=== PATIENT | female | born 1945 | race Caucasian/White ===

== ENCOUNTER → 2018-09-15 | Outpatient (CLI) | payer MEDICARE, OTHER | LOC: M WHC 14:21 | DX: M85.879 Other specified disorders of bone density and structure, unspecified ankle and foot (principal); M85.851 Other specified disorders of bone density and structure, right thigh; M85.852 Other specified disorders of bone density and structure, left thigh; M85.88 Other specified disorders of bone density and structure, other site | CPT/HCPCS: 77080 ==

== ENCOUNTER 2019-04-29 21:20 | Emergency (ER) | payer MEDICARE, OTHER ==
[~2019-04-29] VITALS: Ht 170.2 cm; Wt 81.8 kg
[~2019-04-29 21:20] MED LIST: ACET65TA OR; ADVA1AER2 INH; AMLO2.5T OR; ASPI81TA83 OR; BENA40TA2 OR; CARD240T3 OR; COZA100T OR; DRISDOL PO; FENOFIBRATE PO; FISH1000 OR; GLIP5TAB2 PO; GLUC500T OR; OYST500T58 OR; PRED10TA2 OR; PRED20TA OR; SIMV10TA2 OR; VIBR100C OR; VITAMIN D 3 PO
[2019-04-29 22:19] LABS: BASO # 0.1 10^3/uL (0.0-0.2); BASO % 0.6 % (0.0-1.0); EOS # 0.7 10^3/uL (0.0-0.50); EOS % 7.7 % (0.0-3.0); HEMATOCRIT 41.3 % (36.0-47.0); HEMOGLOBIN 13.7 g/dl (12.0-15.5); LYMPH # 3.1 10^3/uL (1.5-4.5); LYMPH % 35.5 % (24.0-44.0); MEAN CORPUSCULAR HEMOGLOBIN 29.2 pg (27.0-33.0); MEAN CORPUSCULAR HGB CONC 33.2 g/dl (32.0-36.5); MEAN CORPUSCULAR VOLUME 88.1 fl (80.0-96.0); MONO # 0.7 10^3/uL (0.0-0.8); MONO % 7.7 % (0.0-5.0); NEUTROPHILS # 4.2 10^3/uL (1.8-7.7); NEUTROPHILS % 48.3 % (36.0-66.0); PLATELET COUNT, AUTOMATED 355 10^3/uL (150-450); RED BLOOD COUNT 4.69 10^6/uL (4.00-5.40); WHITE BLOOD COUNT 8.7 10^3/uL (4.0-10.0)
[2019-04-29 22:26] LABS: INR 0.94; PROTHROMBIN TIME 12.3 SECONDS (11.8-14.0)
[2019-04-29 22:27] LABS: PARTIAL THROMBOPLASTIN TIME 38.3 SECONDS (25.0-38.4)
[2019-04-29 22:39] VITALS: BP 107/52
[2019-04-29 22:52] LABS: BLOOD UREA NITROGEN 19 MG/DL (7-18); CALCIUM LEVEL 9.1 MG/DL (8.8-10.2); CARBON DIOXIDE LEVEL 24 MEQ/L (21-32); CHLORIDE LEVEL 106 MEQ/L (98-107); CK-MB VALUE MASS 1.2 NG/ML (<3.6); CPK CREATINE PHOSPHOKINASE 69 U/L (26-192); CREATININE FOR GFR 0.94 MG/DL (0.55-1.30); FREE T4 0.87 NG/DL (0.76-1.46); GLOMERULAR FILTRATION RATE > 60.0 (>39); GLUCOSE, FASTING 162 MG/DL (70-100); MB/CK RELATIVE INDEX 1.74 (< OR =4); POTASSIUM SERUM 3.5 MEQ/L (3.5-5.1); SODIUM LEVEL 142 MEQ/L (136-145); TROPONIN I < 0.02 NG/ML (< 0.10)
[2019-04-30] MEDS ORDERED: DIGOXIN 0.25 MG TAB PO ONE (01:30)
[2019-04-30 01:45] VITALS: BP 121/58
[2019-04-30] MEDS ORDERED: DIGO0.12 PO (01:50)
--- NOTE | 2019-04-30 07:39 | REP ---
Clinical: Chest pain. Comparison: 07/13/2014. Findings: Mediastinum and cardiac silhouette are within normal limits and stable. Lung hilliard demonstrate chronic stable interstitial changes. No acute consolidation, effusion, or pneumothorax. Skeletal structures intact. Impression: Chronic stable changes. No obvious acute cardiopulmonary process. Electronically Signed by Waldo Hyde MD 04/30/2019 07:31 A
--- NOTE | 2019-04-30 10:34 | ECGEPIP ---
[facility] - ED Test Date: 2019-04-29 Pat Name: BENJI RIOS Department: Room: - Gender: Female Air Lift Operator: LAUREN : 1945 Requested By: OMAR Braxton Order Number: [id number] Reading MD: Symone Yan Measurements Intervals [place] Rate: 123 P: [place]: -1 QRS: 25 QRSD: 112 T: 220 QT: 295 QTc: 423 Interpretive Statements ATRIAL FIBRILLATION WITH RAPID VENTRICULAR RESPONSE MODERATE INTRAVENTRICULAR CONDUCTION DELAY ST DEVIATION AND MODERATE T-WAVE ABNORMALITY, CONSIDER No prior ISCHEMIA Electronically Signed on 04-30-2019 10:33:45 EDT by Symone Yan
--- NOTE | 2019-04-30 10:34 | ECGEPIP ---
[facility] - ED Test Date: 2019-04-29 Pat Name: BENJI RIOS Department: Room: - Gender: Female Banquet Lead: gage : 1945 Requested By: OMAR Braxton Order Number: [id number] Reading MD: Symone Yan Measurements Intervals [place] Rate: 69 P: 59 [place]: 252 QRS: 15 QRSD: 118 T: 205 QT: 389 QTc: 419 Interpretive Statements SINUS RHYTHM WITH FIRST DEGREE AV BLOCK MODERATE INTRAVENTRICULAR CONDUCTION DELAY ST DEVIATION AND MODERATE T-WAVE ABNORMALITY, CONSIDER LATERAL ISCHEMIA PRIOR ATRIAL FIBRILLATION 04/29/19 21:30 Electronically Signed on 04-30-2019 10:34:13 EDT by Symone Yan
[2019-05-12] MEDS ORDERED: SIMV10TA2 PO (14:05)
[2019-05-12] MEDS ORDERED: ASPI81TA26 PO (14:05)
[2019-05-12] MEDS ORDERED: PROAAER10 INH (14:05)
[2019-05-12] MEDS ORDERED: REFR0.5D8 OU (14:05)
[2019-05-12] MEDS ORDERED: FENO1TAB PO (14:05)
[2019-05-12] MEDS ORDERED: FLAX1CAP5 PO (14:05)
[2019-05-12] MEDS ORDERED: OYST500T10 PO (14:05)
[2019-05-12] MEDS ORDERED: FLON1SPR (14:05)
[2019-05-12] MEDS ORDERED: CALC600C3 PO (14:05)
[2019-05-12] MEDS ORDERED: DRIS50003 PO (14:05)
[2019-05-12] MEDS ORDERED: ADVA230A INH (14:05)
[2019-05-12] MEDS ORDERED: METF500T13 PO ×2 (14:05)
[2019-05-12] MEDS ORDERED: DILT240C61 PO (14:05)
[2019-05-12] MEDS ORDERED: TRIC145T22 PO (14:05)
[2019-05-12] MEDS ORDERED: VENTAER INH (14:05)
[2019-05-12] MEDS ORDERED: FISH1000 PO (14:05)
[2019-05-12] MEDS ORDERED: GLIP10TA PO (14:20)
== END 2019-04-30 01:55 | disposition home or self-care (01) ==
LOC: M ED 21:20
DX: I48.91 Unspecified atrial fibrillation (principal); Z88.0 Allergy status to penicillin

== ENCOUNTER 2019-05-13 12:51 | Day surgery (SDC) | payer MEDICARE, OTHER ==
[2019-05-13] VITALS (8 sets, daily range): BP systolic 127–174; BP diastolic 60–72
[~2019-05-13] VITALS: Ht 167.6 cm; Wt 72.8 kg
[~2019-05-13 12:51] MED LIST changes: +ADVA230A INH; +ASPI81TA26 PO; +CALC600C3 PO; +DIGO0.12 PO; +DILT240C61 PO; +DRIS50003 PO; +FENO1TAB PO; +FISH1000 PO; +FLAX1CAP5 PO; +FLON1SPR; +GLIP10TA PO; +METF500T13 PO; +OYST500T10 PO; +PROAAER10 INH; +REFR0.5D8 OU; +SIMV10TA2 PO; +TRIC145T22 PO; +VENTAER INH
[2019-05-13] MEDS ORDERED: LIDOCAINE 1% SDV INJ 30 ML VIAL As Ordered ONE ×2 (12:57→14:35)
[2019-05-13] MEDS ORDERED: BACITRACIN PWD 50,000 UNITS VIAL As Ordered ONE ×2 (12:58→14:35)
[2019-05-13] MEDS ORDERED: ISOVUE-300 61% 50ML VIAL (Q9967) As Ordered ONE ×2 (12:58→14:35)
[2019-05-13] MEDS ORDERED: ceFAZolin 1GM INJ (J0690 PER 500MG) As Ordered ONE ×2 (13:31→15:07)
[2019-05-13] MEDS ORDERED: AMIODARONE HCL 360 MG/200 ML PREMIXED BAG (NEXTERONE) As Ordered ONE (14:35)
[2019-05-13] MEDS ORDERED: MIDAZOLAM INJ 2 MG/2 ML VIAL (J2250) As Ordered ONE (14:49)
[2019-05-13] MEDS ORDERED: ONDANSETRON 4MG/2ML VIAL (J2405) As Ordered ONE (14:49)
[2019-05-13] MEDS ORDERED: LIDOCAINE 2% INJ 100 MG/5 ML SDV (FOR ANES.) As Ordered ONE (14:49)
[2019-05-13] MEDS ORDERED: fentaNYL 100 MCG/2 ML INJECTION (J3010) As Ordered ONE (14:49)
[2019-05-13] MEDS ORDERED: PROPOFOL 200 MG/20 ML VIAL As Ordered ONE (14:49)
[2019-05-13] MEDS ORDERED: ceFAZolin 2 GM/D5W 50 ML IV BAG (J0690 PER 500MG) IV ONE (15:49)
[2019-05-13] MEDS ORDERED: ACETAMINOPHEN TAB 650MG DOSE (2X325MG) PO PRN (16:15)
[2019-05-13] MEDS ORDERED: ONDANSETRON 4MG/2ML VIAL (J2405) IV PRN (16:30)
[2019-05-13] MEDS ORDERED: ALBUTEROL SULFATE 2.5 MG/0.5 ML INH NEB SOLN INH PRN (16:30)
[2019-05-13] MEDS ORDERED: LR 1,000 ML IV SCH (16:30)
[2019-05-13] MEDS ORDERED: NORCO, ANEXSIA 5/325MG TABLET (HYDROcodone/ACETAMINOPHEN) PO PRN (16:30)
[2019-05-13] MEDS: metFORMIN (GLUCOPHAGE) 1000 MG TABLET PO SCH (18:10)
[2019-05-13] MEDS ORDERED: SIMVASTATIN 5 MG TAB PO SCH (21:00)
[2019-05-13] MEDS: ADVAIR HFA 230/21MCG INHALER INH SCH (21:10)
[2019-05-13] MEDS: ceFAZolin SOD 1 GM in D5W MINI-BAG PLUS 50 ML IV SCH (21:17)
--- NOTE | 2019-05-13 22:26 | ECGEPIP ---
[facility] Test Date: 2019-05-13 Pat Name: BENJI RIOS Department: Room: R2655-25 Gender: Female Technology Support Analyst: VI : 1945 Requested By: Jaime Wilkes Order Number: [id number] Reading MD: Jaime Wilkes Measurements Intervals [place] Rate: 70 P: 235 [place]: 119 QRS: QRSD: 147 T: 190 QT: 454 QTc: 491 Interpretive Statements Dual-chamber pacemaker Sinus alternating with atrially paced rhythm Fairly consistent ventricular pacing Paced QRS complexes with normal axis and Left bundle branch block configuration in keeping with RV outflow tract stimulation. Isolated PVCs. Pacing is new from 04/29/19. Electronically Signed on 05-13-2019 22:25:53 EDT by Jaime Wilkes
[2019-05-14 04:00] VITALS: BP 139/59
[2019-05-14] MEDS: ceFAZolin SOD 1 GM in D5W MINI-BAG PLUS 50 ML IV SCH ×2 (05:36→14:46)
--- NOTE | 2019-05-14 06:54 | RO ---
DATE OF PROCEDURE: 05/13/2019 PREOPERATIVE DIAGNOSES: 1. Tachy-seble syndrome. 2. Paroxysmal supraventricular tachycardia requiring negative chronotropic therapy. 3. Hypertensive heart disease. POSTOPERATIVE DIAGNOSES: 1. Tachy-seble syndrome. 2. Paroxysmal supraventricular tachycardia requiring negative chronotropic therapy. 3. Hypertensive heart disease. PROCEDURE: Implantation of permanent dual-chamber pacemaker IMPLANTING PC TECHNICIAN: Dr. Jaime Wilkes ANESTHESIOLOGIST: Dr. Sesay TYPE OF ANESTHESIA: Monitored local anesthesia. CLINICAL SUMMARY: This 74-year-old mother of four grown children, retired resident of [place], [place] is well-known to my cardiology practice having a history of hypertensive heart disease complicated by abnormal EKG paroxysmal supraventricular tachycardia (PSVT)/paroxysmal atrial fibrillation and abnormal EKG. A Holter monitor study was performed recently and showed paroxysmal atrial fibrillation with rapid ventricular response alternating with sinus arrest and junctional escape rhythms and intermittent asystolic pauses of greater than 3 seconds. In light of her need for dual negative chronotropic therapy to control her atrial tachyarrhythmias, implantation of permanent dual-chamber pacemaker was recommended. On a day-by-day basis, she has not been aware of any chest pain or shortness of breath, fatigue is her usual effort limiting symptom, denies actual lightheadedness or collapse. To date, no history of systemic thromboembolic event. Pleasant elderly woman of medium body build laying comfortably flat. Heart rate 64 bpm and regular, blood pressure 134/60. No pallor or cyanosis. Normal oral moisture. Trachea midline. Neck veins 3 cm above the sternal angle. Normal-appearing chest configuration and expansion with good air entry over both lung hilliard. No abnormal pulmonary adventitious sounds. Apical impulse at the midclavicular line fifth costal space. S1 normal, S2 is normal, S4 but no S3 gallop. Has a systolic ejection murmur over the right base. Normal carotid upstrokes and volume with no bruits. Her abdomen was soft. No dependent edema. Peripheral pulses were normal. EKG: This showed a sinus rhythm without AV block, but diffuse ST/T-wave abnormalities. Treadmill heart scan January 2011 showed fair exercise tolerance for age with no chest pain or EKG change. Normal LV wall motion. Ejection fraction 64% with chest wall and diaphragmatic attenuation artifacts, but no reversible defect. Echocardiogram August 14 showed borderline left ventricular hypertrophy with normal wall motion. Mildly dilated left atrium with LV diastolic dysfunction. Normal right heart chamber sizes and mild pulmonary hypertension. AV sclerosis with mild insufficiency. Mild mitral annular calcification with very mild insufficiency. Event monitor March 22, 2019 to May 06, 2019 - 14 days showed underlying sinus rhythm with first-degree AV block, occasional premature atrial contractions (PACs), atrial couplet and nonsustained runs of atrial fibrillation with controlled and intermittent rapid ventricular responses with heart rate range observed from 21 beats per minute to 188 beats per minute with her tachycardia, recurrent pauses as mentioned with junctional escape rhythms as slow as 21 beats per minute with longest pause at 3.2 seconds. Symptoms of flutter correlated with her atrial fibrillation. DESCRIPTION OF PROCEDURE: In the fasting state having received Ancef 2 grams IV premedication and having signed informed consent, the patient was taken to the operating theater. Numerous skin electrodes were applied to facilitate continuous electrocardiographic monitoring. The left subclavian region was prepped and draped in the usual fashion. The skin was infiltrated with 1% Xylocaine and the left axillary vein was catheterized using the micropuncture technique. A 5 cm linear incision was made several centimeters below and parallel to the left clavicle. Dissection was carried down the level of the pectoralis fascia and a pocket was fashioned below the level of the incision line. Two bipolar active fixation screw-in leads with steroid tips were then positioned to the right ventricle outflow track and the high right atrial appendage under fluoroscopic and electrocardiographic control. The right ventricular lead ([employer] model number [id number]/52, serial number [id number]) measurements were: Stimulation threshold 0.25 V/0.4 ms/impedance 450 ohms. The R wave amplitude measured 1.04 mV. The atrial lead ([employer] model number UOC2042M/46, serial number [id number]) measurements were: 1.5 V/0.8 ms/impedance 460 ohms. The P wave amplitude measured 1.7 mV. These leads were then connected to a dual-chamber pulse generator ([employer] - Assurity MRI compatible, model number [id number], serial number [id number]) and appropriate DDD pacing was documented. This device was placed in the pocket and secured in position with a suture through the upper right-hand corner of the epoxy header. The subcutaneous tissues were approximated using a running chromic suture and skin was closed using osmin. Dry dressing was applied and the patient was returned to recovery room in good condition. Postoperative EKG showed consistent atrially paced rhythm at 60 bpm with spontaneous AV conduction and narrow QRS complexes. Her portable upright chest x-ray showed good lead position with no pneumothorax. Our plan is to admit her to telemetry overnight and we will plan on obtaining a followup chest x-ray and EKG in the morning along with re-interrogation of her device. We are cautiously optimistic she will be able to be discharged home tomorrow before dinner. She will receive an additional three doses of Ancef 1 gram IV q.8 h. Estimated blood loss less than 50 mL. No apparent complications.
--- NOTE | 2019-05-14 07:04 | REP ---
Portable chest, single AP view with the patient sitting: Comparison is seven 01/14/2019. There has been interval placement of a dual chamber pacemaker with the pacing tips in satisfactory location. There is no pneumothorax. The cardiac apex obscures the left costophrenic angle as previously. The right lung is clear. The kayy, mediastinum, skeletal structures are unremarkable. Impression: No pneumothorax. The left costophrenic angle is obscured by the cardiac apex. Electronically Signed by Chicho Chan MD 05/14/2019 06:55 A
[2019-05-14] MEDS: ADVAIR HFA 230/21MCG INHALER INH SCH (07:47)
[2019-05-14 08:00] VITALS: BP 148/78
[2019-05-14] MEDS ORDERED: metFORMIN (GLUCOPHAGE) 500 MG TAB PO SCH (08:00)
[2019-05-14 08:56] VITALS: BP 180/79
[2019-05-14] MEDS ORDERED: FENOFIBRATE 145 MG TAB (TRICOR) PO SCH (09:00)
[2019-05-14] MEDS ORDERED: DIGOXIN 0.125 MG TAB PO SCH (09:00)
[2019-05-14 12:00] VITALS: BP 150/72
--- NOTE | 2019-05-14 13:47 | REP ---
Chest x-ray: Two views. History: Pacemaker insertion. Comparison study: May 13, 2019. Findings: A bipolar pacemaker is again noted in the right heart via the left side. There is no evidence of pneumothorax or hydrothorax. The heart is not felt to be enlarged. Skin osmin are noted above the power plant in the left chest wall soft tissues. Pulmonary vasculature is not increased. Lung hilliard are well inflated and clear. Pleural angles are sharp. Impression: No acute disease. Pacemaker in place. No complication is identified. Electronically Signed by Gabriel Browne MD 05/14/2019 07:21 P
[2019-05-14 16:00] VITALS: BP 149/68
--- NOTE | 2019-05-14 18:14 | IPN ---
CARDIOLOGY PROGRESS NOTE DATE: 05/14/2019 SUBJECTIVE: Patient has had only minimal incisional discomfort. Has been up out of bed without lightheadedness. No awareness of her heart action at this time. OBJECTIVE: Pleasant, bright, elderly lady currently lying comfortably with the head of bed elevated 30 degrees. Heart rate 61 beats per minute and regular, blood pressure 149/68 supine, respiratory rate 18, oxygen saturation 95%. Afebrile. No pallor or cyanosis. Normal oral moisture. Trachea midline. Good air entry over both lung hilliard. Her incision left subclavian region appears to be healing well. Her dressing was changed. KNOCKER OUT: This is verifying appropriate pacer function. Currently with atrial pacing and spontaneous atrioventricular (AV) conduction. EKG: Tracing this afternoon shows consistent atrially paced rhythm at 60 bpm with spontaneous AV conduction and relatively narrow QRS complexes showing an incomplete left bundle branch block pattern. Diffuse nonspecific repolarization abnormalities unchanged from before. PA LEFT LATERAL CHEST X-RAY: Study performed today was reviewed independently and shows at least borderline cardiomegaly with slightly unfolded thoracic aorta, but normal pulmonary vasculature. Hyperinflated lung hilliard with somewhat flattened diaphragms. No infiltrate or pleural effusion. New pacemaker pulse generator left subclavian region with leads terminating in the high right atrial appendage and distal right ventricular septum. Complete pacemaker interrogation was performed showing excellent intracardiac electrograms and pacing thresholds dramatically improved from postoperatively yesterday. We were able to program on automatic measurement of the atrial pacing threshold (ACap Confirm) and the ventricular autocapture functions. Anticipated battery longevity in excess of 10 years. FINAL DIAGNOSES: 1. Tachy-seble syndrome - now with dual-chamber pacemaker in situ. 2. Paroxysmal atrial fibrillation with rapid ventricular response: Can now safely continue on combination digoxin and diltiazem. 3. AV block - first-degree: Currently has spontaneous AV conduction in light of VIP mode, but should her AV delay lengthen, she will have a paced rhythm with AV delay sense to 150 milliseconds paced 200 milliseconds. 4. Hypertensive heart disease (benign without heart failure): Blood pressure is adequately controlled in light of her age. DISCHARGE MEDICATIONS AND RECOMMENDATIONS: At this point, we feel it is safe for the patient to be discharged home. We have requested that she perform activities of daily living, but only light activities with her left arm until her osmin are removed in my office 05/22/2019 at 9:30 a.m. We have also requested that she keep her incision dry. She has been encouraged to contact us promptly for any abnormal erythema, swelling or discharge. Her diet will resume, no added salt. Medications will continue: - digoxin 125 mcg daily - diltiazem 240 mg daily - simvastatin 10 mg nightly - aspirin 81 mg daily - fenofibrate 145 mg daily - glipizide 2.5 mg daily - metformin 500 mg every morning and 1 gram every evening - Advair 230/21 two inhalation twice a day - albuterol inhaler two puffs every 4 hours as needed dyspnea - Refresh Tears 0.5% each eye four times a day - calcium with vitamin D one tablet daily - fish oil 1 gram daily - vitamin D3 2000 units daily.
[2019-05-14] MEDS: metFORMIN (GLUCOPHAGE) 1000 MG TABLET PO SCH (18:19)
--- NOTE | 2019-05-14 19:20 | ECGEPIP ---
[facility] Test Date: 2019-05-14 Pat Name: BENJI RIOS Department: Room: [place] [address] Gender: Female Plan Examiner: ALISHA : 1945 Requested By: Jaime Wilkes Order Number: [id number] Reading MD: Jaime Wilkes Measurements Intervals [place] Rate: 66 P: 30 [place]: 232 QRS: 36 QRSD: 126 T: 207 QT: 423 QTc: 446 Interpretive Statements Consistent atrially paced rhythm with spontaneous AV conduction with first-degree AV block. incomplete Left bundle branch block configuration with diffuse ST/T-wave abnormalities Reduced ventricular pacing from 05/13/19. [place] complexes appearing similar to 04/29/19 at 2355 hrs. Electronically Signed on 05-14-2019 19:20:34 EDT by Jaime Wilkes
[2019-06-24] MEDS ORDERED: METF-791 PO ×2 (10:29)
== END 2019-05-14 18:45 | disposition home or self-care (01) ==
LOC: M SDC 12:51 → M PCU 16:06 → M SDC 05-14 18:45
PROVIDERS: ATTEND Internal Medicine Cardiovascular Disease
DX: I49.5 Sick sinus syndrome (principal); I47.1 Supraventricular tachycardia; I11.9 Hypertensive heart disease without heart failure; I48.91 Unspecified atrial fibrillation; E11.9 Type 2 diabetes mellitus without complications; J44.9 Chronic obstructive pulmonary disease, unspecified; Z79.84 Long term (current) use of oral hypoglycemic drugs; Z79.82 Long term (current) use of aspirin; Z79.899 Other long term (current) drug therapy; M81.0 Age-related osteoporosis without current pathological fracture
CPT/HCPCS: 33208; 71045; 71046; 93005; 94640; 96365; 96366; C1785; C1898; J0690; J2250; J2405; J3010

== ENCOUNTER 2019-06-15 17:40 | Emergency (ER) | payer MEDICARE, OTHER ==
[~2019-06-15] VITALS: Ht 170.2 cm; Wt 72.2 kg
[2019-06-15 18:46] LABS: BASO # 0.1 10^3/uL (0.0-0.2); BASO % 0.9 % (0.0-1.0); EOS # 0.9 10^3/uL (0.0-0.50); EOS % 9.8 % (0.0-3.0); HEMATOCRIT 42.7 % (36.0-47.0); HEMOGLOBIN 14.1 g/dl (12.0-15.5); LYMPH # 3.6 10^3/uL (1.5-4.5); LYMPH % 40.6 % (24.0-44.0); MEAN CORPUSCULAR HEMOGLOBIN 29.1 pg (27.0-33.0); MONO # 0.7 10^3/uL (0.0-0.8); NEUTROPHILS # 3.6 10^3/uL (1.8-7.7); NEUTROPHILS % 40.5 % (36.0-66.0); PLATELET COUNT, AUTOMATED 323 10^3/uL (150-450); RED BLOOD COUNT 4.85 10^6/uL (4.00-5.40); WHITE BLOOD COUNT 8.8 10^3/uL (4.0-10.0)
[2019-06-15] MEDS ORDERED: NITROGLYCERIN 0.4 MG SUBL TABLET SL PRN (19:00)
[2019-06-15] MEDS ORDERED: ASPIRIN 81 MG CHEW TABLET PO ONE (19:00)
[2019-06-15 19:08] VITALS: BP 125/61
[2019-06-15 19:11] LABS: INR 0.98; PROTHROMBIN TIME 12.7 SECONDS (11.8-14.0)
[2019-06-15 19:12] LABS: PARTIAL THROMBOPLASTIN TIME 37.6 SECONDS (25.0-38.4)
[2019-06-15 19:31] LABS: ALBUMIN 3.9 GM/DL (3.2-5.2); ALT/SGPT 20 U/L (12-78); BILIRUBIN,DIRECT 0.1 MG/DL (0.0-0.2); BILIRUBIN,TOTAL 0.3 MG/DL (0.2-1.0); BLOOD UREA NITROGEN 15 MG/DL (7-18); CALCIUM LEVEL 9.2 MG/DL (8.8-10.2); CARBON DIOXIDE LEVEL 24 MEQ/L (21-32); CHLORIDE LEVEL 105 MEQ/L (98-107); CK-MB VALUE MASS 3.1 NG/ML (<3.6); CPK CREATINE PHOSPHOKINASE 93 U/L (26-192); CREATININE FOR GFR 0.77 MG/DL (0.55-1.30); GLOMERULAR FILTRATION RATE > 60.0 (>39); GLUCOSE, FASTING 112 MG/DL (70-100); LIPASE 208 U/L (73-393); MB/CK RELATIVE INDEX 3.33 (< OR =4); PHOSPHORUS LEVEL 3.7 MG/DL (2.5-4.9); POTASSIUM SERUM 3.8 MEQ/L (3.5-5.1); SODIUM LEVEL 139 MEQ/L (136-145); TOTAL PROTEIN 7.7 GM/DL (6.4-8.2)
[2019-06-15 21:22] LABS: CK-MB VALUE MASS 7.1 NG/ML (<3.6); MB/CK RELATIVE INDEX 7.03 (< OR =4); TROPONIN I 2.38 NG/ML (< 0.10)
[2019-06-15] MEDS ORDERED: HEPARIN DRIP 25,000 UNITS in APPROPRIATE DILUENT 1 EA IV SCH (21:41)
[2019-06-15] MEDS ORDERED: HEPARIN SOD (PORCINE) 5000 UNITS/ML VIAL IV ONE (21:45)
[2019-06-15 22:26] VITALS: BP 122/65
--- NOTE | 2019-06-16 10:32 | ECGEPIP ---
[facility] - ED Test Date: 2019-06-15 Pat Name: BENJI RIOS Department: Room: - Gender: Female Job Placement Officer: : 1945 Requested By: ELIOT Olivares Order Number: [id number] Reading MD: Symone Yan Measurements Intervals [place] Rate: 88 P: 76 [place]: 244 QRS: 23 QRSD: 118 T: 119 QT: 354 QTc: 428 Interpretive Statements SINUS RHYTHM WITH FIRST DEGREE AV BLOCK WITH FREQUENT VENTRICULAR PREMATURE COMP COMPLEXES LOW QRS VOLTAGE IN PRECORDIAL LEADS MODERATE INTRAVENTRICULAR CONDUCTION DELAY NONSPECIFIC ST & T-WAVE ABNORMALITY Electronically Signed on 06-16-2019 10:32:28 EDT by Symone Yan
--- NOTE | 2019-06-16 10:32 | ECGEPIP ---
[facility] - ED Test Date: 2019-06-15 Pat Name: BENJI RIOS Department: Room: - Gender: Female Ditcher Operator: : 1945 Requested By: ELIOT Olivares Order Number: [id number] Reading MD: Symone Yan Measurements Intervals [place] Rate: 120 P: ID: 0 QRS: 64 QRSD: 110 T: 180 QT: 293 QTc: 414 Interpretive Statements ATRIAL FIBRILLATION WITH RAPID VENTRICULAR RESPONSE WITH ABERRANT CONDUCTION OR ENZO VENTRICULAR PREMATURE COMPLEXES LOW QRS VOLTAGE IN PRECORDIAL LEADS NONSPECIFIC ST & T-WAVE ABNORMALITY IVCD Electronically Signed on 06-16-2019 10:31:56 EDT by Symone Yan
--- NOTE | 2019-06-16 10:54 | REP ---
PORTABLE CHEST X-RAY: SINGLE VIEW. HISTORY: Chest pain. COMPARISON CHEST X-RAY: May 14, 2019 FINDINGS: EKG monitoring electrodes overlie the chest. Bipolar pacemaker is seen in the right heart via the left side as before. Heart size is mildly enlarged unchanged. Pulmonary vasculature is not increased. The pleural angles are sharp. Lung hilliard are clear. Pulmonary vasculature is not increased. IMPRESSION: Bipolar pacemaker in place. Mild cardiomegaly. Otherwise no acute disease. Electronically Signed by Gabriel Browne MD 06/16/2019 07:11 P
[2019-06-24] MEDS ORDERED: METF-791 PO ×2 (10:29)
== END 2019-06-15 22:28 | disposition short-term general hospital (02) ==
LOC: M ED 17:40
DX: I21.4 Non-ST elevation (NSTEMI) myocardial infarction (principal); I48.91 Unspecified atrial fibrillation; J44.9 Chronic obstructive pulmonary disease, unspecified; J45.909 Unspecified asthma, uncomplicated; E11.9 Type 2 diabetes mellitus without complications; I10 Essential (primary) hypertension; E78.5 Hyperlipidemia, unspecified; Z95.0 Presence of cardiac pacemaker; Z79.899 Other long term (current) drug therapy; Z79.84 Long term (current) use of oral hypoglycemic drugs; Z79.01 Long term (current) use of anticoagulants; Z88.0 Allergy status to penicillin; Z88.8 Allergy status to other drugs, medicaments and biological substances

== ENCOUNTER 2019-06-24 08:18 | Inpatient (IN) | payer MEDICARE, OTHER ==
[2019-06-24] VITALS (9 sets, daily range): BP systolic 119–140; BP diastolic 58–71
[~2019-06-24] VITALS: Ht 170.2 cm; Wt 74.3 kg
[2019-06-24] MEDS ORDERED: LR 1,000 ML IV SCH ×2 (08:45→15:30)
[2019-06-24] MEDS: DIGOXIN 0.125 MG TAB PO SCH (09:00)
[2019-06-24 10:24] LABS: HEMATOCRIT 33.8 % (36.0-47.0); HEMOGLOBIN 10.9 g/dl (12.0-15.5); MEAN CORPUSCULAR HEMOGLOBIN 27.9 pg (27.0-33.0); MEAN CORPUSCULAR HGB CONC 32.2 g/dl (32.0-36.5); MEAN CORPUSCULAR VOLUME 86.7 fl (80.0-96.0); PLATELET COUNT, AUTOMATED 388 10^3/uL (150-450); WHITE BLOOD COUNT 6.7 10^3/uL (4.0-10.0)
[2019-06-24] MEDS ORDERED: DIGO0.12 PO (10:29)
[2019-06-24] MEDS ORDERED: VITA200020 PO (10:29)
[2019-06-24] MEDS ORDERED: CARV3.12 PO (10:29)
[2019-06-24] MEDS ORDERED: ELIQ5TAB PO (10:29)
[2019-06-24] MEDS ORDERED: METF500T4 PO ×2 (10:29)
--- NOTE | 2019-06-24 10:32 | HPE ---
ADMISSION HISTORY AND PHYSICAL DATE OF ADMISSION: 06/24/2019 ADMITTING PHYSICIAN: Dr. Jaime Wilkes INDICATION: Pacemaker displacement/tachy-seble syndrome - paroxysmal atrial fibrillation/heart failure (systolic and diastolic/acute). HISTORY: This 74-year-old mother of five (one ), resident of [place], [place], is well known to my cardiology practice with hypertensive heart disease complicated by abnormal EKG, paroxysmal supraventricular tachycardia/paroxysmal atrial fibrillation with rapid ventricular response/sinus node dysfunction undergoing dual chamber pacemaker implantation 05/13/2019. At the time of the implant, we obtained excellent intracardiac electrograms and pacing thresholds with postoperative EKG and telemetry showing appropriate atrial paced rhythm with spontaneous AV conduction. Chest x-rays showed stable lead position with no pneumothorax. She was discharged home 05/14/2019 with scheduled followup in our office for staple removal 05/22/2019. On 06/16/2019, she presented to [facility] emergency room with prolonged bout of chest pain and was found to have nonspecific EKG ST/T-wave changes with elevated troponin I. She was transferred to [facility] for cardiac catheterization. This was performed upon her transfer and showed global left ventricular hypokinesis with estimated LVEF of 20%, LVEDP 22 mmHg, but no evidence of coronary artery disease. 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 She was discharged the next day having hotel casino floorperson show sinus rhythm/atrial fibrillation/paced beats. Discharge vital signs showed a pulse of 108 BPM, blood pressure 100/59, respiratory rate 18, O2 saturation 95%, body mass index (BMI) 25.5, weight 157 pounds. Blood work showed a hemoglobin of 11.4, normal white blood cell count and platelet count. Troponin I level reached a maximum of 2.47. Pro-BNP level measured 4860. PT/INR was normal. Creatinine was 0.65. She was discharged on digoxin 0.125 mg daily, carvedilol 3.125 mg twice a day, Eliquis 5 mg twice a day, fenofibrate 145 mg daily, insulin sliding scale with meals three times a day, simvastatin 5 mg at bedtime, mometasone-formoterol inhaler 2 puffs twice a day, senna/docusate 2 tablets nightly. Just prior to her discharge, she was evaluated by the [employer] pacer insurance follow up representative who recommended a chest x-ray be taken. This documented atrial pacing lead displacement. Curiously, our service was not notified of this problem. I incidentally spoke with the insurance follow up representative yesterday evening and was informed of this problem and arranged for her current admission. At this point, she feels weak and dyspneic with minimal effort, but no orthopnea. No further chest pain. Remains unaware of her heart action. Has not fallen. No systemic thromboembolic event. OTHER KNOWN PAST CARDIAC DISEASE/EVENTS/TESTS: 07/28/2018 - Echocardiogram: Showed borderline concentric left ventricle hypertrophy with normal wall motion, left ventricle ejection fraction (LVEF) 65%. Moderately dilated left atrium with impairment of LV diastolic function and estimated mean left atrial pressure 14.9 mmHg. Normal right heart chamber sizes and motion with mild pulmonary hypertension. Normal inferior vena cava (IVC) size and collapse against an elevated central venous pressure. Mild aortic valvular sclerosis with mild insufficiency. Mild degenerative changes of her mitral valvular apparatus with very mild insufficiency. No pericardial effusion. Echocardiogram performed 06/17/2019 at [facility], briefly reported, shows a somewhat better global left ventricular systolic function and she was not discharged on LifeVest given her situation, no mention of pericardial effusion. CORONARY RISK FACTORS: Advanced age. Chronic hypertension. Hypercholesterolemia. Insulin-dependent diabetes mellitus. Family history of premature coronary heart disease. Lifelong nonsmoker with no obesity or history of symptomatic carotid vascular disease. OTHER PAST MEDICAL AND SURGICAL HISTORY: Prior weight problem. Asthmatic bronchitis. Thyroid goiter on hormone replacement therapy. Pituitary adenoma removed 2000. Bilateral cataract extraction. Cholecystectomy. Total abdominal hysterectomy. Prior kidney stones. Prior polypectomy. Removal of carcinoid tumor 2007. Diverticulosis. REVIEW OF SYSTEMS: Denies any recent fever, chills or weight loss. Wears corrective lenses. No hearing problems. Denies any cough, hemoptysis or sputum production. Fair appetite with no abdominal pain, change in bowel habit or GI bleeding. Nocturia times one is chronic. No dysuria or hematuria. No apparent arthralgia, myalgia, skin rashes, lumps or bumps. No lateralizing neurological deficits. Denies any anxiety or depression, but does suffer from fatigue. Some hair loss. Unaware of her mild anemia. Has a history of environmental allergies/seasonal allergies. MEDICATIONS: - digoxin 0.25 mg by mouth daily - carvedilol 3.125 mg twice a day - simvastatin 5 mg at bedtime - Tricor 145 mg daily - Advair Diskus 230-21 two puffs twice a day - Ventolin inhaler two puffs four times a day as needed - metformin 500 mg tablets one every a.m. and two every p.m. - Eliquis 5 mg twice a day - calcium/vitamin D one tablet twice a day ALLERGIES: - AMOXICILLIN (itching) - BENAZEPRIL (angioedema) - LOSARTAN (angioedema) PHYSICAL EXAMINATION: Heart rate 64 BPM and regular, blood pressure 134/60, respiratory rate 16, O2 saturation pending, body mass index (BMI) 25.3. Pleasant elderly woman of medium body build lying comfortably flat. Eyes: Normal conjunctivae and lids. No xanthelasma. ENT/Mouth: Normal oral moisture. No central cyanosis or pallor. Neck: Trachea midline. Neck veins 3 cm above the sternal angle. Slight thyroid enlargement. Respiratory: Normal chest configuration and chest expansion with good air entry over both lung hilliard. No current abnormal pulmonary adventitious sounds. Cardiovascular: Well-healed left subclavian pacemaker incision. Apical impulse midclavicular line fifth intercostal space. S1 and S2 were normal. Unable to detect S2 splitting. S4 but no S3 gallop. Systolic ejection murmur over the right base. No diastolic murmur or rub. Normal carotid upstrokes and volume with no bruits. Upper extremity and lower extremity peripheral pulses were symmetrical and normal. Abdominal aorta was palpable, but not aneurysmal. No bruits. No dependent edema. Extremities: No clubbing, peripheral cyanosis or splinter hemorrhages. GI: Soft, nontender abdomen with no hepatosplenomegaly. Normal bowel sounds. Rectal examination not indicated. Musculoskeletal: No obvious joint deformities. Some proximal muscle weakness, but normal tone. Neuro/Psych: Bright, alert and oriented. Gave a fair history. Eye, facial and extremity movements were symmetrical and normal. No abnormal movements. Skin: No obvious rashes, ecchymotic lesions, pallor or icterus. LABORATORY DATA/BLOOD WORK/CHEST X-RAY AND EKG: Are all pending at this time. PROVISIONAL DIAGNOSIS: 1. Pacemaker displacement: Despite previous radiographic evidence of stable lead position for 24 hours while she was in hospital following her pacer implant 05/13/2019, in the interim, she has developed an atrial lead displacement and this may have accounted for chest discomfort on 06/16/2019. The patient will be kept nothing by mouth (n.p.o.) and our plan is to proceed with atrial lead repositioning under monitored local anesthesia as soon as possible. The indication, procedure and risks were discussed with the patient and her who appeared to understand and agree. 2. 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 She will continue on a modest salt and fluid intake restriction along with digoxin and low-dose carvedilol. Unfortunately, she is not a candidate for JOEL inhibition, angiotensin receptor micheal, or ENTRESTO because of her angioedema history. We will consider introducing combination isosorbide dinitrate and hydralazine. We hope to refrain from the introduction of diuretic at this point. Based on her last echocardiogram at [facility] on 06/17/2019, her ejection fraction was at least 35% or better so she was not discharged with a LifeVest. We will track down the official echocardiographic report for our records. 3. Tachy-seble syndrome/paroxysmal atrial fibrillation/paroxysmal supraventricular tachycardia: As previously mentioned, has had history of atrial tachyarrhythmias with fairly rapid ventricular responses and only recently has shown signs of significant sinus node dysfunction warranting permanent pacemaker implant so that adequate negative chronotropic therapy could be administered. We suspect her atrial tachyarrhythmia is responsible for her left ventricular dysfunction as mentioned above. Her medications recently have been digoxin, carvedilol and Eliquis. These are currently on hold until following her atrial lead repositioning. 4. Hypertensive heart disease (benign with heart failure): As mentioned, longstanding history with definite documentation of at least borderline left ventricle hypertrophy and left ventricular diastolic dysfunction, not needing diuretic therapy to this point. Previous blood pressures had been controlled. Significant deterioration in global left ventricular systolic function recently noted at the time of cardiac catheterization suspected to be kept tachycardia mediated cardiomyopathy and we are cautiously optimistic this is reversible. Recent renal function has been normal. 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 No comment was made of any change at that time for cardiac catheterization or followup echocardiogram in [place]. I have discussed the above impressions with the patient and her . Further investigations and treatment will depend on her response to these initial measures. JOSH
[2019-06-24 10:37] LABS: ALT/SGPT 13 U/L (12-78); BILIRUBIN,TOTAL 0.3 MG/DL (0.2-1.0); BLOOD UREA NITROGEN 13 MG/DL (7-18); CALCIUM LEVEL 8.6 MG/DL (8.8-10.2); CARBON DIOXIDE LEVEL 28 MEQ/L (21-32); CHLORIDE LEVEL 110 MEQ/L (98-107); CREATININE FOR GFR 0.78 MG/DL (0.55-1.30); GLOMERULAR FILTRATION RATE > 60.0 (>39); GLUCOSE, FASTING 95 MG/DL (70-100); SODIUM LEVEL 143 MEQ/L (136-145); TOTAL PROTEIN 6.2 GM/DL (6.4-8.2)
[2019-06-24 10:40] LABS: INR 1.29; PROTHROMBIN TIME 15.9 SECONDS (11.8-14.0)
--- NOTE | 2019-06-24 11:14 | ECGEPIP ---
[facility] Test Date: 2019-06-24 Pat Name: BENJI RIOS Department: Room: [place] [address] Gender: Female Allergy And Immunology Specialist: CIRILO : 1945 Requested By: Jaime Wilkes Order Number: [id number] Reading MD: Bethany Alston Measurements Intervals [place] Rate: 69 P: 64 [place]: 241 QRS: 70 QRSD: 111 T: 154 QT: 408 QTc: 439 Interpretive Statements SINUS RHYTHM WITH FIRST DEGREE AV BLOCK PRIOR AFIB WITH PVCS POSSIBLE ANTERIORLATERAL MYOCARDIAL INFARCTION,RECENT MODERATE T-WAVE ABNORMALITY, MORE MARKED CONSIDER ANTERIOLATERAL ISCHEMIA NONSPECIFIC INFERIOR ST CHANGE PRIOR WITH DECREASE VOLTAGE PRECORDIAL LEADS NOW WITH DECRFEASED VOLTAGE LIMB LEADS C/W 06/15/19 Electronically Signed on 06-24-2019 11:14:12 EDT by Bethany Alston
[2019-06-24] MEDS ORDERED: LIDOCAINE 1% SDV INJ 30 ML VIAL As Ordered ONE (12:41)
[2019-06-24] MEDS ORDERED: MIDAZOLAM INJ 2 MG/2 ML VIAL (J2250) As Ordered ONE (13:08)
[2019-06-24] MEDS ORDERED: fentaNYL 100 MCG/2 ML INJECTION (J3010) As Ordered ONE (13:08)
[2019-06-24] MEDS ORDERED: PROPOFOL 500 MG/50 ML VIAL As Ordered ONE ×2 (13:08→14:41)
[2019-06-24] MEDS ORDERED: ceFAZolin 2 GM/D5W 50 ML IV BAG (J0690 PER 500MG) As Ordered ONE (13:17)
[2019-06-24] MEDS ORDERED: BACITRACIN PWD 50,000 UNITS VIAL As Ordered ONE (13:17)
[2019-06-24] MEDS ORDERED: ONDANSETRON 4MG/2ML VIAL (J2405) As Ordered ONE (14:53)
[2019-06-24] MEDS ORDERED: CALCIUM CARBONATE 500 MG CHEW U/D PO PRN (15:15)
[2019-06-24] MEDS ORDERED: ALBUTEROL 90 MCG/ACT 8GM HFA INHALER INH PRN (15:15)
[2019-06-24] MEDS ORDERED: fentaNYL 100 MCG/2 ML INJECTION (J3010) IV PRN (15:30)
[2019-06-24] MEDS ORDERED: PERCOCET 5MG/325MG TAB PO PRN (15:30)
[2019-06-24] MEDS ORDERED: ONDANSETRON 4MG/2ML VIAL (J2405) IV PRN (15:30)
--- NOTE | 2019-06-24 15:40 | REP ---
Portable chest x-ray: Single view. History: Pacemaker lead repositioning. Comparison chest x-ray June 15, 2019. Findings: The two lead pacemaker is seen in the right heart via the left side. There are skin osmin superior to the power plant in the left supraclavicular soft tissues. Oxygen delivery tubing and EKG electrodes are seen. Cardiomegaly is observed. There is no evidence of pneumothorax or hydrothorax. The lungs are exposed at a lesser level of inspiration. Impression: Two lead pacemaker in place. No evidence of pneumothorax. Cardiomegaly is observed. Lower level of inspiration. Electronically Signed by Gabriel Browne MD 06/24/2019 04:44 P
[2019-06-24] MEDS ORDERED: PERCOCET 5MG/325MG TAB As Ordered ONE (15:43)
[2019-06-24] MEDS ORDERED: LOSARTAN 25 MG TAB PO ONE (15:45)
--- NOTE | 2019-06-24 16:22 | RO ---
DATE OF PROCEDURE: 06/24/2019 PREPROCEDURE DIAGNOSIS: 1. Pacemaker displacement - atrial lead dislodgement. 2. Tachy-seble syndrome. 3. Paroxysmal atrial fibrillation with rapid ventricular response. POSTPROCEDURE DIAGNOSIS: 1. Pacemaker displacement - atrial lead dislodgement. 2. Tachybrady syndrome. 3. Paroxysmal atrial fibrillation with rapid ventricular response. OPERATIVE PROCEDURE: Repositioning of both atrial and ventricular pacing leads. IMPLANTING METAL BONDER: Jaime Wilkes MD JOURNALISM TEACHER: ANESTHESIOLOGIST: Dr. Braden DESCRIPTION OF PROCEDURE In the fasting state having signed informed consent and receiving Ancef 2 grams IV premedication, the patient was taken to the operating theater. Numerous skin electrodes were applied to facilitate continuous electrocardiographic monitoring. The left subclavian region, the site of her recent pacemaker implant was prepped and draped in the usual fashion. The skin was infiltrated with 1% Xylocaine and a linear incision was made over the old pacer site. Careful dissection was then carried down to the level of the pulse generator and similarly her leads were very carefully freed of scar tissue. Once the pacing leads were completely liberated we were able to manipulate the leads without difficulty. In light of suboptimal ventricular intrinsic electrograms we elected to reposition both atrial and ventricular leads under fluoroscopic and electrocardiographic control. The final ventricular position was the RV outflow tract having the best intrinsic electrograms and pacing thresholds. The final atrial position was actually the anterior portion of the right atrium. The standard position did not allow pacing even with pacing amplitude of 5 volts. The ventricular lead ([employer] model #UEJ5773V/52, serial # [id number]) measurements were: Stimulation threshold 0.5V/0.4 ms/lead impedance 498 ohms. The R wave amplitude measured 6.9 mV. The atrial lead ([employer] model #OFB2233D/46, serial #[id number]) measurements were: Stimulation threshold 0.7V/0.4 ms/impedance 386 ohms. The P wave amplitude measured 1.2 mV. These leads were then secured in position with sleeves sutured at the insertion site. They were then connected to her rate responsive dual-chamber pulse generator that was MRI compatible ([employer] [facility], model #[id number], serial #[id number]) and appropriate, DDD pacing was documented. Pulse generator was placed in the old pocket after we had thoroughly irrigated the pocket and incision with bacitracin solution. The pulse generator was secured in position with a suture through the upper right-hand corner of the epoxy header. The subcutaneous tissues were approximated using a running chromic suture and the skin was closed using osmin. Dry dressing was applied. The patient was returned to the recovery room in good condition. Postoperative portable upright chest x-ray showed good lead position with no pneumothorax. Her postoperative EKG showed consistent AV sequentially paced rhythm prior to our reprogramming AV delays. At this point, she will be continued on telemetry as we now introduce amiodarone antiarrhythmic therapy for her recurrent bouts of atrial fibrillation with rapid ventricular responses. Her carvedilol therapy will be increased and her digoxin will be adjusted in light of her amiodarone therapy. We will resume her Eliquis oral anticoagulant tomorrow afternoon. She will receive Ancef 1 gram IV every 8 hours for six doses while she is in hospital. No apparent complications. Estimated blood loss less than 10 mL.
[2019-06-24] MEDS: AMIODARONE 200 MG TAB (PACERONE) PO SCH ×2 (18:23→21:29)
[2019-06-24] MEDS: CARVedilol 3.125 MG TAB PO SCH (18:24)
[2019-06-24] MEDS: ADVAIR HFA 230/21MCG INHALER INH SCH (20:45)
[2019-06-24] MEDS: SIMVASTATIN 5 MG TAB PO SCH (21:29)
[2019-06-24] MEDS: APIXABAN 5 MG TAB (ELIQUIS) PO SCH (21:29)
[2019-06-24] MEDS: ceFAZolin SOD 1 GM in D5W MINI-BAG PLUS 50 ML IV SCH (21:30)
[2019-06-25] VITALS: BP 126/66
[2019-06-25] MEDS: CARVedilol 3.125 MG TAB PO SCH ×5 (00:10→23:38)
[2019-06-25] MEDS: ceFAZolin SOD 1 GM in D5W MINI-BAG PLUS 50 ML IV SCH ×3 (06:02→21:13)
--- NOTE | 2019-06-25 06:10 | ECGEPIP ---
[facility] Test Date: 2019-06-24 Pat Name: BENJI RIOS Department: Room: [place] [address] Gender: Female Pmp Certified Project Manager: CIRILO : 1945 Requested By: Jaime Wilkes Order Number: [id number] Reading MD: Bethany Alston Measurements Intervals [place] Rate: 60 P: 160 [place]: 224 QRS: 114 QRSD: 157 T: 261 QT: 497 QTc: 497 Interpretive Statements ELECTRONIC ATRIAL PACEMAKER ELECTRONIC VENTRICULAR PACEMAKER ABNORMAL RHYTHM ECG PACEMAKER NOT SEEN 06/24/19 1006 Electronically Signed on 06-25-2019 6:10:30 EDT by Bethany Alston
[2019-06-25] MEDS: APIXABAN 5 MG TAB (ELIQUIS) PO SCH ×2 (08:26→21:13)
[2019-06-25] MEDS: VITAMIN D 1,000 INTERNATIONAL UNITS TABLET PO SCH (08:26)
[2019-06-25] MEDS: LOSARTAN 25 MG TAB PO SCH (08:28)
[2019-06-25] MEDS: AMIODARONE 200 MG TAB (PACERONE) PO SCH ×3 (08:28→21:13)
[2019-06-25] MEDS: metFORMIN XR 500MG TAB *GLUCOPHAGE XR PO SCH ×2 (08:28→17:25)
[2019-06-25] MEDS: ADVAIR HFA 230/21MCG INHALER INH SCH ×2 (08:39→19:27)
[2019-06-25] MEDS ORDERED: FENOFIBRATE 145 MG TAB (TRICOR) PO SCH (09:00)
[2019-06-25 11:48] VITALS: BP 120/58
[2019-06-25 16:00] VITALS: BP 130/65
[2019-06-25 19:50] VITALS: BP 129/63
[2019-06-25] MEDS: SIMVASTATIN 5 MG TAB PO SCH (21:12)
[2019-06-25 23:59] VITALS: BP 120/60
[2019-06-26 04:00] VITALS: BP 119/56
[2019-06-26 05:25] LABS: HEMATOCRIT 30.8 % (36.0-47.0); MEAN CORPUSCULAR HEMOGLOBIN 28.2 pg (27.0-33.0); MEAN CORPUSCULAR HGB CONC 32.5 g/dl (32.0-36.5); PLATELET COUNT, AUTOMATED 323 10^3/uL (150-450); RED BLOOD COUNT 3.54 10^6/uL (4.00-5.40); WHITE BLOOD COUNT 6.8 10^3/uL (4.0-10.0)
[2019-06-26 05:48] LABS: ALBUMIN 2.7 GM/DL (3.2-5.2); BLOOD UREA NITROGEN 11 MG/DL (7-18); CALCIUM LEVEL 8.4 MG/DL (8.8-10.2); CARBON DIOXIDE LEVEL 30 MEQ/L (21-32); CHLORIDE LEVEL 105 MEQ/L (98-107); CREATININE FOR GFR 0.73 MG/DL (0.55-1.30); GLOMERULAR FILTRATION RATE > 60.0 (>39); GLUCOSE, FASTING 90 MG/DL (70-100); PHOSPHORUS LEVEL 3.4 MG/DL (2.5-4.9); SODIUM LEVEL 142 MEQ/L (136-145)
[2019-06-26] MEDS: ceFAZolin SOD 1 GM in D5W MINI-BAG PLUS 50 ML IV SCH ×2 (06:06→15:36)
[2019-06-26] MEDS: VITAMIN D 1,000 INTERNATIONAL UNITS TABLET PO SCH (07:41)
[2019-06-26] MEDS: DIGOXIN 0.125 MG TAB PO SCH (07:41)
[2019-06-26] MEDS: metFORMIN XR 500MG TAB *GLUCOPHAGE XR PO SCH ×2 (07:41→17:24)
--- NOTE | 2019-06-26 07:41 | ECGEPIP ---
[facility] Test Date: 2019-06-26 Pat Name: BENJI RIOS Department: Room: [place] [address] Gender: Female Monument Setter: VI : 1945 Requested By: Jaime Wilkes Order Number: [id number] Reading MD: Bethany Alston Measurements Intervals [place] Rate: 60 P: 180 FL: 302 QRS: 43 QRSD: 116 T: 155 QT: 483 QTc: 483 Interpretive Statements ELECTRONIC ATRIAL PACEMAKER FIRST DEGREE BLOCK MODERATE INTRAVENTRICULAR CONDUCTION DELAY PROLONGED QTC ST DEVIATION AND MODERATE T-WAVE ABNORMALITY, CONSIDER ANTEROLATERAL ISCHEMIA A ALSO NOSPECIFIC INF STTWA VENTRICULAR PACER NOT SEEN ON CURRENT Electronically Signed on 06-26-2019 7:41:00 EDT by Bethany Alston
[2019-06-26 07:42] VITALS: BP 134/65
[2019-06-26] MEDS: LOSARTAN 25 MG TAB PO SCH (07:42)
[2019-06-26] MEDS: APIXABAN 5 MG TAB (ELIQUIS) PO SCH (07:42)
[2019-06-26] MEDS: AMIODARONE 200 MG TAB (PACERONE) PO SCH ×2 (07:42→16:00)
[2019-06-26 07:52] VITALS: BP 134/65
[2019-06-26] MEDS: ADVAIR HFA 230/21MCG INHALER INH SCH (08:44)
[2019-06-26] MEDS ORDERED: CARVedilol 6.25 MG TAB PO SCH (09:00)
--- NOTE | 2019-06-26 09:29 | REP ---
Chest x-ray: Two views. History: Pacemaker lead repositioning. Comparison chest x-ray: June 24, 2019. Findings: A dual lead pacemaker is noted in the right heart via the left side. There are surgical clips adjacent to the power plant. EKG electrodes are seen. Mild cardiomegaly is observed. There is no evidence of pneumothorax or darren hydrothorax. There is very slight blunting of the posterior pleural angles on the lateral radiograph. No infiltrate is seen. Electronically Signed by Gabriel Browne MD 06/26/2019 04:00 P
[2019-06-26] MEDS ORDERED: SLF 3 ML SYR IV PRN (10:30)
[2019-06-26 11:59] VITALS: BP 128/60
[2019-06-26] MEDS ORDERED: SLF 3 ML SYR IV SCH (14:00)
--- NOTE | 2019-06-26 15:52 | IPN ---
DATE: 06/25/2019 CARDIOLOGY PROGRESS NOTE SUBJECTIVE: The patient has been up in the room to the bathroom on multiple occasions today without any shortness of breath, palpitations or lightheadedness. Has had only minimal incisional discomfort at her pacemaker site. Appears to be tolerating her medication adjustments without problem. OBJECTIVE: Pleasant elderly woman of medium body build, lay comfortably flat. Heart rate 60 beats per minute and regular, blood pressure 129/63, respiratory rate 18, oxygen saturation (O2) saturation 93% on room air. Afebrile. Weight this morning is stable. Has generated a negative fluid balance over the course of the past 24 hours. No pallor or icterus. Normal oral moisture. Trachea midline. Neck veins did not appear to be elevated. Normal chest configuration and chest expansion. Her pacemaker incision appears to be healing well without erythema, swelling or discharge. Her dressing was changed today. WINDOWS VMWARE ADMINISTRATOR: This shows intermittent atrial sensing and pacing with appropriate tracking and intermittent sensing and pacing of the ventricle as well. Serum magnesium was 1.9 on her current medical therapy. PACEMAKER INTERROGATION: [employer] [facility], model number [id number] - excellent intracardiac electrograms with excellent pacing thresholds and stable lead impedances. Anticipated battery longevity at this time is 10.7 years. Today we were able to activate her atrial auto capture function. Her ventricular capture function was activated yesterday. In order to minimize needless ventricular pacing, we extended her auto intrinsic search. IMPRESSION/PLAN: 1. Paroxysmal atrial fibrillation. With resumption of her dose adjusted digoxin and current increased dosage of carvedilol along with amiodarone 200 mg three times a day, no further bouts of atrial fibrillation have been documented. She has been restarted on her Eliquis 5 mg twice a day without problem. We hope to continue to monitor her for an additional 24 hours prior to her discharge. 2. Tachy-seble syndrome/dual-chamber pacemaker in situ: Having repositioned her atrial and ventricular pacing leads yesterday, pacing threshold and intracardiac electrograms are much more satisfactory with a prolonged anticipated battery longevity. Subtle program changes were made as mentioned above in order to prolong battery life and minimize needless ventricular pacing. We will continue Ancef 1 gram IV every 8 hours for an additional 24 hours. 3. Heart failure (systolic and diastolic dysfunction/acute): We are cautiously optimistic that maintenance of a controlled atrial mechanism with avoiding a rapid ventricular response will improve her left ventricular systolic function. We believe this dysfunction was triggered by a tachycardia-mediated mechanism. She remains on dose adjusted digoxin, carvedilol and low-dose losartan. 4. Hypertensive heart disease (benign with heart failure): Current blood pressure appears to be adequately controlled with a combination of carvedilol and losartan. No medication changes will be planned beyond switching her carvedilol dosing from every 6 hours to 6.25 mg twice a day starting tomorrow morning. We have requested followup chemistry. As mentioned, we are cautiously optimistic we will be able to send her home tomorrow afternoon.
[2019-06-26 16:00] VITALS: BP 133/67
[2019-06-26] MEDS ORDERED: AMIO200T PO (17:24)
[2019-06-26] MEDS ORDERED: CARV6.25 PO (17:24)
[2019-06-26] MEDS ORDERED: DIGO0.12 PO (17:24)
[2019-06-26] MEDS ORDERED: COZA1TAB PO (17:24)
[2019-06-26 18:43] VITALS: BP 140/65
--- NOTE | 2019-06-26 19:26 | DSES ---
DATE OF ADMISSION: 06/24/2019 DATE OF DISCHARGE: 06/26/2019 DISCHARGE SUMMARY PRIMARY CARE PHYSICIAN: Dr. Anmol Szymanski CLINICAL SUMMARY: This 74-year-old woman with hypertensive heart disease, complicated by abnormal EKG, paroxysmal supraventricular tachycardia, paroxysmal atrial fibrillation with rapid ventricular response and sinus node dysfunction with dual-chamber pacemaker implant originally May 13, 2019, was admitted following atrial lead dislodgement with development of heart failure (systolic and diastolic/acute). Please see my admission history and physical for further details. INVESTIGATIONS AND COURSE IN HOSPITAL: Admission blood work showed a hemoglobin of 10.9 with normal red blood cell indices. Normal white blood cell count and platelet count. On Eliquis 5 mg twice a day, PT/INR was 15.9/1.29. She did not take her Eliquis the day of her admission. Chemistry confirmed electrolyte balance with BUN 13, creatinine 0.78, random glucose 95, albumin 3.0. Other liver function studies were normal with magnesium 1.9. Admission electrocardiogram showed sinus rhythm at 69 beats per minute (bpm) with first-degree atrioventricular (AV) block, possible prior anterolateral myocardial infarction with moderate T-wave abnormalities, a change from her last tracing showing atrial fibrillation with premature ventricular contractions (PVCs). The patient was kept nothing by mouth, and we discussed replacement of her atrial lead under monitored local anesthesia the same day. The indication, procedure and risks were discussed with the patient and who appear to understand and agree. Later the same day she did undergo repositioning of both her atrial and ventricular pacing leads to ensure optimal intrinsic electrograms, pacing threshold and ample slack. We were very satisfied with the ultimate position. The patient tolerated the procedure well with no complications. Her left ventricular ejection fraction July 2018 measured 67 and recent cardiac catheterization showed normal coronary arteries with an ejection fraction of 20%! Curiously, the patient was not discharged from [facility] following this cardiac catheterization with a LifeVest because echocardiogram prior to her discharge showed her ejection fraction to be significantly better. We believe the deterioration in her left ventricular systolic function was related to recurrent bouts of paroxysmal atrial fibrillation with rapid ventricular response. This was confirmed on device interrogation. Postoperatively the patient was started on amiodarone starting with 200 mg three times a day. Her carvedilol dosage was also increased to 6.25 mg twice a day and digoxin therapy was adjusted for her amiodarone to 125 mcg Mondays, Wednesdays and Fridays only. Her Eliquis was resumed 24 hours after pacer repositioning. She remained on radiation monitor and gradually ambulated in the islas without problems and minimal pacemaker incisional tenderness. A pre discharge chest x-ray this morning confirmed good lead position with ongoing cardiomegaly, but no current signs of pulmonary venous congestion. There was no pulmonary infiltrate. EKG performed this morning showed consistent atrially paced rhythm at 60 bpm with spontaneous AV conduction. She had an incomplete left bundle branch block configuration with findings of prominent repolarization abnormalities not significantly changed from her admission tracing. Blood work this morning showed a stable hemoglobin, white blood cell count and platelet count. Her electrolytes remained in balance with BUN 11, creatinine 0.7, albumin 2.7. She appeared to tolerate her medications without adverse effect and was anxious to be discharged home. FINAL DIAGNOSES: 1. Atrial pacing lead dislodgement/repositioned. 2. Tachy-seble syndrome/dual-chamber pacemaker in situ. 3. Paroxysmal atrial fibrillation with rapid ventricular response - now on amiodarone therapy. 4. Heart failure (systolic and diastolic/acute) - tachycardia mediated cardiomyopathy. 5. Hypertensive heart disease (benign with heart failure). DISCHARGE MEDICATIONS AND RECOMMENDATIONS: The patient was encouraged to perform activities as tolerated with light activities of daily living with her left arm until her osmin are removed in my office 07/02/2019 at 2:00 p.m. She was to avoid getting her incision wet in the interim. Should she notice any erythema, swelling or discharge, we have requested she contact us promptly. Her diet will now continue no added salt with no concentrated sweets. Medications will now be: Amiodarone 200 mg by mouth three times a day for the next 2 weeks, dropping to 200 mg twice a day for a month thereafter and then ultimately 200 mg daily. Carvedilol 6.25 mg twice a day, digoxin 125 mcg Mondays, Wednesdays and Fridays only, losartan 25 mg daily, Eliquis 5 mg by mouth twice a day, simvastatin 5 mg nightly, fenofibrate 145 mg daily, metformin 500 mg every morning and 1 gram every evening, fish oil tablets 1 gram daily, vitamin D 2000 international units daily, calcium carbonate/vitamin D3 600 plus D one capsule daily, albuterol inhaler two puffs four times a day as needed for shortness of breath, Advair inhaler 230-21 two puffs twice a day. Should she have any questions or concerns, we have requested that she contact us. JOSH
== END 2019-06-26 18:50 | disposition home or self-care (01) | DRG 260 ==
LOC: M ICU 09:43 → M PCU 15:10
PROVIDERS: ADMIT Internal Medicine Cardiovascular Disease; ATTEND Internal Medicine Cardiovascular Disease
PROC: 02WA3MZ Revision of Cardiac Lead in Heart, Percutaneous Approach (ICD-10-PCS; principal; 2019-06-24 13:00)
DX: T82.120A Displacement of cardiac electrode, initial encounter (principal); I50.43 Acute on chronic combined systolic (congestive) and diastolic (congestive) heart failure; I47.1 Supraventricular tachycardia; Y83.1 Surgical operation with implant of artificial internal device as the cause of abnormal reaction of the patient, or of later complication, without mention of misadventure at the time of the procedure; I11.0 Hypertensive heart disease with heart failure; I48.0 Paroxysmal atrial fibrillation; I49.5 Sick sinus syndrome; Z88.0 Allergy status to penicillin; Z88.8 Allergy status to other drugs, medicaments and biological substances; Z79.01 Long term (current) use of anticoagulants; Z79.84 Long term (current) use of oral hypoglycemic drugs; Z79.899 Other long term (current) drug therapy

== ENCOUNTER → 2019-11-17 | Outpatient (CLI) | payer MEDICARE, OTHER ==
[~2019-11-17] MED LIST changes: +AMIO200T PO; +CARV3.12 PO; +CARV6.25 PO; +COZA1TAB PO; -DIGO0.12 PO; +DIGO0.123 PO; -DILT240C61 PO; +DILT240C83 PO; +ELIQ5TAB PO; +METF-791 PO; -SIMV10TA2 PO; +SIMV10TA21 PO; +VITA200020 PO
[2019-11-17 18:07] LABS: CALCIUM LEVEL 9.1 MG/DL (8.8-10.2); CREATININE FOR GFR 1.01 MG/DL (0.55-1.30); GLOMERULAR FILTRATION RATE 56.7 (>39)
== END ==
LOC: M PLALAB 15:56
PROVIDERS: ATTEND Physician Assistant
DX: I42.9 Cardiomyopathy, unspecified (principal)

== ENCOUNTER → 2020-04-13 | Outpatient (REF) | payer MEDICARE, OTHER ==
[~2020-04-13] MED LIST changes: -METF-791 PO; +METF-838 PO
[2020-04-13 17:10] LABS: BLOOD UREA NITROGEN 18 MG/DL (7-18); CALCIUM LEVEL 8.6 MG/DL (8.8-10.2); CARBON DIOXIDE LEVEL 29 MEQ/L (21-32); CHLORIDE LEVEL 108 MEQ/L (98-107); CREATININE FOR GFR 0.92 MG/DL (0.55-1.30); GLOMERULAR FILTRATION RATE > 60.0 (>39); GLUCOSE, FASTING 53 MG/DL (70-100); POTASSIUM SERUM 4.2 MEQ/L (3.5-5.1); SODIUM LEVEL 143 MEQ/L (136-145)
== END ==
LOC: M PLALAB 16:40
PROVIDERS: ATTEND Physician Assistant
DX: I42.9 Cardiomyopathy, unspecified (principal)

== ENCOUNTER → 2020-09-30 | Outpatient (CLI) | payer MEDICARE, OTHER ==
[~2020-09-30] MED LIST changes: -AMIO200T PO; +AMIO200T3 PO
[2020-09-30 17:12] LABS: BASO # 0.1 10^3/uL (0.0-0.2); BASO % 0.8 % (0.0-1.0); EOS # 0.2 10^3/uL (0.0-0.5); EOS % 3.8 % (0.0-3.0); HEMATOCRIT 39.4 % (36.0-47.0); HEMOGLOBIN 12.4 g/dl (12.0-15.5); LYMPH # 2.1 10^3/uL (1.5-5.0); LYMPH % 34.6 % (24.0-44.0); MEAN CORPUSCULAR HEMOGLOBIN 29.2 pg (27.0-33.0); MEAN CORPUSCULAR HGB CONC 31.5 g/dl (32.0-36.5); MEAN CORPUSCULAR VOLUME 92.7 fl (80.0-96.0); MONO # 0.5 10^3/uL (0.0-0.8); MONO % 7.8 % (0.0-5.0); NEUTROPHILS # 3.2 10^3/uL (1.5-8.5); NEUTROPHILS % 52.7 % (36.0-66.0); PLATELET COUNT, AUTOMATED 258 10^3/uL (150-450); RED BLOOD COUNT 4.25 10^6/uL (4.00-5.40); WHITE BLOOD COUNT 6.1 10^3/uL (4.0-10.0)
[2020-09-30 17:30] LABS: ALBUMIN 3.4 GM/DL (3.2-5.2); ALT/SGPT 18 U/L (12-78); BILIRUBIN,TOTAL 0.4 MG/DL (0.2-1.0); BLOOD UREA NITROGEN 20 MG/DL (7-18); CALCIUM LEVEL 8.7 MG/DL (8.8-10.2); CARBON DIOXIDE LEVEL 29 MEQ/L (21-32); CHLORIDE LEVEL 106 MEQ/L (98-107); CREATININE FOR GFR 1.11 MG/DL (0.55-1.30); GLOMERULAR FILTRATION RATE 50.7 (>39); GLUCOSE, FASTING 81 MG/DL (70-100); POTASSIUM SERUM 3.9 MEQ/L (3.5-5.1); RHEUMATOID FACTOR QUANT < 10.0 IU/ML (<15.0); SODIUM LEVEL 139 MEQ/L (136-145); TOTAL PROTEIN 6.7 GM/DL (6.4-8.2)
[2020-09-30 17:32] LABS: VITAMIN B12 LEVEL 386 PG/ML
[2020-09-30 17:33] LABS: FOLATE 9.5 NG/ML
[2020-09-30 17:58] LABS: ERYTHROCYTE SEDIMENTATION RATE 16 mm/hr (0-30)
[2020-10-03 14:44] LABS: ALBUMIN 3.92 GM/DL (3.29-5.55); ALBUMIN % 58.5 % (55.8-66.1); ALPHA-1-GLOBULIN % 4.6 % (2.9-4.9); ALPHA-1-GLOBULINS 0.31 GM/DL (0.17-0.41); ALPHA-2-GLOBULINS 0.76 GM/DL (0.42-0.99); ALPHA-2-GLOBULINS % 11.4 % (7.1-11.8); BETA-1-GLOBULINS 0.44 GM/DL (0.28-0.60); BETA-1-GLOBULINS % 6.5 % (4.7-7.2); BETA-2-GLOBULINS 0.34 GM/DL (0.19-0.55); BETA-2-GLOBULINS % 5.1 % (3.2-6.5); GAMMA GLOBULIN % 13.9 % (11.1-18.8); GAMMA GLOBULINS 0.93 GM/DL (0.65-1.58)
[2020-10-05 11:08] LABS: ANCA-ATYPICAL <1:20 titer (Neg:<1:20); ANTI DS-DNA AB Negative (Negative); ANTINUCLEAR ANTIBODIES DIRECT Negative (Negative); CYTOPLASMIC NEUTROP AB ANCA-C <1:20 titer (Neg:<1:20); PERINUCLEAR AB ANCA-P <1:20 titer (Neg:<1:20); SJOGREN'S ANTI SS-A <0.2 AI (0.0-0.9); SJOGREN'S ANTI SS-B <0.2 AI (0.0-0.9); VITAMIN B1 LEVEL WHOLE BLOOD 111.1 nmol/L (66.5-200.0); VITAMIN B6,PYRIDOXAL PHOSPHATE 2.4 ug/L (2.0-32.8); VITAMIN E(ALPHA TOCOPHEROL) 13.2 mg/L (9.0-29.0); VITAMIN E(GAMMA TOCOPHEROL) 1.6 mg/L (0.5-4.9)
== END ==
LOC: M PLALAB 15:20
PROVIDERS: ATTEND Psychiatry & Neurology Neurology
DX: G62.9 Polyneuropathy, unspecified (principal); R25.1 Tremor, unspecified

== ENCOUNTER 2020-10-01 14:15 | Emergency (ER) | payer MEDICARE, OTHER ==
[~2020-10-01] VITALS: Ht 170.2 cm; Wt 65.9 kg
[2020-10-01 14:15] VITALS: BP 144/63
[2020-10-01] MEDS ORDERED: ACETAMINOPHEN TAB 650MG DOSE (2X325MG) PO ONE (15:00)
--- NOTE | 2020-10-01 15:40 | REP ---
INDICATION: fall with pain. COMPARISON: None. TECHNIQUE: Three views. FINDINGS: No sacral or coccygeal fracture or displacement is seen. Pre sacral soft tissues are not widened. There is formed stool filling the rectum. There are metallic sutures in the left pelvis. SI joints are unremarkable. IMPRESSION: No sacral fracture or coccygeal fracture seen. <Electronically signed by Abdiel Browne > 10/01/20 [id number]
--- NOTE | 2020-10-01 15:41 | REP ---
INDICATION: fall with pain. COMPARISON: None. TECHNIQUE: Four views. FINDINGS: Four views of the left foot demonstrate diffuse osteoporosis which is advanced. There is a mild hallux valgus. Plantar calcaneal spurring is noted.. No fracture or subluxation is seen. No opaque foreign body noted. IMPRESSION: Advanced diffuse osteopenia. Plantar heel spur. No fracture or subluxation visible.. <Electronically signed by Abdiel Browne > 10/01/20 [id number]
== END 2020-10-01 16:14 | disposition home or self-care (01) ==
LOC: M ED 14:15
DX: S90.32XA Contusion of left foot, initial encounter (principal); S30.0XXA Contusion of lower back and pelvis, initial encounter; W19.XXXA Unspecified fall, initial encounter; Y92.238 Other place in hospital as the place of occurrence of the external cause; Y93.01 Activity, walking, marching and hiking; Y99.8 Other external cause status; E11.9 Type 2 diabetes mellitus without complications; I10 Essential (primary) hypertension; I25.2 Old myocardial infarction; E78.5 Hyperlipidemia, unspecified; Z95.0 Presence of cardiac pacemaker; Z88.0 Allergy status to penicillin; Z88.8 Allergy status to other drugs, medicaments and biological substances; Z79.899 Other long term (current) drug therapy; Z79.51 Long term (current) use of inhaled steroids; Z79.01 Long term (current) use of anticoagulants; Z79.84 Long term (current) use of oral hypoglycemic drugs

== ENCOUNTER → 2020-10-12 | Outpatient (CLI) | payer MEDICARE, OTHER ==
[~2020-10-12] MED LIST changes: +ISOVUE-370 76% 100ML VIAL As Ordered ONE
--- NOTE | 2020-10-12 16:06 | REPVR ---
PROCEDURE INFORMATION: Exam: CT Head Without And With Contrast Exam date and time: 10/12/2020 1:53 PM Age: 75 years old Clinical indication: Other: Tremors / lbp TECHNIQUE: Imaging protocol: Computed tomography of the head without and with intravenous contrast. Radiation optimization: All CT scans at this facility use at least one of these dose optimization techniques: automated exposure control; mA and/or kV adjustment per patient size (includes targeted exams where dose is matched to clinical indication); or iterative reconstruction. Contrast material: ISOVUE 370; Contrast volume: 75 ml; Contrast route: INTRAVENOUS (IV); COMPARISON: MRI-Brain W/O FOLL BY WITH 09/06/2015 10:17 AM FINDINGS: Brain: The brain demonstrates diffuse volume loss. There is white matter hypodensity most consistent with chronic small vessel ischemic change. No visible evolving territorial infarct. No hemorrhage. No enhancing brain parenchymal lesions identified. Cerebral ventricles: The ventricles are enlarged, as before, likely reflecting volume loss. Bones/joints and sella: The bony sella turcica is abnormally expanded. Abnormal lucency in the clivus and left lesser sphenoid wing, image 8 series 401. An MRI performed previously demonstrated enhancing mass in this region. The patient has a known pituitary neoplasm. Paranasal sinuses: Trace right maxillary sinus mucosal thickening. Possible 10 mm polyp in the left nasal cavity. Mastoid air cells: Visualized mastoid air cells are well aerated. Soft tissues: No acute findings. IMPRESSION: No acute intracranial abnormality seen. Electronically signed by: Ivette Morales On 10/12/2020 16:06:00 PM
--- NOTE | 2020-10-12 16:18 | REPVR ---
PROCEDURE INFORMATION: Exam: CT Lumbar Spine Without Contrast Exam date and time: 10/12/2020 1:53 PM Age: 75 years old Clinical indication: Other: Tremors / lbp TECHNIQUE: Imaging protocol: Computed tomography images of the lumbar spine without contrast. Radiation optimization: All CT scans at this facility use at least one of these dose optimization techniques: automated exposure control; mA and/or kV adjustment per patient size (includes targeted exams where dose is matched to clinical indication); or iterative reconstruction. COMPARISON: No relevant prior studies available. FINDINGS: Vertebrae: Exaggeration of the lumbar lordosis. Mild lower lumbar levoconvex scoliosis. No acute fracture seen. Diffuse osseous demineralization. Wkpx-hf-ysngblyr disc height loss and spondylosis with vacuum change of disc space at L5-S1. L1-L2: No significant disc protrusion. No severe spinal canal stenosis. No significant neural foraminal narrowing. L2-L3: No significant disc protrusion. No spinal canal stenosis. No neural foraminal narrowing. L3-L4: No significant disc protrusion. No severe spinal canal stenosis. No significant neural foraminal narrowing. L4-L5: Moderate diffuse disc bulge, facet arthropathy and ligamentum flavum buckling. Central spinal canal stenosis is probably moderate. Mild right neural foraminal stenosis. L5-S1: Moderate diffuse disc osteophyte complex and facet arthropathy. No significant central spinal canal stenosis. Mild right neural foraminal stenosis. No significant left neural foraminal narrowing. Gallbladder and bile ducts: There are cholecystectomy clips in the gallbladder fossa. Vasculature: The aorta demonstrates atherosclerosis. Soft tissues: Unremarkable. IMPRESSION: 1. Degenerative disc disease at L5-S1. 2. Diffuse disc bulge, facet arthropathy and ligamentum flavum buckling at L4-L5 probably causing moderate central spinal canal stenosis. Electronically signed by: Ivette Morales On 10/12/2020 16:18:14 PM
== END ==
LOC: M RAD 13:16
PROVIDERS: ATTEND Psychiatry & Neurology Neurology
DX: M51.37 Other intervertebral disc degeneration, lumbosacral region (principal); M51.26 Other intervertebral disc displacement, lumbar region
CPT/HCPCS: 70470; 72131; Q9967

== ENCOUNTER → 2021-01-02 | Outpatient (CLI) | payer MEDICARE, OTHER ==
[~2021-01-02] MED LIST changes: -ISOVUE-370 76% 100ML VIAL As Ordered ONE
--- NOTE | 2021-01-02 16:16 | REPPI ---
INDICATION: Z95.0 PRESENCE OF CARDIAC PACEMAKER COMPARISON: 06/26/2019 TECHNIQUE: PA and lateral. FINDINGS: The mediastinum and cardiac silhouette are stable and grossly normal. Two lead pacemaker in satisfactory position. The lung hilliard demonstrate chronic changes suggesting emphysematous disease without acute consolidation, effusion, or pneumothorax. The skeletal structures are intact and normal. IMPRESSION: No acute cardiopulmonary process. <Electronically signed by Waldo Hyde > 01/02/21 [id number]
== END ==
LOC: M PLAIMG 15:13
PROVIDERS: ATTEND Physician Assistant
DX: J43.8 Other emphysema (principal); Z95.0 Presence of cardiac pacemaker

== ENCOUNTER 2021-03-06 10:27 | Observation (INO) | payer MEDICARE, OTHER ==
[~2021-03-06] VITALS: Ht 167.6 cm; Wt 60.3 kg
[2021-03-06 11:12] LABS: BASO % 0.6 % (0.0-1.0); EOS # 0.4 10^3/uL (0.0-0.5); EOS % 5.6 % (0.0-3.0); HEMATOCRIT 36.1 % (36.0-47.0); LYMPH # 1.6 10^3/uL (1.5-5.0); LYMPH % 21.8 % (24.0-44.0); MEAN CORPUSCULAR HEMOGLOBIN 30.7 pg (27.0-33.0); MEAN CORPUSCULAR HGB CONC 33.2 g/dl (32.0-36.5); MEAN CORPUSCULAR VOLUME 92.3 fl (80.0-96.0); MONO # 0.7 10^3/uL (0.0-0.8); MONO % 9.7 % (2.0-8.0); NEUTROPHILS # 4.5 10^3/uL (1.5-8.5); PLATELET COUNT, AUTOMATED 264 10^3/uL (150-450); RED BLOOD COUNT 3.91 10^6/uL (4.00-5.40); WHITE BLOOD COUNT 7.2 10^3/uL (4.0-10.0)
--- NOTE | 2021-03-06 11:15 | REP ---
INDICATION: fell. COMPARISON: None. TECHNIQUE: Four views obtained portably FINDINGS: There is diffuse soft tissue swelling particularly laterally. The bones are somewhat demineralized. The mortise is intact. There is a plantar calcaneal heel spur. There is no evidence of an acute fracture. IMPRESSION: No evidence of an acute fracture. Findings as described above. <Electronically signed by Danilo Skelton > 03/06/21 1111
--- NOTE | 2021-03-06 11:21 | REP ---
INDICATION: CHEST PAIN. COMPARISON: 01/02/2021. TECHNIQUE: Single portable AP view of the chest was performed. FINDINGS: There is no acute infiltrate or pulmonary edema. Lungs are clear. The heart is not significantly enlarged. The mediastinal silhouette is unremarkable. The visualized osseous structures are intact.Left pacemaker is again noted with no definite change. IMPRESSION: No acute pulmonary disease. <Electronically signed by Chicho Nevarez > 03/06/21 1115
[2021-03-06 11:25] LABS: INR 1.02; PROTHROMBIN TIME 13.6 SECONDS (12.5-14.3)
[2021-03-06 11:26] LABS: PARTIAL THROMBOPLASTIN TIME 36.9 SECONDS (24.2-38.5)
--- NOTE | 2021-03-06 11:27 | REP ---
INDICATION: fell COMPARISON: 10/01/2020. TECHNIQUE: Four views left foot. FINDINGS: There are fractures of the necks of the 2nd through 5th metatarsals with slight lateral displacement. I see no other evidence of acute fracture or dislocation. There is mild posterior and inferior calcaneal spurring. IMPRESSION: Fractures of the necks of 2nd through 5th metatarsals with slight lateral displacement. <Electronically signed by Chicho Nevarez > 03/06/21 1124
[2021-03-06 11:50] LABS: RSV AMPLIFICATION NEGATIVE (NEGATIVE)
[2021-03-06] MEDS ORDERED: NS 1,000 ML IV ONE (12:10)
[2021-03-06 12:47] LABS: ALBUMIN 3.1 GM/DL (3.2-5.2); ALT/SGPT 15 U/L (12-78); BILIRUBIN,DIRECT 0.2 MG/DL (0.0-0.2); BILIRUBIN,TOTAL 0.5 MG/DL (0.2-1.0); CK-MB VALUE MASS 1.4 NG/ML (<3.6); CPK CREATINE PHOSPHOKINASE 78 U/L (26-192); LIPASE 87 U/L (73-393); MAGNESIUM LEVEL 1.6 MG/DL (1.8-2.4); MB/CK RELATIVE INDEX 1.79 (< OR =4); NT-PRO BNP 5727 PG/ML (<450); TOTAL PROTEIN 5.8 GM/DL (6.4-8.2); TROPONIN I < 0.02 NG/ML (< 0.10)
[2021-03-06] MEDS ORDERED: MAGNESIUM OXIDE 400MG TAB (MAG-OX) PO ONE (14:45)
[2021-03-06] MEDS ORDERED: D31000TA2 PO (15:21)
[2021-03-06] MEDS ORDERED: GABA-1171 PO ×2 (15:21)
[2021-03-06] MEDS ORDERED: ENTR1TAB7 PO (15:21)
[2021-03-06] MEDS ORDERED: ALBUTEROL 90 MCG/ACT 8GM HFA INHALER INH PRN (15:30)
[2021-03-06] MEDS ORDERED: DEXTROSE 50% 50 ML SYRINGE IV PRN (15:30)
[2021-03-06] MEDS ORDERED: GLUCAGON INJ 1MG VIAL SC PRN (15:30)
[2021-03-06] MEDS ORDERED: GLUCOSE 4GM CHEW TABLET PO PRN (15:30)
[2021-03-06 17:20] LABS: CPK CREATINE PHOSPHOKINASE 65 U/L (26-192); MB/CK RELATIVE INDEX 3.08 (< OR =4); TROPONIN I < 0.02 NG/ML (< 0.10)
--- NOTE | 2021-03-06 17:55 | HPEPDOC ---
[facility] Medical History & Physical Date of Admission March 06, 2021 Date of Service: March 06, 2021 Attending Physician: VICKI REAGAN MD History and Physical CHIEF COMPLAINT: Multiple episodes of dizziness and falls in the past few months. HISTORY OF PRESENT ILLNESS: Patient is a 75-year-old female with a past medical history persistent atrial fibrillation, persistent tachycardia/bradycardia arrhythmia status post a dual-chamber pacemaker implantation on 05/13/2019, Non ischemic cardiomyopathy with reduced ejection fraction 35% ( her last echo was performed on 06/17/2019 at [facility] ), Bto-kakjyme-clxnhiihi Diabetes mellitus, COPD(not needing home oxygen), hyper lipidemia presents to the ED after multiple episodes of presyncopal/syncopal episodes leading to multiple falls since last 2-3 days. The patient states that she did not lose consciousness, was not confused before or after the episode. However last evening when she was out today with her family her foot got caught in the small crevice and she fell down resulting in injuring her left foot. This morning again she states that she felt light headed and fell down. She did not hit her head in the process. Patient has been compliant with her medications, and there has been no change in medications recently. The last time she saw her hat blocking operator was December. Patient denies any chest pain/shortness of breath/vision changes/aura/seizure- like activity/loss of bowel and bladder control/slurring of speech/palpitations. In the ED, the patient was found to have fractures of the neck of the second through fifth metatarsals in the left foot with slight lateral displacement. . No abnormality seen in the EKG besides paced independent atrial and ventricular beats. Normal vital signs.. However patient did have hypomagnesemia= 1.6, troponins normal/elevated proBNP = 5727. PAST MEDICAL HISTORY: 1. Persistent atrial fibrillation (on Elliquis twice a day). 2. Persistent tachycardia/bradycardia arrhythmia status post dual chamber pacemaker insertion in 05/13/2019. 3. COPD. 4. Ypp-zxusgxa-pqeddinxh diabetes mellitus 5. Hyperlipidemia PAST SURGICAL HISTORY: 1. Placement of a dual-chamber pacemaker on 05/13/2019. 2. Removal of a pituitary adenoma in 2000. 3. Bilateral cataract extraction. 4. Cholecystectomy 5. Total abdominal hysterectomy 6. Prior polypectomy 7. Removal of carcinoid tumor 2007 SOCIAL HISTORY: Marital status: . Resides in: Home Children: 5 Tobacco use:never smoker ETOH: Occasional Illicit drug use: Never FAMILY HISTORY: Father: Unknown- patient thinks he might have had heart problems. Mother: None Siblings: One brother due to metastases take melanoma. Children: None ALLERGIES: Please see below. REVIEW OF SYSTEMS: CONSTITUTIONAL: Denies any recent fever, chills or weight loss. HEENT: No hearing issues ,denies coryza/conjunctivitis. Wears corrective lenses CARDIOVASCULAR: Denies chest pain. RESPIRATORY: Denies exacerbation of cough more than usual/hemoptysis/sputum production. GASTROINTESTINAL: Denies any abdominal pain/diarrhea/constipation. GENITOURINARY: Denies increased frequency of urination/burning micturition. SKIN: Denies any bleeding or bruising or any lumps or bumps. MUSCULOSKELETAL: No apparent arthralgia/myalgia's. NEUROLOGICAL: Denies any weakness or neurological deficits. PSYCHIATRIC: No bouts of depression or anxiety. HOME MEDICATIONS: Please see below. PHYSICAL EXAMINATION: VITAL SIGNS: Temperature 96.7, pulse 69, respiratory rate 18, blood pressure 142/73, pulse oximetry 94 % on room air. GENERAL APPEARANCE: Pleasant elderly woman of medium body build lying comfortably flat. HEENT: Moist mucous membranes. No cyanosis or conjunctival pallor. CARDIOVASCULAR: S1 and S2 were normal. Systolic ejection murmur over the right base.. LUNGS: Normal chest expansion with good air entry over both lung hilliard. No wheezing/rhonchi/crackles. ABDOMEN: Nondistended nontender, no organomegaly no abdominal bruits heard.. MUSCULOSKELETAL: No obvious joint deformities. Normal tone. Left foot looks swollen has been put in a temporary cast. No neurovascular compromise. Good capillary refill. EXTREMITIES: No clubbing, peripheral cyanosis or splinter hemorrhages.. NEUROLOGICAL: Good motor strength with sensations intact. Cranial nerves II-12 normal.. PSYCHIATRIC: Normal mood and affect. LABORATORY DATA: See below. IMAGING: Chest x-ray done on 03/06/2021: Shows no acute pulmonary disease Foot x-ray done on 03/06/2021: Shows fractures of the necks of second through fifth metatarsals with slightly lateral displacement. Ankle x-ray done on 03/06/2021: Shows no evidence of an acute fracture. MICROBIOLOGY: Please see below. ASSESSMENT AND PLAN: Patient is a 75-year-old female with a past medical history persistent atrial fibrillation, persistent tachycardia/bradycardia arrhythmia (status post a dual- chamber pacemaker implantation on 05/13/2019) , Non ischemic cardiomyopathy with reduced ejection fraction 35% ( her last echo was performed on 06/17/2019 at [facility] ), Hns-aiayzzb-bzsofszya Diabetes mellitus, COPD(not needing home oxygen), hyperlipidemia presents to the ED after multiple episodes of presyncopal/syncopal episodes leading to multiple falls since last 2-3 days. The patient states that she did not lose consciousness, was not confused before or after the episode. However last evening when she was out today with her family her foot got caught in the small crevice and she fell down resulting in injuring her left foot, that episode was not preceded by getting light headed. This morning again she states that she felt light headed and fell down. She did not hit her head in the process: 1.Presyncopal/Syncopal episodes secondary cardiac etiology versus orthostatic versus autonomic etiology : -Given her past history of nonischemic cardiomyopathy with a component of valvular disease, Cardiac cause is high on differential. -Patient will be kept on continuous telemetry -Continuous monitoring of vitals -Patient was kept on fall precautions. -Repeat 2-D echo was ordered. -Patient continued on Elliquis 5 mg twice a day for anticoagulation -Cardiology Dr. Wilkes was talked to about a need for pacemaker re-calibration. His recommendations state no need for any pacemaker re calibration unless the heart rate goes further down. -Patient kept on complete bedrest. -We will be trending troponin x 2 more times. 2. Left foot fractures because of the fall: -Orthopedic surgery was consulted. -So far Dr. Valladares recommended putting a temporary cast in the ED. -No surgical intervention needed. -Consulted orthopedic surgery for any further recommendations on floor. . -Pain control -Tylenol as a PRN order for mild pain. -Patient would most likely need supportive treatment which will be continued at home on discharge 3.Hypertensive heart disease leading to diastolic dysfunction: -Continue home medications -Coreg and Entresto. 4. COPD: -Patient does not require any oxygen saturating 96% on room air. -Continue with albuterol sulfate every 4 hours as needed in the event of shortn ess of breath -Continue fluticasone/salmeterol 2 puffs twice a day. -Oxygen therapy orders placed following a protocol of saturation falling below 92%. 5. Hyperlipidemia: -Continue with simvastatin and fenofibrate. 6.Non insulin dependant diabetes mellitus: -Pt started on a sliding scale. with a hypoglycemic protocol. -Consistent carbohydrate diet. DVT prophylaxis: Pt is on 5mg Elliquis BID. DISPOSITION: Pt admitted under observation status. Most likely to be discharged tomorrow. Vital Signs Vital Signs Date Time Temp Pulse Resp B/P (MAP) Pulse Ox O2 Delivery O2 Flow Rate FiO2 03/06/21 16:30 62 18 142/73 (96) 94 Room Air 03/06/21 10:39 96.7 Laboratory Data Labs 24H Laboratory Tests 2 03/06/21 10:52: Immature Granulocyte % (Auto) 0.3, Neutrophils (%) (Auto) 62.0, Lymphocytes (%) (Auto) 21.8L, Monocytes (%) (Auto) 9.7H, Eosinophils (%) (Auto) 5.6H, Basophils (%) (Auto) 0.6, Neutrophils # (Auto) 4.5, Lymphocytes # (Auto) 1.6, Monocytes # (Auto) 0.7, Eosinophils # (Auto) 0.4, Basophils # (Auto) 0.0, Nucleated Red Blood Cells % (auto) 0.0, Prothrombin Time 13.6, Prothromb Time International Ratio 1.02, Activated Partial Thromboplast Time 36.9 03/06/21 11:00: POC Glucose (Misc Panel) 92, POC Sodium (Misc Panel) 135L, POC Potassium (Misc Panel) 4.1, POC Chloride (Misc Panel) 102, POC Total CO2 (Misc Panel) 25.0, POC Blood Urea Nitrogen (Misc Panel 33H, POC Ionized Calcium (Misc Panel) 4.3L, POC Creatinine (Misc Panel) 1.0, POC Hematocrit (Misc Panel) 36.0L 03/06/21 11:04: POC Troponin I (Misc) 0.00 03/06/21 11:08: Coronavirus (COVID-19)(PCR) NEGATIVE, Influenza Type A (RT-PCR) NEGATIVE, Influ soy Type B (RT-PCR) NEGATIVE, Respiratory Syncytial Virus (PCR) NEGATIVE 03/06/21 11:59: Magnesium Level 1.6L, Total Bilirubin 0.5, Direct Bilirubin 0.2, Aspartate Amino Transf (AST/SGOT) 17, Alanine Aminotransferase (ALT/SGPT) 15, Alkaline Phosphatase 40L, Total Creatine Kinase 78, Creatine Kinase MB 1.4, Creatine Kinase MB Relative Index 1.79, Troponin I < 0.02, LT-Gmo-V-Type Natriuretic Peptide 5727H, Total Protein 5.8L, Albumin 3.1L, Albumin/Globulin Ratio 1.1L, Lipase 87 03/06/21 16:25: CBC/BMP Laboratory Tests 03/06/21 10:52 Home Medications Scheduled Apixaban (Eliquis) 5 Mg Tablet, 5 MG PO BID Calcium Carbonate/Vitamin D3 (Calcium 600+D Softgel) 1 Each Capsule, 1 CAP PO DAILY Cholecalciferol (Vitamin D3) (Vitamin D3) 1,000 Unit Tablet, 1,000 UNITS PO DAILY Fluticasone Propion/Salmeterol (Advair Hfa 230-21 Mcg Inhaler) 12 Gm Hfa.aer.ad, 2 PUFF INH BID Gabapentin (Gabapentin) 100 Mg Capsule, 100 MG PO QAM Gabapentin (Gabapentin) 100 Mg Capsule, 200 MG PO QHS Metformin HCl (Metformin HCl ER) 500 Mg Tab.er.24h, 500 MG PO DAILY [place]-3 Fatty Acids/Fish Oil (Fish Oil 1,000 mg Capsule) 1 Each Capsule, 1,000 MG PO DAILY Sacubitril/Valsartan (Entresto 49 mg-51 mg Tablet) 1 Each Tablet, 1 TAB PO BID Simvastatin (Simvastatin) 10 Mg Tablet, 5 MG PO QHS Scheduled PRN Acetaminophen (Acetaminophen) 325 Mg Tablet, 650 MG PO Q4H PRN for MILD PAIN (PS 1-4) Albuterol Sulfate (Proair Hfa) 8.5 Gm Hfa.aer.ad, 2 PUFF INH Q4H PRN for SHORTNESS OF BREATH Allergies Coded Allergies: JOEL Inhibitors (Verified Allergy, Intermediate, hives, 05/13/19) amoxicillin (Verified Allergy, Intermediate, HIVES,ITCHING, 06/24/19) ARB-Angiotensin Receptor Antagonist (Unverified Adverse Reaction, Intermediate, tachycardia, 06/24/19) A-FIB/CHADSVASC A-FIB History Current/History of A-Fib/PAF?: Yes Current PO Anticoag Therapy: Yes Age/Risk Factor Scoring CHADSVASC: CHADSVASC Response (Comments) Value Age Risk Factor Age >/= 75 years old 2 Total 2 GME ATTESTATION GME ATTESTATION My faculty preceptor for this patient encounter was physically present during the encounter and was fully available. All aspects of the patient interview, examination, medical decision making process, and medical care plan development were reviewed and approved by the faculty preceptor. The faculty preceptor is aware and concurs with the plan as stated in the body of this note and will attest to such by his/her cosignature. Sherry Alvarez MD March 06, 2021 17:42
[2021-03-06 17:57] LABS: INR 1.08; PROTHROMBIN TIME 14.2 SECONDS (12.5-14.3)
[2021-03-06 17:58] LABS: PARTIAL THROMBOPLASTIN TIME 42.1 SECONDS (24.2-38.5)
[2021-03-06] MEDS: VITAMIN D 1,000 INTERNATIONAL UNITS TABLET PO SCH (18:17)
[2021-03-06] MEDS: HumaLOG INSULIN (NovoLOG) PER UNIT SC SCH ×2 (18:17→21:00)
[2021-03-06 19:03] VITALS: BP 122/61
[2021-03-06] MEDS: ADVAIR HFA 230/21MCG INHALER INH SCH (19:58)
[2021-03-06 20:00] VITALS: BP 120/58
--- NOTE | 2021-03-06 20:09 | ECGEPIP ---
[facility] - ED Test Date: 2021-03-06 Pat Name: BENJI RIOS Department: Room: - Gender: Female [employer]: HAMIDA : 1945 Requested By: ELIOT Olivares Order Number: [id number] Reading MD: Symone Yan Measurements Intervals [place] Rate: 65 P: 83 [place]: 262 QRS: -18 QRSD: 152 T: 229 QT: 460 QTc: 478 Interpretive Statements Sinus rhythm with 1st degree AV block Left bundle branch block prolonged qtc prior atrial paced 06/26/19 Electronically Signed on 03-06-2021 20:08:43 EDT by Symone Yan
[2021-03-06] MEDS: GABAPENTIN 100 MG CAP PO SCH (21:48)
[2021-03-06] MEDS: SIMVASTATIN 10 MG TAB PO SCH (21:48)
[2021-03-06] MEDS: ENTRESTO 49-51MG TABLET (SACUBITRIL/VALSARTAN) PO SCH (21:48)
[2021-03-06] MEDS: APIXABAN 5 MG TAB (ELIQUIS) PO SCH (21:48)
[2021-03-06] MEDS: ACETAMINOPHEN TAB 650MG DOSE (2X325MG) PO PRN (21:51)
[2021-03-07 04:00] VITALS: BP 125/58
[2021-03-07 05:44] LABS: BASO % 0.8 % (0.0-1.0); EOS # 0.4 10^3/uL (0.0-0.5); EOS % 6.6 % (0.0-3.0); LYMPH # 1.5 10^3/uL (1.5-5.0); LYMPH % 28.1 % (24.0-44.0); MEAN CORPUSCULAR HGB CONC 32.4 g/dl (32.0-36.5); MEAN CORPUSCULAR VOLUME 92.6 fl (80.0-96.0); MONO # 0.4 10^3/uL (0.0-0.8); MONO % 8.2 % (2.0-8.0); NEUTROPHILS % 55.9 % (36.0-66.0); PLATELET COUNT, AUTOMATED 232 10^3/uL (150-450); RED BLOOD COUNT 3.67 10^6/uL (4.00-5.40); WHITE BLOOD COUNT 5.3 10^3/uL (4.0-10.0)
[2021-03-07 06:16] LABS: ALBUMIN 3.1 GM/DL (3.2-5.2); ALT/SGPT 17 U/L (12-78); BILIRUBIN,TOTAL 0.5 MG/DL (0.2-1.0); BLOOD UREA NITROGEN 17 MG/DL (7-18); CALCIUM LEVEL 8.7 MG/DL (8.8-10.2); CARBON DIOXIDE LEVEL 26 MEQ/L (21-32); CHLORIDE LEVEL 106 MEQ/L (98-107); CREATININE FOR GFR 0.76 MG/DL (0.55-1.30); GLOMERULAR FILTRATION RATE > 60.0 (>39); GLUCOSE, FASTING 91 MG/DL (70-100); MAGNESIUM LEVEL 1.5 MG/DL (1.8-2.4); POTASSIUM SERUM 3.5 MEQ/L (3.5-5.1); SODIUM LEVEL 138 MEQ/L (136-145); TOTAL PROTEIN 6.1 GM/DL (6.4-8.2)
[2021-03-07] MEDS: ADVAIR HFA 230/21MCG INHALER INH SCH ×2 (07:14→20:13)
[2021-03-07] MEDS: HumaLOG INSULIN (NovoLOG) PER UNIT SC SCH ×4 (07:30→21:00)
[2021-03-07 07:40] VITALS: BP 133/62
[2021-03-07] MEDS: ENTRESTO 49-51MG TABLET (SACUBITRIL/VALSARTAN) PO SCH ×2 (08:58→22:21)
[2021-03-07] MEDS: APIXABAN 5 MG TAB (ELIQUIS) PO SCH ×2 (08:58→22:21)
[2021-03-07] MEDS: MAG SULF 1GM/100ML (MAG RUN) 1 GM in IV 1 EA IV SCH ×3 (08:58→11:09)
[2021-03-07] MEDS: VITAMIN D 1,000 INTERNATIONAL UNITS TABLET PO SCH (08:58)
[2021-03-07] MEDS: GABAPENTIN 100 MG CAP PO SCH ×2 (08:59→22:21)
--- NOTE | 2021-03-07 11:46 | HPE ---
HISTORY AND PHYSICAL DATE OF ADMISSION: 03/06/2021 CHIEF COMPLAINT: Left metatarsal neck fractures. HISTORY OF PRESENT ILLNESS: This 75-year-old female had multiple falls, presyncopal/syncopal episode over the last two to three days. She was complaining about foot pain. X-ray in the ED showed fractures through the neck of the second through fifth metatarsals left foot. PAST MEDICAL HISTORY: Per the hospitalist note. 1. AFib. 2. Tachycardia/bradycardia arrhythmia. 3. Post dual-chamber pacemaker. 4. COPD. 5. Pwq-mbzwavg-aahpjbxqo diabetes. 6. Hyperlipidemia. MEDICATIONS: 1. Eliquis. 2. Calcium. 3. Vitamin D. 4. Fluticasone. 5. Gabapentin. 6. Metformin. 7. Sacubitril/valsartan. 8. Simvastatin. ALLERGIES: JOEL INHIBITOR, AMOXICILLIN, ANGIOTENSIN RECEPTOR ELENA (ARB). PAST SURGICAL HISTORY: 1. Dual-chamber pacemaker. 2. Pituitary adenoma. 3. Bilateral cataracts. 4. Cholecystectomy. 5. Total abdominal hysterectomy (CASTILLO). 6. Prior polypectomy removal. 7. Carcinoid tumor in 2007. SOCIAL HISTORY: She does not smoke. PHYSICAL EXAMINATION: Well-appearing 75-year-old female. She is alert and oriented. She has a closed injury to the left foot. It is moderately swollen and has moderate ecchymosis. Pain to palpation at the midfoot. No pain to palpation of the hindfoot or toes. She is able to wiggle her toes. Foot is warm and well perfused. IMAGING DATA: Radiographs are reviewed that show fracture through the metatarsal necks second through fifth toes with reasonable alignment and slight lateral displacement. ASSESSMENT AND PLAN: This 75-year-old female has fractures through the metatarsal necks of the second through fifth metatarsals. These are reasonably well aligned. She is placed in a stiff soled shoe. I recommend only partial weightbearing to the heel for now and outpatient follow-up. My overall impression is that this likely can be managed nonsurgically; however, I think as an outpatient, she should be referred to a foot and ankle surgeon of which I will arrange once her medical issues are stabilized. I would like her to follow-up within one to three days of discharge from the hospital.
[2021-03-07 15:56] VITALS: BP 119/59
[2021-03-07 17:30] VITALS: BP 150/62
--- NOTE | 2021-03-07 18:26 | IPNPDOC ---
Text Note Date of Service The patient was seen on 03/07/21. NOTE S: Patient states she did much better this night with no episodes of presyncopal episodes however she has been on complete bedrest. The pain from her foot is tolerable and she states she is doing fine on Tylenol. No other acute complaints As per the nurse patient had no overnight events. Her heart rate has been pretty stable ranging from 60 to 70s. O: The patient generally looks fine, nontoxic-appearing, in no acute distress. GENERAL EXAMINATION: VITAL SIGNS: Temperature 96.7, pulse 69, respiratory rate 18, blood pressure 142/73, pulse oximetry 94 % on room air. GENERAL APPEARANCE: Pleasant elderly woman of medium body build lying comfortably flat. HEENT: Moist mucous membranes. No cyanosis or conjunctival pallor. CARDIOVASCULAR: S1 and S2 were normal. Systolic ejection murmur over the right base.. LUNGS: Normal chest expansion with good air entry over both lung hilliard. No wheezing/rhonchi/crackles. ABDOMEN: Nondistended nontender, no organomegaly no abdominal bruits heard.. MUSCULOSKELETAL: No obvious joint deformities. Normal tone. Left foot looks swollen has been put in a temporary cast. No neurovascular compromise. Good capillary refill. EXTREMITIES: No clubbing, peripheral cyanosis or splinter hemorrhages.. NEUROLOGICAL: Good motor strength with sensations intact. Cranial nerves II-12 normal.. PSYCHIATRIC: Normal mood and affect. 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 The patient states that she did not lose consciousness, was not confused before or after the episode. However last evening when she was out today with her family her foot got caught in the small crevice and she fell down resulting in inju ring her left foot, that episode was not preceded by getting light headed. This morning again she states that she felt light headed and fell down. She did not hit her head in the process: 1.Presyncopal/Syncopal episodes secondary cardiac etiology versus orthostatic versus autonomic etiology : -Given her past history of nonischemic cardiomyopathy with a component of valvular disease, Cardiac cause is high on differential. -Patient on continuous telemetry -Continuous monitoring of vitals -Patient was kept on fall precautions. Patient's activity orders restored as tolerated. PT OT consult ordered. -Repeat 2-D echo- report still pending. -Patient continued on Elliquis 5 mg twice a day for anticoagulation 2. Left foot fractures because of the fall: -Orthopedic surgery was consulted. -So far Dr. Valladares recommended putting a hard boot cast, with some ankle weightbearing. -No surgical intervention needed. -Pain control -Tylenol as a PRN order for mild pain. Patient will be followed up outpatient for further recommendations of whether and ankle surgeon will be needed or not. -Patient would most likely need supportive treatment which will be continued at home on discharge 3. Hypomagnesemia (1.5): -Pt was given 3 bags of i/v magruns. -Will repeat the labs tomorrow to reassess. 4. COPD: -Patient does not require any oxygen saturating 96% on room air. -Continue with albuterol sulfate every 4 hours as needed in the event of shortness of breath -Continue fluticasone/salmeterol 2 puffs twice a day. -Oxygen therapy orders placed following a protocol of saturation falling below 92%. 5. Hypertensive heart disease leading to diastolic dysfunction: -Continue home medications -Coreg and Entresto. 6.Non insulin dependant diabetes mellitus: -Pt started on a sliding scale. with a hypoglycemic protocol. -Consistent carbohydrate diet. 7.Hyperlipidemia: -Continue with simvastatin and fenofibrate. DVT prophylaxis: Pt is on 5mg Elliquis BID. DISPOSITION: Pt considered stable to be sent to a rehabilitation facility for recovery from fractures, as soon as an availability opens up. - VS,Fishbone, I+O VS, Fishbone, I+O Laboratory Tests 03/07/21 05:21 Vital Signs Date Time Temp Pulse Resp B/P (MAP) Pulse Ox O2 Delivery O2 Flow Rate FiO2 03/07/21 17:30 98.4 68 18 150/62 (91) 98 Room Air I&O- Last 24 Hours up to 6 AM 03/07/21 06:00 Intake Total 1000 ml Balance 1000 ml GME ATTESTATION GME ATTESTATION My faculty preceptor for this patient encounter was physically present during the encounter and was fully available. All aspects of the patient interview, examination, medical decision making process, and medical care plan development were reviewed and approved by the faculty preceptor. The faculty preceptor is aware and concurs with the plan as stated in the body of this note and will attest to such by his/her cosignature. Sherry Alvarez MD March 07, 2021 18:26
[2021-03-07 22:00] VITALS: BP 117/55
[2021-03-07] MEDS: ACETAMINOPHEN TAB 650MG DOSE (2X325MG) PO PRN (22:21)
[2021-03-07] MEDS: SIMVASTATIN 10 MG TAB PO SCH (22:21)
[2021-03-08 06:00] VITALS: BP 131/60
[2021-03-08 06:16] LABS: BASO % 0.9 % (0.0-1.0); EOS # 0.3 10^3/uL (0.0-0.5); EOS % 6.8 % (0.0-3.0); HEMATOCRIT 32.1 % (36.0-47.0); HEMOGLOBIN 10.5 g/dl (12.0-15.5); LYMPH # 1.4 10^3/uL (1.5-5.0); LYMPH % 31.1 % (24.0-44.0); MEAN CORPUSCULAR HEMOGLOBIN 30.6 pg (27.0-33.0); MEAN CORPUSCULAR HGB CONC 32.7 g/dl (32.0-36.5); MEAN CORPUSCULAR VOLUME 93.6 fl (80.0-96.0); MONO # 0.4 10^3/uL (0.0-0.8); NEUTROPHILS # 2.3 10^3/uL (1.5-8.5); PLATELET COUNT, AUTOMATED 222 10^3/uL (150-450); RED BLOOD COUNT 3.43 10^6/uL (4.00-5.40); WHITE BLOOD COUNT 4.4 10^3/uL (4.0-10.0)
[2021-03-08 06:37] LABS: ALBUMIN 2.9 GM/DL (3.2-5.2); ALT/SGPT 17 U/L (12-78); BILIRUBIN,TOTAL 0.3 MG/DL (0.2-1.0); BLOOD UREA NITROGEN 17 MG/DL (7-18); CALCIUM LEVEL 8.6 MG/DL (8.8-10.2); CARBON DIOXIDE LEVEL 27 MEQ/L (21-32); CHLORIDE LEVEL 110 MEQ/L (98-107); CREATININE FOR GFR 0.73 MG/DL (0.55-1.30); GLOMERULAR FILTRATION RATE > 60.0 (>39); GLUCOSE, FASTING 104 MG/DL (70-100); POTASSIUM SERUM 3.5 MEQ/L (3.5-5.1); SODIUM LEVEL 143 MEQ/L (136-145); TOTAL PROTEIN 5.7 GM/DL (6.4-8.2)
[2021-03-08] MEDS: ADVAIR HFA 230/21MCG INHALER INH SCH (07:21)
[2021-03-08] MEDS: HumaLOG INSULIN (NovoLOG) PER UNIT SC SCH (07:30)
[2021-03-08] MEDS: GABAPENTIN 100 MG CAP PO SCH (08:05)
[2021-03-08] MEDS: ENTRESTO 49-51MG TABLET (SACUBITRIL/VALSARTAN) PO SCH (08:05)
[2021-03-08] MEDS: VITAMIN D 1,000 INTERNATIONAL UNITS TABLET PO SCH (08:05)
[2021-03-08] MEDS: APIXABAN 5 MG TAB (ELIQUIS) PO SCH (08:05)
[2021-03-08 10:53] LABS: MAGNESIUM LEVEL 2.2 MG/DL (1.8-2.4)
[2021-03-08] MEDS ORDERED: ACET1TAB55 PO (11:10)
--- NOTE | 2021-03-08 16:11 | DS.PDOC ---
Discharge Summary General Date of Admission March 06, 2021 at 15:14 Date of Discharge Mar 08 2021 Attending Physician: VICKI REAGAN MD Specialist/Consultants Involve: WILL PAULA MD Discharge Summary PROCEDURES PERFORMED DURING STAY: None. ADMITTING DIAGNOSES: 1. Pre-syncopal episodes with multiple falls. DISCHARGE DIAGNOSES: 1. Pre-syncopal episodes with multiple falls secondary to most likely Non Ischemic Cardiomyopathy versus a component of valvular disease - echo was ordered report still pending. Needs to be followed up outpatient by the cardiol ogist. COMPLICATIONS/CHIEF COMPLAINT: Fall Injury. 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 The patient states that she did not lose consciousness, was not confused before or after the episode. However last evening when she was out today with her family her foot got caught in the small crevice and she fell down resulting in injuring her left foot. This morning again she states that she felt light headed and fell down. She did not hit her head in the process HOSPITAL COURSE: Pt was considered to have these pre syncopal episodes as a result of her Non Ischemic Cardiomyopathy and a component of valvular disease . ECHO was ordered results of which are still pending. Here in the hospital, pt was put on continuous telemetry with continuous monitoring of vitals, -Patient was kept on fall precautions. Patient continued on Elliquis 5 mg twice a day for anticoagulation.Cardiology Dr. Wilkes was talked to about a need for pacemaker re-calibration. His recommendations state no need for any pacemaker re - calibration unless the heart rate goes further down. Further recommendations will be provided outpatient. Patient's heart rate has remained constantly standing from 60-70 all through her. Patient's echo will be followed up by cardiology outpatient and made reasonable recommendations. Patient's fall had resulted in a metacarpal fracture and second through fifth joints. Orthopedic surgery was managing the fracture with a hard boot and stated no surgical intervention needed. Patient to follow-up with orthopedic surgery in the next 3-7 days. DISCHARGE MEDICATIONS: Please see below. ALLERGIES: Please see below. PHYSICAL EXAMINATION ON DISCHARGE: VITAL SIGNS: Temperature 96.7, pulse 69, respiratory rate 18, blood pressure 142/73, pulse oximetry 94 % on room air. GENERAL APPEARANCE: Pleasant elderly woman of medium body build lying comfortably flat. HEENT: Moist mucous membranes. No cyanosis or conjunctival pallor. CARDIOVASCULAR: S1 and S2 were normal. Systolic ejection murmur over the right base.. LUNGS: Normal chest expansion with good air entry over both lung hilliard. No wheezing/rhonchi/crackles. ABDOMEN: Nondistended nontender, no organomegaly no abdominal bruits heard.. MUSCULOSKELETAL: No obvious joint deformities. Normal tone. Left foot looks swollen has been put in a temporary cast. No neurovascular compromise. Good capillary refill. EXTREMITIES: No clubbing, peripheral cyanosis or splinter hemorrhages.. NEUROLOGICAL: Good motor strength with sensations intact. Cranial nerves II-12 normal.. PSYCHIATRIC: Normal mood and affect. LABORATORY DATA: Please see below. IMAGING: Chest x-ray done on 03/06/2021: Shows no acute pulmonary disease Foot x-ray done on 03/06/2021: Shows fractures of the necks of second through fifth metatarsals with slightly lateral displacement. Ankle x-ray done on 03/06/2021: Shows no evidence of an acute fracture. PROGNOSIS: Fair ACTIVITY: As tolerated. DIET: 2 g sodium diet and a consistent carb diet DISPOSITION: Patient was cleared by ARU and was discharged home. DISCHARGE INSTRUCTIONS: 1.Pt needs to follow up with her PCP, Orthopedic surgery and her Table Runner in the next 3-5 days. 2.Pt advised to avoid weight bearing on her left foot. DISCHARGE CONDITION: Stable and improved. TIME SPENT ON DISCHARGE: Greater than to 40 minutes. Vital Signs/I&Os Vital Signs Date Time Temp Pulse Resp B/P (MAP) Pulse Ox O2 Delivery O2 Flow Rate FiO2 03/08/21 06:00 98.7 68 18 131/60 (83) 96 Room Air I&O- Last 24 Hours up to 6 AM 03/08/21 06:00 Intake Total 810 ml Output Total 1375 ml Balance -565 ml Laboratory Data Labs 24H Laboratory Tests 2 03/07/21 15:59: Bedside Glucose (Misc Panel) 101 03/07/21 20:20: Bedside Glucose (Misc Panel) 153H 03/08/21 05:47: Immature Granulocyte % (Auto) 0.2, Neutrophils (%) (Auto) 53.0, Lymphocytes (%) (Auto) 31.1, Monocytes (%) (Auto) 8.0, Eosinophils (%) (Auto) 6.8H, Basophils ( %) (Auto) 0.9, Neutrophils # (Auto) 2.3, Lymphocytes # (Auto) 1.4L, Monocytes # (Auto) 0.4, Eosinophils # (Auto) 0.3, Basophils # (Auto) 0.0, Nucleated Red Blood Cells % (auto) 0.0, Anion Gap 6L, Glomerular Filtration Rate > 60.0, Calcium Level 8.6L, Magnesium Level 2.2, Total Bilirubin 0.3, Aspartate Amino Transf (AST/SGOT) 18, Alanine Aminotransferase (ALT/SGPT) 17, Alkaline Phosphatase 45, Total Protein 5.7L, Albumin 2.9L, Albumin/Globulin Ratio 1.0L 03/08/21 11:46: Bedside Glucose (Misc Panel) 117H CBC/BMP Laboratory Tests 03/08/21 05:47 FSBS Laboratory Tests Test 03/07/21 15:59 03/07/21 20:20 03/08/21 11:46 Range/Units Bedside Glucose (Misc Panel) 101 153 117 83-110 MG/DL Discharge Medications Scheduled Apixaban (Eliquis) 5 Mg Tablet, 5 MG PO BID, (Reported) Calcium Carbonate/Vitamin D3 (Calcium 600+D Softgel) 1 Each Capsule, 1 CAP PO DAILY, (Reported) Cholecalciferol (Vitamin D3) (Vitamin D3) 1,000 Unit Tablet, 1,000 UNITS PO DAILY, (Reported) Fluticasone Propion/Salmeterol (Advair Hfa 230-21 Mcg Inhaler) 12 Gm Hfa.aer.ad, 2 PUFF INH BID, (Reported) Gabapentin (Gabapentin) 100 Mg Capsule, 100 MG PO QAM, (Reported) Gabapentin (Gabapentin) 100 Mg Capsule, 200 MG PO QHS, (Reported) Metformin HCl (Metformin HCl ER) 500 Mg Tab.er.24h, 500 MG PO DAILY, (Reported) Hadley-3 Fatty Acids/Fish Oil (Fish Oil 1,000 mg Capsule) 1 Each Capsule, 1,000 MG PO DAILY, (Reported) Sacubitril/Valsartan (Entresto 49 mg-51 mg Tablet) 1 Each Tablet, 1 TAB PO BID, (Reported) Simvastatin (Simvastatin) 10 Mg Tablet, 5 MG PO QHS, (Reported) Scheduled PRN Acetaminophen (Acetaminophen) 325 Mg Tablet, 650 MG PO Q4H PRN for MILD PAIN (PS 1-4) Albuterol Sulfate (Proair Hfa) 8.5 Gm Hfa.aer.ad, 2 PUFF INH Q4H PRN for SHORTNESS OF BREATH, (Reported) Allergies Coded Allergies: JOEL Inhibitors (Verified Allergy, Intermediate, hives, 05/13/19) amoxicillin (Verified Allergy, Intermediate, HIVES,ITCHING, 06/24/19) ARB-Angiotensin Receptor Antagonist (Unverified Adverse Reaction, Intermediate, tachycardia, 06/24/19) GME ATTESTATION GME ATTESTATION My faculty preceptor for this patient encounter was physically present during the encounter and was fully available. All aspects of the patient interview, examination, medical decision making process, and medical care plan development were reviewed and approved by the faculty preceptor. The faculty preceptor is aware and concurs with the plan as stated in the body of this note and will attest to such by his/her cosignature. Sherry Alvarez MD March 08, 2021 16:10
--- NOTE | 2021-03-09 08:23 | ECHO ---
DATE OF PROCEDURE: 03/07/2021 Age: 75 Gender: Female Height: 167 cm Weight: 61 kg REFERRING PHYSICIAN: Sherry Alvarez M.D. INDICATION: Syncope. MEASUREMENTS: 2D Measurements: LVOT 2.3 cm Intraventricular septum 0.74 cm Posterior wall 0.70 cm Left ventricle diastole 5.8 cm Left ventricle systole 5.3 cm Aortic root 3.4 cm Left atrium 4.1 cm Left atrial volume index 33 Proximal ascending aorta 3.3 cm Right ventricle 4.3 cm Doppler Measurements: Very mild aortic regurgitation No aortic stenosis LVOT velocity 48.3 cm/s LVOT VTI 10.1 cm Moderate mitral regurgitation No mitral stenosis Moderate tricuspid regurgitation Estimated right ventricular systolic pressure 49 mmHg Estimated right atrial pressure 10 mmHg Mild pulmonic regurgitation MITRAL ANNULAR TISSUE DOPPLER E prime septal 2.6 cm/s, E prime lateral 7.0 cm/s DESCRIPTION: Rhythm was sinus. Image quality was good. No pericardial effusion. This was a 2D, M-mode, color flow Doppler, and pulsed wave Doppler examination including mitral annular tissue Doppler. CONCLUSIONS: 1. Left ventricle is mildly dilated at end-diastole and moderately dilated at end-systole. Paradoxical septal motion with moderately severe global LV hypokinesis elsewhere. Severe reduction of overall LV systolic function. LVEF 20% by visual estimate. 2. Mild left atrial dilatation by left atrial volume index. 3. Structurally normal appearing mitral leaflets. No mitral valve prolapse or flail segments. Moderate mitral regurgitation. No mitral stenosis. 4. Mild aortic valve sclerosis of a 3-cuspid aortic valve. Very mild aortic regurgitation. 5. Suggestive of moderate elevation of estimated right ventricle systolic pressure (49 mmHg). Estimated right atrial pressure of 10 mmHg. Structurally normal appearing tricuspid leaflets. Moderate tricuspid regurgitation. Normal right ventricle size and systolic function. 6. Suggestive of normal CVP (5-10 mmHg). 7. No pericardial effusion. MTDD
== END 2021-03-08 14:00 | disposition home health service (06) ==
LOC: M ED 10:27 → EDBD 10:27 → M ED INP 15:14 → ENRESERV 18:31 → M PCU 18:56 → M MS5PR 03-07 17:20
PROVIDERS: ADMIT Internal Medicine; ATTEND Internal Medicine
DX: R55 Syncope and collapse (principal); I42.9 Cardiomyopathy, unspecified; I38 Endocarditis, valve unspecified; S92.322A Displaced fracture of second metatarsal bone, left foot, initial encounter for closed fracture; S92.332A Displaced fracture of third metatarsal bone, left foot, initial encounter for closed fracture; S92.342A Displaced fracture of fourth metatarsal bone, left foot, initial encounter for closed fracture; S92.352A Displaced fracture of fifth metatarsal bone, left foot, initial encounter for closed fracture; W18.30XA Fall on same level, unspecified, initial encounter; Y92.098 Other place in other non-institutional residence as the place of occurrence of the external cause; E83.42 Hypomagnesemia; I48.19 Other persistent atrial fibrillation; Z95.0 Presence of cardiac pacemaker; Z91.81 History of falling; J44.9 Chronic obstructive pulmonary disease, unspecified; I11.0 Hypertensive heart disease with heart failure; I50.30 Unspecified diastolic (congestive) heart failure; E11.9 Type 2 diabetes mellitus without complications; E78.5 Hyperlipidemia, unspecified; Z79.899 Other long term (current) drug therapy; Z79.01 Long term (current) use of anticoagulants; Z79.84 Long term (current) use of oral hypoglycemic drugs; Z88.0 Allergy status to penicillin; Z88.8 Allergy status to other drugs, medicaments and biological substances
CPT/HCPCS: 36415; 71045; 73610; 73630; 80047; 80053; 80076; 82550; 82553; 83690; 83735; 83880; 84484; 85025; 85610; 85730; 87631; 93005; 93306; 96361; 96365; 96366; 97116; 97161; 97165; 97535; 99285; G0378; J3475

== ENCOUNTER 2021-06-02 04:19 | Emergency (ER) | payer MEDICARE, OTHER ==
[~2021-06-02] VITALS: Ht 167.6 cm; Wt 59.1 kg
[~2021-06-02 04:19] MED LIST changes: +ACET1TAB55 PO; -AMIO200T3 PO; +AMIO200T49 PO; +D31000TA2 PO; +ENTR1TAB7 PO; +GABA-1171 PO
[2021-06-02 06:30] VITALS: BP 99/59
== END 2021-06-02 06:54 | disposition home or self-care (01) ==
LOC: M ED 04:19
DX: L76.82 Other postprocedural complications of skin and subcutaneous tissue (principal); N64.89 Other specified disorders of breast; Z95.0 Presence of cardiac pacemaker; I48.91 Unspecified atrial fibrillation; E11.9 Type 2 diabetes mellitus without complications; J44.9 Chronic obstructive pulmonary disease, unspecified; E78.5 Hyperlipidemia, unspecified; Z79.82 Long term (current) use of aspirin; Z79.84 Long term (current) use of oral hypoglycemic drugs; Z79.899 Other long term (current) drug therapy; Z88.8 Allergy status to other drugs, medicaments and biological substances; Z88.0 Allergy status to penicillin

== ENCOUNTER 2021-06-06 12:05 | Inpatient (IN) | payer MEDICARE, OTHER ==
[2021-06-05 18:45] VITALS: BP 128/69
[~2021-06-06] VITALS: Ht 165.1 cm; Wt 58.8 kg
[~2021-06-06 12:05] MED LIST changes: +AMIO200T3 PO; -AMIO200T49 PO
--- NOTE | 2021-06-06 12:54 | REP ---
INDICATION: DYSPNEA/COUGH. COMPARISON: 03/06/2021 also portable TECHNIQUE: Portable FINDINGS: The technique utilized in obtaining the radiograph has magnified the cardiac silhouette and accentuated the interstitial markings. There has been a diffuse increase in the interstitial markings since the prior exam. There is cardiomegaly accentuated by technique. There is no significant change in appearance of the pacemaker device. There is bilateral CP angle blunting. There is no change in the osseous structures. IMPRESSION: Cardiomegaly, interstitial edema, and bilateral pleural effusions. The findings are consistent with CHF. <Electronically signed by Danilo Skelton > 06/06/21 [id number]
[2021-06-06] MEDS ORDERED: FUROSEMIDE 40MG/4ML VIAL (J1940) IV ONE (13:05)
[2021-06-06 13:08] LABS: BASO # 0.1 10^3/uL (0.0-0.2); BASO % 0.8 % (0.0-1.0); EOS # 0.4 10^3/uL (0.0-0.5); EOS % 5.6 % (0.0-3.0); HEMATOCRIT 33.4 % (36.0-47.0); HEMOGLOBIN 10.8 g/dl (12.0-15.5); LYMPH # 1.5 10^3/uL (1.5-5.0); LYMPH % 20.2 % (24.0-44.0); MEAN CORPUSCULAR HEMOGLOBIN 30.1 pg (27.0-33.0); MEAN CORPUSCULAR HGB CONC 32.3 g/dl (32.0-36.5); MONO # 0.7 10^3/uL (0.0-0.8); MONO % 9.1 % (2.0-8.0); NEUTROPHILS # 4.8 10^3/uL (1.5-8.5); NEUTROPHILS % 63.8 % (36.0-66.0); PLATELET COUNT, AUTOMATED 283 10^3/uL (150-450); RED BLOOD COUNT 3.59 10^6/uL (4.00-5.40); WHITE BLOOD COUNT 7.5 10^3/uL (4.0-10.0)
[2021-06-06 13:25] LABS: INR 1.15; PROTHROMBIN TIME 15.2 SECONDS (12.7-14.5)
[2021-06-06 13:31] LABS: ALBUMIN 3.4 GM/DL (3.2-5.2); ALT/SGPT 21 U/L (12-78); BILIRUBIN,DIRECT 0.2 MG/DL (0.0-0.2); BILIRUBIN,TOTAL 0.4 MG/DL (0.2-1.0); BLOOD UREA NITROGEN 20 MG/DL (7-18); CALCIUM LEVEL 8.8 MG/DL (8.8-10.2); CARBON DIOXIDE LEVEL 26 MEQ/L (21-32); CHLORIDE LEVEL 106 MEQ/L (98-107); CK-MB VALUE MASS 1.9 NG/ML (<3.6); CPK CREATINE PHOSPHOKINASE 71 U/L (26-192); CREATININE FOR GFR 0.75 MG/DL (0.55-1.30); GLOMERULAR FILTRATION RATE > 60.0 (>39); GLUCOSE, FASTING 120 MG/DL (70-100); MB/CK RELATIVE INDEX 2.68 (< OR =4); POTASSIUM SERUM 4.1 MEQ/L (3.5-5.1); SODIUM LEVEL 140 MEQ/L (136-145); TOTAL PROTEIN 6.5 GM/DL (6.4-8.2); TROPONIN I 0.02 NG/ML (< 0.10)
[2021-06-06 14:19] LABS: NT-PRO BNP 23105 PG/ML (<450)
[2021-06-06] MEDS ORDERED: ACETAMINOPHEN TAB 650MG DOSE (2X325MG) PO ONE (15:05)
[2021-06-06] MEDS ORDERED: FLON1SPR NARES (15:36)
[2021-06-06] MEDS ORDERED: DEXTROSE 50% 50 ML SYRINGE IV PRN (15:40)
[2021-06-06] MEDS ORDERED: MOM 30ML SUSPENSION UDC PO PRN (15:40)
[2021-06-06] MEDS ORDERED: MAALOX 30 ML SUSP *UDC PO PRN (15:40)
[2021-06-06] MEDS ORDERED: HOME MED LIST COMPLETE! XX SCH (15:40)
[2021-06-06] MEDS ORDERED: ACETAMINOPHEN TAB 650MG DOSE (2X325MG) PO PRN (15:40)
[2021-06-06] MEDS ORDERED: GLUCOSE 4GM CHEW TABLET PO PRN (15:40)
[2021-06-06] MEDS ORDERED: GLUCAGON INJ 1MG VIAL SC PRN (15:40)
[2021-06-06] MEDS ORDERED: PILL CUTTER 1 EACH XX PRN (16:00)
--- NOTE | 2021-06-06 16:00 | HPEPDOC ---
[facility] Medical History & Physical Date of Admission Jun 06, 2021 Date of Service: Jun 06, 2021 History and Physical Chief complaint: Who presented to the emergency room with complaint of shortness of breath History of present illness: Patient is a 75-year-old female who presented to the emergency room with reported worsening short of breath. Patient denies any chest pain or palpitations. Denies any significant cough or recent fevers or chills. Patient reported that yesterday she tried to lay on her back but couldnt because of severe shortness of breath. Patient has reported some lower extremity swelling is unsure of any changes in her weight. Patient denies any nausea, vomiting, abdominal pain caused patient diarrhea, or urinary discomfort. Patient is not on any fluid restrictions diuretics at home. However, she does follow a salt restriction. Of note, patient recently had an AICD placed at [facility] for what is likely severe systolic CHF. 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 pacemaker COPD NIDDM2 DLP Resting tremor Chronic back pain Past Surgical History: Placement of a dual-chamber pacemaker 04/2019; upgrade to AICD with dual-chamber pacemaker 05/2021 Removal of pituitary adenoma 2000 Bilateral cataract extraction Cholecystectomy Total abdominal hysterectomy Prior colonic polypectomy Removal of carcinoid tumor 2007 Allergies: See below Medications: See below Family History: - Father with a history of heart disease Social History: - Denies the use of tobacco or illicit drugs; remote history of alcohol use - Denies recent travel or sick contacts - Lives with - Occupation; worked at a [employer] in the past Review of Systems: 10 point review of systems complete, all negative otherwise stated in HPI Physical exam: - Vitals: BP [144/70], HR [104], RR [16], Sat [97%RA], Temp [98.1F] - General: Lying in bed, Speaking in full sentences, AAOx3 - HEENT: NC, AT, PERRLA - CVS: IrIr, +S1S2 - Lungs: Fair air entry bilaterally, No appreciable wheezing / rhonchi; crackles appreciated at bilateral lower lung hilliard - Abdomen: Soft, Non-distended, Non-tender - Extremities: 1+ pitting edema bilaterally, No calf tenderness - Neuro: No focal motor or sensory deficit - Skin: No visible rashes Labs: See below Imaging: ECHO 03/08/2021: 1. Left ventricle is mildly dilated at end-diastole and moderately dilated at end-systole. Paradoxical septal motion with moderately severe global LV hypokinesis elsewhere. Severe reduction of overall LV systolic function. LVEF 20% by visual estimate. 2. Mild left atrial dilatation by left atrial volume index. 3. Structurally normal appearing mitral leaflets. No mitral valve prolapse or flail segments. Moderate mitral regurgitation. No mitral stenosis. 4. Mild aortic valve sclerosis of a 3-cuspid aortic valve. Very mild aortic regurgitation. 5. Suggestive of moderate elevation of estimated right ventricle systolic pressure (49 mmHg). Estimated right atrial pressure of 10 mmHg. Structurally normal appearing tricuspid leaflets. Moderate tricuspid regurgitation. Normal right ventricle size and systolic function. 6. Suggestive of normal CVP (5-10 mmHg). 7. No pericardial effusion. CXR 06/06: Cardiomegaly, interstitial edema, and bilateral pleural effusions. The findings are consistent with CHF. EKG: See below Assessment and Plan: Shortness of breath - likely 2/2 atrial fibrillation, decompensated systolic CHF, bilateral pleural effusions - See below Atrial fibrillation - EKG was reviewed and does reveal evidence of atrial fibrillation / paced rhythm - Will start rate control with metoprolol - Will continue with full anticoagulation with Eliquis Acute decompensated systolic CHF (EF: 20%) - Patient has had a recent AICD placed at [facility] - ECHO from February/2021 noted above - Will repeat ECHO - Will start Furosemide 40 IV BID with hold parameters - Strict ins/outs, Daily weights, Fluid restriction, ECHO - Will hold Entresto for now; will resume within 24-48 hours Persistent tachycardia/bradycardia arrhythmia - s/p dual-chamber pacemaker - Patient denies any chest pain or palpitations - EKG with few episodes of non-sustained v tach - c/w Telemetry monitoring - Will check troponin trend - Will start beta micheal COPD - No evidence of exacerbation - Continue with inhaled therapy as ordered NIDDM2 - Will start ISS DLP - Will c/w Simvastatin and [place]-3 fatty acids Resting tremor Chronic back pain - c/w Tylenol PRN DVT prophylaxis - Will c/w Eliquis Vital Signs Vital Signs Date Time Temp Pulse Resp B/P (MAP) Pulse Ox O2 Delivery O2 Flow Rate FiO2 06/06/21 15:05 104 97 06/06/21 15:00 144/70 (94) 06/06/21 12:06 98.1 21 Room Air Laboratory Data Labs 24H Laboratory Tests 2 06/06/21 12:30: Immature Granulocyte % (Auto) 0.5, Neutrophils (%) (Auto) 63.8, Lymphocytes (%) (Auto) 20.2L, Monocytes (%) (Auto) 9.1H, Eosinophils (%) (Auto) 5.6H, Basophils (%) (Auto) 0.8, Neutrophils # (Auto) 4.8, Lymphocytes # (Auto) 1.5, Monocytes # (Auto) 0.7, Eosinophils # (Auto) 0.4, Basophils # (Auto) 0.1, Nucleated Red Blood Cells % (auto) 0.0, Prothrombin Time 15.2H, Prothromb Time International Ratio 1.15, Anion Gap 8, Glomerular Filtration Rate > 60.0, Calcium Level 8.8, Magnesium Level 2.0, Total Bilirubin 0.4, Direct Bilirubin 0.2, Aspartate Amino Transf (AST/SGOT) 25, Alanine Aminotransferase (ALT/SGPT) 21, Alkaline Phosphatase 55, Total Creatine Kinase 71, Creatine Kinase MB 1.9, Creatine Kinase MB Relative Index 2.68, Troponin I 0.02, WN-Ork-K-Type Natriuretic Peptide 17367Z, Total Protein 6.5, Albumin 3.4, Albumin/Globulin Ratio 1.1L 06/06/21 12:56: Coronavirus (COVID-19)(PCR) NEGATIVE CBC/BMP Laboratory Tests 06/06/21 12:30 Home Medications Scheduled Apixaban (Eliquis) 5 Mg Tablet, 5 MG PO BID Calcium Carbonate/Vitamin D3 (Calcium 600+D Softgel) 1 Each Capsule, 1 CAP PO DAILY Cholecalciferol (Vitamin D3) (Vitamin D3) 1,000 Unit Tablet, 1,000 UNITS PO DAILY Fluticasone Propion/Salmeterol (Advair Hfa 230-21 Mcg Inhaler) 12 Gm Hfa.aer.ad, 2 PUFF INH BID Fluticasone Propionate (Flonase Allergy Relief) 9.9 Ml [place].susp, 1 SPRAY NARES BID Metformin HCl (Metformin HCl ER) 500 Mg Tab.er.24h, 500 MG PO DAILY [place]-3 Fatty Acids/Fish Oil (Fish Oil 1,000 mg Capsule) 1 Each Capsule, 1,000 MG PO DAILY Sacubitril/Valsartan (Entresto 49 mg-51 mg Tablet) 1 Each Tablet, 1 TAB PO BID Simvastatin (Simvastatin) 10 Mg Tablet, 5 MG PO QHS Scheduled PRN Albuterol Sulfate (Proair Hfa) 8.5 Gm Hfa.aer.ad, 2 PUFF INH Q4H PRN for SHORTNESS OF BREATH Allergies Coded Allergies: JOEL Inhibitors (Verified Allergy, Intermediate, hives, 06/02/21) amoxicillin (Verified Allergy, Intermediate, HIVES,ITCHING, 06/02/21) ARB-Angiotensin Receptor Antagonist (Unverified Adverse Reaction, Intermediate, tachycardia, 06/02/21) PAULO PEREZ MD Jun 06, 2021 16:00
[2021-06-06] MEDS: METOPROLOL TART 12.5 MG PER 1/2 TAB PO SCH (18:00)
[2021-06-06 20:00] VITALS: BP 120/70
[2021-06-06 20:19] LABS: CK-MB VALUE MASS 2.8 NG/ML (<3.6); MB/CK RELATIVE INDEX 3.64 (< OR =4); TROPONIN I 0.03 NG/ML (< 0.10)
[2021-06-06] MEDS: FUROSEMIDE 40MG/4ML VIAL (J1940) IV SCH (20:30)
[2021-06-06] MEDS: HumaLOG INSULIN (NovoLOG) PER UNIT SC SCH ×2 (20:30→20:51)
[2021-06-06] MEDS: ALBUTEROL 90 MCG/ACT 8GM HFA INHALER INH PRN (20:33)
[2021-06-06] MEDS: DOCUSATE SODIUM 100MG CAPSULE PO SCH (20:50)
[2021-06-06] MEDS: SIMVASTATIN 10 MG TAB PO SCH (20:50)
[2021-06-06] MEDS: APIXABAN 5 MG TAB (ELIQUIS) PO SCH (20:50)
[2021-06-06] MEDS: FLUTICASONE PROP 0.05% NASAL SPRAY 16 GM (FLONASE) NARES SCH (20:51)
[2021-06-07] VITALS: BP 129/77
[2021-06-07 01:26] LABS: CK-MB VALUE MASS 2.8 NG/ML (<3.6); MB/CK RELATIVE INDEX 3.84 (< OR =4); TROPONIN I 0.04 NG/ML (< 0.10)
[2021-06-07 04:00] VITALS: BP 127/70
[2021-06-07 05:26] LABS: BASO # 0.1 10^3/uL (0.0-0.2); BASO % 0.8 % (0.0-1.0); EOS # 0.4 10^3/uL (0.0-0.5); EOS % 5.5 % (0.0-3.0); HEMATOCRIT 31.9 % (36.0-47.0); HEMOGLOBIN 10.2 g/dl (12.0-15.5); LYMPH # 1.5 10^3/uL (1.5-5.0); LYMPH % 23.2 % (24.0-44.0); MEAN CORPUSCULAR HEMOGLOBIN 29.1 pg (27.0-33.0); MEAN CORPUSCULAR VOLUME 90.9 fl (80.0-96.0); MONO # 0.6 10^3/uL (0.0-0.8); MONO % 9.2 % (2.0-8.0); NEUTROPHILS # 3.9 10^3/uL (1.5-8.5); NEUTROPHILS % 60.5 % (36.0-66.0); PLATELET COUNT, AUTOMATED 264 10^3/uL (150-450); RED BLOOD COUNT 3.51 10^6/uL (4.00-5.40); WHITE BLOOD COUNT 6.4 10^3/uL (4.0-10.0)
[2021-06-07] MEDS: METOPROLOL TART 12.5 MG PER 1/2 TAB PO SCH ×4 (05:35→20:44)
[2021-06-07 05:45] LABS: BLOOD UREA NITROGEN 20 MG/DL (7-18); CALCIUM LEVEL 8.5 MG/DL (8.8-10.2); CARBON DIOXIDE LEVEL 28 MEQ/L (21-32); CHLORIDE LEVEL 104 MEQ/L (98-107); CREATININE FOR GFR 0.72 MG/DL (0.55-1.30); GLOMERULAR FILTRATION RATE > 60.0 (>39); GLUCOSE, FASTING 107 MG/DL (70-100); MAGNESIUM LEVEL 1.8 MG/DL (1.8-2.4); POTASSIUM SERUM 3.7 MEQ/L (3.5-5.1); SODIUM LEVEL 140 MEQ/L (136-145)
--- NOTE | 2021-06-07 07:08 | ECGEPIP ---
[facility] - ED Test Date: 2021-06-06 Pat Name: BENJI RIOS Department: Room: - Gender: Female [employer]er: : 1945 Requested By: ELIOT Olivares Order Number: [id number] Reading MD: Saul Guadarrama Measurements Intervals [place] Rate: 94 P: 18 MT: 112 QRS: 252 QRSD: 218 T: 75 QT: 476 QTc: 595 Interpretive Statements Atrial-sensed ventricular-paced rhythm Electronically Signed on 06-07-2021 7:08:05 EDT by Saul Guadarrama
[2021-06-07 07:34] VITALS: BP 120/75
[2021-06-07] MEDS: VITAMIN D 1,000 INTERNATIONAL UNITS TABLET PO SCH (08:16)
[2021-06-07] MEDS: FUROSEMIDE 40MG/4ML VIAL (J1940) IV SCH ×2 (08:16→16:50)
[2021-06-07] MEDS: DOCUSATE SODIUM 100MG CAPSULE PO SCH ×2 (08:16→20:44)
[2021-06-07] MEDS: OMEGA-3 1000MG CAPSULE PO SCH (08:18)
[2021-06-07] MEDS: APIXABAN 5 MG TAB (ELIQUIS) PO SCH ×2 (08:18→20:44)
[2021-06-07] MEDS: HumaLOG INSULIN (NovoLOG) PER UNIT SC SCH ×4 (08:18→20:44)
[2021-06-07] MEDS: FLUTICASONE PROP 0.05% NASAL SPRAY 16 GM (FLONASE) NARES SCH ×2 (08:19→20:45)
--- NOTE | 2021-06-07 10:05 | IPNPDOC ---
Text Note Date of Service The patient was seen on 06/07/21. NOTE Subjective: Patient is a 75-year-old female wiht a PMHx of A. fib (Eliquis), Systolic CHF (EF: 20%) s/p AICD, tachy/seble achymia s/p dual chamber PM, COPD, DM2, DLP, Chronic back pain, who presented to the ER with reported worsening short of breath. Of note, patient recently had an AICD placed at [facility] for what is likely severe systolic CHF. Patient was admitted to the hospital service for decompensated CHF. Patient was seen and examined at the bedside. Currently patient reports that her breathing is doing relatively better. They deny any nausea, vomiting, abdominal pain, diarrhea, or urinary discomfort. Objective: Vitals (See below) General: Siting up in bed, appears comfortable, AAOx3 HEENT: NC, AT CVS: +S1S2 Lungs: Fair air entry b/l, + Crackles bilaterally, no wheezing / rhonchi Abdomen: Soft, ND, NT Extremities: 1+ pitting edema bilaterally, - Calf tenderness Imaging: ECHO 03/08/2021: 1. Left ventricle is mildly dilated at end-diastole and moderately dilated at end-systole. Paradoxical septal motion with moderately severe global LV hypokinesis elsewhere. Severe reduction of overall LV systolic function. LVEF 20% by visual estimate. 2. Mild left atrial dilatation by left atrial volume index. 3. Structurally normal appearing mitral leaflets. No mitral valve prolapse or flail segments. Moderate mitral regurgitation. No mitral stenosis. 4. Mild aortic valve sclerosis of a 3-cuspid aortic valve. Very mild aortic regurgitation. 5. Suggestive of moderate elevation of estimated right ventricle systolic pressure (49 mmHg). Estimated right atrial pressure of 10 mmHg. Structurally normal appearing tricuspid leaflets. Moderate tricuspid regurgitation. Normal right ventricle size and systolic function. 6. Suggestive of normal CVP (5-10 mmHg). 7. No pericardial effusion. CXR 06/06: Cardiomegaly, interstitial edema, and bilateral pleural effusions. The findings are consistent with CHF. Assessment and plan: Shortness of breath - likely 2/2 atrial fibrillation, decompensated systolic CHF, bilateral pleural effusions - See below Acute decompensated systolic CHF (EF: 20%) - Patient has had a recent AICD placed at [facility] - ECHO from February/2021 noted above - Repeat ECHO pending - c/w Furosemide 40 IV BID with hold parameters - Strict ins/outs, Daily weights, Fluid restriction - Will continue to hold Entresto - will resume once clinically improved Atrial fibrillation; s/p RVR - EKG was reviewed and does reveal evidence of atrial fibrillation / paced rhyt hm - c/w metoprolol - c/w full anticoagulation with Eliquis Persistent tachycardia/bradycardia arrhythmia - s/p dual-chamber pacemaker - Denies any symptoms of CP or palpitations - Troponin trend negative - EKG with few episodes of non-sustained v tach - c/w Telemetry monitoring - c/w Metoprolol COPD - No evidence of exacerbation - c/w inhaled therapy as ordered NIDDM2 - c/w ISS DLP - c/w Simvastatin and [place]-3 fatty acids Resting tremor Chronic back pain - c/w Tylenol PRN DVT prophylaxis - c/w full anticoagulation with Eliquis Disposition: - Awaiting clinical improvement - Will order PT VS,Fishbone, I+O VS, Fishbone, I+O Laboratory Tests 06/06/21 12:30 06/07/21 04:41 Vital Signs Date Time Temp Pulse Resp B/P (MAP) Pulse Ox O2 Delivery O2 Flow Rate FiO2 06/07/21 07:34 97.2 75 20 120/75 (90) 92 Room Air I&O- Last 24 Hours up to 6 AM 06/07/21 05:59 Intake Total 300 ml Output Total 1450 ml Balance -1150 ml PAULO PEREZ MD Jun 07, 2021 10:05
[2021-06-07 12:18] VITALS: BP 107/70
[2021-06-07 16:34] VITALS: BP 125/70
[2021-06-07 20:00] VITALS: BP 110/70
[2021-06-07] MEDS: SIMVASTATIN 10 MG TAB PO SCH (20:44)
[2021-06-07] MEDS: RAMELTEON 8 MG TAB (ROZEREM) PO PRN (20:46)
[2021-06-08] VITALS: BP 104/60
[2021-06-08 04:00] VITALS: BP 110/64
[2021-06-08 05:36] LABS: BASO # 0.1 10^3/uL (0.0-0.2); BASO % 1.2 % (0.0-1.0); EOS # 0.4 10^3/uL (0.0-0.5); EOS % 5.6 % (0.0-3.0); HEMATOCRIT 29.9 % (36.0-47.0); HEMOGLOBIN 9.7 g/dl (12.0-15.5); LYMPH # 2.2 10^3/uL (1.5-5.0); LYMPH % 31.6 % (24.0-44.0); MEAN CORPUSCULAR HEMOGLOBIN 29.5 pg (27.0-33.0); MEAN CORPUSCULAR HGB CONC 32.4 g/dl (32.0-36.5); MEAN CORPUSCULAR VOLUME 90.9 fl (80.0-96.0); MONO # 0.7 10^3/uL (0.0-0.8); MONO % 10.2 % (2.0-8.0); NEUTROPHILS # 3.5 10^3/uL (1.5-8.5); PLATELET COUNT, AUTOMATED 279 10^3/uL (150-450); RED BLOOD COUNT 3.29 10^6/uL (4.00-5.40); WHITE BLOOD COUNT 6.8 10^3/uL (4.0-10.0)
[2021-06-08 06:01] LABS: BLOOD UREA NITROGEN 24 MG/DL (7-18); CARBON DIOXIDE LEVEL 30 MEQ/L (21-32); CHLORIDE LEVEL 100 MEQ/L (98-107); CREATININE FOR GFR 0.94 MG/DL (0.55-1.30); GLOMERULAR FILTRATION RATE > 60.0 (>39); GLUCOSE, FASTING 101 MG/DL (70-100); MAGNESIUM LEVEL 1.7 MG/DL (1.8-2.4); POTASSIUM SERUM 3.5 MEQ/L (3.5-5.1); SODIUM LEVEL 137 MEQ/L (136-145)
[2021-06-08] MEDS ORDERED: MAG SULF 1GM/100ML (MAG RUN) 1 GM in IV 1 EA IV ONE (06:55)
[2021-06-08] MEDS: HumaLOG INSULIN (NovoLOG) PER UNIT SC SCH ×4 (07:22→21:00)
--- NOTE | 2021-06-08 07:40 | ECHO ---
ECHOCARDIOGRAM DATE OF PROCEDURE: 06/07/2021 Age: 76 Gender: Female Height: 66 inches Weight: 130 pounds Body Surface Area: 1.67 meters squared Inpatient PCU, room 3214 REFERRING PHYSICIAN: Elieser Izaguirre MD INDICATION: Congestive heart failure (CHF). MEASUREMENTS: 2D Measurements: RV - 5.4 cm LV - 5.1 cm Septum 1.1 cm Posterior wall 1.1 cm Aortic Root 3.2 cm LA - 4.0 cm LVEF 20-25% Doppler Measurements: AV - 0.99 m/s LVOT - 0.58 m/s LVOT diameter 1.8 cm MV-E 73, A 47, E/A ratio 1.5 Early mitral deceleration time 158 msec E prime medial 3, A prime medial 5, E prime lateral 4 Average E/E prime ratio 20.9/PCWP - 27.6 mmHg PV - 0.45 m/s Pulmonary artery acceleration time 87 msec RVSP 52 mmHg IVC - 2.2 cm COMMENTS: Consistent AV sequentially paced rhythm with left bundle branch block (LBBB) QRS configuration. M-mode and 2-dimensional echocardiography was performed with pulse, continuous wave, color flow, and tissue Doppler studies. Left ventricle at least mildly dilated with normal left ventricle (LV) wall thickness. Paradoxical septal wall motion with akinesis of the apex and marked hypokinesis of the inferior and anterior wall with mild hypokinesis of the lateral wall - fairly severe global left ventricular systolic dysfunction. At least mildly dilated left atrium with grade 2 LV diastolic dysfunction and a significantly elevated estimated mean left atrial pressure. Prominently dilated right heart chambers with right ventricular free wall hypokinesis and Doppler evidence of at least moderately severe pulmonary hypertension. Inferior vena cava (IVC) size upper limits of normal to mildly dilated with slightly reduced respiratory collapse in keeping with central venous pressure of at least 15 mmHg. Normal aortic dimensions. Moderate aortic valvular sclerosis with adequate cusp separation but premature cusp closure in keeping with reduced forward stroke volume. Mild aortic insufficiency. Mild degenerative changes of the mitral valvular apparatus with "low flow" appearance to leaflet excursion but no posterior systolic buckling with moderately severe insufficiency. Normal-appearing tricuspid valve but fairly severe tricuspid insufficiency. Pacing leads to be visualized traversing right heart structures but no separate endocardiac mass. Miniscule posterior pericardial effusion with obvious moderate sized left pleural effusion.
[2021-06-08 08:00] VITALS: BP 107/62
[2021-06-08] MEDS: VITAMIN D 1,000 INTERNATIONAL UNITS TABLET PO SCH (08:11)
[2021-06-08] MEDS: FLUTICASONE PROP 0.05% NASAL SPRAY 16 GM (FLONASE) NARES SCH ×2 (08:11→21:09)
[2021-06-08] MEDS: DOCUSATE SODIUM 100MG CAPSULE PO SCH ×2 (08:11→21:08)
[2021-06-08] MEDS: APIXABAN 5 MG TAB (ELIQUIS) PO SCH ×2 (08:11→21:08)
[2021-06-08] MEDS: METOPROLOL TART 12.5 MG PER 1/2 TAB PO SCH ×2 (08:12→21:08)
[2021-06-08] MEDS: FUROSEMIDE 40MG/4ML VIAL (J1940) IV SCH (08:12)
[2021-06-08] MEDS: OMEGA-3 1000MG CAPSULE PO SCH (09:00)
--- NOTE | 2021-06-08 11:33 | REP ---
INDICATION: Evaluate for fluid overload. COMPARISON: 03/06/2021 TECHNIQUE: Two views FINDINGS: The heart is slightly enlarged. There is mild pulmonary venous congestion. There are small bilateral pleural effusions. Postoperative changes are noted after dual pacemaker insertion. Skin osmin are in place. The lungs are clear. IMPRESSION: Mild pulmonary venous congestion. Small bilateral pleural effusions. Permanent pacing leads in satisfactory position. <Electronically signed by Fidel Soriano > 06/08/21 1126
[2021-06-08 12:00] VITALS: BP 98/58
--- NOTE | 2021-06-08 12:04 | IPNPDOC ---
Text Note Date of Service The patient was seen on 06/08/21. NOTE Subjective: Patient is a 75-year-old female with a PMHx of A. fib (Eliquis), Systolic CHF (EF: 20%) s/p AICD, tachy/seble achymia s/p dual chamber PM, COPD, DM2, DLP, Chronic back pain, who presented to the ER with reported worsening short of breath. Of note, patient recently had an AICD placed at [facility] for what is likely severe systolic CHF. Patient was admitted to the hospital service for decompensated CHF. Patient was seen and examined at the bedside. Patient was sitting up in bed, appears to be comfortable without any acute distress. Denied any nausea, vomiting, abdominal pain, diarrhea, or urinary discomfort. Reports that her breathing is doing better. Denies any cough or chest pain. Objective: Vitals (See below) General: Patient was seen sitting up in bed, appeared to become 12 without any acute distress, is awake and alert, oriented 3 HEENT: Normocephalic and atraumatic CVS: +S1S2 Lungs: Auscultation appears to have fair air entry bilaterally, significant improvement of crackles. No evidence of wheezing or rhonchi Abdomen: Soft, nondistended and nontender Extremities: Trace to 1+ pitting edema still remains bilaterally of her lower extremities Imaging: CXR 06/06: Cardiomegaly, interstitial edema, and bilateral pleural effusions. The findings are consistent with CHF. ECHO 06/07/2021: Consistent AV sequentially paced rhythm with left bundle branch block (LBBB) QRS configuration. M-mode and 2-dimensional echocardiography was performed with pulse, continuous wave, color flow, and tissue Doppler studies. Left ventricle at least mildly dilated with normal left ventricle (LV) wall thickness. Paradoxical septal wall motion with akinesis of the apex and marked hypokinesis of the inferior and anterior wall with mild hypokinesis of the lateral wall - fairly severe global left ventricular systolic dysfunction. (EF 20-25%) At least mildly dilated left atrium with grade 2 LV diastolic dysfunction and a significantly elevated estimated mean left atrial pressure. Prominently dilated right heart chambers with right ventricular free wall hypokinesis and Doppler evidence of at least moderately severe pulmonary hy pertension. Inferior vena cava (IVC) size upper limits of normal to mildly dilated with slightly reduced respiratory collapse in keeping with central venous pressure of at least 15 mmHg. Normal aortic dimensions. Moderate aortic valvular sclerosis with adequate cusp separation but premature cusp closure in keeping with reduced forward stroke volume. Mild aortic insufficiency. Mild degenerative changes of the mitral valvular apparatus with "low flow" appearance to leaflet excursion but no posterior systolic buckling with moderately severe insufficiency. Normal-appearing tricuspid valve but fairly severe tricuspid insufficiency. Pacing leads to be visualized traversing right heart structures but no separate endocardiac mass. Miniscule posterior pericardial effusion with obvious moderate sized left pleural effusion. CXR 06/08: Mild pulmonary venous congestion. Small bilateral pleural effusions. Permanent pacing leads in satisfactory position. Assessment and plan: Shortness of breath - likely 2/2 atrial fibrillation, decompensated systolic CHF, bilateral pleural effusions - Clinically patient has reported significant improvement of her breathing Acute on chronic decompensated systolic and diastolic CHF (EF: 20-25%) - Patient has had a recent AICD placed at [facility] - ECHO noted above - c/w Furosemide 40 IV BID with hold parameters; Will adjust to oral diuresis today - Strict ins/outs, Daily weights, Fluid restriction - Will continue to hold Entresto - will resume once clinically improved; however her BP remains borderline given the recently introduced diuretics Atrial fibrillation; s/p RVR - EKG was reviewed and does reveal evidence of atrial fibrillation / paced rhythm - c/w metoprolol - c/w full anticoagulation with Eliquis Persistent tachycardia/bradycardia arrhythmia - s/p dual-chamber pacemaker - Denies any symptoms of CP or palpitations - Troponin trend negative - EKG with few episodes of non-sustained v tach - c/w Telemetry monitoring - c/w Metoprolol COPD - No evidence of exacerbation - c/w inhaled therapy as ordered NIDDM2 - c/w ISS DLP - c/w Simvastatin and [place]-3 fatty acids Resting tremor Chronic back pain - c/w Tylenol PRN DVT prophylaxis - c/w full anticoagulation with Eliquis Disposition: - Awaiting clinical improvement - Anticipate DC in 24-48 hours - PT continues to work with patient Cali HARGROVE, I+O Cali HARGROVE I+O Laboratory Tests 06/08/21 05:12 Vital Signs Date Time Temp Pulse Resp B/P (MAP) Pulse Ox O2 Delivery O2 Flow Rate FiO2 06/08/21 08:12 72 115/64 06/08/21 08:00 97.2 16 97 Room Air I&O- Last 24 Hours up to 6 AM 06/08/21 06:00 Intake Total 900 ml Output Total 1250 ml Balance -350 ml PAULO PEREZ MD Jun 08, 2021 12:04
[2021-06-08 16:00] VITALS: BP 96/54
[2021-06-08] MEDS ORDERED: FUROSEMIDE 40 MG TAB PO SCH (17:00)
[2021-06-08 20:00] VITALS: BP 113/69
[2021-06-08] MEDS: SIMVASTATIN 10 MG TAB PO SCH (21:08)
[2021-06-08] MEDS: RAMELTEON 8 MG TAB (ROZEREM) PO PRN (21:08)
[2021-06-09] VITALS (7 sets, daily range): BP systolic 92–114; BP diastolic 54–69
[2021-06-09 04:21] LABS: BASO # 0.1 10^3/uL (0.0-0.2); EOS # 0.3 10^3/uL (0.0-0.5); EOS % 3.6 % (0.0-3.0); HEMATOCRIT 29.4 % (36.0-47.0); HEMOGLOBIN 9.7 g/dl (12.0-15.5); LYMPH # 2.2 10^3/uL (1.5-5.0); LYMPH % 31.8 % (24.0-44.0); MEAN CORPUSCULAR HEMOGLOBIN 29.5 pg (27.0-33.0); MEAN CORPUSCULAR VOLUME 89.4 fl (80.0-96.0); MONO # 0.7 10^3/uL (0.0-0.8); MONO % 9.8 % (2.0-8.0); NEUTROPHILS # 3.7 10^3/uL (1.5-8.5); NEUTROPHILS % 53.2 % (36.0-66.0); PLATELET COUNT, AUTOMATED 278 10^3/uL (150-450); RED BLOOD COUNT 3.29 10^6/uL (4.00-5.40); WHITE BLOOD COUNT 6.9 10^3/uL (4.0-10.0)
[2021-06-09 04:33] LABS: CALCIUM LEVEL 8.1 MG/DL (8.8-10.2); CREATININE FOR GFR 1.06 MG/DL (0.55-1.30); GLOMERULAR FILTRATION RATE 53.4 (>39); POTASSIUM SERUM 3.9 MEQ/L (3.5-5.1)
[2021-06-09] MEDS: HumaLOG INSULIN (NovoLOG) PER UNIT SC SCH ×4 (07:30→19:46)
[2021-06-09] MEDS: APIXABAN 5 MG TAB (ELIQUIS) PO SCH ×2 (08:29→19:53)
[2021-06-09] MEDS: OMEGA-3 1000MG CAPSULE PO SCH (08:29)
[2021-06-09] MEDS: DOCUSATE SODIUM 100MG CAPSULE PO SCH ×2 (08:29→19:53)
[2021-06-09] MEDS: VITAMIN D 1,000 INTERNATIONAL UNITS TABLET PO SCH (08:29)
[2021-06-09] MEDS: FLUTICASONE PROP 0.05% NASAL SPRAY 16 GM (FLONASE) NARES SCH ×2 (08:30→19:53)
[2021-06-09] MEDS: METOPROLOL TART 12.5 MG PER 1/2 TAB PO SCH (08:36)
[2021-06-09] MEDS ORDERED: FURO20TA2 PO (14:00)
[2021-06-09] MEDS: ALBUTEROL 90 MCG/ACT 8GM HFA INHALER INH PRN (14:33)
--- NOTE | 2021-06-09 16:20 | IPNPDOC ---
Text Note Date of Service The patient was seen on 06/09/21. NOTE Subjective: Patient is a 75-year-old female with a PMHx of A. fib (Eliquis), Systolic CHF (EF: 20%) s/p AICD, tachy/seble achymia s/p dual chamber PM, COPD, DM2, DLP, Chronic back pain, who presented to the ER with reported worsening short of breath. Of note, patient recently had an AICD placed at [facility] for what is likely severe systolic CHF. Patient was admitted to the hospital service for decompensated CHF. Patient was seen and examined at the bedside. Patient has had significant improvement in breathing. Denies any CP, cough or palpitations. Denies any N/V, abdominal pain, C/D or urinary discomfort. Objective: Vitals (See below) General: Laying in bed, appears comfortable, AAOx3 HEENT: AT, NC CVS: +S1S2 Lungs: There appears to be fair air entry bilaterally; no wheezing / rhonchi / rales Abdomen: Abdomen is soft, non-distended, non-tender Extremities: LE do not reveal any significant edema Imaging: CXR 06/06: Cardiomegaly, interstitial edema, and bilateral pleural effusions. The findings are consistent with CHF. ECHO 06/07/2021: Consistent AV sequentially paced rhythm with left bundle branch block (LBBB) QRS configuration. M-mode and 2-dimensional echocardiography was performed with pulse, continuous wave, color flow, and tissue Doppler studies. Left ventricle at least mildly dilated with normal left ventricle (LV) wall thickness. Paradoxical septal wall motion with akinesis of the apex and marked hypokinesis of the inferior and anterior wall with mild hypokinesis of the lateral wall - fairly severe global left ventricular systolic dysfunction. (EF 20-25%) At least mildly dilated left atrium with grade 2 LV diastolic dysfunction and a significantly elevated estimated mean left atrial pressure. Prominently dilated right heart chambers with right ventricular free wall hypokinesis and Doppler evidence of at least moderately severe pulmonary hypertension. Inferior vena cava (IVC) size upper limits of normal to mildly dilated with slightly reduced respiratory collapse in keeping with central venous pressure of at least 15 mmHg. Normal aortic dimensions. Moderate aortic valvular sclerosis with adequate cusp separation but premature cusp closure in keeping with reduced forward stroke volume. Mild aortic insufficiency. Mild degenerative changes of the mitral valvular apparatus with "low flow" appearance to leaflet excursion but no posterior systolic buckling with moderately severe insufficiency. Normal-appearing tricuspid valve but fairly severe tricuspid insufficiency. Pacing leads to be visualized traversing right heart structures but no separate endocardiac mass. Miniscule posterior pericardial effusion with obvious moderate sized left pleural effusion. CXR 06/08: Mild pulmonary venous congestion. Small bilateral pleural effusions. Permanent pacing leads in satisfactory position. Assessment and plan: Shortness of breath - likely 2/2 atrial fibrillation, decompensated systolic CHF, bilateral pleural effusions - Reported improvement of breathing Acute on chronic decompensated systolic and diastolic CHF (EF: 20-25%) - Physical without any further evidence of fluid overload - Patient has had a recent AICD placed at [facility] - ECHO noted above - Strict ins/outs, Daily weights, Fluid restriction - s/p Furosemide - Will resume Entresto tomorrow Atrial fibrillation; s/p RVR - EKG was reviewed and does reveal evidence of atrial fibrillation / paced rhythm - Patient has not been on any rate control medications as an outpatient - s/p metoprolol - c/w full anticoagulation with Eliquis Persistent tachycardia/bradycardia arrhythmia - s/p dual-chamber pacemaker - Denies any symptoms of CP or palpitations - Troponin trend negative - EKG with few episodes of non-sustained v tach - c/w Telemetry monitoring - s/p Metoprolol COPD - No evidence of exacerbation - c/w inhaled therapy as ordered NIDDM2 - c/w ISS DLP - c/w Simvastatin and [place]-3 fatty acids Resting tremor Chronic back pain - c/w Tylenol PRN DVT prophylaxis - c/w full anticoagulation with Eliquis Disposition: - Awaiting clinical improvement - AK home tomorrow - PT continues to work with patient Cali HARGROVE, I+O Cali HARGROVE I+O Laboratory Tests 06/09/21 03:53 Vital Signs Date Time Temp Pulse Resp B/P (MAP) Pulse Ox O2 Delivery O2 Flow Rate FiO2 06/09/21 12:00 96.3 69 18 104/68 (80) 98 06/08/21 20:00 Room Air I&O- Last 24 Hours up to 6 AM 06/09/21 06:00 Intake Total 1000 ml Output Total 550 ml Balance 450 ml PAULO PEREZ MD Jun 09, 2021 16:20
[2021-06-09] MEDS: SIMVASTATIN 10 MG TAB PO SCH (19:53)
[2021-06-09] MEDS: ADVAIR HFA 230/21MCG INHALER INH SCH (19:58)
[2021-06-09] MEDS: RAMELTEON 8 MG TAB (ROZEREM) PO PRN (21:16)
[2021-06-10 03:35] VITALS: BP 106/62
[2021-06-10 04:18] LABS: BASO # 0.1 10^3/uL (0.0-0.2); BASO % 0.9 % (0.0-1.0); EOS # 0.2 10^3/uL (0.0-0.5); EOS % 2.7 % (0.0-3.0); HEMATOCRIT 32.1 % (36.0-47.0); HEMOGLOBIN 10.5 g/dl (12.0-15.5); LYMPH # 2.4 10^3/uL (1.5-5.0); LYMPH % 32.2 % (24.0-44.0); MEAN CORPUSCULAR HEMOGLOBIN 29.2 pg (27.0-33.0); MEAN CORPUSCULAR HGB CONC 32.7 g/dl (32.0-36.5); MEAN CORPUSCULAR VOLUME 89.4 fl (80.0-96.0); MONO # 0.7 10^3/uL (0.0-0.8); MONO % 9.3 % (2.0-8.0); NEUTROPHILS % 54.4 % (36.0-66.0); PLATELET COUNT, AUTOMATED 329 10^3/uL (150-450); RED BLOOD COUNT 3.59 10^6/uL (4.00-5.40); WHITE BLOOD COUNT 7.4 10^3/uL (4.0-10.0)
[2021-06-10 04:39] LABS: CALCIUM LEVEL 8.4 MG/DL (8.8-10.2); CREATININE FOR GFR 1.16 MG/DL (0.55-1.30); GLOMERULAR FILTRATION RATE 48.1 (>39); MAGNESIUM LEVEL 2.2 MG/DL (1.8-2.4); POTASSIUM SERUM 3.9 MEQ/L (3.5-5.1)
[2021-06-10] MEDS: HumaLOG INSULIN (NovoLOG) PER UNIT SC SCH ×4 (07:30→20:46)
[2021-06-10] MEDS: ADVAIR HFA 230/21MCG INHALER INH SCH ×2 (07:32→20:10)
[2021-06-10 08:00] VITALS: BP 116/69
[2021-06-10] MEDS: FLUTICASONE PROP 0.05% NASAL SPRAY 16 GM (FLONASE) NARES SCH ×2 (09:54→20:45)
[2021-06-10] MEDS: DOCUSATE SODIUM 100MG CAPSULE PO SCH ×2 (09:54→20:45)
[2021-06-10] MEDS: APIXABAN 5 MG TAB (ELIQUIS) PO SCH ×2 (09:54→20:46)
[2021-06-10] MEDS: OMEGA-3 1000MG CAPSULE PO SCH (09:54)
[2021-06-10] MEDS: VITAMIN D 1,000 INTERNATIONAL UNITS TABLET PO SCH (09:54)
[2021-06-10 12:55] VITALS: BP 118/64
[2021-06-10] MEDS: SIMVASTATIN 10 MG TAB PO SCH (20:46)
[2021-06-10 22:00] VITALS: BP 130/74
[2021-06-11 06:00] VITALS: BP 133/71
[2021-06-11 06:20] LABS: BASO % 0.7 % (0.0-1.0); EOS # 0.1 10^3/uL (0.0-0.5); HEMATOCRIT 30.7 % (36.0-47.0); HEMOGLOBIN 9.9 g/dl (12.0-15.5); LYMPH % 16.4 % (24.0-44.0); MEAN CORPUSCULAR HEMOGLOBIN 28.9 pg (27.0-33.0); MEAN CORPUSCULAR HGB CONC 32.2 g/dl (32.0-36.5); MEAN CORPUSCULAR VOLUME 89.5 fl (80.0-96.0); MONO # 0.7 10^3/uL (0.0-0.8); MONO % 11.4 % (2.0-8.0); NEUTROPHILS # 4.2 10^3/uL (1.5-8.5); NEUTROPHILS % 69.8 % (36.0-66.0); PLATELET COUNT, AUTOMATED 290 10^3/uL (150-450); RED BLOOD COUNT 3.43 10^6/uL (4.00-5.40)
[2021-06-11 06:46] LABS: BLOOD UREA NITROGEN 32 MG/DL (7-18); CALCIUM LEVEL 8.5 MG/DL (8.8-10.2); CARBON DIOXIDE LEVEL 31 MEQ/L (21-32); CHLORIDE LEVEL 93 MEQ/L (98-107); CREATININE FOR GFR 0.94 MG/DL (0.55-1.30); GLOMERULAR FILTRATION RATE > 60.0 (>39); GLUCOSE, FASTING 112 MG/DL (70-100); MAGNESIUM LEVEL 2.1 MG/DL (1.8-2.4); POTASSIUM SERUM 3.9 MEQ/L (3.5-5.1); SODIUM LEVEL 130 MEQ/L (136-145)
[2021-06-11] MEDS: HumaLOG INSULIN (NovoLOG) PER UNIT SC SCH ×4 (07:30→21:00)
[2021-06-11] MEDS: ADVAIR HFA 230/21MCG INHALER INH SCH ×2 (08:25→21:35)
[2021-06-11] MEDS: OMEGA-3 1000MG CAPSULE PO SCH (08:45)
[2021-06-11] MEDS: FLUTICASONE PROP 0.05% NASAL SPRAY 16 GM (FLONASE) NARES SCH ×2 (08:50→22:09)
[2021-06-11] MEDS: VITAMIN D 1,000 INTERNATIONAL UNITS TABLET PO SCH (08:50)
[2021-06-11] MEDS: APIXABAN 5 MG TAB (ELIQUIS) PO SCH ×2 (08:50→22:08)
[2021-06-11] MEDS: DOCUSATE SODIUM 100MG CAPSULE PO SCH ×2 (08:50→22:08)
[2021-06-11] MEDS: ENTRESTO 49-51MG TABLET (SACUBITRIL/VALSARTAN) PO SCH ×2 (08:51→22:08)
[2021-06-11 08:52] VITALS: BP 129/77
[2021-06-11 13:07] LABS: NT-PRO BNP 30796 PG/ML (<450)
[2021-06-11 14:00] VITALS: BP 117/67
[2021-06-11 15:52] LABS: BLOOD UREA NITROGEN 28 MG/DL (7-18); CALCIUM LEVEL 8.4 MG/DL (8.8-10.2); CARBON DIOXIDE LEVEL 29 MEQ/L (21-32); CHLORIDE LEVEL 94 MEQ/L (98-107); GLOMERULAR FILTRATION RATE > 60.0 (>39); GLUCOSE, FASTING 108 MG/DL (70-100); POTASSIUM SERUM 3.8 MEQ/L (3.5-5.1); SODIUM LEVEL 130 MEQ/L (136-145)
[2021-06-11] MEDS: FUROSEMIDE 40 MG TAB PO SCH (16:59)
[2021-06-11 17:00] VITALS: BP 120/75
[2021-06-11] MEDS: SIMVASTATIN 10 MG TAB PO SCH (22:08)
[2021-06-11] MEDS: RAMELTEON 8 MG TAB (ROZEREM) PO PRN (23:10)
[2021-06-12 06:00] VITALS: BP 129/66
[2021-06-12 06:18] LABS: BASO # 0.1 10^3/uL (0.0-0.2); BASO % 0.9 % (0.0-1.0); EOS # 0.1 10^3/uL (0.0-0.5); EOS % 1.7 % (0.0-3.0); HEMATOCRIT 28.5 % (36.0-47.0); HEMOGLOBIN 9.3 g/dl (12.0-15.5); LYMPH # 1.3 10^3/uL (1.5-5.0); LYMPH % 20.5 % (24.0-44.0); MEAN CORPUSCULAR HEMOGLOBIN 29.3 pg (27.0-33.0); MEAN CORPUSCULAR HGB CONC 32.6 g/dl (32.0-36.5); MEAN CORPUSCULAR VOLUME 89.9 fl (80.0-96.0); MONO # 0.7 10^3/uL (0.0-0.8); MONO % 11.6 % (2.0-8.0); NEUTROPHILS # 4.2 10^3/uL (1.5-8.5); NEUTROPHILS % 64.8 % (36.0-66.0); PLATELET COUNT, AUTOMATED 287 10^3/uL (150-450); RED BLOOD COUNT 3.17 10^6/uL (4.00-5.40); WHITE BLOOD COUNT 6.4 10^3/uL (4.0-10.0)
[2021-06-12 06:30] LABS: BLOOD UREA NITROGEN 25 MG/DL (7-18); CALCIUM LEVEL 8.3 MG/DL (8.8-10.2); CARBON DIOXIDE LEVEL 27 MEQ/L (21-32); CHLORIDE LEVEL 97 MEQ/L (98-107); CREATININE FOR GFR 0.79 MG/DL (0.55-1.30); GLOMERULAR FILTRATION RATE > 60.0 (>39); GLUCOSE, FASTING 111 MG/DL (70-100); MAGNESIUM LEVEL 1.9 MG/DL (1.8-2.4); POTASSIUM SERUM 3.6 MEQ/L (3.5-5.1); SODIUM LEVEL 133 MEQ/L (136-145)
[2021-06-12] MEDS: ADVAIR HFA 230/21MCG INHALER INH SCH (07:04)
[2021-06-12] MEDS: OMEGA-3 1000MG CAPSULE PO SCH (08:11)
[2021-06-12] MEDS: FUROSEMIDE 40 MG TAB PO SCH (08:11)
[2021-06-12] MEDS: DOCUSATE SODIUM 100MG CAPSULE PO SCH (08:11)
[2021-06-12] MEDS: HumaLOG INSULIN (NovoLOG) PER UNIT SC SCH ×3 (08:11→17:30)
[2021-06-12] MEDS: VITAMIN D 1,000 INTERNATIONAL UNITS TABLET PO SCH (08:12)
[2021-06-12] MEDS: APIXABAN 5 MG TAB (ELIQUIS) PO SCH (08:12)
[2021-06-12] MEDS: ENTRESTO 49-51MG TABLET (SACUBITRIL/VALSARTAN) PO SCH (08:12)
[2021-06-12] MEDS: FLUTICASONE PROP 0.05% NASAL SPRAY 16 GM (FLONASE) NARES SCH (08:13)
[2021-06-12 08:14] VITALS: BP 117/75
[2021-06-12] MEDS ORDERED: METOPROLOL SUCC *XL* 12.5MG PER 1/2 TAB (TopROL *XL*) PO SCH (09:00)
[2021-06-12 11:29] VITALS: BP 111/68
--- NOTE | 2021-06-12 11:54 | DS.PDOC ---
Discharge Summary General Date of Admission Jun 06, 2021 at 15:40 Date of Discharge 06/12/2021 Discharge Summary PROCEDURES PERFORMED DURING STAY: [None]. ADMITTING DIAGNOSES / DISCHARGE DIAGNOSES: Shortness of breath - likely 2/2 atrial fibrillation, decompensated systolic CHF, bilateral pleural effusions Acute on chronic decompensated systolic and diastolic CHF (EF: 20-25%) Atrial fibrillation; s/p RVR Persistent tachycardia/bradycardia arrhythmia COPD NIDDM2 DLP Resting tremor Chronic back pain DVT prophylaxis COMPLICATIONS/CHIEF COMPLAINT: Shortness of breath HISTORY OF PRESENT ILLNESS: Patient is a 75-year-old female with a PMHx of A. fib (Eliquis), Systolic CHF (EF: 20%) s/p AICD, tachy/seble achymia s/p dual chamber PM, COPD, DM2, DLP, Chronic back pain, who presented to the ER with reported worsening short of breath. Of note, patient recently had an AICD placed at [facility] for what is likely severe systolic CHF. Patient was admitted to the hospital service for decompensated CHF. Patient was seen and examined at the bedside. Patient reports that her breathing has improved significantly. She denies any significant cough. No chest pain or palpitations. Has not experiencing nausea, vomiting, abdominal pain, diarrhea, or urinary discomfort. Patient has worked with physical therapy and has been cleared for discharge home. HOSPITAL COURSE: Shortness of breath - likely 2/2 atrial fibrillation, decompensated systolic CHF, bilateral pleural effusions - Patient reports that her breathing is back down to baseline - Has cleared physical therapy for discharge home Acute on chronic decompensated systolic and diastolic CHF (EF: 20-25%) - LE with trace to 1+ pitting edema - Patient has had a recent AICD placed at [facility] - ECHO noted above - Strict ins/outs, Daily weights, Fluid restriction - c/w Furosemide 40mg dialy - c/w Entresto tomorrow - Will have outpatient follow-up with primary care provider, and cardiology within the next 7 days Atrial fibrillation; s/p RVR - EKG was reviewed and does reveal evidence of atrial fibrillation / paced rhythm - Patient has not been on any rate control medications as an outpatient - c/w Metoprolol succinate 12.5 mg Daily - c/w full anticoagulation with Eliquis - Will have outpatient follow-up with primary care provider, and cardiology within the next 7 days Persistent tachycardia/bradycardia arrhythmia - s/p dual-chamber pacemaker - Denies any symptoms of CP or palpitations - Troponin trend negative - EKG with few episodes of non-sustained v tach - since resolved - c/w Telemetry monitoring - c/w Metoprolol succinate 12.5mg daily COPD - No evidence of exacerbation - c/w inhaled therapy as ordered NIDDM2 - c/w ISS DLP - c/w Simvastatin and [place]-3 fatty acids Resting tremor Chronic back pain - c/w Tylenol PRN DVT prophylaxis - c/w full anticoagulation with Eliquis DISCHARGE MEDICATIONS: Please see below. ALLERGIES: Please see below. PHYSICAL EXAMINATION ON DISCHARGE: Vitals (See below) General: Patient is sitting up in bed reading a breakfast menu, appears to be comfortable, not in any acute distress, awake and alert, oriented 3 HEENT: Normocephalic and atraumatic CVS: +S1S2 Lungs: Auscultation appears to reveal fair air entry bilaterally without any evidence of crackles or wheezing Abdomen: Abdomen remains soft without any significant distention or tenderness Extremities: There is trace to 1+ pitting edema LABORATORY DATA: Please see below. IMAGING: CXR 06/06: Cardiomegaly, interstitial edema, and bilateral pleural effusions. The findings are consistent with CHF. ECHO 06/07/2021: Consistent AV sequentially paced rhythm with left bundle branch block (LBBB) QRS configuration. M-mode and 2-dimensional echocardiography was performed with pulse, continuous wave, color flow, and tissue Doppler studies. Left ventricle at least mildly dilated with normal left ventricle (LV) wall thickness. Paradoxical septal wall motion with akinesis of the apex and marked hypokinesis of the inferior and anterior wall with mild hypokinesis of the lateral wall - fairly severe global left ventricular systolic dysfunction. (EF 20-25%) At least mildly dilated left atrium with grade 2 LV diastolic dysfunction and a significantly elevated estimated mean left atrial pressure. Prominently dilated right heart chambers with right ventricular free wall hypokinesis and Doppler evidence of at least moderately severe pulmonary hypertension. Inferior vena cava (IVC) size upper limits of normal to mildly dilated with slightly reduced respiratory collapse in keeping with central venous pressure of at least 15 mmHg. Normal aortic dimensions. Moderate aortic valvular sclerosis with adequate cusp separation but premature cusp closure in keeping with reduced forward stroke volume. Mild aortic ins ufficiency. Mild degenerative changes of the mitral valvular apparatus with "low flow" appearance to leaflet excursion but no posterior systolic buckling with moderately severe insufficiency. Normal-appearing tricuspid valve but fairly severe tricuspid insufficiency. Pacing leads to be visualized traversing right heart structures but no separate endocardiac mass. Miniscule posterior pericardial effusion with obvious moderate sized left pleural effusion. CXR 06/08: Mild pulmonary venous congestion. Small bilateral pleural effusions. Permanent pacing leads in satisfactory position. ACTIVITY: [As tolerated]. DISCHARGE PLAN: Follow-up with primary care provider within the next 7 days Follow-up with cardiology within the next 7 days Remain compliant with treatment plan and medications Return to the ER if you experience any problems DISPOSITION: Home with services DISCHARGE CONDITION: [Stable]. TIME SPENT ON DISCHARGE: 35 minutes. Vital Signs/I&Os Vital Signs Date Time Temp Pulse Resp B/P (MAP) Pulse Ox O2 Delivery O2 Flow Rate FiO2 06/12/21 11:29 72 111/68 06/12/21 06:00 98.8 20 97 Room Air I&O- Last 24 Hours up to 6 AM 06/12/21 06:00 Intake Total 660 ml Output Total 900 ml Balance -240 ml Laboratory Data Labs 24H Laboratory Tests 2 06/11/21 15:10: Anion Gap 7L, Glomerular Filtration Rate > 60.0, Calcium Level 8.4L 06/11/21 16:26: Bedside Glucose (Misc Panel) 114H 06/11/21 21:26: Bedside Glucose (Misc Panel) 126H 06/12/21 05:50: Anion Gap 9, Glomerular Filtration Rate > 60.0, Calcium Level 8.3L, Immature Granulocyte % (Auto) 0.5, Neutrophils (%) (Auto) 64.8, Lymphocytes (%) (Auto) 20.5L, Monocytes (%) (Auto) 11.6H, Eosinophils (%) (Auto) 1.7, Basophils (%) (Auto) 0.9, Neutrophils # (Auto) 4.2, Lymphocytes # (Auto) 1.3L, Monocytes # (Auto) 0.7, Eosinophils # (Auto) 0.1, Basophils # (Auto) 0.1, Nucleated Red Blood Cells % (auto) 0.5H, Magnesium Level 1.9 06/12/21 11:31: Bedside Glucose (Misc Panel) 84 CBC/BMP Laboratory Tests 06/11/21 15:10 06/12/21 05:50 FSBS Laboratory Tests Test 06/11/21 16:26 06/11/21 21:26 06/12/21 11:31 Range/Units Bedside Glucose (Misc Panel) 114 126 84 83-110 MG/DL Discharge Medications Scheduled Apixaban (Eliquis) 5 Mg Tablet, 5 MG PO BID, (Reported) Calcium Carbonate/Vitamin D3 (Calcium 600+D Softgel) 1 Each Capsule, 1 CAP PO DAILY, (Reported) Cholecalciferol (Vitamin D3) (Vitamin D3) 1,000 Unit Tablet, 1,000 UNITS PO WILLIAM Y, (Reported) Fluticasone Propion/Salmeterol (Advair Hfa 230-21 Mcg Inhaler) 12 Gm Hfa.aer.ad, 2 PUFF INH BID, (Reported) Fluticasone Propionate (Flonase Allergy Relief) 9.9 Ml [place].susp, 1 SPRAY NARES BID, (Reported) Furosemide (Furosemide) 20 Mg Tablet, 1 TAB PO DAILY Metformin HCl (Metformin HCl ER) 500 Mg Tab.er.24h, 500 MG PO DAILY, (Reported) [place]-3 Fatty Acids/Fish Oil (Fish Oil 1,000 mg Capsule) 1 Each Capsule, 1,000 MG PO DAILY, (Reported) Sacubitril/Valsartan (Entresto 49 mg-51 mg Tablet) 1 Each Tablet, 1 TAB PO BID, (Reported) Simvastatin (Simvastatin) 10 Mg Tablet, 5 MG PO QHS, (Reported) Scheduled PRN Albuterol Sulfate (Proair Hfa) 8.5 Gm Hfa.aer.ad, 2 PUFF INH Q4H PRN for SHORTNESS OF BREATH, (Reported) Allergies Coded Allergies: JOEL Inhibitors (Verified Allergy, Intermediate, hives, 06/02/21) amoxicillin (Verified Allergy, Intermediate, HIVES,ITCHING, 06/02/21) ARB-Angiotensin Receptor Antagonist (Unverified Adverse Reaction, Intermediate, tachycardia, 06/02/21) PAULO PEREZ MD Jun 12, 2021 11:54
[2021-06-12] MEDS ORDERED: METO1TAB32 PO (13:16)
[2021-06-12] MEDS ORDERED: FURO20TA2 PO (13:16)
[2021-06-13] MEDS ORDERED: FUROSEMIDE 40 MG TAB PO SCH (09:00)
== END 2021-06-12 18:00 | disposition home health service (06) | DRG 308 ==
LOC: M ED 12:05 → M ED INP 15:40 → ENRESERV 17:47 → M PCU 18:55 → M MS5PR 06-10 11:43
PROVIDERS: ADMIT Internal Medicine; ATTEND Internal Medicine
DX: I48.91 Unspecified atrial fibrillation (principal); I50.43 Acute on chronic combined systolic (congestive) and diastolic (congestive) heart failure; I47.2 Ventricular tachycardia; J44.9 Chronic obstructive pulmonary disease, unspecified; E11.9 Type 2 diabetes mellitus without complications; M54.5 Low back pain; Z79.01 Long term (current) use of anticoagulants; Z95.0 Presence of cardiac pacemaker; R25.1 Tremor, unspecified; Z79.899 Other long term (current) drug therapy; Z88.0 Allergy status to penicillin; Z88.8 Allergy status to other drugs, medicaments and biological substances; Z98.41 Cataract extraction status, right eye; Z98.42 Cataract extraction status, left eye

== ENCOUNTER 2021-08-18 08:02 | Emergency (ER) | payer MEDICARE, OTHER ==
[~2021-08-18 08:02] MED LIST changes: +FLON1SPR NARES; +FURO20TA2 PO; +METO1TAB32 PO
--- OUTSIDE RECORDS SUMMARY | 2021-08-18 08:11 | CCD | Continuity of Care Document ---
Author Author Jen PETERSEN MD Organization Unknown Address [place] [address] Phone [phone] Care Team Providers Care Garment Inspector Name Role Phone Katheryn Carty NP AUTM [phone] Michelle Castaneda MD AUTM [phone] Felix Perez MD AUTM [phone] Jayson Ivan DO AUTM [phone] Edis Pineda DO AUTM [phone] Garth Contreras MD AUTM [phone] Chele Cordova MD AUTM [phone] Remy Lopez AUTM [phone] Raine To AUTM [phone] Art Salas MD AUTM [phone] Problems Active Problems Provider Date Paroxysmal supraventricular tachycardia Jaime Petersen MD Onset: 03/13/2012 Electrocardiogram abnormal Jaime Petersen MD Onset: 2011 Atrioventricular block Jaime Petersen MD Onset: 03/13/2012 Benign hypertensive heart disease without congestive h eart failure Jaime Petersen MD Onset: 03/13/2012 Obesity Jaime Petersen MD Onset: 03/13/2012 Pure hypercholesterolemia Jaime Petersen MD Onset: 012 Overweight Kami Mills NP Onset: 02/17/2015 First degree atrioventricular block TERESA Weir On set: 06/05/2017 Mixed hyperlipidemia TERESA Weir Onset: 06/05/2017 Dietary management surveillance KANIKA Weir-C Onset: 06/05/2017 Mitral valve disorder ASHLEY Banerjee Onset: 04/08/2019 Sinus node dysfunction ASHLEY Banerjee Onset: 9 Paroxysmal atrial fibrillation ASHLEY Banerjee Onset: 0 05/05/2019 Cardiac pacemaker in situ ASHLEY Banerjee Onset: 2018 Cardiomyopathy, unspecified ASHLEY Banerjee Onset: 02/2019 Hypertensive heart disease with heart failure ASHLEY Palmer Onset: 03/23/2020 Dizziness and giddiness ASHLEY Guy Onset: 2020 Social History Type Date Description Comments Sex Unknown ETOH Use Does not consume alcohol Tobacco Use Start: Unknown Patient has never smoked Smoking Status Reviewed: 03/22/21 Patient has never smoked Exercise Type/Frequency Does housework daily Exercise Limitations Orthopedic Problem fracture d left foot/toes Allergies, Adverse Reactions, Alerts Active Allergies Criticality Reaction | Severity Comments Date Amoxicillin Unable to assess criticality itching 02/05/2011 Benazepril Unable to assess criticality Angioedema 02/07/2011 Losartan Unable to assess criticality Angioedema 02/07/2011 Carvedilol Unable to assess criticality messed up eq uilibruim and sleepiness 11/15/2019 Gabapentin Unable to assess criticality severe dizzi ness 03/21/2021 Medications Active Medications SIG Qnty Indications Ordering Provide r Date Furosemide 20mg Tablets 1 by mouth twice every day 90tabs ASHLEY Guy Metoprolol Succinate ER 25mg Tablets ER 24HR 1/2 by mouth every day 45tabs ASHLEY Marinelli 07/16/2021 Proair HFA 108(90Base) mcg/Act Aer osol 2 puffs by mouth as needed Remy Lopez 02/26 Flonase 50mcg/Act Suspension 2 sprays each nare daily Unknown 10/04/2020 Entresto 49-51mg Tablets 1 by mouth twice a day 180tabs I42.9 Ranjit Esteban MD 10/26/2019 Metformin HCL ER (Osm) 500mg Tablets ER 24HR 1 by mouth every day Jose Cruz Szymanski MD 10/25/2019 Eliquis 5mg Tablets 1 by mouth twice a day 180tabs Jaime Petersen MD 07/01/2019 Fish Oil 500mg Capsules 2 by mouth twice every day Unknown 05/04/2019 Calcium 600 600mg Tablets 1 by mouth every day Unknown 02/20/2016 Vitamin D 2000Unit Capsules 1 by mouth every day Unknown 01/26/2015 Simvastatin 5mg Tablets 1 by mouth every day 90tabs E78.2 Jaime Petersen MD 06/21/2014 Albuterol Sulfate (2 .5mg/3ML) 0.083% Nebulizer every 4 hours as needed Unknown 05/29 Immunizations Description No Information Available Vital Signs Date Vital Result Comment 03/22/2021 3:36pm Weight 132.00 lb Height 66 inches 5'6" BMI (Body Mass Index) 21.3 kg/m2 Heart Rate 65 /min BP Systolic Sitting 110 mmHg Ra, medium cuff BP Diastolic Sitting 68 mmHg Ra, medium cuff 01/05/2021 2:29pm Weight 134.00 lb Height 66 inches 5'6" BMI (Body Mass Index) 21.6 kg/m2 Heart Rate 60 /min BP Systolic Sitting 112 mmHg Ra, medium cuff BP Diastolic Sitting 70 mmHg Ra, medium cuff Results Test Acquired Date Facility Test Result H/L Range Note CBC without Differential 03/08/2021 [facility] ([facility])- - White Blood Count 4.4 4.0-10.0 Red Blood Count 3.43 Low 4.00-5.40 Platelets 222 150-450 Hemoglobin 10.5 Low 12.0-15.5 Hematocrit 32.1 Low 36.0-47.0 Laboratory test finding 03/08/2021 [facility] ([facility])- - Magnesium Level 2.2 CMP 03/08/2021 [facility] ([facility])- - Albumin Serum/Plasma 2.9 Alt - SGPT 17 Calcium Ser/Plasma Mass/Vol 8.6 Carbon Dioxide Ser/Plasm 27 Chloride Serum/Plasma 110 Alkaline Phosphatase 45 Potassium 3.5 Protein Total 5.7 Sodium 143 Ast - Sgot 18 BUN - Urea Nitrogen 17 Glucose 104 High 70-100 Creatinine For GFR 0.73 Cardiac Marker Panel 03/06/2021 [facility] enter [phone] CPK Creatine Phosphokinase 78 U/L Normal 26-19 2 CK-MB Value Mass 1.4 NG/ML Normal <3.6 MB/CK Relative Index 1.79 Normal < Or =4 1 Troponin I < 0.02 NG/ML Normal < 0.10 2 Liver Profile 03/06/2021 [facility] [phone] Ast/Sgot 17 U/L Normal 7-37 Alt/SGPT 15 U/L Normal 12-78 Alkaline Phosphatase 40 U/L Low 45-117 Bilirubin,Total 0.5 mg/dL Normal 0.2-1.0 Bilirubin,Direct 0.2 mg/dL Normal 0.0-0.2 Total Protein 5.8 GM/DL Low 6.4-8.2 Albumin 3.1 GM/DL Low 3.2-5.2 Albumin/Globulin Ratio 1.1 Low 1.2-2.2 Laboratory test finding 03/06/2021 [facility] [phone] Magnesium Level 1.6 mg/dL Low 1.8-2.4 NT-Pro BNP 5727 pg/mL High <450 Lipase 87 U/L Normal 73-393 Istat Chem8+ Panel 03/06/2021 [facility] [phone] iSTAT HCT 36.0 % Low 38.0-51.0 iSTAT Glucose 92 mg/dL Normal 70-105 iSTAT Sodium 135 mEq/L Low 136-145 iSTAT Potassium 4.1 mEq/L Normal 3.5-5.1 iSTAT CA++ 4.3 mg/dL Low 4.5-5.3 iSTAT Chloride 102 mEq/L Normal 98-109 iSTAT Co2 25.0 MM/L Normal 23.0-27.0 iSTAT BUN 33 mg/dL High 8-26 iSTAT Creatinine 1.0 mg/dL Normal 0.6-1.3 Prothrombin Time/Inr 03/06/2021 [facility] enter [phone] Prothrombin Time 13.6 seconds Normal 12.5-14.3 Inr 1.02 Normal 3 Laboratory test finding 03/06/2021 [facility] [phone] Partial Thromboplastin Time 36.9 seconds Normal 24 .2-38.5 1 DIAGNOSIS CRITERIA MMB ng/ml Relative Index (RI) NON-AMI < or = 5 N/A HICKS ZONE > 5 < or = 4 AMI > 5 > 4 2 Troponin I Reference Interva l for Siemens LIVELENZ LOCI: 99th Percentile= 0.00-0.045 ng/ml Risk Stratification: <= 0.10 ng/ml Decreased Risk for Adverse Clinical Events. 0.10-1.50 ng/ml Increased Risk for Adv erse Clinical Events. Evaluation of additional criterion and/or repeat testing in 2-6 hours is suggested to rule out myocardial damage. >= 1.50 ng/ml Indicative of Myocardial Injury. 3 THERAPUTIC HUMAN INR VALUES INDICATIONS NORMAL RANGES PROPHYLAXIS/TREATMENT OF: VENOUS THROMBOSIS 2.0-3.0 PULMONARY EMBOLISM 2.0-3.0 PREVENTION OF SYSTEMIC EMBOLISM FROM: TISSUE HEART VALVES 2.0-3.0 ACUTE MYOCARDIAL INFARCTION 2.0-3.0 VALVULAR HEART DISEASE 2.0-3.0 ATRIAL FIBRILLATION 2.0-3.0 MECHANICAL VALVES(HIGH RISK) 2.5-3.5 RECURRENT MYOCARDIAL INFARCTION 2.5-3.5 Procedures Date Code Description Status 06/01/2021 82652 Chronic Care MGMT 20 Mins Clinical Staff Time Per Calendar Month Completed 05/03/2021 71551 Chronic Care MGMT 20 Mins Clinical Staff Time Per Calendar Month Completed 04/07/2021 45785 Remote Pacemaker/Cardio-Defibril lator Data Acquistion Completed 04/07/2021 96096 Remote Interrogation Device Eval Pacemaker System Up To 90 Days Completed 03/28/2021 69391 Chronic Care MGMT 20 Mins Clinical Staff Time Per Calendar Month Completed 03/28/2021 53632 Chronic Care Management Services Ea Addl 20 Min Completed 03/22/2021 38239 Office/Outpatient Established Mo d MDM 30-39 Min Completed 03/22/2021 14448 ECG 12-Lead Completed 02/28/2021 28239 Chronic Care MGMT 20 Mins Clinical Staff Time Per Calendar Month Completed 01/25/2021 33260 Chronic Care MGMT 20 Mins Clinical Staff Time Per Calendar Month Completed 01/25/2021 54693 Chronic Care Management Services Ea Addl 20 Min Completed Medical Devices Description No Information Available Encounters Type Date Location Provider Dx Diagnosis Office Visit 06/01/2021 9:02a Main Office Jaime Petersen MD I48.0 Paroxysmal atrial fibrillation E78.2 Mixed hyperlipidemia Office Visit 05/03/2021 5:24p Main Office Jaime Petersen MD I48.0 Paroxysmal atrial fibrillation E78.2 Mixed hyperlipidemia Office Visit 03/28/2021 11:57a Main Office Jaime Petersen MD I11.0 Hypertensive heart disease with heart failure I48.0 Paroxysmal atrial fibrillati on Office Visit 03/22/2021 3:30p Main Office ASHLEY Guy R42 Dizziness and giddiness I42.9 Cardiomyopathy, unspecified I11.0 Hypertensive heart disease w ith heart failure I48.0 Paroxysmal atrial fibrillati on I34.0 Nonrheumatic mitral (valve) insufficiency E78.2 Mixed hyperlipidemia Z95.0 Presence of cardiac pacemake r R94.31 Abnormal electrocardiogram [ ECG] [EKG] Z71.3 Dietary counseling and surve illance Office Visit 02/28/2021 11:59a Main Office Jaime Petersen MD I11.0 Hypertensive heart disease with heart failure I48.0 Paroxysmal atrial fibrillati on Office Visit 01/25/2021 2:14p Main Office Jaime Petersen MD I48.0 Paroxysmal atrial fibrillation I34.0 Nonrheumatic mitral (valve) insufficiency E78.2 Mixed hyperlipidemia E66.8 Other obesity Assessments Date Code Description Provider 06/01/2021 I48.0 Paroxysmal atrial fibrillation Debby Petersen MD 06/01/2021 E78.2 Mixed hyperlipidemia Jaime saunders MD 05/03/2021 I48.0 Paroxysmal atrial fibrillation Debby Petersen MD 05/03/2021 E78.2 Mixed hyperlipidemia Jaime saunders MD 04/07/2021 Z95.0 Presence of cardiac pacemaker [facility] 03/28/2021 I11.0 Hypertensive heart disease with heart failure Jaime Petersen MD 03/28/2021 I48.0 Paroxysmal atrial fibrillation Debby Petersen MD 03/22/2021 R42 Dizziness and giddiness ASHLEY Rocha 03/22/2021 I42.9 Cardiomyopathy, unspecified ASHLEY Guillen 03/22/2021 I11.0 Hypertensive heart disease with heart failure ASHLEY Guy 03/22/2021 I48.0 Paroxysmal atrial fibrillation ASHLEY Fall 03/22/2021 I34.0 Nonrheumatic mitral (valve) insu fficiency ASHLEY Guy 03/22/2021 E78.2 Mixed hyperlipidemia ASHLEY Alvarez 03/22/2021 Z95.0 Presence of cardiac pacemaker [place] ASHLEY Flores 03/22/2021 R94.31 Abnormal electrocardiogram [ECG] [EKG] ASHLEY Guy 03/22/2021 Z71.3 Dietary counseling and surveilla nce ASHLEY Guy 02/28/2021 I11.0 Hypertensive heart disease with heart failure Jaime Petersen MD 02/28/2021 I48.0 Paroxysmal atrial fibrillation Debby Petersen MD 01/25/2021 I48.0 Paroxysmal atrial fibrillation Debby Petersen MD 01/25/2021 I34.0 Nonrheumatic mitral (valve) insu fficiency Jaime Petersen MD 01/25/2021 E78.2 Mixed hyperlipidemia Jaime saunders MD 01/25/2021 E66.8 Other obesity Jaime Petersen MD Plan of Treatment Future Appointment(s):* 09/01/2021 7:00 am - [facility] at Main Office * 09/25/2021 2:00 pm - ASHLEY Guy at Main Office * 01/01/2022 2:15 pm - ASHLEY Guy at Main Office 03/22/2021 - ASHLEY Guy* R42 Dizziness and giddiness* Recommendations:* Encouraged patient to please seek medical attention if her dizziness returns * I42.9 Cardiomyopathy, unspecified* Referral:* Art Salas MD, Cardiac Electrophyslgy * Recommendations:* Referral made to Dr. Salas for further consideration to an upgrade to a biventricular device Continue Entresto at current dosage * I11.0 Hypertensive heart disease with heart failure * I48.0 Paroxysmal atrial fibrillation* Recommendations:* Continue Eliquis at the current dosage Patient agreeable to contact us with any episodes of tachycardia or palpitations, dizziness or lightheadedness * I34.0 Nonrheumatic mitral (valve) insufficiency* Recommendations:* No further evaluation is needed at this time * E78.2 Mixed hyperlipidemia* Recommendations:* Continue simvastatin at the current dosage * Z95.0 Presence of cardiac pacemaker* Recommendations:* Continue 91 day home/12 month office pacer checks * R94.31 Abnormal electrocardiogram [ECG] [EKG]* Recommendations:* No further evaluation is needed at this time. * Z71.3 Dietary counseling and surveillance* Recommendations:* Recommended for patient to follow a more whole food diet. Advised patient to avoid overly processed foods and packaged foods. Advised patient to avoid sodas, juices and other liquid calories. Recommended at least 30 minutes of exercise 3 days a week. * All * Follow up:* Follow up in 6 months Functional Status Functional Condition Comment Date Status Independent with all ADL's Activ e Requires assistance with ambulating uses cane or walker Active Mental Status Description No Information Available Referrals Refer to Reason for Referral Status Appt Date Art Salas MD Please evaluate and treat th is patient with a history of cardiomyopathy and hypertensive heart disease with heart failure with a persistently low ejection fraction. Most recently her ejection fraction measured 20% on 03/07/21 echocardiogram. She currently has a [employer] pacemaker. She is able to complete her activities of daily living as well as completing her housework, however I do believe she would benefit from an upgraded device and be able to tolerate more activity. Please evaluate, thank you for your consultation. Closed [facility] [address] [place] [address] [phone]
--- OUTSIDE RECORDS SUMMARY | 2021-08-18 08:11 | CCD | Continuity of Care Document ---
Author Author Jen PETERSEN MD Organization Unknown Address [facility] [address] Phone [phone] Care Team Providers Care Hand Funnel Coater Name Role Phone Katheryn Carty NP AUTM [phone] Michelle Castaneda MD AUTM [phone] Felix Perez MD AUTM [phone] Jayson Ivan DO AUTM [phone] Edis Pineda DO AUTM [phone] Garth Contreras MD AUTM [phone] Chele Cordova MD AUTM [phone] Remy Lopez AUTM [phone] Raine To AUTM [phone] Art Salas MD AUTM [phone] Problems Active Problems Provider Date Paroxysmal supraventricular [...] foot/toes Allergies, Adverse Reactions, Alerts Active Allergies Reaction Severity Comments Date Amoxicillin itching 02/05/2011 Benazepril Angioedema 02/07/2011 Losartan Angioedema 02/07/2011 Carvedilol messed up equilibruim and sl eepiness 11/15/2019 Gabapentin severe dizziness 03/21/2021 Medications Active Medications SIG Qnty Indications Ordering Provide r Date Proair HFA 108(90Base) mcg/Act Aer osol 2 [...] For GFR 0.73 Cardiac Marker Panel 03/06/2021 [facility] enter [phone] CPK Creatine Phosphokinase 78 U/L Normal 26-19 2 CK-MB Value Mass 1.4 NG/ML Normal <3.6 MB/CK Relative Index 1.79 Normal < Or =4 1 Troponin I < 0.02 NG/ML Normal < 0.10 2 Liver Profile 03/06/2021 [facility] nter [phone] Ast/Sgot 17 U/L Normal 7-37 Alt/SGPT 15 U/L Normal 12-78 Alkaline Phosphatase 40 U/L Low 45-117 Bilirubin,Total 0.5 mg/dL Normal 0.2-1.0 Bilirubin,Direct 0.2 mg/dL Normal 0.0-0.2 Total Protein 5.8 GM/DL Low 6.4-8.2 Albumin 3.1 GM/DL Low 3.2-5.2 Albumin/Globulin Ratio 1.1 Low 1.2-2.2 Laboratory test finding 03/06/2021 [facility] [phone] Magnesium Level 1.6 mg/dL Low 1.8-2.4 NT-Pro BNP 5727 pg/mL High <450 Lipase 87 U/L Normal 73-393 Istat Chem8+ Panel 03/06/2021 [facility] nter [phone] iSTAT HCT 36.0 % Low 38.0-51.0 iSTAT Glucose 92 mg/dL Normal 70-105 iSTAT Sodium 135 mEq/L Low 136-145 iSTAT Potassium 4.1 mEq/L Normal 3.5-5.1 iSTAT CA++ 4.3 mg/dL Low 4.5-5.3 iSTAT Chloride 102 mEq/L Normal 98-109 iSTAT Co2 25.0 MM/L Normal 23.0-27.0 iSTAT BUN 33 mg/dL High 8-26 iSTAT Creatinine 1.0 mg/dL Normal 0.6-1.3 Prothrombin Time/Inr 03/06/2021 [facility] enter [phone] Prothrombin Time 13.6 seconds Normal 12.5-14.3 Inr 1.02 Normal 3 Laboratory test finding 03/06/2021 [facility] [phone] Partial Thromboplastin Time 36.9 seconds Normal 24 .2-38.5 1 DIAGNOSIS CRITERIA MMB ng/ml Relative Index (RI) NON-AMI < or = 5 N/A HICKS ZONE > 5 < or = 4 AMI > 5 > 4 2 Troponin I Reference Interva l for eASIC LOCI: 99th Percentile= 0.00-0.045 ng/ml Risk Stratification: [...] INFARCTION 2.5-3.5 Procedures Date Code Description Status 05/03/2021 57167 Chronic Care MGMT 20 Mins Clinical Staff Time Per Calendar Month Completed 04/07/2021 42510 Remote Pacemaker/Cardio-Defibril lator Data Acquistion Completed 04/07/2021 90511 Remote Interrogation Device Eval Pacemaker System Up To 90 Days Completed 03/28/2021 65144 Chronic Care MGMT 20 Mins Clinical Staff Time Per Calendar Month Completed 03/28/2021 32344 Chronic Care Management Services Ea Addl 20 Min Completed 03/22/2021 71728 Office/Outpatient Established Mo d MDM 30-39 Min Completed 03/22/2021 01563 ECG 12-Lead Completed 02/28/2021 84836 Chronic Care MGMT 20 Mins Clinical Staff Time Per Calendar Month Completed 01/25/2021 24259 Chronic Care MGMT 20 Mins Clinical Staff Time Per Calendar Month Completed 01/25/2021 50885 Chronic Care Management Services Ea Addl 20 Min Completed 01/05/2021 40748 Office/Outpatient Established Lo w MDM 20-29 Min Completed 01/05/2021 06573 Pacer Interrogation Any Leads Co mpleted 01/05/2021 59918 ECG 12-Lead Completed 12/29/2020 16591 Pacer Programming Dual Leads Com pleted 12/28/2020 61583 Remote Pacemaker/Cardio-Defibril lator Data Acquistion Completed 12/28/2020 33640 Remote Interrogation Device Eval Pacemaker System Up To 90 Days Completed Medical Devices Description No Information Available Encounters Type Date Location Provider Dx Diagnosis Office Visit 03/28/2021 11:57a Main Office Jaime [...] insufficiency E78.2 Mixed hyperlipidemia E66.8 Other obesity Office Visit 01/05/2021 2:15p Main Office ASHLEY Guy I48 .0 Paroxysmal atrial fibrillation Z95.0 Presence of cardiac pacemake r Assessments Date Code Description Provider 05/03/2021 I48.0 Paroxysmal atrial fibrillation Debby Petersen MD 05/03/2021 E78.2 Mixed hyperlipidemia Jaime saunders MD 04/07/2021 Z95.0 Presence of cardiac pacemaker [facility] 03/28/2021 I11.0 Hypertensive heart disease [...] Alvarez 03/22/2021 Z95.0 Presence of cardiac pacemaker ASHLEY Darby 03/22/2021 R94.31 Abnormal electrocardiogram [ECG] [EKG] ASHLEY [...] 01/25/2021 E66.8 Other obesity Jaime Petersen MD 01/05/2021 I48.0 Paroxysmal atrial fibrillation C ASHLEY Crooks 01/05/2021 Z95.0 Presence of cardiac pacemaker ASHLEY Darby 12/29/2020 Z95.0 Presence of cardiac pacemaker ASHLEY Darby 12/29/2020 I48.0 Paroxysmal atrial fibrillation C ASHLEY Crooks 12/28/2020 Z95.0 Presence of cardiac pacemaker [facility] Plan of Treatment Future Appointment(s):* 09/01/2021 7:00 [...] Please evaluate, thank you for your consultation. Sent [facility] [address] [place] [address] [phone]
--- OUTSIDE RECORDS SUMMARY | 2021-08-18 08:11 | CCD | Continuity of Care Document ---
Author Author Jen PETERSEN MD Organization Unknown Address [place] [address] Phone [phone] Care Team Providers Care Greenstone Polisher Operator Name Role Phone Katheryn Carty NP AUTM [phone] Michelle Castaneda MD AUTM [phone] Felix Perez MD AUTM [phone] Jayson Ivan DO AUTM [phone] Edis Pineda DO AUTM [phone] Garth Contreras MD AUTM [phone] Chele Cordova MD AUTM [phone] Remy Lopez AUTM [phone] Raine To AUTM [phone] Art Salas MD AUTM [phone] Problems Active Problems Provider Date Paroxysmal supraventricular [...] For GFR 0.73 Cardiac Marker Panel 03/06/2021 [facility] enter [phone] CPK Creatine Phosphokinase 78 U/L Normal 26-19 2 CK-MB Value Mass 1.4 NG/ML Normal <3.6 MB/CK Relative Index 1.79 Normal < Or =4 1 Troponin I < 0.02 NG/ML Normal < 0.10 2 Liver Profile 03/06/2021 [facility] [phone] Ast/Sgot 17 U/L Normal 7-37 Alt/SGPT 15 U/L Normal 12-78 Alkaline Phosphatase 40 U/L Low 45-117 Bilirubin,Total 0.5 mg/dL Normal 0.2-1.0 Bilirubin,Direct 0.2 mg/dL Normal 0.0-0.2 Total Protein 5.8 GM/DL Low 6.4-8.2 Albumin 3.1 GM/DL Low 3.2-5.2 Albumin/Globulin Ratio 1.1 Low 1.2-2.2 Laboratory test finding 03/06/2021 [facility] [phone] Magnesium Level 1.6 mg/dL Low 1.8-2.4 NT-Pro BNP 5727 pg/mL High <450 Lipase 87 U/L Normal 73-393 Istat Chem8+ Panel 03/06/2021 [facility] [phone] iSTAT HCT 36.0 % Low 38.0-51.0 iSTAT Glucose 92 mg/dL Normal 70-105 iSTAT Sodium 135 mEq/L Low 136-145 iSTAT Potassium 4.1 mEq/L Normal 3.5-5.1 iSTAT CA++ 4.3 mg/dL Low 4.5-5.3 iSTAT Chloride 102 mEq/L Normal 98-109 iSTAT Co2 25.0 MM/L Normal 23.0-27.0 iSTAT BUN 33 mg/dL High 8-26 iSTAT Creatinine 1.0 mg/dL Normal 0.6-1.3 Prothrombin Time/Inr 03/06/2021 [facility] enter [phone] Prothrombin Time 13.6 seconds Normal 12.5-14.3 Inr 1.02 Normal 3 Laboratory test finding 03/06/2021 [facility] [phone] Partial Thromboplastin Time 36.9 seconds Normal 24 .2-38.5 1 DIAGNOSIS CRITERIA MMB ng/ml Relative Index (RI) NON-AMI < or = 5 N/A HICKS ZONE > 5 < or = 4 AMI > 5 > 4 2 Troponin I Reference Interva l for Siemens Mobiotics LOCI: 99th Percentile= 0.00-0.045 ng/ml Risk Stratification: [...] 2.5-3.5 Procedures Date Code Description Status 06/01/2021 78720 Chronic Care MGMT 20 Mins Clinical Staff Time Per Calendar Month Completed 05/03/2021 15516 Chronic Care MGMT 20 Mins Clinical Staff Time Per Calendar Month Completed 04/07/2021 53295 Remote Pacemaker/Cardio-Defibril lator Data Acquistion Completed 04/07/2021 91793 Remote Interrogation Device Eval Pacemaker System Up To 90 Days Completed 03/28/2021 39704 Chronic Care MGMT 20 Mins Clinical Staff Time Per Calendar Month Completed 03/28/2021 55839 Chronic Care Management Services Ea Addl 20 Min Completed 03/22/2021 74295 Office/Outpatient Established Mo d MDM 30-39 Min Completed 03/22/2021 48532 ECG 12-Lead Completed 02/28/2021 86366 Chronic Care MGMT 20 Mins Clinical Staff Time Per Calendar Month Completed 01/25/2021 76837 Chronic Care MGMT 20 Mins Clinical Staff Time Per Calendar Month Completed 01/25/2021 50377 Chronic Care Management Services Ea Addl 20 [...] MD 04/07/2021 Z95.0 Presence of cardiac pacemaker [place] [facility] 03/28/2021 I11.0 Hypertensive heart disease [...] evaluate, thank you for your consultation. Closed [facility] [address] [place] [address] [phone]
--- OUTSIDE RECORDS SUMMARY | 2021-08-18 08:11 | CCD | Continuity of Care Document ---
Author Author Jen PETERSEN MD Organization Unknown Address [facility] [place] [address] Phone [phone] Care Team Providers Care Digester Name Role Phone Katheryn Carty NP AUTM [phone] Michelle Castaneda MD AUTM [phone] Felix Perez MD AUTM [phone] Jayson Ivan DO AUTM [phone] Edis Pineda DO AUTM [phone] Garth Contreras MD AUTM [phone] Chele Cordova MD AUTM [phone] Remy Lopez AUTM [phone] Raine To AUTM [phone] Art Salas MD AUTM [phone] Problems Active Problems Provider Date Paroxysmal supraventricular tachycardia Jaime Petersen MD Onset: 03/13/2012 Electrocardiogram abnormal Jaime Petersen MD Onset: 2011 Atrioventricular block Jaime Petersen MD Onset: 03/13/2012 Benign hypertensive heart disease without congestive h eart failure Jaime Petersen MD Onset: 03/13/2012 Obesity Jaime Petersen MD Onset: 03/13/2012 Pure hypercholesterolemia Jaime Petersen MD Onset: 012 Overweight Kaim Mills NP Onset: 02/17/2015 First degree atrioventricular [...] For GFR 0.73 Cardiac Marker Panel 03/06/2021 [facility] enter [phone] CPK Creatine Phosphokinase 78 U/L Normal 26-19 2 CK-MB Value Mass 1.4 NG/ML Normal <3.6 MB/CK Relative Index 1.79 Normal < Or =4 1 Troponin I < 0.02 NG/ML Normal < 0.10 2 Liver Profile 03/06/2021 [facility] nter [phone] Ast/Sgot 17 U/L Normal 7-37 Alt/SGPT 15 U/L Normal 12-78 Alkaline Phosphatase 40 U/L Low 45-117 Bilirubin,Total 0.5 mg/dL Normal 0.2-1.0 Bilirubin,Direct 0.2 mg/dL Normal 0.0-0.2 Total Protein 5.8 GM/DL Low 6.4-8.2 Albumin 3.1 GM/DL Low 3.2-5.2 Albumin/Globulin Ratio 1.1 Low 1.2-2.2 Laboratory test finding 03/06/2021 [facility] [phone] Magnesium Level 1.6 mg/dL Low 1.8-2.4 NT-Pro BNP 5727 pg/mL High <450 Lipase 87 U/L Normal 73-393 Istat Chem8+ Panel 03/06/2021 [facility] nter [phone] iSTAT HCT 36.0 % Low 38.0-51.0 iSTAT Glucose 92 mg/dL Normal 70-105 iSTAT Sodium 135 mEq/L Low 136-145 iSTAT Potassium 4.1 mEq/L Normal 3.5-5.1 iSTAT CA++ 4.3 mg/dL Low 4.5-5.3 iSTAT Chloride 102 mEq/L Normal 98-109 iSTAT Co2 25.0 MM/L Normal 23.0-27.0 iSTAT BUN 33 mg/dL High 8-26 iSTAT Creatinine 1.0 mg/dL Normal 0.6-1.3 Prothrombin Time/Inr 03/06/2021 [facility] enter [phone] Prothrombin Time 13.6 seconds Normal 12.5-14.3 Inr 1.02 Normal 3 Laboratory test finding 03/06/2021 [facility] [phone] Partial Thromboplastin Time 36.9 seconds Normal 24 .2-38.5 1 DIAGNOSIS CRITERIA MMB ng/ml Relative Index (RI) NON-AMI < or = 5 N/A HICKS ZONE > 5 < or = 4 AMI > 5 > 4 2 Troponin I Reference Interva l for Visuu LOCI: 99th Percentile= 0.00-0.045 ng/ml Risk Stratification: [...] 2.5-3.5 Procedures Date Code Description Status 05/03/2021 69218 Chronic Care MGMT 20 Mins Clinical Staff Time Per Calendar Month Completed 04/07/2021 42851 Remote Pacemaker/Cardio-Defibril lator Data Acquistion Completed 04/07/2021 07477 Remote Interrogation Device Eval Pacemaker System Up To 90 Days Completed 03/28/2021 83547 Chronic Care MGMT 20 Mins Clinical Staff Time Per Calendar Month Completed 03/28/2021 18265 Chronic Care Management Services Ea Addl 20 Min Completed 03/22/2021 12648 Office/Outpatient Established Mo d MDM 30-39 Min Completed 03/22/2021 99858 ECG 12-Lead Completed 02/28/2021 05243 Chronic Care MGMT 20 Mins Clinical Staff Time Per Calendar Month Completed 01/25/2021 32862 Chronic Care MGMT 20 Mins Clinical Staff Time Per Calendar Month Completed 01/25/2021 44569 Chronic Care Management Services Ea Addl 20 Min Completed 01/05/2021 35975 Office/Outpatient Established Lo w MDM 20-29 Min Completed 01/05/2021 17747 Pacer Interrogation Any Leads Co mpleted 01/05/2021 17809 ECG 12-Lead Completed 12/29/2020 01679 Pacer Programming Dual Leads Com pleted 12/28/2020 69309 Remote Pacemaker/Cardio-Defibril lator Data Acquistion Completed 12/28/2020 53075 Remote Interrogation Device Eval Pacemaker System Up [...] MD 04/07/2021 Z95.0 Presence of cardiac pacemaker [facility] 03/28/2021 I11.0 Hypertensive heart disease [...] evaluate, thank you for your consultation. Sent [facility] [address] [place] [address] [phone]
--- OUTSIDE RECORDS SUMMARY | 2021-08-18 08:11 | CCD ---
Continuity of Care Document (CCD) Created on: 06/29/2021 Jen Vargas External Reference #: [id number] : [id number] Sex: Female Author Author Jen PETERSEN MD Organization Unknown Address [facility] [place] [address] Phone [phone] Care Team Providers Care Gas Compressor Turbine Operator Name Role Phone Katheryn Carty NP AUTM [phone] Michelle Castaneda MD AUTM [phone] Felix Perez MD AUTM [phone] Jayson Ivan DO AUTM [phone] Edis Pineda DO AUTM [phone] Garth Contreras MD AUTM [phone] Chele Cordova MD AUTM [phone] Remy Lopez AUTM [phone] Raine To AUTM [phone] Art Salas MD AUTM [phone] Problems Active Problems Provider Date Paroxysmal supraventricular [...] For GFR 0.73 Cardiac Marker Panel 03/06/2021 [facility] enter [phone] CPK Creatine Phosphokinase 78 U/L Normal 26-19 2 CK-MB Value Mass 1.4 NG/ML Normal <3.6 MB/CK Relative Index 1.79 Normal < Or =4 1 Troponin I < 0.02 NG/ML Normal < 0.10 2 Liver Profile 03/06/2021 [facility] nter [phone] Ast/Sgot 17 U/L Normal 7-37 Alt/SGPT 15 U/L Normal 12-78 Alkaline Phosphatase 40 U/L Low 45-117 Bilirubin,Total 0.5 mg/dL Normal 0.2-1.0 Bilirubin,Direct 0.2 mg/dL Normal 0.0-0.2 Total Protein 5.8 GM/DL Low 6.4-8.2 Albumin 3.1 GM/DL Low 3.2-5.2 Albumin/Globulin Ratio 1.1 Low 1.2-2.2 Laboratory test finding 03/06/2021 [facility] [phone] Magnesium Level 1.6 mg/dL Low 1.8-2.4 NT-Pro BNP 5727 pg/mL High <450 Lipase 87 U/L Normal 73-393 Istat Chem8+ Panel 03/06/2021 [facility] nter [phone] iSTAT HCT 36.0 % Low 38.0-51.0 iSTAT Glucose 92 mg/dL Normal 70-105 iSTAT Sodium 135 mEq/L Low 136-145 iSTAT Potassium 4.1 mEq/L Normal 3.5-5.1 iSTAT CA++ 4.3 mg/dL Low 4.5-5.3 iSTAT Chloride 102 mEq/L Normal 98-109 iSTAT Co2 25.0 MM/L Normal 23.0-27.0 iSTAT BUN 33 mg/dL High 8-26 iSTAT Creatinine 1.0 mg/dL Normal 0.6-1.3 Prothrombin Time/Inr 03/06/2021 [facility] enter [phone] Prothrombin Time 13.6 seconds Normal 12.5-14.3 Inr 1.02 Normal 3 Laboratory test finding 03/06/2021 [facility] [phone] Partial Thromboplastin Time 36.9 seconds Normal 24 .2-38.5 1 DIAGNOSIS CRITERIA MMB ng/ml Relative Index (RI) NON-AMI < or = 5 N/A HICKS ZONE > 5 < or = 4 AMI > 5 > 4 2 Troponin I Reference Interva l for [place] LOCI: 99th Percentile= 0.00-0.045 ng/ml Risk Stratification: [...] 2.5-3.5 Procedures Date Code Description Status 05/03/2021 32240 Chronic Care MGMT 20 Mins Clinical Staff Time Per Calendar Month Completed 04/07/2021 24581 Remote Pacemaker/Cardio-Defibril lator Data Acquistion Completed 04/07/2021 64602 Remote Interrogation Device Eval Pacemaker System Up To 90 Days Completed 03/28/2021 39476 Chronic Care MGMT 20 Mins Clinical Staff Time Per Calendar Month Completed 03/28/2021 22895 Chronic Care Management Services Ea Addl 20 Min Completed 03/22/2021 22373 Office/Outpatient Established Mo d MDM 30-39 Min Completed 03/22/2021 66980 ECG 12-Lead Completed 02/28/2021 30352 Chronic Care MGMT 20 Mins Clinical Staff Time Per Calendar Month Completed 01/25/2021 98047 Chronic Care MGMT 20 Mins Clinical Staff Time Per Calendar Month Completed 01/25/2021 49099 Chronic Care Management Services Ea Addl 20 Min Completed 01/05/2021 44479 Office/Outpatient Established Lo w MDM 20-29 Min Completed 01/05/2021 50117 Pacer Interrogation Any Leads Co mpleted 01/05/2021 84661 ECG 12-Lead Completed 12/29/2020 13108 Pacer Programming Dual Leads Com pleted 12/28/2020 64494 Remote Pacemaker/Cardio-Defibril lator Data Acquistion Completed 12/28/2020 63723 Remote Interrogation Device Eval Pacemaker System Up To 90 Days Completed Medical Devices Description No Information Available Encounters Type Date Location Provider Dx Diagnosis Office Visit 05/03/2021 5:24p Main Office Jaime [...] MD 04/07/2021 Z95.0 Presence of cardiac pacemaker [facility] 03/28/2021 I11.0 Hypertensive heart disease with heart failure Jaime Petersen MD 03/28/2021 I48.0 Paroxysmal atrial fibrillation Debby Petersen MD 03/22/2021 R42 Dizziness and giddiness ASHLEY Rocha 03/22/2021 I42.9 Cardiomyopathy, unspecified ASHLEY Guillen 03/22/2021 I11.0 Hypertensive heart disease with heart failure ASHLEY Guy 03/22/2021 I48.0 Paroxysmal atrial fibrillation C ASHLEY Crooks 03/22/2021 I34.0 Nonrheumatic mitral (valve) insu fficiency [...] Petersen MD 01/05/2021 I48.0 Paroxysmal atrial fibrillation ASHLEY Fall 01/05/2021 Z95.0 Presence of cardiac pacemaker ASHLEY [...] evaluate, thank you for your consultation. Sent [facility] [address] [place] [address] [phone]
--- OUTSIDE RECORDS SUMMARY | 2021-08-18 08:11 | CCD | Continuity of Care Document ---
Author Author Jen PETERSEN MD Organization Unknown Address [facility] [place] [address] Phone [phone] Care Team Providers Care Personal Computer Network Analyst Name Role Phone Katheryn Carty NP AUTM [phone] Michelle Castaneda MD AUTM [phone] Felix Perez MD AUTM [phone] Jayson Ivan DO AUTM [phone] Edis Pineda DO AUTM [phone] Garth Contreras MD AUTM [phone] Chele Cordova MD AUTM [phone] Remy Lopez AUTM [phone] Raine To AUTM [phone] Art Salas MD AUTM [phone] Problems Active Problems Provider Date Paroxysmal supraventricular [...] For GFR 0.73 Cardiac Marker Panel 03/06/2021 [facility] enter [phone] CPK Creatine Phosphokinase 78 U/L Normal 26-19 2 CK-MB Value Mass 1.4 NG/ML Normal <3.6 MB/CK Relative Index 1.79 Normal < Or =4 1 Troponin I < 0.02 NG/ML Normal < 0.10 2 Liver Profile 03/06/2021 [facility] nter [phone] Ast/Sgot 17 U/L Normal 7-37 Alt/SGPT 15 U/L Normal 12-78 Alkaline Phosphatase 40 U/L Low 45-117 Bilirubin,Total 0.5 mg/dL Normal 0.2-1.0 Bilirubin,Direct 0.2 mg/dL Normal 0.0-0.2 Total Protein 5.8 GM/DL Low 6.4-8.2 Albumin 3.1 GM/DL Low 3.2-5.2 Albumin/Globulin Ratio 1.1 Low 1.2-2.2 Laboratory test finding 03/06/2021 [facility] [phone] Magnesium Level 1.6 mg/dL Low 1.8-2.4 NT-Pro BNP 5727 pg/mL High <450 Lipase 87 U/L Normal 73-393 Istat Chem8+ Panel 03/06/2021 [facility] nter [phone] iSTAT HCT 36.0 % Low 38.0-51.0 iSTAT Glucose 92 mg/dL Normal 70-105 iSTAT Sodium 135 mEq/L Low 136-145 iSTAT Potassium 4.1 mEq/L Normal 3.5-5.1 iSTAT CA++ 4.3 mg/dL Low 4.5-5.3 iSTAT Chloride 102 mEq/L Normal 98-109 iSTAT Co2 25.0 MM/L Normal 23.0-27.0 iSTAT BUN 33 mg/dL High 8-26 iSTAT Creatinine 1.0 mg/dL Normal 0.6-1.3 Prothrombin Time/Inr 03/06/2021 [facility] enter [phone] Prothrombin Time 13.6 seconds Normal 12.5-14.3 Inr 1.02 Normal 3 Laboratory test finding 03/06/2021 [facility] [phone] Partial Thromboplastin Time 36.9 seconds Normal 24 .2-38.5 1 DIAGNOSIS CRITERIA MMB ng/ml Relative Index (RI) NON-AMI < or = 5 N/A HICKS ZONE > 5 < or = 4 AMI > 5 > 4 2 Troponin I Reference Interva l for [place] LOCI: 99th Percentile= 0.00-0.045 ng/ml Risk Stratification: [...] 2.5-3.5 Procedures Date Code Description Status 05/03/2021 13343 Chronic Care MGMT 20 Mins Clinical Staff Time Per Calendar Month Completed 04/07/2021 92060 Remote Pacemaker/Cardio-Defibril lator Data Acquistion Completed 04/07/2021 82223 Remote Interrogation Device Eval Pacemaker System Up To 90 Days Completed 03/28/2021 81855 Chronic Care MGMT 20 Mins Clinical Staff Time Per Calendar Month Completed 03/28/2021 30849 Chronic Care Management Services Ea Addl 20 Min Completed 03/22/2021 12389 Office/Outpatient Established Mo d MDM 30-39 Min Completed 03/22/2021 74041 ECG 12-Lead Completed 02/28/2021 64671 Chronic Care MGMT 20 Mins Clinical Staff Time Per Calendar Month Completed 01/25/2021 55114 Chronic Care MGMT 20 Mins Clinical Staff Time Per Calendar Month Completed 01/25/2021 32678 Chronic Care Management Services Ea Addl 20 Min Completed 01/05/2021 53701 Office/Outpatient Established Lo w MDM 20-29 Min Completed 01/05/2021 03921 Pacer Interrogation Any Leads Co mpleted 01/05/2021 78885 ECG 12-Lead Completed 12/29/2020 45684 Pacer Programming Dual Leads Com pleted 12/28/2020 18027 Remote Pacemaker/Cardio-Defibril lator Data Acquistion Completed 12/28/2020 57335 Remote Interrogation Device Eval Pacemaker System Up [...] evaluate, thank you for your consultation. Sent [facility] [address] [place] [address] [phone]
--- OUTSIDE RECORDS SUMMARY | 2021-08-18 08:12 | CCD ---
Author Author [facility] Organization [facility] Address Unknown Phone Unavailable Care Team Providers Care Customer Sales Advisor Name Role Phone Fermin PETERSEN MD Unavailable Unavailable Fermin PETERSEN MD Unavailable Unavailable Fermin PETERSEN MD Unavailable Unavailable Fermin PETERSEN MD Unavailable Unavailable Fermin PETERSEN MD Unavailable Unavailable Fermin PETERSEN MD Unavailable Unavailable Fermin PETERSEN MD Unavailable Unavailable Fermin PETERSEN MD Unavailable Unavailable Fermin PETERSEN MD Unavailable Unavailable Fermin PETERSEN MD Unavailable Unavailable Fermin PETERSEN MD Unavailable Unavailable Fermin PETERSEN MD Unavailable Unavailable Fermin PETERSEN MD Unavailable Unavailable Fermin PETERSEN MD Unavailable Unavailable Fermin PETERSEN MD Unavailable Unavailable Fermin PETERSEN MD Unavailable Unavailable Fermin PETERSEN MD Unavailable Unavailable Fermin PETERSEN MD Unavailable Unavailable Fermin PETERSEN MD Unavailable Unavailable Fermin PETERSEN MD Unavailable Unavailable Fermin PETERSEN MD Unavailable Unavailable Fermin PETERSEN MD Unavailable Unavailable Fermin PETERSEN MD Unavailable Unavailable Fermin PETERSEN MD Unavailable Unavailable Fermin PETERSEN MD Unavailable Unavailable Fermin PETERSEN MD Unavailable Unavailable Fermin PETERSEN MD Unavailable Unavailable Fermin PETERSEN MD Unavailable Unavailable Fermin PETERSEN MD Unavailable Unavailable Fermin PETERSEN MD Unavailable Unavailable Fermin PETERSEN MD Unavailable Unavailable Fermin PETERSEN MD Unavailable Unavailable Fermin PETERSEN MD Unavailable Unavailable Fermin PETERSEN MD Unavailable Unavailable Fermin PETERSEN MD Unavailable Unavailable Fermin PETERSEN MD Unavailable Unavailable Fermin PETERSEN MD Unavailable Unavailable Fermin PETERSEN MD Unavailable Unavailable Fermin PETERSEN MD Unavailable Unavailable Fermin PETERSEN MD Unavailable Unavailable Fermin PETERSEN MD Unavailable Unavailable Fermin PETERSEN MD Unavailable Unavailable Fermin PETERSEN MD Unavailable Unavailable Fermin PETERSEN MD Unavailable Unavailable Fermin PETERSEN MD Unavailable Unavailable Fermin PETERSEN MD Unavailable Unavailable Fermin PETERSEN MD Unavailable Unavailable Fermin PETERSEN MD Unavailable Unavailable Fermin PETERSEN MD Unavailable Unavailable Fermin PETERSEN MD Unavailable Unavailable Fermin PETERSEN MD Unavailable Unavailable Fermin PETERSEN MD Unavailable Unavailable Fermin PETERSEN MD Unavailable Unavailable Fermin PETERSEN MD Unavailable Unavailable MERYLBARRY MD Unavailable Unavailable MERYL, BARRY CUBA Unavailable Unavailable MERYL, BARRY CUBA Unavailable Unavailable MERYL, BARRY CUBA Unavailable Unavailable MERYL, BARRY CUBA Unavailable Unavailable MERYL, BARRY CUBA Unavailable Unavailable MERYL, BARRY CUBA Unavailable Unavailable MERYL, BARRY CUBA Unavailable Unavailable MERYL, BARRY CUBA Unavailable Unavailable MERYL, BARRY CUBA Unavailable Unavailable MERYL, BARRY CUBA Unavailable Unavailable MERYL, BARRY CUBA Unavailable Unavailable MERYL, BARRY CUBA Unavailable Unavailable MERYL, BARRY CUBA Unavailable Unavailable MERYL, BARRY CUBA Unavailable Unavailable MERYL, BARRY CUBA Unavailable Unavailable MERYL, BARRY CUBA Unavailable Unavailable MERYL, BARRY CUBA Unavailable Unavailable MERYL, BARRY CUBA Unavailable Unavailable MERYL, BARRY CUBA Unavailable Unavailable MERYL, BARRY CUBA Unavailable Unavailable MERYL, BARRY CUBA Unavailable Unavailable MERYL, BARRY CUBA Unavailable Unavailable MERYL, BARRY CUBA Unavailable Unavailable MERYL, BARRY CUBA Unavailable Unavailable MERYL, BARRY CUBA Unavailable Unavailable MERYL, BARRY CUBA Unavailable Unavailable MERYL, BARRY CUBA Unavailable Unavailable MERYL, BARRY CUBA Unavailable Unavailable MERYL, BARRY CUBA Unavailable Unavailable MERYL, BARRY CUBA Unavailable Unavailable MERYL, BARRY CUBA Unavailable Unavailable MERYL, BARRY CUBA Unavailable Unavailable MERYL, BARRY CUBA Unavailable Unavailable MERYL, BARRY CUBA Unavailable Unavailable MERYL, BARRY CUBA Unavailable Unavailable MERYL, BARRY CUBA Unavailable Unavailable MERYL, BARRY CUBA Unavailable Unavailable MERYL, BARRY CUBA Unavailable Unavailable MERYL, BARRY CUBA Unavailable Unavailable MERYL, BARRY CUBA Unavailable Unavailable MERYL, BARRY CUBA Unavailable Unavailable MERYL, BARRY CUBA Unavailable Unavailable SEARS, A YOGI DO Unavailable Unavailable SEARS, A YOGI DO Unavailable Unavailable SEARS, A YOGI DO Unavailable Unavailable SEARS, A YOGI DO Unavailable Unavailable SEARS, A YOGI DO Unavailable Unavailable SEARS, A YOGI DO Unavailable Unavailable SEARS, A YOGI DO Unavailable Unavailable SEARS, A YOGI DO Unavailable Unavailable SEARS, A YOGI DO Unavailable Unavailable SEARS, A YOGI DO Unavailable Unavailable SEARS, A YOGI DO Unavailable Unavailable SEARS, A YOGI DO Unavailable Unavailable SEARS, A YOGI DO Unavailable Unavailable SEARS, A YOGI DO Unavailable Unavailable SEARS, A YOGI DO Unavailable Unavailable SEARS, A YOGI DO Unavailable Unavailable SEARS, A YOGI DO Unavailable Unavailable SEARS, A YOGI DO Unavailable Unavailable SEARS, A YOGI DO Unavailable Unavailable SEARS, A YOGI DO Unavailable Unavailable SEARS, A YOGI DO Unavailable Unavailable SEARS, A YOGI DO Unavailable Unavailable SEARS, A YOGI DO Unavailable Unavailable SEARS, A YOGI DO Unavailable Unavailable SEARS, A YOGI DO Unavailable Unavailable SEARS, A YOGI DO Unavailable Unavailable SEARS, A YOGI DO Unavailable Unavailable SEARS, A YOGI DO Unavailable Unavailable SEARS, A YOGI DO Unavailable Unavailable SEARS, A YOGI DO Unavailable Unavailable SEARS, A YOGI DO Unavailable Unavailable SEARS, A YOGI DO Unavailable Unavailable SEARS, A YOGI DO Unavailable Unavailable SEARS, A YOGI DO Unavailable Unavailable SEARS, A OYGI DO Unavailable Unavailable SEARS, A YOGI DO Unavailable Unavailable SEARS, A YOGI DO Unavailable Unavailable SEARS, A YOGI DO Unavailable Unavailable SEARS, A YOGI DO Unavailable Unavailable SEARS, A YOGI DO Unavailable Unavailable SEARS, A YOGI DO Unavailable Unavailable SEARS, A YOGI DO Unavailable Unavailable SEARS, A YOGI DO Unavailable Unavailable SEARS, A YOGI DO Unavailable Unavailable SEARS, A YOGI DO Unavailable Unavailable SEARS, A YOGI DO Unavailable Unavailable SEARS, A YOGI DO Unavailable Unavailable SEARS, A YOGI DO Unavailable Unavailable Trickey, J Raine PA Unavailable Unavailable Trickey, J Raine PA Unavailable Unavailable Trickey, J Raine PA Unavailable Unavailable Trickey, J Raine PA Unavailable Unavailable Trickey, J Raine PA Unavailable Unavailable Trickey, J Raine PA Unavailable Unavailable Trickey, J Raine PA Unavailable Unavailable Trickey, J Raine PA Unavailable Unavailable Trickey, J Raine PA Unavailable Unavailable Trickey, J Raine PA Unavailable Unavailable Trickey, J Raine PA Unavailable Unavailable Trickey, J Raine PA Unavailable Unavailable Trickey, J Raine PA Unavailable Unavailable Trickey, J Raine PA Unavailable Unavailable Trickey, J Raine PA Unavailable Unavailable Trickey, J Raine PA Unavailable Unavailable Trickey, J Raine PA Unavailable Unavailable Trickey, J Raine PA Unavailable Unavailable Trickey, J Raine PA Unavailable Unavailable Trickey, J Raine PA Unavailable Unavailable Trickey, J Raine PA Unavailable Unavailable Trickey, J Raine PA Unavailable Unavailable Trickey, J Raine PA Unavailable Unavailable Trickey, J Raine PA Unavailable Unavailable Trickey, J Raine PA Unavailable Unavailable Trickey, J Raine PA Unavailable Unavailable Trickey, J Raine PA Unavailable Unavailable Trickey, J Raine PA Unavailable Unavailable Trickey, J Raine PA Unavailable Unavailable Trickey, J Raine PA Unavailable Unavailable Trickey, J Raine PA Unavailable Unavailable Trickey, J Raine PA Unavailable Unavailable Trickey, J Raine PA Unavailable Unavailable Trickey, J Raine PA Unavailable Unavailable Trickey, J Raine PA Unavailable Unavailable Trickey, J Raine PA Unavailable Unavailable Trickey, J Raine PA Unavailable Unavailable Trickey, J Raine PA Unavailable Unavailable Trickey, J Raine PA Unavailable Unavailable Trickey, J Raine PA Unavailable Unavailable Trickey, J Raine PA Unavailable Unavailable Trickey, J Raine PA Unavailable Unavailable Trickey, J Raine PA Unavailable Unavailable Trickey, J Raine PA Unavailable Unavailable Trickey, J Raine PA Unavailable Unavailable Trickey, J Raine PA Unavailable Unavailable Trickey, J Raine PA Unavailable Unavailable Trickey, J Raine PA Unavailable Unavailable Trickey, J Raine PA Unavailable Unavailable DAVID, L JULIO CÉSAR PA Unavailable Unavailable DAVID, L JULIO CÉSAR PA Unavailable Unavailable DAVID, L JULIO CÉSAR PA Unavailable Unavailable DAVID, L JULIO CÉSAR PA Unavailable Unavailable DAVID, L JULIO CÉSAR PA Unavailable Unavailable DAVID, L JULIO CÉSAR PA Unavailable Unavailable DAVID, L JULIO CÉSAR PA Unavailable Unavailable DAVID, L JUILO CÉSAR PA Unavailable Unavailable DAVID, L JULIO CÉSAR PA Unavailable Unavailable DAVID, L JULIO CÉSAR PA Unavailable Unavailable DAVID, L JULIO CÉSAR PA Unavailable Unavailable DAVID, L JULIO CÉSAR PA Unavailable Unavailable DAVID, L JULIO CÉSAR PA Unavailable Unavailable DAVID, L JULIO CÉSAR PA Unavailable Unavailable DAVID, L JULIO CÉSAR PA Unavailable Unavailable Mirza HERNANDEZ PA Unavailable Unavailable Al Mudamgha, A Ali MD Unavailable Unavailable Al Mudamgha, A Ali MD Unavailable Unavailable Al Mudamgha, A Ali MD Unavailable Unavailable Al Mudamgha, A Ali MD Unavailable Unavailable Al Mudamgha, A Ali MD Unavailable Unavailable Al Mudamgha, A Ali MD Unavailable Unavailable Al Mudamgha, A Ali MD Unavailable Unavailable Al Mudamgha, A Ali MD Unavailable Unavailable Al Mudamgha, A Ali MD Unavailable Unavailable Al Mudamgha, A Ali MD Unavailable Unavailable Al Mudamgha, A Ali MD Unavailable Unavailable Al Mudamgha, A Ali MD Unavailable Unavailable Al Mudamgha, A Ali MD Unavailable Unavailable Al Mudamgha, A Ali MD Unavailable Unavailable Al Mudamgha, A Ali MD Unavailable Unavailable Al Mudamgha, A Ali MD Unavailable Unavailable Al Mudamgha, A Ali MD Unavailable Unavailable Al Mudamgha, A Ali MD Unavailable Unavailable Al Mudamgha, A Ali MD Unavailable Unavailable Al Mudamgha, A Ali MD Unavailable Unavailable Al Mudamgha, A Ali MD Unavailable Unavailable Al Mudamgha, A Ali MD Unavailable Unavailable Al Mudamgha, A Ali MD Unavailable Unavailable Al Mudamgha, A Ali MD Unavailable Unavailable Al Mudamgha, A Ali MD Unavailable Unavailable Al Mudamgha, A Ali MD Unavailable Unavailable Al Mudamgha, A Ali MD Unavailable Unavailable Al Mudamgha, A Ali MD Unavailable Unavailable Al Mudamgha, A Ali MD Unavailable Unavailable Al Mudamgha, A Ali MD Unavailable Unavailable Al Mudamgha, A Ali MD Unavailable Unavailable Al Mudamgha, A Ali MD Unavailable Unavailable Al Mudamgha, A Ali MD Unavailable Unavailable Al Mudamgha, A Ali MD Unavailable Unavailable Al Mudamgha, A Ali MD Unavailable Unavailable Al Mudamgha, A Ali MD Unavailable Unavailable Al Mudamgha, A Ali MD Unavailable Unavailable Al Mudamgha, A Ali MD Unavailable Unavailable Al Mudamgha, A Ali MD Unavailable Unavailable Al Mudamgha, A Ali MD Unavailable Unavailable Al Mudamgha, A Ali MD Unavailable Unavailable Al Mudamgha, A Ali MD Unavailable Unavailable Al Mudamgha, A Ali MD Unavailable Unavailable Al Mudamgha, A Ali MD Unavailable Unavailable Al Mudamgha, A Ali MD Unavailable Unavailable Al Mudamgha, A Ali MD Unavailable Unavailable Al Mudamgha, A Ali MD Unavailable Unavailable Al Mudamgha, A Ali MD Unavailable Unavailable Al Mudamgha, A Ali MD Unavailable Unavailable Al Mudamgha, A Ali MD Unavailable Unavailable Al Mudamgha, A Ali MD Unavailable Unavailable Al Mudamgha, A Ali MD Unavailable Unavailable Al Mudamgha, A Ali MD Unavailable Unavailable Al Mudamgha, A Ali MD Unavailable Unavailable Al Mudamgha, A Ali MD Unavailable Unavailable Al Mudamgha, A Ali MD Unavailable Unavailable Al Mudamgha, A Ali MD Unavailable Unavailable Al Mudamgha, A Ali MD Unavailable Unavailable Al Mudamgha, A Ali MD Unavailable Unavailable Al Mudamgha, A Ali MD Unavailable Unavailable Al Mudamgha, A Ali MD Unavailable Unavailable Al Mudamgha, A Ali MD Unavailable Unavailable Al Mudamgha, A Ali MD Unavailable Unavailable Al Mudamgha, A Ali MD Unavailable Unavailable Al Mudamgha, A Ali MD Unavailable Unavailable Al Mudamgha, A Ali MD Unavailable Unavailable Al Mudamgha, A Ali MD Unavailable Unavailable Al Mudamgha, A Ali MD Unavailable Unavailable Al Mudamgha, A Ali MD Unavailable Unavailable Al Mudamgha, A Art CUBA Unavailable Unavailable Al Mudamgha, A Art CUBA Unavailable Unavailable Al Mudamgha, A Ali MD Unavailable Unavailable Al Mudamgha, A Ali MD Unavailable Unavailable Al Mudamgha, A Ali MD Unavailable Unavailable Al Mudamgha, A Ali MD Unavailable Unavailable Al Mudamgha, A Ali MD Unavailable Unavailable Al Mudamgha, A Ali MD Unavailable Unavailable Al Mudamgha, A Ali MD Unavailable Unavailable Al Mudamgha, A Ali MD Unavailable Unavailable Al Mudamgha, A Ali MD Unavailable Unavailable Al Mudamgha, A Ali MD Unavailable Unavailable Al Mudamgha, A Art CUBA Unavailable Unavailable Al Mudamgha, A Art CUBA Unavailable Unavailable Al Mudamgha, A Ali MD Unavailable Unavailable Al Mudamgha, A Ali MD Unavailable Unavailable Al Mudamgha, A Ali MD Unavailable Unavailable Al Mudamgha, A Ali MD Unavailable Unavailable Al Mudamgha, A Ali MD Unavailable Unavailable Al Mudamgha, A Ali MD Unavailable Unavailable Al Mudamgha, A Ali MD Unavailable Unavailable Al Mudamgha, A Ali MD Unavailable Unavailable Al Mudamgha, A Ali MD Unavailable Unavailable Al Mudamgha, A Ali MD Unavailable Unavailable Al Mudamgha, A Ali MD Unavailable Unavailable Al Mudamgha, A Ali MD Unavailable Unavailable Al Mudamgha, A Ali MD Unavailable Unavailable Al Mudamgha, A Ali MD Unavailable Unavailable Al Mudamgha, A Ali MD Unavailable Unavailable Al Mudamgha, A Ali MD Unavailable Unavailable Al Mudamgha, A Ali MD Unavailable Unavailable Al Mudamgha, A Ali MD Unavailable Unavailable Al Mudamgha, A Ali MD Unavailable Unavailable Al Mudamgha, A Ali MD Unavailable Unavailable Al Mudamgha, A Ali MD Unavailable Unavailable Al Mudamgha, A Ali MD Unavailable Unavailable Al Mudamgha, A Ali MD Unavailable Unavailable Al Mudamgha, A Ali MD Unavailable Unavailable Al Mudamgha, A Ali MD Unavailable Unavailable Al Mudamgha, A Ali MD Unavailable Unavailable Al Mudamgha, A Ali MD Unavailable Unavailable Al Mudamgha, A Ali MD Unavailable Unavailable Al Mudamgha, A Ali MD Unavailable Unavailable Al Mudamgha, A Ali MD Unavailable Unavailable Al Mudamgha, A Ali MD Unavailable Unavailable Al Mudamgha, A Ali MD Unavailable Unavailable Al Mudamgha, A Ali MD Unavailable Unavailable Al Mudamgha, A Ali MD Unavailable Unavailable Al Mudamgha, A Ali MD Unavailable Unavailable Al Mudamgha, A Ali MD Unavailable Unavailable Al Mudamgha, A Ali MD Unavailable Unavailable Al Mudamgha, A Ali MD Unavailable Unavailable Al Mudamgha, A Ali MD Unavailable Unavailable Al Mudamgha, A Ali MD Unavailable Unavailable Al Mudamgha, A Ali MD Unavailable Unavailable Al Mudamgha, A Ali MD Unavailable Unavailable Al Mudamgha, A Ali MD Unavailable Unavailable Al Mudamgha, A Ali MD Unavailable Unavailable Al Mudamgha, A Ali MD Unavailable Unavailable Al Mudamgha, A Ali MD Unavailable Unavailable Al Mudamgha, A Ali MD Unavailable Unavailable Al Mudamgha, A Ali MD Unavailable Unavailable Al Mudamgha, A Ali MD Unavailable Unavailable Al Mudamgha, A Ali MD Unavailable Unavailable Al Mudamgha, A Ali MD Unavailable Unavailable Al Mudamgha, A Ali MD Unavailable Unavailable Al Mudamgha, A Ali MD Unavailable Unavailable Al Mudamgha, A Ali MD Unavailable Unavailable Al Mudamgha, A Ali MD Unavailable Unavailable Al Mudamgha, A Ali MD Unavailable Unavailable Al Mudamgha, A Ali MD Unavailable Unavailable Al Mudamgha, A Ali MD Unavailable Unavailable Al Mudamgha, A Ali MD Unavailable Unavailable Al Mudamgha, A Ali MD Unavailable Unavailable Al Mudamgha, A Ali MD Unavailable Unavailable Al Mudamgha, A Ali MD Unavailable Unavailable Al Mudamgha, A Ali MD Unavailable Unavailable Al Mudamgha, A Ali MD Unavailable Unavailable Al Mudamgha, A Ali MD Unavailable Unavailable Al Mudamgha, A Ali MD Unavailable Unavailable Al Mudamgha, A Ali MD Unavailable Unavailable Al Mudamgha, A Ali MD Unavailable Unavailable Al Mudamgha, A Ali MD Unavailable Unavailable Al Mudamgha, A Ali MD Unavailable Unavailable Al Mudamgha, A Ali MD Unavailable Unavailable Al Mudamgha, A Ali MD Unavailable Unavailable Al Mudamgha, A Ali MD Unavailable Unavailable Al Mudamgha, A Ali MD Unavailable Unavailable Al Mudamgha, A Ali MD Unavailable Unavailable Al Mudamgha, A Ali MD Unavailable Unavailable Al Mudamgha, A Ali MD Unavailable Unavailable Al Mudamgha, A Ali MD Unavailable Unavailable Al Mudamgha, A Ali MD Unavailable Unavailable Al Mudamgha, A Ali MD Unavailable Unavailable Al Mudamgha, A Ali MD Unavailable Unavailable Al Mudamgha, A Ali MD Unavailable Unavailable Al Mudamgha, A Ali MD Unavailable Unavailable Al Mudamgha, A Ali MD Unavailable Unavailable Al Mudamgha, A Ali MD Unavailable Unavailable Al Mudamgha, A Ali MD Unavailable Unavailable Al Mudamgha, A Ali MD Unavailable Unavailable Al Mudamgha, A Ali MD Unavailable Unavailable Al Mudamgha, A Ali MD Unavailable Unavailable Al Mudamgha, A Ali MD Unavailable Unavailable Al Mudamgha, A Ali MD Unavailable Unavailable Re-disclosure Warning The records that you are about to access may contain information from federally-assisted alcohol or drug abuse programs. If such information is present, then the following federally mandated warning applies: This information has been disclosed to you from records protected by federal confidentiality rules (42 CFR part 2). The federal rules prohibit you from making any further disclosure of this information unless further disclosure is expressly permitted by the written consent of the person to whom it pertains or as otherwise permitted by 42 CFR part 2. A general authorization for the release of medical or other information is NOT sufficient for this purpose. The Federal rules restrict any use of the information to criminally investigate or prosecute any alcohol or drug abuse patient.The records that you are about to access may contain highly sensitive health information, the redisclosure of which is protected by Article 27-F of the [facility] Public Health law. If you continue you may have access to information: Regarding HIV / AIDS; Provided by facilities licensed or operated by the [facility] Office of Mental Health; or Provided by the [facility] Office for People With Developmental Disabilities. If such information is present, then the following [facility] mandated warning applies: This information has been disclosed to you from confidential records which are protected by state law. State law prohibits you from making any further disclosure of this information without the specific written consent of the person to whom it pertains, or as otherwise permitted by law. Any unauthorized further disclosure in violation of state law may result in a fine or halfway sentence or both. A general authorization for the release of medical or other information is NOT sufficient authorization for further disc losure. Family History Family Member Name Family Member Gender Family Member Status Date o f Status Description Data Source(s) Unknown Female Condition [facility] Unknown Unknown Problem [facility]) Unknown Male Problem [facility] ([facility], ) () Encounters Encounter Providers Location Date Indications Data Source(s ) Office Visit Attender: WONG PETERSEN MD Main Office 06/01/2021 09:02:0 0 AM EDT [facility] ([facility]) Outpatient Referrer: Art Salgado MD [email or web address] 11/2020 11:37:45 AM EDT - 05/29/2021 11:37:[address] [facility] Outpatient Referrer: Art Salgado MD 05/24/2021 10:01:5 6 AM EDT [facility] Outpatient Attender: Art Salgado MDReferrer: Art [email or web address] 05/24/2021 08:49:53 AM EDT - 05/24/2021 10:02:02 AM EDT [facility] Outpatient Attender: Raine RAMIREZ Main office - [facility] 05/18/2021 02:00:00 PM EDT [facility] ([facility]) Inpatient Attender: Art Salgado MD Admitter: Art Salgado MDReferrer: Art Salgado MD [id number] 05/05/2021 02:47:32 PM EDT - 05/30/2021 04:20:00 PM EDT [facility] Patient discharged. Office Visit Attender: WONG PETERSEN MD Main Office 05/03/2021 05:24:0 0 PM EDT [facility] ([facility]) Outpatient Attender: Art Salgado MDReferrer: WNOG JACKSON MD [email or web address] 04/26/2021 12:00:[address] [facility] Outpatient [id number] 03/28/2021 02:44:16 PM EDT [facility] Office Visit Attender: WONG PETERSEN MD Main Office 03/28/2021 11:57:0 0 AM EDT [facility] ([facility]) Outpatient Attender: JULIO CÉSAR RAMIREZ Main Office 03/22/2021 0 3:30:00 PM EDT [facility] ([facility]) Outpatient Attender: Raine RAMIREZ Main office - [facility] 03/16/2021 11:30:00 AM EDT [facility] ([facility]) Outpatient Attender: YOGI Mandujano/Carrie/Chandan/Reindl 03/13/2021 02:00:00 PM EDT [facility] ([facility]) Office Visit Attender: WONG PETERSEN MD Main Office 02/28/2021 11:59:0 0 AM EDT [facility] ([facility]) Office Visit Attender: WONG PETERSEN MD Main Office 01/25/2021 02:14:0 0 PM EDT [facility] ([facility]) Outpatient Attender: JULIO CÉSAR RAMIREZ Main Office 01/05/2021 0 1:15:00 PM EST [facility] ([facility]) Office Visit Attender: WONG PETERSEN MD Main Office 11/28/2020 02:30:0 0 PM EST [facility] ([facility]) Office Visit Attender: Raine RAMIREZ Main office - [facility] 11/11/2020 09:30:00 AM EST [facility] ([facility]) Office Visit Attender: WONG PETERSEN MD Main Office 10/31/2020 12:55:0 0 PM EST [facility] ([facility]) Outpatient Attender: JULIO CÉSAR RAMIREZ Main Office 10/05/2020 1 2:30:00 PM EST [facility] ([facility]) Outpatient Attender: BARRY SHETH MD Main office - [facility] 09/29/2020 12:00:00 PM EST [facility] ([facility]) Office Visit Attender: WONG PETERSEN MD Main Office 09/20/2020 07:19:0 0 AM EST [facility] ([facility]) Office Visit Attender: WONG PETERSEN MD Main Office 08/18/2020 09:08:0 0 AM EDT [facility] ([facility]) Office Visit Attender: WONG PETERSEN MD Main Office 07/12/2020 08:49:0 0 AM EDT [facility] ([facility]) Office Visit Attender: WONG PETERSEN MD Main Office 06/24/2020 08:14:0 0 AM EDT [facility] ([facility]) Immunizations Vaccine Date Status Description Data Source(s) 12/14/2020 12:00:00 AM EST completed <td I D="[id number]">Covid-19 (Pfizer)</td><td>12/14/2020, 11/23/2020</td><td></td> [facility] COVID-19 VACCINE Pfizer 12/14/2020 12:00:00 AM EST completed [facility]SIIS Vaccine Series Complete: NOThis Data was Submitted to [facility] Via [employer]. 11/23/2020 12:00:00 AM EST completed <td I D="[id number]">Covid-19 (Pfizer)</td><td>12/14/2020, 11/23/2020</td><td></td> [facility] COVID-19 VACCINE Pfizer 11/23/2020 12:00:00 AM EST completed NYSIIS Vaccine Series Complete: YESThis Data wa s Submitted to [facility] Via [employer]. Medications Medication Brand Name Start Date Product Form Dose Route Admi nistrative Instructions Pharmacy Instructions Status Indications Reaction Description Data Source(s) 24 HR metoprolol succinate 25 MG Extended Release Oral Tablet Metoprolol Succinate ER 07/16/2021 12:00:00 AM EDT ORAL active MEDENT ([facility]) Furosemide 20 MG Oral Tablet Furosemide 07/16/2021 12:00:00 AM EDT ORAL active [facility] ([facility]) Cholecalciferol 1000 UNT Oral Tablet Vit lemus D (CHOLECALCIFEROL) tablet 2,000 Units Vitamin D (CHOLECALCIFEROL) tablet 2,000 Units 05/30/2021 09 :00:00 AM EDT 2000 U Oral active 2,000 Units, Ora l, Daily, First dose on Sat05/30/21 at 0900 [facility] Medication administered onsite Calcium Carbonate 1250 MG / Cholecalcife rol 200 UNT Oral Tablet calcium-vitamin D (OSCAL-500) 500-200 MG-UNIT per tablet 1 tablet calcium-vitamin D (OSCAL-500) 500-200 MG-UNIT per tablet 1 tablet 05/30/2021 09:00:00 AM EDT 1 {tbl } Oral active 1 tablet, Oral, Daily, First dose on Sat05/30/21 at 0900 [facility] Medication administered onsite Insulin Lispro 100 UNT/ML Injectable Diane ution insulin lispro (HumaLOG) injection 1-6 Units insulin lispro (HumaLOG) injection 1-6 Units 08:00:00 AM EDT U Subcutaneous active 1-6 Units, Subcutaneous, MEALSS, First dose on Sat05/30/21 at 0800
Frail 3 units Nutritional and Correction Insulin Scale Blood Glucose (mg/dl) <70 start hypoglycemia protocol Glucose &nbsp ; Eats >=50% Eats &l t;50% Eats Nothing (mg/dl) of meal of meal or NPO &nb sp; 70- 120 2 units 1 units 0 units 121-170 & nbsp; 3 units 2 units 0 units 171-220 &nbsp ; 4 units 2 units 1 units 221-270 &am p;nbsp; 4 units 3 units 1 units 271-320 &n bsp; 5 units 3 units 2 units 321- 370 5 units 4 units 2 units 371- 420 6 units 4 units 3 units >420 call MD 6 units 5 units 3 units Test glucose within 30 minutes of insulin administration. Administer insulin within 15 minutes (before or after) of t he patient starting to eat. For patients that are NPO, use the NPO (correction) scale to cover POC glucose at 08:00, 12:00, 17:00.
[facility] Medication administered onsite 60 ACTUAT formoterol fumarate 0.005 MG/A CTUAT / mometasone furoate 0.2 MG/ACTUAT Metered Dose Inhaler mometasone-formoterol (DULERA) 200-5 MCG/ACT inhaler 2 puff mometasone-formoterol (DULERA) 200-5 MCG/ACT inhaler 2 puff 05/30/2021 08:00:00 AM EDT 2 {puff} Inhalation active 2 pu ff, Inhalation, 2 times daily, First dose on Sat05/30/21 at 0800
Please send a spacer home with patient if discharged with a metered dose inhaler. After use of steroid inhaler please have patient rinse mouth with water
[facility] Medication administered onsite Acetaminophen 500 MG Oral Tablet acetaminophen (TYLENO L) tablet 500 mg acetaminophen (TYLENOL) tablet 500 mg 05/30/2021 02:13:25 AM EDT 50 0 mg Oral active 500 mg, Oral, E very 4 hours PRN, mild pain (1-3), headaches, Starting on Sat05/30/21 at 0213
"Maximum dose of acetaminophen is 4,000 mg from all sources in 24 hours."
[facility] Medication administered onsite Simvastatin 10 MG Oral Tablet simvastatin (ZOCOR) tabl et 5 mg simvastatin (ZOCOR) tablet 5 mg 05/29/2021 11:00:00 PM EDT 5 mg Oral active 5 mg, Oral, Nightly, First dose on Sat05/29/21 at 2300 [facility] Medication administered onsite sacubitril 49 MG / valsartan 51 MG Oral Tablet sacubitril-valsartan 49-51 MG 1 tablet sacubitril-valsartan 49-51 MG 1 tablet 05/29/2021 11:00:00 PM ED T 1 {tbl} Oral active 1 tablet, Oral, 2 times daily, First dose on Sat05/29/21 at 2300 [facility] Medication administered onsite Albuterol 0.83 MG/ML Inhalant Solution a lbuterol (PROVENTIL) nebulizer solution 2.5 mg albuterol (PROVENTIL) nebulizer solution 2.5 mg 2020 10:19:14 PM EDT 2.5 mg active 2.5 mg, Nebulization, Daily PRN, shortness of breath, Starting on Sat05/29/21 at 2219 [facility] Medication administered onsite Carboxymethylcellulose 0.01 MG/MG Ophtha lmic Gel carboxymethylcellulose sod PF (REFRESH CELLVISC) 1 % ophthalmic 1 drop carboxymethylcellulose sod PF (REFRESH CELLVISC) 1 % ophthalmic 1 drop 05/29/2021 10:19:14 PM EDT 1 [drp] active 1 drop, Both Eyes, D aily PRN, for dry eyes, Starting on Sat05/29/21 at 2219 [facility] Medication administered onsite 2 ML Metoclopramide 5 MG/ML Prefilled Sy ringe metoclopramide (REGLAN) injection 10 mg metoclopramide (REGLAN) injection 10 mg 05/29/2021 10:00:00 PM E DT 10 mg Intravenous completed 10 mg, I ntravenous, Once, On Sat05/29/21 at 2200, For 1 dose, PACU (only) [facility] Medication administered onsite diphenhydrAMINE (BENADRYL) injection 25 mg [id number] 05/29/2021 10:00:00 PM EDT 25 mg Intravenous completed 25 mg, Intravenous, Once, On Sat05/29/21 at 2200, For 1 dose, PACU (only) [facility] Medication administered onsite fentaNYL Citrate (PF) (SUBLIMAZE) injection 25 mcg [id number] 05/29/2021 08:15:39 PM EDT 25 ug Intravenous aborted 25 mcg, Intravenous, Every 5 min PRN, moderate pain (4 to 6), Starting on Sat05/29/21 at 2014, For 5 doses, PACU (only) [facility] Medication administered onsite ondansetron (ZOFRAN) injection 4 mg [id number] 05/29/2021 08:15:3 9 PM EDT 4 mg Intravenous completed 4 mg, In travenous, Once as needed, nausea, vomiting, Starting on Sat05/29/21 at 2014, For 1 dose, PACU (only)
If not given in last 4 hours
[facility] Medication administered onsite Magnesium Chloride 0.06424 MEQ/ML / Pota ssium Chloride 0.0497 MEQ/ML / Sodium Acetate 0.0163 MEQ/ML / Sodium Chloride 0.0899 MEQ/ML / Sodium gluconate 5.02 MG/ML Injectable Solution [Normosol-R] electrolyte-R (NORMOSOL-R/PLASMALYTE-R) solution electrolyte-R (NORMOSOL-R/PLASMALYTE-R) solution 05/29 02:00:00 PM EDT Intravenous active at 3 0 mL/hr, Intravenous, Continuous, Starting on Sat05/29/21 at 1400, Pre-op [facility] Medication administered onsite 200 ACTUAT Albuterol 0.09 MG/ACTUAT Metered Dose Inhaler [Pr oAir] Proair HFA 03/21/2021 12:00:00 AM EDT ORAL active MEDENT ([facility]) No Active Medications 03/16/2021 12:00:00 AM EDT completed MEDENT ([facility] ) gabapentin 100 MG Oral Capsule Gabapentin 11/29/2020 12:00:00 AM EST ORAL completed [facility] ([facility]) gabapentin 100 MG Oral Capsule Gabapentin 11/11/2020 12:00:00 AM EST ORAL completed MEDENT ([facility] ) Flonase Flonase 10/04/2020 12:00:00 AM EST active [facility] ([facility]) Vitamin C 10/04/2020 12:00:00 AM EST ORAL complete d MEDENT ([facility]) Cholecalciferol (VITAMIN D PO) drug or medication 1 {cap david} Oral aborted Take 1 capsule by mouth daily [facility] Insurance Providers Payer name Policy type / Coverage type Policy ID Covered libertarian ID Covered libertarian's relationship to jimenez Policy Jimenez Plan Information [facility] Federal Service Medigap Part B [id number] Family De pendent BS [place] Medigap Part B [id number] Family Dependent [id number] A MEDICARE [id number] Nafisa [id number] MEDICARE [id number] xxxxxxxxxxx [id number] Medicare (Part B) Medicare Primary [id number] Self [id number] Medicare (Part B) Medicare Primary [id number] Self [id number] MEDICARE [id number] SP [id number] A Medicare (Part B) Medicare Primary [id number] Self [id number] Medicare (Part B) Medicare Primary [id number] Self [id number] Medicare (Part B) Medicare Primary [id number] Self 0 [id number] Medicare (Part B) Medicare Primary [id number] Self 0 [id number] Medicare (Part B) Medicare Primary [id number] Self 0 [id number] Medicare (Part B) Medicare Primary [id number] Self 0 [id number] Medicare (Part B) Medicare Primary [id number] Self 0 [id number] Medicare (Part B) Medicare Primary [id number] Self [place] [facility]) Medigap Part B [id number] Family Dep endent [place] Primary [id number] Self Medicare Medicare Primary [id number] Self MEDICARE [id number] SP [id number] [id number] FOR LIFE [id number] HU2 [id number] INSURANCE COVID-19 COVID Nafisa C OVID INSURANCE COVID-19 [id number] xOVID 2 [id number] INSURANCE COVID-19 COVID Nafisa C OVID INSURANCE COVID-19 COVID Nafisa C OVID [facility] [id number] 2 [id number] For Life - [place] Medigap Part B [id number] Family Dependent 1 [id number] Nafisa [id number] xxxxxxxxx [id number] [place] For Life Medigap Part B [id number] Family Dependent [id number] MEDICARE C [id number] S [id number] FOR LIFE S [id number] P [id number] For Life - [place] Medigap Part B [id number] Family Dependent [id number] [place]/[facility] Medicare Primary [id number] Self 0 [id number] For Life - [place] Medigap Part B [id number] Family Dependent [id number] [place] For Life Medigap Part B [id number] Family Dependent [id number] [place]/[facility] Medicare Primary [id number] Self 0 [id number] For Life - [place] Medigap Part B [id number] Family Dependent [id number] For Life - [place] Medigap Part B [id number] Family Dependent [id number] For Life - [place] Medigap Part B [id number] Family Dependent 1 [id number] For Life - [place] Medigap Part B [id number] Family Depen dent For Life - [place] Medigap Part B [id number] Family Dependent 1 [id number] For Life - [place] Medigap Part B [id number] Family Dependent 1 [id number] MEDICARE P [id number] S [id number] A For Life - [place] Medigap Part B [id number] Family Dependent 1 [id number] Problems, Conditions, and Diagnoses Code Display Name Description Problem Type Effective Dates Data Source(s) I25.5 Ischemic cardiomyopathy Ischemic cardiomyopathy Diagno sis 05/29/2021 12:10:00 PM EDT [facility] U07.1 COVID-19 COVID-19 Diagnosis 05/29/2021 11:37:45 AM ED T [facility] I25.5 Ischemic cardiomyopathy Ischemic cardiomyopathy [id number] 05/04/2021 12:00:00 AM EDT [facility] R42 Dizziness and giddiness Dizziness and giddiness Proble m 03/22/2021 12:00:00 AM EDT EDWAR ([facility]) Surgeries/Procedures Procedure Description Date Indications Data Source(s) Chronic Care MGMT 20 Mins Clinical Staff Time Per Calendar M [facility] 06/01/2021 12:00:00 AM EDT [facility] ([facility] GLUC BLD GLUC MNTR DEV CLEARED FDA SPEC HOME USE <td>P OCT GLUCOSE</td><td>Routine</td><td>05/30/2021 3:32 PM EDT</td><td></td><td> </td> 05/30/2021 03:32:00 PM EDT [facility] GLUC BLD GLUC MNTR DEV CLEARED FDA SPEC HOME USE <td>P OCT GLUCOSE</td><td>Routine</td><td>05/30/2021 9:54 AM EDT</td><td></td><td> </td> 05/30/2021 09:54:00 AM EDT [facility] GLUC BLD GLUC MNTR DEV CLEARED FDA SPEC HOME USE <td>P OCT GLUCOSE</td><td>Routine</td><td>05/29/2021 9:14 PM EDT</td><td></td><td> </td> 05/29/2021 09:14:00 PM EDT [facility] FLUOROSCOPY SPX <1 HOUR PHYSICIAN TIME <td>XR FLUORO P ACEMAKER INSERT</td><td>STAT</td><td>05/29/2021 8:55 PM EDT</td><td></td><td> </td> 05/29/2021 08:55:53 PM EDT [facility] XR CHEST PORTABLE <td>XR CHEST PORTABLE</td><t d>STAT</td><td>05/29/2021 8:53 PM EDT</td><td></td><td> </td> 05/29/2021 08:53:40 PM EDT [facility] INSJ ELTRD CAR ENZO SYS TM INSJ CVDFB/PM PLS GEN <td>IN SERTION, IMPLANTABLE CARDIOVERTER DEFIBRILLATOR (ICD), BIVENTRICULAR</td><td></td><td>05/29/2021 6:33 PM EDT</td><td> Ischemic cardiomyopathy</td><td></td> 05/29/2021 06:33:00 PM EDT - 05/29/2021 08:28:00 PM EDT Ischemic cardiomyopathy [facility] Ischemic cardiomyopathy RMVL TRANSVNS PM ELTRD 1 LEAD SYS ATR/VENTR <td>COMPLE X REMOVAL, ELECTRODE LEAD, CARDIAC PACEMAKER, USING LASER</td><td></td><td>05/29/2021 6:33 PM EDT</td><td> Ischemic cardiomyopathy</td><td></td> 05/29/2021 06:33:00 PM EDT - 05/29/2021 08:28:00 PM EDT Ischemic cardiomyopathy [facility] Ischemic cardiomyopathy GLUC BLD GLUC MNTR DEV CLEARED FDA SPEC HOME USE <td>P OCT GLUCOSE</td><td>Routine</td><td>05/29/2021 1:15 PM EDT</td><td></td><td> </td> 05/29/2021 01:15:00 PM EDT [facility] BLOOD TYPING ABO <td>PREPARE RBC</td><td>Rout ine</td><td>05/29/2021 12:01 AM EDT</td><td></td><td></td> 05/29/2021 12:01:00 AM EDT [facility] BLOOD TYPING ABO <td>PREPARE RBC</td><td>Rout ine</td><td>05/29/2021 12:01 AM EDT</td><td></td><td> </td> 05/29/2021 12:01:00 AM EDT [facility] COVID/FLU AB/RSV PCR <td>COVID/FLU AB/RSV PCR</td ><td>STAT</td><td>05/28/2021 8:06 AM EDT</td><td> COVID-19</td><td> </td> 05/28/2021 08:06:00 AM EDT COVID-19 [facility] COVID-19 XR CHEST PA AND LATERAL <td>XR CHEST PA AND LATERAL</td><td>Routine</td><td>05/24/2021 10:48 AM EDT</td><td> Ischemic cardiomyopathy</td><td> </td> 05/24/2021 10:48:00 AM EDT Ischemic cardiomyopathy [facility] Ischemic cardiomyopathy ECG ROUTINE ECG W/LEAST 12 LDS TRCG ONLY W/O I&R <td>E CG 12- LEAD</td><td>Routine</td><td>05/24/2021 9:56 AM EDT</td><td> Ischemic cardiomyopathy</td><td></td> 05/24/2021 09:56:14 AM EDT Ischemic cardiomyopathy [facility] Ischemic cardiomyopathy ROOM TEMP AB SCREEN <td>ROOM TEMP AB SCREEN</td> <td>Routine</td><td>05/24/2021 9:50 AM EDT</td><td> Ischemic cardiomyopathy</td><td> </td> 05/24/2021 09:50:00 AM EDT Ischemic cardiomyopathy [facility] Ischemic cardiomyopathy BLOOD TYPING ABO <td>TYPE AND SCREEN</td><td> Routine</td><td>05/24/2021 9:50 AM EDT</td><td> Ischemic cardiomyopathy</td><td> </td> 05/24/2021 09:50:00 AM EDT Ischemic cardiomyopathy [facility] Ischemic cardiomyopathy BLOOD COUNT COMPLETE AUTOMATED <td>CBC</td><td>Routine </td><td>05/24/2021 9:30 AM EDT</td><td> Ischemic cardiomyopathy</td><td> </td> 05/24/2021 09:30:00 AM EDT Ischemic cardiomyopathy [facility] Ischemic cardiomyopathy HEMOGLOBIN GLYCOSYLATED A1C <td>HEMOGLOBIN A1C</td><td>Routine</td><td>05/24/2021 9:30 AM EDT</td><td> Ischemic cardiomyopathy</td><td> </td> 05/24/2021 09:30:00 AM EDT Ischemic cardiomyopathy [facility] Ischemic cardiomyopathy BASIC METABOLIC PANEL CALCIUM TOTAL <td>BASIC METABOLI C PANEL</td><td>Routine</td><td>05/24/2021 9:30 AM EDT</td><td> Ischemic cardiomyopathy</td><td> </td> 05/24/2021 09:30:00 AM EDT Ischemic cardiomyopathy [facility] Ischemic cardiomyopathy OFFICE OUTPATIENT VISIT 25 MINUTES 05/18/2021 12:00:00 AM EDT MEDRAZIA ([facility]) Chronic Care MGMT 20 Mins Clinical Staff Time Per Calendar [facility] 05/03/2021 12:00:00 AM EDT [facility]RA[facility]IA ([facility]) INTERROGATION EVAL REMOTE </90 D 1/2/BAGGAGE PORTER HEAD LEAD PM 04/07 12:00:00 AM EDT [facility] ([facility]) INTERROGATION REMOTE </90 D NONDESTRUCTIVE TESTER REVIEW 04/07/20 12:00:00 AM EDT MEDRAZIA ([facility]) Chronic Care Management Services Ea Addl 20 Min 2020 12:00:00 AM EDT MEDRAZIA ([facility]) Chronic Care MGMT 20 Mins Clinical Staff Time Per Calendar [facility] 03/28/2021 12:00:00 AM EDT [facility]ZIA ([facility]) ECG ROUTINE ECG W/LEAST 12 LDS W/I&R 03/22/2021 12:00: 00 AM EDT [facility]RAZIA ([facility]) OFFICE OUTPATIENT VISIT 25 MINUTES 03/22/2021 12:00:00 AM EDT MEDENT ([facility]) OFFICE OUTPATIENT VISIT 25 MINUTES 03/16/2021 12:00:00 AM EDT MEDENT ([facility] ) Spirometry 03/13/2021 12:00:00 AM EDT M EDENT ([facility] ) Chronic Care MGMT 20 Mins Clinical Staff Time Per Calendar [facility] 02/28/2021 12:00:00 AM EDT MEDENT ([facility]) Chronic Care Management Services Ea Addl 20 Min 2020 12:00:00 AM EDT MEDENT ([facility]) Chronic Care MGMT 20 Mins Clinical Staff Time Per Calendar [facility] 01/25/2021 12:00:00 AM EDT [facility] ([facility]) ECG ROUTINE ECG W/LEAST 12 LDS W/I&R 01/05/2021 12:00: 00 AM EST MEDENT ([facility]) INTERROGATION EVAL IN PERSON 1/DUAL/BAGGAGE PORTER HEAD LEAD PM 2020 12:00:00 AM EST MEDENT ([facility]) OFFICE OUTPATIENT VISIT 15 MINUTES 01/05/2021 12:00:00 AM EST MEDENT ([facility]) PROGRAM EVAL IMPLANTABLE IN PERSN DUAL LD PACER 2020 12:00:00 AM EST MED[facility] ([facility]) INTERROGATION EVAL REMOTE </90 D 1/2/BAGGAGE PORTER HEAD LEAD PM 12/28 12:00:00 AM EST MEDENT ([facility]) INTERROGATION REMOTE </90 D NONDESTRUCTIVE TESTER REVIEW 12/29/19 12:00:00 AM EST MEDENT ([facility]) Chronic Care MGMT 20 Mins Clinical Staff Time Per Calendar M ont 11/28/2020 12:00:00 AM EST MEDENT ([facility]) Chronic Care MGMT 20 Mins Clinical Staff Time Per Calendar [facility] 10/31/2020 12:00:00 AM EST [facility] ([facility]) ELECTROENCEPHALOGRAM W/REC AWAKE&ASLEEP 10/25/2020 12: 00:00 AM EST MEDENT ([facility] ) ELECTROENCEPHALOGRAM W/REC AWAKE&ASLEEP 10/25/2020 12: 00:00 AM EST MEDENT ([facility], ) Needle electromyography, each extremity, with related paraspinal areas, when performed, done with nerve conduction, amplitude and latency/velocity study; complete, five or more muscles studied, innervated by three or more nerves or four or more spinal levels (list separately in addition to the code for primary procedure). 10/10/2020 12:00:00 AM EST MEDEN T ([facility], ) Needle electromyography, each extremity, with related paraspinal areas, when performed, done with nerve conduction, amplitude and latency/velocity study; complete, five or more muscles studied, innervated by three or more nerves or four or more spinal levels (list separately in addition to the code for primary procedure). 10/10/2020 12:00:00 AM EST MEDEN T ([facility], ) Nerve Conduction 11-12 Studies 10/10/2020 12:00:00 AM EST MEDENT ([facility] ) ECG ROUTINE ECG W/LEAST 12 LDS W/I&R 10/05/2020 12:00: 00 AM EST MEDENT ([facility]) Needle electromyography, each extremity, with related paraspinal areas, when performed, done with nerve conduction, amplitude and latency/velocity study; complete, five or more muscles studied, innervated by three or more nerves or four or more spinal levels (list separately in addition to the code for primary procedure). 10/03/2020 12:00:00 AM EST MEDEN T ([facility], ) Needle electromyography, each extremity, with related paraspinal areas, when performed, done with nerve conduction, amplitude and latency/velocity study; complete, five or more muscles studied, innervated by three or more nerves or four or more spinal levels (list separately in addition to the code for primary procedure). 10/03/2020 12:00:00 AM EST MEDEN T ([facility] ) Nerve Conduction 9-10 Studies 10/03/2020 12:00:[address] MEDENT ([facility] ) INTERROGATION EVAL REMOTE </90 D 1/2/BAGGAGE PORTER HEAD LEAD PM 09/28 12:00:00 AM EST MEDENT ([facility]) INTERROGATION REMOTE </90 D NONDESTRUCTIVE TESTER REVIEW 09/28/20 12:00:00 AM EST [facility] ([facility]) INTERROGATION EVAL IN PERSON 1/DUAL/BAGGAGE PORTER HEAD LEAD PM 2019 12:00:00 AM EDT MEDENT ([facility]) Results ID Date Data Source [id number] 06/06/2021 12:56:00 PM EDT [facility] Name Value Range Interpretation Code Description Data Ntaalie rce(s) Supporting Document(s) SARS coronavirus 2 RNA [Presence] in Res piratory specimen by KANDI with probe detection NEGATIVE [facility] This lab was ordered by [facility] a nd reported by [facility]. ID Date Data Source [id number] 05/30/2021 04:34:04 PM EDT [facility] NT INFORMATIONPatient MRN Name Date of Age Gend*PT [id number] Jen Rios 1945 76 years F SDCXPT Location Admission Date/Time Visit ID Attending [id number] 05/29/21 1210 --- --- EPI ID CSN Admitting Provider [id number] Art Waterman MD([id number]) Attestation signed by Art Salas MD at 05/30/2021 4:34 PMI saw and examined the patient at the bedside independently. I agree with theassessment and plan by the clinical affiliate.Signature: Art Salas MD, [facility], RSCardiac Electrophysiology and Arrhythmia ServiceDate: May 30, 2021Time: 4:33 PMThis document or parts of this document, were dictated using Apieronware. A reasonable attempt at proofreading has been made to minimizeerrors. Please call with any questions or corrections. Physician Discharge Summary Jen RiosMRN: [id number] date: 05/29/2021ttending Physician: Beverly Emanuelission Diagnosis: Ischemic cardiomyopathySecondary Diagnoses: Principal Problem: Ischemic cardiomyopathyPrinciple Procedures: Operative Report Patient Name: Jen Rios Date of :1945ender: female Age:76 yearsMedical Record Number: [id number] Date: 05/29/21 [place] Worker: Art Salas MD Assistants: None Procedure: Pacemaker system extraction Insertion of biventricular ICD Pre-operative Diagnosis: Dilated cardiomyopathy Sick sinus syndrome Chronic combined congestiveheart failure Post Operative Diagnosis: Same Anesthesia: GETA Lines: right femoral venous sheath with placement of bridge balloon right radial arterial line Imaging: Fluoroscopy BALJINDER Surgical Back Up: Dr. Miller Blood Loss: Minimal History: The patient is a 76 years female with a history of congestive heartfailure who presents for insertion of a biventricular ICD. The patient has anexisting pacemaker and presents for extraction of the pacemaker system at the time of ICD insertion Procedure: Informed consent was obtained. Formal surgical backup was obtained.The patient was brought to the operating room and intubated. A Transesophagealecho probe was advanced into the posterior pharynx to allow for continuous TEEvisualization. A radial arterial line was placed. A Right femoral venous sheathwas placed. Through the femoral she a SVC bridge balloon was advan neris over aguidewire under fluoroscopic guidance into the SVC. The balloon was theninflated in the position was marked. The balloon was then deflated and pulledback over the wire into the IVC ready to be deployed if needed. IV antibioticswere given preoperatively. The patient was prepped and draped in usual sterilefashion. Incision was made over the existing pacemaker the pocket was openedthe generator was disconnected from the RV lead. Dissection to the suturesleeve was performed and the tiedown sutures were cut and removed. The lead wascut and stripped. A lead locking device was placed and secured with a 1 silktie. Using a 14 Czech laser sheath followed by a sub-C mechanical sheath theright ventricular lead was extracted in its entirety. 2 guidewires wereexchanged. A 10 Czech introducer and a 9 Czech introducer were inserted. Abiventricular delivery sheath was advanced in the low right atrium over ane.p.t. quadripolar catheter. The EP catheter was placed into the great cardiacvein. The delivery sheath was advanced into the great cardiac vein and EPcatheter was removed. Occlusive coronary sinus venography was performed. Leftventricular pacing lead was advanced into an appropriate posterior target overan angioplasty wire. Appropriate pacing and sensing parameters were obtained.The delivery sheath was removed. The introducer was removed. The lead wassecured the pocket with 1 silk x2. An ICD paced sense high-voltage lead wasadvanced the RV apex. Appropriate pacing and sensing parameters were obtained.The sheath was removed. The lead was secured the pocket with 1 silk x2. Theleads were then connected to a new biventricular ICD generator which was placedin the pocket and secured with a 1 silk stitch. The pocket was closed with 2-0Vicryl. The skin was closed with osmin. Dressing was applied. Next thebridge balloon was removed from the femoral vein. The femoral venous sheath wasremoved and hemostasis was maintained with a ikkkrl-dj-lnzue stitch. Transesophageal ECHO Visualization: Continuous Transesophageal ECHO wasperformed from the onset of the procedure until its completion at no time wasthere any evidence of a pleural effusion, tamponade, a pericardial effusion,valvular avulsion and/or an embolic event. The BALJINDER was considered unchangedfrom the onset of the procedure until its completion. Implanted Device Data: See implant record Replaced Device Data: See implant record Stimulation Thresholds: See implant record Specimens: None Complications: None Conclusion: Successful pacemaker system extractionSuccessful insertion of [place]vie biventricular ICD Signature: Art Salas MD, [facility], RSCardiac Electrophysiology and Arrhythmia ServiceDate: 05/29/2021Time: 7:53 PMIndication for Admission: Ms. Rios is a 76 years old white female with historyof hypertension, diabetes, COPD, paroxysmal atrial fibrillation, essentialtremors, asthma, pacemaker insertion in 2019 and ischemic cardiomyopathy. Mostrecent surveillance echocardiogram showed EF of 20 to 25%. Patient complains ofshortness of breath on exertion and fatigue. Denies any chest pain,palpitation, lightheadedness, dizziness, or syncope. Patient met with Dr. Cordova.Options were discussed. She is now scheduled to undergo ICD insertion.Hospital Course & Complications: .Jen Rios underwent successful pacemakersystem extraction and successful insertion of St. Stevie biventricular ICD withDr. Salas on 05/29/21. The procedure was tolerated well and she remainedhemodynamically stable. Post procedure chest x- ray showed no discerniblepneumothorax. Telemetry reviewed, no arrhythmias noted. Patient seen anddiscussed with Dr. Salas and deemed stable for discharge. The figure-8stitch was removed from her right groin prior to discharge. ICD instructionswere reviewed prior to discharge. All questions answered. Patient will follow upwith Dr. Salas within 14 days.Past Medical History:Past Medical History:Diagnosis Date Asthma Atrial fibrillation COPD (chronic obstructive pulmonary disease) Coronary artery disease Dr. Greenwood DM (diabetes mellitus) Essential tremor Followed by neurologist HLD (hyperlipidemia) Hypertension Ischemic cardiomyopathy PONV (postoperative nausea and vomiting)Most Recent Labs:BMP:Lab ResultsComponent Value Date NA 143 05/24/2021 K 3.7 05/24/2021 CL 109 (H) 05/24/2021 CO2 28 05/24/2021 ANIONGAP 6 (L) 05/24/2021 CALCIUM 8.2 (L) 05/24/2021 GLU 77 05/24/2021 BUN 18 05/24/2021 CREATININE 0.82 05/24/2021 GFRAA >60 05/24/2021 GFRNONAA >60 05/24/2021ardiac:Lab ResultsComponent Value Date TROPONINI 1.76 (HH) 06/16/2019 PROBNP 4,860 (H) 06/16/2019CBC Brief:Lab ResultsComponent Value Date WBC 4.6 05/24/2021 HGB 11.4 (L) 05/24/2021 HCT 34.1 (L) 05/24/2021 PLT 192 1Coags:Lab ResultsComponent Value Date PROTIME 11.4 06/16/2019 INR 1.12 06/16/2019 APTT 71.5 (H) 06/16/2019Medications:Your medication listCONTINUE taking these medications Instructions Last Dose Given Morning Afternoon Evening Bedtime As Neededalbuterol (2.5 MG/3ML) 0.083% nebulizer solutionCommonly known as: PROVENTIL Take 2.5 mg by nebulization daily as needed for shortness of breathApixaban 5 MG Tabs tabletFor: for atrial fib/flutterCommonly known as: ELIQUIS Take 1 tablet (5 mg total) by mouth 2 (two) times a daycarboxymethylcellulose sod PF 1 % Gel ophthalmicCommonly known as: REFRESH CELLVISC Apply 1 drop to eye daily as needed (for dry eyes)Fish Oil 1000 MG Caps Take 1,000 mg by mouth dailyfluticasone-salmeterol 230-21 MCG/ACT inhalerCommonly known as: ADVAIR HFA Inhale 2 puffs 2 (two) times a daymetFORMIN 500 MG 24 hr tabletCommonly known as: GLUCOPHATE-XR Take 500 mg by mouth daily with breakfastOyster Calcium/D3 500-200 MG-UNIT TabsGeneric drug: Calcium Carb- Cholecalciferol Take 1 tablet by mouth dailysacubitril-valsartan 49-51 MG Tabs Take 1 tablet by mouth 2 (two) times a daysimvastatin 5 MG tabletCommonly known as: ZOCOR Take 5 mg by mouth nightlyVitamin D 50 MCG (1999) tablet Take 2,000 Units by mouth dailyDischarge Exam:Vitals: Temp: [97.2 F-98 F] 97.9 FHeart Rate: [68-124] 69Resp: [16-19] 16BP: (96-137)/(51-92) 105/52Pleasant, comfortable, not in acute distress.Awake, alert, oriented times 3.Moves all extremities.General appearance: alert, appears stated age and cooperativeNeck: no JVDLungs: Clear to auscultation bilaterally.Heart: regular rate and rhythm, S1, S2 normal, no murmur, click, rub or gallopAbdomen: Soft, nontender, bowel sounds present.Extremities: No edema.Skin: No rash or lumps.Wound/Incision: Left chest wall incision is covered with telfa and tegaderm.Site is clean, dry, intact with small amount of serosanguinous drainage. Thesurrounding tissues is clean, dry, pink or soft. No ecchymosis or hematoma.Figure-8 stitch removed from right groin. Stitch removed completely. Drysterile dressing placed. Pt tolerated well. Right groin site is approximated.No bleeding, groin site is soft, no evidence of hematoma, no complications.Discharged Condition:stableDisposition: Home or Self CareFollow Up: Dr. Lidia Mckeonature: Rosemary Jones, NPDate: May 30, 2021Time: 2:04 PM Name Value Range Interpretation Code Description Data Natalie rce(s) Supporting Document(s) ID Date Data Source [id number] 05/30/2021 03:35:29 PM EDT [facility] Name Value Range Interpretation Code Description Data Natalie rce(s) Supporting Document(s) POC NOVA GLU 114 mg/dL (70-99) H [facility] [place] [facility] ID Date Data Source [id number] 05/30/2021 09:58:19 AM EDT [facility] Name Value Range Interpretation Code Description Data Natalie rce(s) Supporting Document(s) POC NOVA GLU 89 mg/dL (70-99) [facility] [place] [facility] ID Date Data Source [id number] 05/29/2021 09:58:33 PM EDT [address] [address]Ljn[place] Name: Jen RiosB: 1945Sex: FOrdering Provider: ART Bradford Prov: ART Nugent Provider: Procedure Performed: XR CHEST PORTABLEExam Date: 05/29/2021 20:36MRN: [id number] Number: [id number] Class: INFORMATION: Exam: XR Chest Exam date and time: 05/29/2021 8:36 PM Age: 76 years old Clinical indication: Device placement; Other: Icd TECHNIQUE: Imaging protocol: XR of the chest. Views: 1 view. COMPARISON: CR XR CHEST PORTABLE 06/17/2019 10:50 AM FINDINGS: Tubes, catheters and devices: Left subclavian approach AICD in place. Lungs: Bilateral increased interstitial markings with hazy airspace opacities which may be due to pulmonary edema versus pneumonia. Pleural spaces: Small bilateral pleural effusion with adjacent atelectasis vs consolidation. No discernible pneumothorax. Heart/Mediastinum: Mild cardiomegaly. Bones/joints: Unremarkable. IMPRESSION: 1. Bilateral increased interstitial markings with hazy airspace opacities which may be due to pulmonary edema versus pneumonia. 2. Small bilateral pleural effusion with adjacent atelectasis vs consolidation. Report electronically signed by: GREGORIO KELLEY MD on 05/29/2021 21:58:33 Name Value Range Interpretation Code Description Data Natalie rce(s) Supporting Document(s) ID Date Data Source [id number] 05/29/2021 09:51:07 PM EDT [facility] Name Value Range Interpretation Code Description Data Natalie rce(s) Supporting Document(s) POC NOVA GLU 113 mg/dL (70-99) H [facility] [place] [facility] ID Date Data Source [id number] 05/29/2021 08:57:10 PM EDT [facility] Name Value Range Interpretation Code Description Data Natalie rce(s) Supporting Document(s) XR FLUORO PACEMAKER INSERT [facility] ID Date Data Source [id number] 05/29/2021 07:56:29 PM EDT [facility] NT INFORMATIONPatient MRN Name Date of Age Gend*PT [id number] Jen Rios 1945 76 years F SDCXPT Location Admission Date/Time Visit [facility]10 --- Art Salas MD([id number]) EPI ID CSN Admitting Provider [id number] Art Salas MD([id number]) Operative ReportPatient Name: Jen Rios Date of : 1945ender: female Age:76 yearsMedical Record Number: [id number] Date: 05/29/21Electrophysiologist: Art Salas MDAssistants: NoneProcedure: Pacemaker system extraction Insertion of biventricular ICDPre-operative Diagnosis: Dilated cardiomyopathy Sick sinus syndrome Chronic combined congestive heart failurePost Operative Diagnosis: SameAnesthesia: GETALines: right femoral venous sheath with placement of bridge balloon right radial arterial lineImaging: Fluoroscopy TEESurgical Back Up: Dr. Burris Loss: MinimalHistory: The patient is a 76 years female with a history of congestive heartfailure who presents for insertion of a biventricular ICD. The patient has anexisting pacemaker and presents for extraction of the pacemaker system at thetime of ICD insertionProcedure: Informed consent was obtained. Formal surgical backup was obtained.The patient was brought to the operating room and intubated. A Transesophagealecho probe was advanced into the posterior pharynx to allow for continuous TEEvisualization. A radial arterial line was placed. A Right femoral venous sheathwas placed. Through the femoral she a SVC bridge balloon was advanced over aguidewire under fluoroscopic guidance into the SVC. The balloon was theninflated in the position was marked. The balloon was then deflated and pulledback over the wire into the IVC ready to be deployed if needed. IV antibioticswere given preoperatively. The patient was prepped and draped in usual sterilefashion. Incision was made over the existing pacemaker the pocket was openedthe generator was disconnected from the RV lead. Dissection to the suturesleeve was performed and the tiedown sutures were cut and removed. The lead wascut and stripped. A lead locking device was placed and secured with a 1 silktie. Using a 14 Czech laser sheath followed by a sub-C mechanical sheath theright ventricular lead was extracted in its entirety. 2 guidewires wereexchanged. A 10 Czech introducer and a 9 Czech introducer were inserted. Abiventricular delivery sheath was advanced in the low right atrium over ane.p.t. quadripolar catheter. The EP catheter was placed into the great cardiacvein. The delivery sheath was adv anced into the great cardiac vein and EPcatheter was removed. Occlusive coronary sinus venography was performed. Leftventricular pacing lead was advanced into an appropriate posterior target overan angioplasty wire. Appropriate pacing and sensing parameters were obtained.The delivery sheath was removed. The introducer was removed. The lead wassecured the pocket with 1 silk x2. An ICD paced sense high-voltage lead wasadvanced the RV apex. Appropriate pacing and sensing parameters were obtained.The sheath was removed. The lead was secured the pocket with 1 silk x2. Theleads were then connected to a new biventricular ICD generator which was placedin the pocket and secured with a 1 silk stitch. The pocket was closed with 2-0Vicryl. The skin was closed with osmin. Dressing was applied. Next thebridge balloon was removed from the femoral vein. The femoral venous sheath wasremoved and hemostasis was maintained with a ucwxoh-ml-tqaqr stitch.Transesophageal ECHO Visualization: Continuous Transesophageal ECHO wasperformed from the onset of the procedure until its completion at no time wasthere any evidence of a pleural effusion, tamponade, a pericardial effusion,valvular avulsion and/or an embolic event. The BALJINDER was considered unchangedfrom the onset of the procedure until its completion.Implanted Device Data: See implant recordReplaced Device Data: See implant recordStimulation Thresholds: See implant recordSpecimens: NoneComplications: NoneConclusion:Successful pacemaker system extractionSuccessful insertion of Saint Stevie biventricular ICDSignature: Art Salas MD, [facility], [facility] CORPORATIONCardiac Electrophysiology and Arrhythmia ServiceDate: 05/29/2021Time: 7:53 PMThis document or parts of this document, were dictated using Apieronware. A reasonable attempt at proofreading has been made to minimize errors.Please call with any questions or corrections. Name Value Range Interpretation Code Description Data Natalie rce(s) Supporting Document(s) ID Date Data Source [id number] 05/29/2021 06:58:17 PM EDT [facility] NT INFORMATIONPatient MRN Name Date of Age Gend*PT [id number] SamJen Hyun 1945 76 years F SDCXPT Location Admission Date/Time Visit ID Attending Provider --- --- --- --- EPI ID CSN Admitting Pr micheler [id number] ---Arterial Line PlacementPatient location during procedure: ORIndications for arterial line: hemodynamic monitoringStaffingPerformed by: Capo Snow, DOApproved by: Capo Snow, DOCompleted: patient identified, risks and benefits discussed, surgical consentobtained, anesthesia consent obtained, monitors and equipment checked, pre-opevaluation completed, timeout performed, patient was prepped and draped in usualsterile fashion,Arterial Line InsertionSite prep: chlorhexidineAnesthesia: local infiltrationLocal anesthetic: lidocaine 1% without epinephrineLaterality: rightLocation: radial arteryNeedle gauge: 20 GTechnique: Seldinger technique used and ultrasound guidedNumber of attempts: 1AssessmentSutured: noDressing: dressing appliedPatient tolerance: tolerated well Name Value Range Interpretation Code Description Data Natalie rce(s) Supporting Document(s) ID Date Data Source [id number] 05/29/2021 06:56:57 PM EDT [facility] NT INFORMATIONPatient MRN Name Date of Age Gend*PT [id number] Jen Rios Hyun 1945 76 years F SDCXPT Location Admission Date/Time Visit ID Attending Provider --- --- --- --- EPI ID CSN Admitting Pr ovider [id number] ---AirwayPatient location during procedure: ORUrgency: electiveDifficult airway: noAdvanced airway equipment used: noStaffingPerformed by: Naima Fu CRNAAnesthesiologist: Capo Snow, Ningications and Patient ConditionIndications for airway management: anesthesiaPreoxygenated: yesPatient position: sniffingIn-line stabilization: noMask ventilation: 1 - vent by maskFinal Airway/ApproachesFinal airway type: ETTNumber of attempts at final approach: 1Number of other approaches attempted: 0Final Airway DetailsFinal ETT airway: ETT - singleCuffed: yesTechnique used for successful ETT placement: direct laryngoscopyCricoid pressure: noRSI: noInsertion site: oralBlade type/size: MAC 3ETT size: 7.0 mmMeasured from: lipsETT to lips: 21 cmPlacement verified by: + ETCO2 and palpation of cuffGrade view: grade I - full view of glottis Name Value Range Interpretation Code Description Data Natalie rce(s) Supporting Document(s) ID Date Data Source [id number] 05/29/2021 01:28:24 PM EDT [facility] INFORMATIONPatient MRN Name Date of Age Gend*PT [id number] Jen Rios 1945 76 years F SDCXPT Location Admission Date/Time Visit ID [facility] 1210 --- Art Salas MD([id number]) EPI ID CSN Admitting Provider [id number] Art Salas MD([id number])H&P reviewed. The patient was examined and there are no changes to the H&P.Art Salas MD1:28 PM Name Value Range Interpretation Code Description Data Natalie rce(s) Supporting Document(s) ID Date Data Source [id number] 05/29/2021 01:18:25 PM EDT [facility] Name Value Range Interpretation Code Description Data Natalie rce(s) Supporting Document(s) POC NOVA GLU 89 mg/dL (70-99) [facility]FOR[facility] BY [facility] ID Date Data Source [id number] 05/30/2021 07:03:52 PM EDT [facility] SPEC EXP DATE 06/01/2021TEST ING SITE PERFORMED AT [address] [place] [id number] NUMBER [id number] COMPONENT TYPE LEUKOPOOR RED CELLSUNIT DIVISION 00STATUS OF UNIT REL FROM ALLOCTRANSFUSION STATUS OK TO TRANSFUSECROSSMATCH RESULT COMPATIBLEUNIT NUMBER [id number] COMPONENT TYPE LEUKOPOOR RED CELLSUNIT DIVISION 00STATUS OF UNIT REL FROM ALLOCTRANSFUSION STATUS OK TO TRANSFUSECROSSMATCH RESULT COMPATIBLEUNIT NUMBER [id number] COMPONENT TYPE LEUKOPOOR RED CELLSUNIT DIVISION 00STATUS OF UNIT REL FROM ALLOCTRANSFUSION STATUS OK TO TRANSFUSECROSSMATCH RESULT COMPATIBLEUNIT NUMBER [id number] COMPONENT TYPE LEUKOPOOR RED CELLSUNIT DIVISION 00STATUS OF UNIT REL FROM ALLOCTRANSFUSION STATUS OK TO TRANSFUSECROSSMATCH RESULT COMPATIBLE Name Value Range Interpretation Code Description Data Natalie rce(s) Supporting Document(s) TRANSFUSE RED CELLS [facility] TESTING SITE PERFORMED AT [address] [place] [id number] ID Date Data Source [id number] 05/30/2021 07:54:11 AM EDT [facility] SPEC EXP DATE 06/01/2021TEST ING SITE PERFORMED AT [address] [place] [id number] NUMBER [id number] COMPONENT TYPE LEUKOPOOR RED CELLSUNIT DIVISION 00STATUS OF UNIT REL FROM ALLOCTRANSFUSION STATUS OK TO TRANSFUSECROSSMATCH RESULT COMPATIBLEUNIT NUMBER [id number] COMPONENT TYPE LEUKOPOOR RED CELLSUNIT DIVISION 00STATUS OF UNIT REL FROM ALLOCTRANSFUSION STATUS OK TO TRANSFUSECROSSMATCH RESULT COMPATIBLEUNIT NUMBER [id number] COMPONENT TYPE LEUKOPOOR RED CELLSUNIT DIVISION 00STATUS OF UNIT REL FROM ALLOCTRANSFUSION STATUS OK TO TRANSFUSECROSSMATCH RESULT COMPATIBLEUNIT NUMBER [id number] COMPONENT TYPE LEUKOPOOR RED CELLSUNIT DIVISION 00STATUS OF UNIT REL FROM ALLOCTRANSFUSION STATUS OK TO TRANSFUSECROSSMATCH RESULT COMPATIBLE Name Value Range Interpretation Code Description Data Natalie rce(s) Supporting Document(s) TRANSFUSE RED CELLS [facility] TESTING SITE PERFORMED AT [address] [place] [id number] ID Date Data Source [id number] 05/28/2021 08:06:00 AM EDT [facility] Name Value Range Interpretation Code Description Data Natalie rce(s) Supporting Document(s) SARS coronavirus 2 RNA [Presence] in Res piratory specimen by KANDI with probe detection NOT DETECTED [facility] This lab was reported by [facility]. ID Date Data Source [id number] 05/29/2021 11:38:12 AM EDT [facility] Name Value Range Interpretation Code Description Data Natalie rce(s) Supporting Document(s) SPECIMEN DESCRIPTION [facility] INFLUENZA A (NEG) [facility] INFLUENZA B (NEG) [facility] RSV (NEG) [facility] COMMENT [facility] THE [place] FDA HAS MADE THIS TEST AVAILABL EUNDER AN EMERGENCY USE AUTHORIZATION(EUA) FOR THE DETECTION AND/OR DIAGNOSISOF THE VIRUS THAT CAUSES COVID-19.PERFORMED AT [address] [place] [id number] COVID19 RESULT (NDET) [facility] THIS ASSAY AMPLIFIES AND DETECTSTHE TARG ET RNA USING REAL-TIME PCR.TESTING PERFORMED ON [employer] GENEXPERTNEGATIVE 2019_NCOV RT-PCR RESULTS DONOT PRECLUDE 2019_NCOV INFECTION ANDSHOULD NOT BE USED THE SOLE BASISFOR PATIENT MANAGEMENT DECISIONS. FIRST TEST [facility] SYMPTOMATIC [facility] DATE OF SYMPT ONSET [facility] HOS[facility]ED [facility] [place] [facility] ID Date Data Source [id number] 05/24/2021 10:48:[address] [facility] CHEST ROUTINE PA and LATCLINICAL HISTORY: Pacemaker lead malfunction.COMPARISON: 03/06/2021.TECHNIQUE: 2 views.FINDINGS: The pacer leads are stable in position and appear intact. The lungs are hyperinflated suggestive of COPD. There is no definite consolidation, pleural effusion, or pneumothorax. The cardiomediastinal silhouette is unremarkable.IMPRESSION:1. Pacer leads appear intact and stable in position.2. Hyperinflation suggestive of COPD. No acute pulmonary abnormality.Dictated by: CAPO GALINDO on 1 Transcribed by: tim on 05/24/2021 12:55 PMCDS G code: ,CDS Modifier: ,cc: Name Value Range Interpretation Code Description Data Natalie rce(s) Supporting Document(s) ID Date Data Source [id number] 05/24/2021 10:30:24 AM EDT [facility] Name Value Range Interpretation Code Description Data Natalie rce(s) Supporting Document(s) EKG [facility] [id number] jb2 [file] [id number]+FvCjn+qbrc5X+utFfRzivtVfjkK+7B8YrfsKZ/q03Gg3y/tZ7uz+vp patient/izUAbuHEVeRD2TUXt [file] [id number]UIUGa== ID Date Data Source [id number] 05/24/2021 10:05:53 AM EDT [facility] NT INFORMATIONPatient MRN Name Date of Age Gend*PT [id number] Sam Jen R 1945 76 years F OPPT Location Admission Date/Time Visit ID Attending Provider --- --- --- Art Salas MD([id number]) EPI ID CSN Admitting Provider [id number] ---OUTPATIENT / OBSERVATIONAL SURGICAL OR INVASIVE PROCEDUREName: Jen Rios : 1945 Sex: female Care Provider: PCP PROVIDER REQUESTEDAttending Physician: Dr. Rincon OF PRESENT ILLNESS: Ms. Rios is a 76 years old white female withhistory of hypertension, diabetes, COPD, paroxysmal atrial fibrillation,essential tremors, asthma, pacemaker insertion in 2019 and ischemiccardiomyopathy. Most recent surveillance echocardiogram showed EF of 20 to 25%.Patient complains of shortness of breath on exertion and fatigue. Denies anychest pain, palpitation, lightheadedness, dizziness, or syncope. Patient metwith Dr. Cordova. Options were discussed. She is now scheduled to undergo ICDinsertion.PAST MEDICAL HISTORY:Past Medical History:Diagnosis Date Asthma Atrial fibrillation COPD (chronic obstructive pulmonary disease) Coronary artery disease Dr. Greenwood DM (diabetes mellitus) Essential tremor Followed by neurologist HLD (hyperlipidemia) Hypertension Ischemic cardiomyopathy PONV (postoperative nausea and vomiting)PAST SURGICAL HISTORY:Past Surgical History:Procedure Laterality Date CARDIAC CATHETERIZATION N/A 06/16/2019 Procedure: Cardiac catheterization; Surgeon: Get Shen MD; Laterality:N/A; CATARACT EXTRACTION EXTRACAPSULAR W/ INTRAOCULAR LENS IMPLANTATION Bilateral CHOLECYSTECTOMY COLONOSCOPY HYSTERECTOMY total INSERT / REPLACE / REMOVE PACEMAKER 05/13/2019 LITHOTRIPSY PANENDOSCOPY RENAL EXPLORATION for stone TRANSPHENOIDAL PITUITARY RESECTION 2001ALLERGIES:AllergiesAllergen Reactio ns Amoxil [Amoxicillin] Hives and Itching Kane Inhibitors Hives Angiotensin Receptor Blockers Hives Nitroglycerin Other (See Comments) hypotensionMEDICATIONS:Prior to Admissi on medicationsMedication Sig Start Date End Date Taking? Authorizing Provideralbuterol (PROVENTIL) (2.5 MG/3ML) 0.083% nebulizer solution Take 2.5 mg bynebulization daily as needed for shortness of breath Historical Provider, MDApixaban (ELIQUIS) 5 MG TABS tablet Take 1 tablet (5 mg total) by mouth 2 (two)times a day 06/17/19 [place], MDCalcium Carb-Cholecalciferol (OYSTER CALCIUM/D3) 500-200 MG-UNIT TABS Take 1tablet by mouth daily Historical Provider, Bertaarboxymethylcellulose sod PF (REFRESH CELLVISC) 1 % GEL ophthalmic Apply 1 dropto eye daily as needed (for dry eyes) Historical Provider, BERTAholecalciferol (Vitamin D) 50 MCG (1999) tablet Take 2,000 Units by mouthdaily Historical Provider, fluticasone-salmeterol (ADVAIR HFA) 230-21 MCG/ACT inhaler Inhale 2 puffs 2(two) times a day Historical Provider, StewetFORMIN (GLUCOPHATE-XR) 500 MG 24 hr tablet Take 500 mg by mouth daily withbreakfast Historical Provider, Bennettga-3 Fatty Acids (FISH OIL) 1000 MG CAPS Take 1,000 mg by mouth dailyHistorical Provider, Lakishaacubitril-valsartan 49- 51 MG TABS Take 1 tablet by mouth 2 (two) times a dayHistorical Provider, Lakishaimvastatin (ZOCOR) 5 MG tablet Take 5 mg by mouth nightly HistoricalProvider, BERTAholecalciferol (VITAMIN D PO) Take 1 capsule by mouth daily 199905/24/21Historical Provider, LAKISHAocial HistoryTobacco Use Smoking status: Never Smoker Smokeless tobacco: Never UsedSubstance Use Topics Alcohol use: Never Drug use: NeverFamily HistoryProblem Relation Age of Onset Heart failure Father Diabetes Sister Cancer Brother Malig Hyperthermia Neg HxREVIEW OF SYSTEMS:Respiratory: Positive shortness of breath on exertion as above. Denies cough,yellow sputum production or wheezing.Cardiovascular: Denies any chest pain, pressure or tightness. Denies anyparoxysmal nocturnal dyspnea or orthopnea.GI: Denies nausea, vomiting, diarrhea, constipation or melena.Neurologic: Denies any numbness, tingling, or syncope. Significant essentialtremors followed by neurologist.,Vascular: Denies any edema. Denies claudication.PHYSICAL EXAM:GENERAL: She is a 76 years old, pleasant white female, in no acute distress attime of examination. Vitals on arrival to the office are BP 110/66 (BP Location:Left upper arm, Patient Position: Sitting) | Pulse 68 | Temp 97.1 F | Resp18 | Ht 1.676 m (5' 6") | Wt 59.4 kg (131 lb) | SpO2 97% | BMI 21.14 kg/m Body mass index is 21.14 kg/m ..Skin is pink, warm, and dry.NECK: She has a grade II airway. Neck is supple, midline, without cervicaladenopathy. No thyromegaly. No carotid bruits.MENTAL / NEUROLOGICAL STATUS: [id number]: Clear to auscultation. No wheezes, rhonchi or crackles.HEART: Rate rhythm regular. S1, S2. No murmur, rub or gallop. Left chest wallpacemaker intactABDOMEN: Bowel sounds positive times four. Soft, non tender. No reboundtenderness. No hepatosplenomegaly. Negative CVAT.EXTREMITIES: Pulses are symmetrical. NO edema.Anesthesia complications: PONVCSHA Frailty Scale :: 4/10 Vulnerable (while not dependent on others for dailyhelp, often symptoms limit activities. A common complaint is being "slowed up",and /or being tired during the day).Stop Bang Questionnaire - Total Score:STOP-Bang Total Score: 2ASSESSMENT: Primary Diagnosis/Indication: Ischemic cardiomyopathy.PLAN: Procedure: Ms. Rios is a 76-year-old female with low ejection fraction.She is now scheduled to undergo COMPLEX REMOVAL, ELECTRODE LEAD, CARDIACPACEMAKER, USING LASERINSERTION, IMPLANTABLE CARDIOVERTER DEFIBRILLATOR (ICD), BIVENTRICULAR on 10:05 Agustin Bertrand document or parts of this document, were dictated using [employer] speaking software. A reasonable attempt at proofreading has beenmade to minimize errors. Please call with any questions or corrections.* Name Value Range Interpretation Code Description Data [facility] rce(s) Supporting Document(s) ID Date Data Source [id number] 05/24/2021 06:24:17 PM EDT [facility]arnell CALLE SPEC EXP DATE 05/30/2021ATI ENT ABO/Rh O NEGATIVEANTIBODY SCREEN NEGATIVETESTING SITE PERFORMED AT [address] [place], [place] [address]BLOOD BANK COMMENT BLOOD TYPE CONFIRMED. Name Value Range Interpretation Code Description Data Natalie rce(s) Supporting Document(s) TYPE AND SCREEN [facility] ID Date Data Source [id number] 05/24/2021 04:43:54 PM EDT [facility] Name Value Range Interpretation Code Description Data [facility] rce(s) Supporting Document(s) ROOM TEMP AB SCREEN [facility] ROOM TEMP AB SCREEN NEGATIVE ID Date Data Source [id number] 05/24/2021 12:39:49 PM EDT [facility] [place] Name Value Range Interpretation Code Description Data Natalie rce(s) Supporting Document(s) HEMOGLOBIN A1C @ 5.4 % (4.0-6.0) [facility] [place] Performed using Siemens Aberdeen immunoassa y.Care must be taken when interpreting CrL3obpuzpks in patients with a hemoglobin variantor decreased erythrocyte lifespan. Values 5.7 - 6.4% suggest prediabetes.Values >=6.5% are diagnostic for diabetes.REFERENCE: DIABETES CARE 2018: 41(S13-S27). EST AVERAGE GLUCOSE 108 mg/dL [facility] [place] ID Date Data Source [id number] 05/24/2021 12:33:00 PM EDT [facility] [place] Name Value Range Interpretation Code Description Data Natalie rce(s) Supporting Document(s) WBC 4.6 10*3/uL (4.1-11.0) [facility] [place] RBC 3.77 10*6/uL (4.00-5.40) L [facility] HGB 11.4 g/dL (12.0-16.0) L [facility] [place] HCT 34.1 % (36.0-47.0) L [facility] MCV 90.6 fL (80.0-95.0) [facility] MCH 30.1 pg (27.0-32.0) [facility] MCHC 33.3 g/dL (32.0-36.0) [facility] RDW 15.4 % (10.5-14.5) H [facility] PLT 192 10*3/uL (150-450) [facility] MPV 8.9 fL (7.1-10.7) [facility] ID Date Data Source [id number] 05/24/2021 12:32:55 PM EDT [facility] [place] Name Value Range Interpretation Code Description Data Natalie rce(s) Supporting Document(s) SODIUM 143 mmol/L (136-145) [facility] POTASSIUM 3.7 mmol/L (3.6-5.2) [facility] CHLORIDE 109 mmol/L (100-108) H [facility] CO2 28 mmol/L (22-31) [facility] ANION GAP 6 mmol/L (7-16) L [facility] UREA NITROGEN 18 mg/dL (7-24) [facility] CREATININE 0.82 mg/dL (0.60-1.00) [facility] BUN/CREAT RATIO 22.0 RATIO (10.0-20.0) H [facility] GLUCOSE 77 mg/dL (70-99) [facility] CALCIUM 8.2 mg/dL (8.4-10.2) L [facility] GFR >60 ml/min/1.73m2 (>59) [facility] GFR ( AMER) >60 ml/min/1.73m2 (>59) [facility] GFR INTERPRETATION [facility] --NORMAL KIDNEY FUNCTION OR MILD DISEASE - GFR >OR= 60CHRONIC KIDNEY DISEASE - GFR 15 - 59RENAL FAILURE - GFR <15 Est. GFR calculation based on the MDRDstudy equation, which assumes a steadystate for creatinine. Est. GFR should notbe used for medication dosing. ID Date Data Source [id number] 04/26/2021 12:22:58 PM [facility] INFORMATIONPatient MRN Name Date of Age Gend*PT [id number] Jen Rios 1945 76 years F ---PT Location Admission Date/Time Visit ID Attending Provider --- --- --- --- EPI ID CSN Admitting Provider [id number] ---[facility] [id number] [facility], [address] (First Floor)[place], [place] [address]Cp.: Fax: Fatient: Jen Rios : 3Date: 04/26/21CARDIOLOGY ELECTROPHYSIOLOGY TELEMEDICINE CONSULTPatient was identified by name and date of .Verbal consent was obtained from the patient for this telemedicine visit.Patient is aware of the risks, limitations, and benefits of a telemedicinevisit.This telemedicine assessment was conducted remotely with the assistance ofMysportsbrandsic communication technology. Telephone Only Codes [id number]: 21-30 minutesof medical discussion: Telephone Only .Subjective:I was asked by Dr. Petersen to consult on this 76 years female with congestiveheart failureHISTORY OF PRESENT ILLNESS: The patient is a 76-year-old female with a mixedischemic and dilated cardiomyopathy with a recent echocardiogram which shows herejection fraction is 20 to 25%. The patient has a history of AV block and has apaced left bundle branch block. She complains of shortness of breath anddyspnea on exertion. She denies any syncope or palpitations.PHx:Medical Problems:PSVT - Ectopic atrial tachycardiaAbnormal EKG - Diffuse ST/T-wave abnormalitiesAortic Valve DiseaseHypertensive Heart Disease - Benign without heart failureWeight problem, AsthmaThyroid Disease - goiterDiverticulosis, Kidney Stones, Pituitary TumorAtrial Fibrillation - Paroxysmal per monitor 2018.Likely tachycardia induced cardiomyopathy.Sick Sinus Syndrome - S/P PPMAcute Coronary Syndrome - (05/2019) NSTEMI- normal cath. EF 20%.Repeat echo 02/2021 showed EF 20-25%.AV BlockFAMILY HISTORY: family history includes Cancer in her brother; Diabetes in hersister; Heart failure in her father.SOCIAL HISTO RY: reports that she has never smoked. She has never used smokelesstobacco. She reports that she does not drink alcohol and does not use drugs.REVIEW OF SYSTEMS: Constitutional: Positive fatigue. Denies fever, chills,weight loss or gain. Eyes: Denies blindness. Cardiovascular: Denies chestpain. Respiratory: Positive shortness of breath and dyspnea on exertion. GI:Denies abdominal pain, nausea or vomiting. : Denies dysuria or hematuria.Musculoskeletal: Negative lower extremity edema. Integumentary: Denies rash.Neurologic: Denies seizures. Psychiatric: Denies depression or anxiety.Hematologic: Denies anemia.Current Outpatient Medications: albuterol (PROVENTIL) (2.5 MG/3ML) 0.083% nebulizer solution, Take 2.5 mg bynebulization every 6 (six) hours as needed for shortness of breath, Disp: , Rfl: Apixaban (ELIQUIS) 5 MG TABS tablet, Take 1 tablet (5 mg total) by mouth 2(two) times a day, Disp: 60 tablet, Rfl: 0 Calcium Carb-Cholecalciferol (OYSTER CALCIUM/D3) 500-200 MG-UNIT TABS, Take 1tablet by mouth daily, Disp: , Rfl: Cholecalciferol (VITAMIN D PO), Take 1 capsule by mouth daily 1999, Disp: ,Rfl: fluticasone-salmeterol (ADVAIR HFA) 230-21 MCG/ACT inhaler, Inhale 2 puffs 2(two) times a day, Disp: , Rfl: metFORMIN (GLUCOPHATE-XR) 500 MG 24 hr tablet, Take 500 mg by mouth dailywith breakfast, Disp: , Rfl: Cleves-3 Fatty Acids (FISH OIL) 1000 MG CAPS, Take 1,000 mg by mouth daily,Disp: , Rfl: sacubitril-valsartan 49-51 MG TABS, Take 1 tablet by mouth 2 (two) times aday, Disp: , Rfl: simvastatin (ZOCOR) 5 MG tablet, Take 5 mg by mouth nightly, Disp: , Rfl:ALLERGIES: is allergic to amoxil [amoxicillin], kane inhibitors, angiotensinreceptor blockers, and nitroglycerin.Objective:PHYSICAL EXAMINATION: Deferred due to Telemedicine encounterSTUDIES REVIEWED: Referral records including EKGEKG: Deferred due to telemedicine encounter.Assessment/Plan:ASSESSMENT/PLAN: This is a 76 years female With a history of congestive heartfailure. The patient is an appropriate candidate for insertion of abiventricular ICD based on her ejection fraction, heart failure classificationand paced left bundle branch block. She has an existing pacemaker for AV block.A discussion regarding the significance of lead abandonment was explained. Itwas explained that it is extremely difficult to calculate a risk to benefitratio with regards to management of individuals with an abandoned lead giventhat in most cases an abandoned lead does not pose risk to the patient's healthwith regards to . However lead abandonment is not without poten tialcomplications as was discussed.I explained to the patient that when a lead is abandoned it becomes much moredifficult to extract in the future should a lead need to be extracted in thefuture. Specifically should the patient ever developed a device relatedinfection which is a class 1 indication for lead extraction then extracting anabandoned lead becomes more difficult because of the dwell time of the lead. Inmany studies, abandoned leads require a femoral approach to extraction and thispresents as an increased risk to the patient.The possibility that the subclavian system could be occluded which is seen in upto a 3rd of patients with a device was discussed. When encounterd there isalways the option to go to the contralateral subclavian vein to place a newlead. However, now both venous access sites to the heart are occupied and again,should the patient ever developed a device related infection, both sides wouldthen be considered infected.The increased vascular burden associated with lead a bandonment was explained.As well as the increased risk of long-term infection that has been seen in somestudies with lead abandonment. Also there are studies which demonstrate thatwhen a lead is abandon over time, the failure rate seems to increase. Theabsolute contraindication to an MRI with an abandoned lead was explained as wellas the possibility for lead to lead interaction.The extraction procedure was explained in great detail. Based on the LeadExtraction in the Contemporary Setting study (LExiCon) the success rate forcomplete lead removal was quoted at 96.5 percent with clinical success quoted at97.7 percent. It was also explained that procedural failure increased withleads having been implanted for more than 10 years. Should laser leadextraction be unsuccessful, and a fairly large remnant of the lead left behind,then the patient would need to consider an open extraction procedure with eithera thoracotomy or sternotomy approach.The risks of the procedure including but not limited to vascular injury,perforation, pneumothorax, sepsis, stroke, acute renal failure, valvularavulsion, pericardial effusion, tamponade, need for emergent open heart surgeryand were all explained. In the LExICon study the risk of directlyassociated with extraction was 0.4 percent. In addition the need for a generalanesthetic, continues transesophageal echo visualization as well as formalcardiac surgical backup was discussed.The patient appears to be pacemaker dependentAt this point the patient would like to proceed with lead extraction and upgradeto biventricular ICDThis document or parts of this document, were dictated using Apieronware. A reasonable attempt at proofreading has been made to minimize errors.Please call with any questions or corrections.I have spent 25 minutes with the patient, counseling/coordinating the patient'scare. I discussed the diagnosis of lead management and discussed Managementoption risks and benefitsFollow Up lead extraction with upgrade to b iventricular ICDSignature: Art Salas MD, [facility], RSCardiac Electrophysiology and Arrhythmia ServiceDate: April 26, 2021Time: 12:17 PMThis document or parts of this document, were dictated using Apieronware. A reasonable attempt at proofreading has been made to minimize errors.Please call with any questions or corrections. Name Value Range Interpretation Code Description Data Natalie rce(s) Supporting Document(s) ID Date Data Source [id number] 03/13/2021 01:35:00 PM EDT [facility] ([facility], ) Name Value Range Interpretation Code Description Data Natalie rce(s) Supporting Document(s) PDFReport Laboratory test result [facility] ([facility]) FVC-Pred 2.98 L [facility] ([facility]) FVC-Pre 1.78 L [facility] ([facility]) FVC-%Pred-Pre 59 L [facility] ([facility]) FVC-LLN 2.24 L [facility] ([facility]) Fev1-%Pred-Pre 56 L [facility] ([facility]) Fev1-Pre 1.27 L [facility] ([facility]) Fev1-Pred 2.24 L [facility] ([facility]) Fev6-Pred 2.84 L [facility] ([facility]) Fev1-LLN 1.61 L [facility] ([facility]) Fev6-Pre 1.78 L [facility] ([facility]) Fev6-%Pred-Pre 62 L [facility] ([facility]) Fev6-LLN 2.11 L [facility] ([facility], ) Mvb7oii-Rppc 74 % [facility] ([facility]) Qpm1qly-%Pred-Pre 95 % [facility] ([facility]) Weh7ejo-Igr 71 % [facility] ([facility]) Ymt9twb-MCH 65 % [facility] ([facility], ) Qbj0lza-Oyux 95 % [facility] ([facility]) Idt6uaw-%Pred-Pre 105 % [facility] ([facility]) Kau7zhq-Isr 100 % [facility] ([facility]) FEFMax-Pred 5.38 L/E/sec [facility] ([facility]) FEFMax-Pre 3.19 L/E/sec [facility] ([facility]) FEFMax-%Pred-Pre 59 L/E/sec [facility] ([facility]) Toq3051-Ptyq 1.68 L/E/sec [facility] ([facility]) FEFMax-LLN 3.56 L/E/sec [facility] ([facility]) Url4318-%Pred-Pre 49 L/E/sec [facility] ([facility]) Ppu5551-Yol 0.83 L/E/sec [facility] ([facility]) ExpTime-Pre 6.56 sec [facility] ([facility]) Iqp1067-OIO 0.36 L/E/sec [facility] ([facility]) Wth3ptw8-Inqu 78 % [facility] ([facility]) Snp6azh3-Iba 71 % [facility] ([facility]) Yim3bgo2-HUX 69 % [facility] ([facility]) Hzm9por7-%Pred-Pre 91 % [facility] ([facility]) ID Date Data Source [id number] 03/08/2021 12:36:00 PM EDT [facility] ([facility]) Name Value Range Interpretation Code Description Data Natalie rce(s) Supporting Document(s) Albumin [Mass/volume] in Serum or Plasma 2.9 [facility] ([facility]) Calcium [Mass/volume] in Serum or Plasma 8.6 [facility] ([facility]) Carbon dioxide, total [Moles/volume] in Serum or Plasma 27 [facility] ([facility]) Alanine aminotransferase [Enzymatic activity/volume] in Serum or Pl asma 17 [facility] ([facility]) Chloride [Moles/volume] in Serum or Plasma 110 [facility] ([facility]) Protein [Mass/volume] in Serum or Plasma 5.7 [facility] ([facility]) Potassium [Moles/volume] in Serum or Plasma 3.5 [facility] ([facility]) Alkaline phosphatase [Enzymatic activity/volume] in Serum or Plasma 4 5 [facility] ([facility]) Sodium 143 [facility] ([facility]) Urea nitrogen [Mass/volume] in Serum or Plasma 17 [facility] ([facility]) Aspartate aminotransferase [Enzymatic activity/volume] in Serum or Plasma 18 [facility] ([facility]) Creatinine For GFR 0.73 [facility] ([facility]) Glucose 104 70-100 [facility] ([facility]) ID Date Data Source [id number] 03/08/2021 12:36:00 PM EDT [facility] ([facility]) Name Value Range Interpretation Code Description Data Natalie rce(s) Supporting Document(s) Magnesium Level 2.2 [facility] ([facility]) ID Date Data Source [id number] 03/08/2021 12:36:00 PM EDT [facility] ([facility]i [facility]) Name Value Range Interpretation Code Description Data Natalie rce(s) Supporting Document(s) White Blood Count 4.4 4.0-10.0 [facility] ([facility]) Red Blood Count 3.43 4.00-5.40 [facility] ([facility]) Platelets 222 150-450 [facility] ([facility]) Hematocrit 32.1 36.0-47.0 [facility] ([facility]) Hemoglobin 10.5 12.0-15.5 [facility] ([facility]) ID Date Data Source [id number] 03/06/2021 11:59:00 AM EDT [facility] ([facility]) Name Value Range Interpretation Code Description Data Natalie rce(s) Supporting Document(s) Magnesium [Mass/volume] in Serum or Plasma 1.6 mg/dL 1.8-2.4 [facility] ([facility]) Natriuretic peptide.B prohormone N-Terminal [Mass/volu me] in Serum or Plasma 5727 pg/mL [facility] ([employer] [facility]) Lipoprotein lipase [Enzymatic activity/volume] in Serum or Plasm a 87 U/L 73-393 [facility] ([facility]) ID Date Data Source [id number] 03/06/2021 11:59:00 AM EDT [facility] ([facility]) Name Value Range Interpretation Code Description Data Natalie rce(s) Supporting Document(s) Ast/Sgot 17 U/L 7-37 [facility] ([facility]) Alt/SGPT 15 U/L 12-78 [facility] ([facility]) Alkaline Phosphatase 40 U/L 45-117 [facility] (C ar[facility]) Bilirubin,Total 0.5 mg/dL 0.2-1.0 [facility] ([facility]io [facility]y [facility]) Total Protein 5.8 GM/DL 6.4-8.2 [facility] (Cardiolo gy [facility]) Bilirubin,Direct 0.2 mg/dL 0.0-0.2 [facility] Albumin/Globulin Ratio 1.1 1.2-2.2 [facility] ([facility]iology [facility]) Albumin 3.1 GM/DL 3.2-5.2 [facility] ([facility]iology [facility]) ID Date Data Source [id number] 03/06/2021 11:59:00 AM EDT [facility] ([facility]) Name Value Range Interpretation Code Description Data Natalie rce(s) Supporting Document(s) CK-MB Value Mass 1.4 ng/mL [facility] ([facility]) CPK Creatine Phosphokinase 78 U/L 26-192 [facility] ([facility]) Troponin I Laboratory test result [facility] ([facility]) <content>Troponin I Reference Interval f or Siemens Aberdeen LOCI:</content>
<content></content>
<content>99th Percentile= 0.00-0.045 ng/ml</content>
<content></content>
<content>Risk Stratification:</content>
<content><= 0.10 ng/ml Decreased Risk for Adverse Clinical</content>
<content>Events.</content>
<content>0.10-1.50 ng/ml Increased Risk for Adverse Clinical</content>
<content>Events. Evaluation of additional</content>
<content>criterion and/or repeat testing in 2-6</content>
<content>hours is suggested to rule out myocardial</content>
<content>damage.</content>
<content>>= 1.50 ng/ml Indicative of Myocardial Injury.</content>
<content></content> MB/CK Relative Index 1.79 [facility] ([facility]) <content>DIAGNOSIS CRITERIA</content>
<content>MMB ng/ml Relative Index (RI)</content>
<content>NON-AMI < or = 5 N/A</content>
<content>HICKS ZONE > 5 < or = 4</content>
<content>AMI > 5 > 4</content>
<content></content> ID Date Data Source [id number] 03/06/2021 11:08:00 AM EDT [facility] Name Value Range Interpretation Code Description Data Natalie rce(s) Supporting Document(s) SARS coronavirus 2 RNA [Presence] in Res piratory specimen by KANDI with probe detection NEGATIVE [facility] This lab was ordered by [facility] a nd reported by [facility]. ID Date Data Source [id number] 03/06/2021 11:00:00 AM EDT [facility] Name Value Range Interpretation Code Description Data Natalie rce(s) Supporting Document(s) Laboratory test finding (navigational concept) 36.0 % 38.0-51.0 MED[facility] ([facility]) Laboratory test finding (navigational concept) 92 mg/dL 70-105 MED[facility] ([facility]) Laboratory test finding (navigational concept) 135 meq/L 136-145 MED[facility] ([facility]) Laboratory test finding (navigational concept) 4.1 meq/L 3.5-5.1 MED[facility] ([facility]) Laboratory test finding (navigational concept) 4.3 mg/dL 4.5-5.3 [facility] ([facility]) Laboratory test finding (navigational concept) 102 meq/L 98-109 MED[facility] ([facility]) Laboratory test finding (navigational concept) 25.0 MM/L 23.0-27.0 [facility] ([facility]) Laboratory test finding (navigational concept) 1.0 mg/dL 0.6-1.3 [facility] ([facility]) Laboratory test finding (navigational concept) 33 mg/dL 8-26 [facility] ([facility]) ID Date Data Source [id number] 03/06/2021 10:52:00 AM EDT MED[facility] ([facility]) Name Value Range Interpretation Code Description Data Natalie rce(s) Supporting Document(s) aPTT in Platelet poor plasma by Coagulation assay 36.9 s 24.2-38. 5 MED[facility] ([facility]) ID Date Data Source [id number] 03/06/2021 10:52:00 AM EDT [facility] ([facility]) Name Value Range Interpretation Code Description Data Natalie rce(s) Supporting Document(s) Prothrombin Time 13.6 s 12.5-14.3 [facility] ([facility]) Inr 1.02 [facility] ([facility]) THERAPUTIC HUMAN INR VALUES INDICATIONS NORMAL RANGES PROPHYLAXIS/TREATMENT OF: VENOUS THROMBOSIS 2.0-3.0 PULMONARY EMBOLISM 2.0-3.0 PREVENTION OF SYSTEMIC EMBOLISM FROM: TISSUE HEART VALVES 2.0-3.0 ACUTE MYOCARDIAL INFARCTION 2.0-3.0 VALVULAR HEART DISEASE 2.0-3.0 ATRIAL FIBRILLATION 2.0-3.0 MECHANICAL VALVES(HIGH RISK) 2.5-3.5 RECURRENT MYOCARDIAL INFARCTION 2.5-3.5 ID Date Data Source [id number] 09/30/2020 03:26:00 PM EST MED[facility] ([facility]) Name Value Range Interpretation Code Description Data Natalie rce(s) Supporting Document(s) Blood Urea Nitrogen 20 mg/dL 7-18 MEDENT ([facility], ) Glucose, Fasting 81 mg/dL 70-100 MEDENT ([facility], ) Glomerular Filtration Rate 50.7 MED ENT ([facility]) <content>Units are mL/min/1.73 m2</content>
<content></content>
<content>Chronic Kidney Disease Staging per NKF:</content>
<content></content>
<content>Stage I & II GFR >=60 Normal to Mildly Decreased</content>
<content>Stage III GFR 30- 59 Moderately Decreased</content>
<content>Stage IV GFR 15-29 Severely Decreased</content>
<content>Stage V GFR <15 Very Little GFR Left</content>
<content>ESRD GFR <15 on SHEET METAL [employer]</content>
<content></content> Creatinine For GFR 1.11 mg/dL 0.55-1.30 MEDENT ([facility], ) Sodium Level 139 meq/L 136-145 MED[facility] ([facility]) Potassium Serum 3.9 meq/L 3.5-5.1 MED[facility] ([facility]) Chloride Level 106 meq/L 98-107 MED[facility] ([facility]) Carbon Dioxide Level 29 meq/L 21-32 MED[facility] ([facility]) Anion Gap 4 meq/L 8-16 MED[facility] ([facility]) Calcium Level 8.7 mg/dL 8.8-10.2 [facility] ([facility]) Ast/Sgot 15 U/L 7-37 [facility] ([facility]) Alkaline Phosphatase 42 U/L 45-117 MED[facility] ([facility]) Alt/SGPT 18 U/L 12-78 MED[facility] ([facility], ) Total Protein 6.7 GM/DL 6.4-8.2 MED[facility] ([facility], ) Bilirubin,Total 0.4 mg/dL 0.2-1.0 MED[facility] ([facility]) Albumin 3.4 GM/DL 3.2-5.2 MED[facility] ([facility], ) Albumin/Globulin Ratio 1.0 1.2-2.2 [facility] ID Date Data Source [id number] 09/30/2020 03:26:00 PM EST MED[facility] ([facility], ) Name Value Range Interpretation Code Description Data Natalie rce(s) Supporting Document(s) Erythrocyte sedimentation rate by 2H Westergren method 16 mm/hr 0-3 0 MED[facility] ([facility]) ID Date Data Source [id number] 09/30/2020 03:26:00 PM EST MED[facility] ([facility], ) Name Value Range Interpretation Code Description Data Natalie rce(s) Supporting Document(s) White Blood Count 6.1 10 4.0-10.0 MED[facility] ([facility], ) Red Blood Count 4.25 10 4.00-5.40 [facility] Hemoglobin 12.4 g/dL 12.0-15.5 MED[facility] ([facility], ) Mean Corpuscular Volume 92.7 fl 80.0-96.0 M EDENT ([facility], ) Hematocrit 39.4 % 36.0-47.0 [facility] ([facility], ) Mean Corpuscular HGB Conc 31.5 g/dL 32.0-36.5 MED[facility] ([facility]) Mean Corpuscular Hemoglobin 29.2 pg 27.0-33.0 [facility] Platelet Count, Automated 258 10 150-450 [facility] Red Cell Distribution Width 14.1 % 11.5-14.5 MED[facility] ([facility]) Lymph % 34.6 % 24.0-44.0 MED[facility] ([facility], ) [place] % 7.8 % 0.0-5.0 MED[facility] ([facility], ) Neutrophils % 52.7 % 36.0-66.0 MED[facility] ([facility], ) Eos % 3.8 % 0.0-3.0 MED[facility] ([facility], ) Baso % 0.8 % 0.0-1.0 [facility] Immature Granulocyte % 0.3 % 0-3.0 [facility] ([facility], ) Nucleated Red Blood Cell % 0.0 % 0-0 MED E[facility] ([facility], ) [place] # 0.5 10 0.0-0.8 MED[facility] ([facility], ) Neutrophils # 3.2 10 1.5-8.5 MED[facility] ([facility], ) Lymph # 2.1 10 1.5-5.0 MED[facility] ([facility], ) Eos # 0.2 10 0.0-0.5 MED[facility] ([facility], ) Baso # 0.1 10 0.0-0.2 [facility] ([facility], ) ID Date Data Source [id number] 09/30/2020 03:26:00 PM EST MED[facility] ([facility]) Name Value Range Interpretation Code Description Data Natalie rce(s) Supporting Document(s) Laboratory test finding (navigational concept) Laboratory test result MED[facility] ([facility]) Performed at: [facility] [address] [id number] Clinic Assistant: Irina Negro MD, Phone: [phone] Performed at: [facility] [address] [id number] Clinic Assistant: Shelby Sorensen MD, Phone: [phone] ID Date Data Source [id number] 09/30/2020 03:26:00 PM EST MED[facility] ([facility], ) Name Value Range Interpretation Code Description Data Natalie rce(s) Supporting Document(s) Antinuclear Antibodies Direct Laboratory test result MED[facility] ([facility], ) Sjogren's Anti SS-A Laboratory test result 0.0-0.9 [facility] Sjogren's Anti SS-B Laboratory test result 0.0-0.9 [facility] ([facility], ) ID Date Data Source [id number] 09/30/2020 03:26:00 PM EST [facility] ([facility]) Name Value Range Interpretation Code Description Data Natalie rce(s) Supporting Document(s) Thiamine [Mass/volume] in Blood 111.1 nmol/L 66.5-200.0 [facility] ([facility]) Specimen Comment: Test(s) 625800-Omqttia E(Alpha Tocopherol); 900169- Specimen Comment: Vitamin E(Gamma Tocopherol); 532265-Wvibtwp B6; 352519- Specimen Comment: Vit. B1, Whole Blood Specimen Comment: was developed and its performance characteristics Specimen Comment: determined by [facility]. It has not been cleared or approved Specimen Comment: by the Food and Drug Administration. Pyridoxine [Mass/volume] in Serum or Plasma 2.4 ug/L 2.0-32.8 [facility] ([facility]) Specimen Comment: Test(s) 885223-Nuuwaeu E(Alpha Tocopherol); 184473- Specimen Comment: Vitamin E(Gamma Tocopherol); 062600-Ahhowfm B6; 307757- Specimen Comment: Vit. B1, Whole Blood Specimen Comment: was developed and its performance characteristics Specimen Comment: determined by [facility]. It has not been cleared or approved Specimen Comment: by the Food and Drug Administration. ID Date Data Source [id number] 09/30/2020 03:26:00 PM EST [facility] ([facility]) Name Value Range Interpretation Code Description Data Natalie rce(s) Supporting Document(s) Perinuclear AB Anca-P [facility] The presence of positive fluorescence ex hibiting P-ANCA or C-ANCA patterns alone is not specific for the diagnosis of Abida's Granulomatosis (WG) or microscopic polyangiitis. Decisions about treatment should not be based solely on ANCA IFA results. The International ANCA Group Consensus recommends follow up testing of positive sera with both IL- 3 and MPO-ANCA enzyme immunoassays. As m any as 5% serum samples are positive only by EIA. Ref. AM J Clin Pathol 1999;111:507-513. Cytoplasmic Neutrop AB Anca-C Laboratory test result MED[facility] ([facility], ) Anca-Atypical Laboratory test result [facility] ([facility]) The atypical pANCA pattern has been obse rved in a significant percentage of patients with ulcerative colitis, primary sclerosing cholangitis and autoimmune hepatitis. ID Date Data Source [id number] 09/30/2020 03:26:00 PM EST [facility] ([facility]) Name Value Range Interpretation Code Description Data Natalie rce(s) Supporting Document(s) Vitamin E(Alpha Tocopherol) 13.2 mg/L 9.0-29.0 [facility], ) Vitamin E(Gamma Tocopherol) 1.6 mg/L 0.5-4.9 [facility] Reference intervals for alpha and gamma- tocopherol determined from National Health and Nutrition Examination Survey, 5925-7783. Individuals with alpha-tocopherol levels less than 5.0 mg/L are considered vitamin E deficient. ID Date Data Source [id number] 09/30/2020 03:26:00 PM EST [facility] ([facility]) Name Value Range Interpretation Code Description Data Natalie rce(s) Supporting Document(s) Rheumatoid factor [Units/volume] in Serum or Plasma Laboratory test [facility]) ID Date Data Source [id number] 09/30/2020 03:26:00 PM EST [facility] ([facility]) Name Value Range Interpretation Code Description Data Natalie rce(s) Supporting Document(s) Vitamin B12 Level 386 pg/mL MED[facility] ([facility]) VITAMIN B12 NORMAL RANGE NORMAL 247 - 911 PG/ML INDETERMINATE 211 - 246 PG/ML DEFICIENT LESS THAN 211 PG/ML Folate 9.5 ng/mL [facility] ([facility]) FOLATE NORMAL RANGE NORMAL GREATER THAN 5.4 NG/ML INDETERMINATE 3.4-5.4 NG/ML DEFICIENT LESS THAN 3.4 NG/ML ID Date Data Source [id number] 09/30/2020 03:26:00 PM EST [facility] ([facility]) Name Value Range Interpretation Code Description Data Natalie rce(s) Supporting Document(s) Thyrotropin [Units/volume] in Serum or Plasma 5.770 uIU/ML 0.358-3.74 0 [facility] ([facility]) ID Date Data Source [id number] 09/30/2020 03:26:00 PM EST [facility] ([facility]) Name Value Range Interpretation Code Description Data Natalie rce(s) Supporting Document(s) Albumin % 58.5 % 55.8-66.1 MED[facility] ([facility], ) Nrcmt-9-Dhrozeta % 4.6 % 2.9-4.9 [facility] ([facility]) Yojzd-9-Iiakbfalf % 11.4 % 7.1-11.8 MED[facility] ([facility], ) Cvoc-7-Dgchvdmae % 5.1 % 3.2-6.5 [facility] ([facility]) Kvoy-7-Ddrxdcmia % 6.5 % 4.7-7.2 [facility] ([facility]) Albumin 3.92 GM/DL 3.29-5.55 [facility] ([facility], ) Gamma Globulin % 13.9 % 11.1-18.8 [facility] ([facility]) Tjvpk-6-Hlzztupgy 0.76 GM/DL 0.42-0.99 [facility] ([facility]) Ihutb-3-Agriuxadc 0.31 GM/DL 0.17-0.41 [facility] ([facility]) Xtgg-2-Siotcragr 0.44 GM/DL 0.28-0.60 [facility] ([facility]) Yfgh-5-Ugpwjmksk 0.34 GM/DL 0.19-0.55 [facility] ([facility]) Total Protein 6.7 GM/DL 6.4-8.2 [facility] ([facility], ) Gamma Globulins 0.93 GM/DL 0.65-1.58 [facility] ([facility]) Spep Interpretation Laboratory test result MEDENT ([facility], ) NO M-SPIKE(S)NOTED. Laboratory test finding (navigational concept) Laboratory test result [facility] ([facility]) REV'D BY Anyi DANIELSON Procedure Social History Code Duration Value Status Description Data Source(s ) Alcohol intake 05/30/2021 12:00:00 AM EDT Lifetime non-drinker (finding) completed Lifetime non-drinker (finding) [facility] Alcohol intake 05/29/2021 12:00:00 AM EDT Lifetime non-drinker (finding) completed Lifetime non-drinker (finding) [facility] Alcohol intake 05/24/2021 12:00:00 AM EDT Lifetime non-drinker (finding) completed Lifetime non-drinker (finding) [facility] Smoking 03/22/2021 12:00:00 AM EDT Patient has never smoked co mpleted Patient has never smoked [facility] ([facility]) Smoking 03/13/2021 12:00:00 AM EDT Patient has never smoked co mpleted Patient has never smoked [facility] ([facility], ) Vital Signs ID Date Data Source [id number] Name Value Range Interpretation Code Description Data Source(s) Systolic blood pressure 115 mm[Hg] 115 mm[Hg] [facility] Diastolic blood pressure 59 mm[Hg] 59 mm[Hg] [facility] Heart rate 69 /min 69 /min [facility] Body temperature 36.39 Carol 36.39 Carol [facility] Respiratory rate 16 /min 16 /min [facility] Oxygen saturation in Arterial blood by Pulse oximetry 95 % 95 % [facility] Body height 167.6 cm 167.6 cm [facility] Body weight 59.421 kg 59.421 kg [facility] Body mass index (BMI) [Ratio] 21.15 kg/m2 21.15 kg/m2 [facility] Body height 167.6 cm 167.6 cm [facility] Body weight 59.421 kg 59.421 kg [facility] Body mass index (BMI) [Ratio] 21.14 kg/m2 21.14 kg/m2 [facility] Oxygen saturation in Arterial blood by Pulse oximetry 97 % 97 % [facility] Systolic blood pressure 110 mm[Hg] 110 mm[Hg] [facility] Diastolic blood pressure 66 mm[Hg] 66 mm[Hg] [facility] Heart rate 68 /min 68 /min [facility] Body temperature 36.17 Carol 36.17 Carol [facility] Respiratory rate 18 /min 18 /min [facility] Systolic blood pressure 130 mm[Hg] 130 mm[Hg] M EDENT ([facility], ) Diastolic blood pressure 70 mm[Hg] 70 mm[Hg] [facility] ([facility], ) Heart rate 72 /min 72 /min [facility] ([facility], ) Respiratory rate 16 /min 16 /min MED[facility] ( [facility], ) Body height 66 [in_i] 66 [in_i] [facility] ([facility] 5'6" Systolic blood pressure--sitting 110 mm[Hg] 110 mm[Hg] [facility] ([facility]) Ra, medium cuff Diastolic blood pressure--sitting 68 mm[Hg] 68 mm[Hg] [facility] ([facility]) Ra, medium cuff Body weight 132.00 [lb_av] 132.00 [lb_av] MEDEN T ([facility]) Body mass index (BMI) [Ratio] 21.3 kg/m2 21.3 k g/m2 [facility] ([facility]) Heart rate 65 /min 65 /min [facility] ([facility] Systolic blood pressure 124 mm[Hg] 124 mm[Hg] M EDENT ([facility], ) Diastolic blood pressure 60 mm[Hg] 60 mm[Hg] [facility] ([facility], ) Heart rate 72 /min 72 /min [facility] ([facility], ) Respiratory rate 16 /min 16 /min [facility] ( [facility], ) Body temperature 97.6 [degF] 97.6 [degF] [facility] [place] body weight 130 [lb_av] 130 [lb_av] MEDEN T ([facility], ) Body surface area Derived from formula 1.69 m2 1.69 m2 MED[facility] ([facility], ) Body weight 61.236 kg 61.236 kg MED[facility] ([facility], ) Body mass index (BMI) [Ratio] 21.8 kg/m2 21.8 k g/m2 [facility] ([facility], ) Systolic blood pressure 102 mm[Hg] 102 mm[Hg] M EDENT ([facility], ) Diastolic blood pressure 58 mm[Hg] 58 mm[Hg] [facility] ([facility], ) Heart rate 60 /min 60 /min [facility] ([facility], ) Oxygen saturation in Arterial blood by Pulse oximetry 98 % 98 % MED[facility] ([facility]) Body temperature 97.8 [degF] 97.8 [degF] [facility] ([facility]) Body height 66 [in_i] 66 [in_i] MEDENT ([facility]) 5'6" Body weight 135.00 [lb_av] 135.00 [lb_av] MEDEN T ([facility]) PT States Body mass index (BMI) [Ratio] 21.6 kg/m2 21.6 k g/m2 [facility] ([facility]) Body weight 134.00 [lb_av] 134.00 [lb_av] MEDEN T ([facility]) Body height 66 [in_i] 66 [in_i] [facility] ([facility] 5'6" Heart rate 60 /min 60 /min [facility] ([facility]) Systolic blood pressure--sitting 112 mm[Hg] 112 mm[Hg] [facility] ([facility]) Ra, medium cuff Diastolic blood pressure--sitting 70 mm[Hg] 70 mm[Hg] [facility] ([facility]) Ra, medium cuff Body weight 139.00 [lb_av] 139.00 [lb_av] MEDEN T ([facility]) Body height 66 [in_i] 66 [in_i] [facility] ([facility] 5'6" Body mass index (BMI) [Ratio] 22.4 kg/m2 22.4 k g/m2 [facility] ([facility]) Oxygen saturation in Arterial blood by Pulse oximetry 97 % 97 % [facility] ([facility], ) [place] body weight 130 [lb_av] 130 [lb_av] MEDEN T ([facility]) Body height 66 [in_i] 66 [in_i] MEDENT ([facility]) 5'6" Body weight 142.38 [lb_av] 142.38 [lb_av] MEDEN T ([facility] ) Body mass index (BMI) [Ratio] 23.0 kg/m2 23.0 k g/m2 [facility] ([facility]) Body weight 64.581 kg 64.581 kg [facility] ([facility]) Body surface area Derived from formula 1.73 m2 1.73 m2 [facility] ([facility]) Body temperature 96.8 [degF] 96.8 [degF] [facility] ([facility]) Systolic blood pressure 134 mm[Hg] 134 mm[Hg] [facility]) Diastolic blood pressure 76 mm[Hg] 76 mm[Hg] [facility] ([facility]) Heart rate 60 /min 60 /min [facility] ([facility]) Patient Treatment Plan of Care Planned Activity Planned Date Details Description Data Source (s) Insulin Lispro 100 UNT/ML Injectable Solution 05/30/2021 08:00:00 A M EDT [facility] Simvastatin 10 MG Oral Tablet 05/29/2021 11:00:00 PM EDT [facility] Albuterol 0.83 MG/ML Inhalant Solution 05/29/2021 10:19:14 PM EDT [facility] Carboxymethylcellulose 0.01 MG/MG Ophthalmic Gel 05/29/2021 10:19:1 4 PM EDT [facility] Cholecalciferol (VITAMIN D PO) [facility]
--- OUTSIDE RECORDS SUMMARY | 2021-08-18 08:32 | CCD ---
Author Author [facility] Organization [facility] Address Unknown Phone Unavailable Care Team Providers Care Binding Stitcher Name Role Phone Fermin PETERSEN MD Unavailable [...] Unavailable Fermin PETERSEN MD Unavailable Unavailable Fermin PETRESEN MD Unavailable Unavailable Fermin PETERSEN MD Unavailable [...] A YOGI DO Unavailable Unavailable SEARS, A YOIG DO Unavailable Unavailable SEARS, A YOGI DO [...] Unavailable SEARS, A OYGI DO Unavailable Unavailable Trickey, J Raine PA [...] J Raine PA Unavailable Unavailable Trickey, J Raien PA Unavailable Unavailable Trickey, J Raine PA [...] is protected by Article 27-F of the [facility] Public Health law. If you continue you may have access to information: Regarding HIV / AIDS; Provided by facilities licensed or operated by the [facility] Office of Mental Health; or Provided by the [facility] Office for People With Developmental Disabilities. If such information is present, then the following [facility] mandated warning applies: This information has [...] law may result in a fine or intermediate sentence or both. A general authorization for the release of medical or other information is NOT sufficient authorization for further disc losure. Family History Family Member Name Family Member Gender Family Member Status Date o f Status Description Data Source(s) Unknown Female Condition [facility] Unknown Unknown Problem [facility] ([facility] Unknown Male Problem MEDENT (Health system Practice, ) () Encounters Encounter Providers Location Date Indications Data Source(s ) Office Visit Attender: WONG PETERSEN MD Main Office 06/01/2021 09:02:0 0 AM EDT [facility] ([facility]) Outpatient Referrer: Art Salgado MD MOB-MOB.PAT 11/2020 11:37:45 AM EDT - 05/29/2021 11:37:[address] [facility] Outpatient Referrer: Art Salgado MD 05/24/2021 10:01:5 6 AM EDT [facility] Outpatient Attender: Art Salgado MDReferrer: Art PEÑA-MOB.PAT 05/24/2021 08:49:53 AM EDT - 05/24/2021 10:02:02 AM EDT [facility] Outpatient Attender: Raine RAMIREZ Main office - [facility] 05/18/2021 02:00:00 PM EDT MED[facility] ([facility]) Inpatient Attender: Art Salgado MD Admitter: Art Salgado MDReferrer: Art Salgado MD [id number] 05/05/2021 02:47:32 PM EDT - 05/30/2021 04:20:00 PM EDT [facility] Patient discharged. Office Visit Attender: WONG PETERSEN MD Main Office 05/03/2021 05:24:0 0 PM EDT [facility] ([facility]) Outpatient Attender: Art Salgado MDReferrer: WONG JACKSON MD [email or web address] 04/26/2021 12:00:[address] [facility] Outpatient [id number] 03/28/2021 02:44:16 PM EDT [facility] Office Visit Attender: WONG PETERSEN MD Main Office 03/28/2021 11:57:0 0 AM EDT [facility] ([facility]) Outpatient Attender: JULIO CÉSAR RAMIREZ Main Office 03/22/2021 0 3:30:00 PM EDT [facility] ([facility]) Outpatient Attender: Raine RAMIREZ Main office - [facility] 03/16/2021 11:30:00 AM EDT MED[facility] ([facility]) Outpatient Attender: YOGI Mandujano/Carrie/Chandan/Reindl 03/13/2021 02:00:00 PM EDT MEDENT ([facility]) Office Visit Attender: WONG PETERSEN MD Main Office 02/28/2021 11:59:0 0 AM EDT [facility] ([facility]) Office Visit Attender: WONG PETERSEN MD Main Office 01/25/2021 02:14:0 0 PM EDT [facility] ([facility]) Outpatient Attender: JULIO CÉSAR RAMIREZ Main Office 01/05/2021 0 1:15:00 PM EST [facility] ([facility]) Office Visit Attender: WONG PETERSEN MD Main Office 11/28/2020 02:30:0 0 PM EST [facility] ([facility]) Office Visit Attender: Raine RAMIREZ Main office - [facility] 11/11/2020 09:30:00 AM EST [facility] ([facility] Office Visit Attender: WONG PETERSEN MD Main Office 10/31/2020 12:55:0 0 PM EST [facility] ([facility]) Outpatient Attender: JULIO CÉSAR RAMIREZ Main Office 10/05/2020 1 2:30:00 PM EST [facility] ([facility]) Outpatient Attender: BARRY SHETH MD Main office - [facility] 09/29/2020 12:00:00 PM EST MED[facility] ([facility]) Office Visit Attender: WONG PETERSEN MD Main Office 09/20/2020 07:19:0 0 AM EST [facility] ([facility]) Office Visit Attender: WONG PETERSEN MD Main Office 08/18/2020 09:08:0 0 AM EDT [facility] ([facility]) Office Visit Attender: WONG PETERSEN MD Main Office 07/12/2020 08:49:0 0 AM EDT [facility] ([facility]) Office Visit Attender: WONG PETERSEN MD Main Office 06/24/2020 08:14:0 0 AM EDT [facility] ([facility]) Immunizations Vaccine Date Status Description Data Source(s) 12/14/2020 12:00:00 AM EST completed <td I D="[id number]">Covid-19 (Pfizer)</td><td>12/14/2020, 11/23/2020</td><td></td> [facility] COVID-19 VACCINE Pfizer 12/14/2020 12:00:00 AM EST completed [facility]IS Vaccine Series Complete: NOThis Data was Submitted to [facility] Via [employer]. 11/23/2020 12:00:00 AM EST completed <td I D="[id number]">Covid-19 (Pfizer)</td><td>12/14/2020, 11/23/2020</td><td></td> [facility] COVID-19 VACCINE Pfizer 11/23/2020 12:00:00 AM EST completed [facility] Vaccine Series Complete: YESThis Data wa s Submitted to [facility] [employer]. Medications Medication Brand Name Start Date Product Form Dose Route Admi nistrative Instructions Pharmacy Instructions Status Indications Reaction Description Data Source(s) 24 HR metoprolol succinate 25 MG Extended Release Oral Tablet Metoprolol Succinate ER 07/16/2021 12:00:00 AM EDT ORAL active [facility] ([facility]) Furosemide 20 MG Oral Tablet Furosemide 07/16/2021 12:00:00 AM EDT ORAL active [facility] ([facility]) Cholecalciferol 1000 UNT Oral Tablet Vit lemus D (CHOLECALCIFEROL) tablet 2,000 Units Vitamin D (CHOLECALCIFEROL) tablet 2,000 Units 05/30/2021 09 :00:00 AM EDT 2000 U Oral active 2,000 Units, Ora l, Daily, First dose on Sat05/30/21 at 0900 [facility] Medication administered onsite Calcium Carbonate 1250 MG / Cholecalcife rol 200 UNT Oral Tablet calcium-vitamin D (OSCAL-500) 500-200 MG-UNIT per tablet 1 tablet calcium-vitamin D (OSCAL-500) 500-200 MG-UNIT per tablet 1 tablet 05/30/2021 09:00:00 AM EDT 1 {tbl } Oral active 1 tablet, Oral, Daily, First dose on Sat05/30/21 at 0900 [facility] Medication administered onsite Insulin Lispro 100 [...] cover POC glucose at 08:00, 12:00, 17:00.
[facility] Medication administered onsite 60 ACTUAT formoterol [...] please have patient rinse mouth with water
[facility] Medication administered onsite Acetaminophen 500 MG Oral Tablet acetaminophen (TYLENO L) tablet 500 mg acetaminophen (TYLENOL) tablet 500 mg 05/30/2021 02:13:25 AM EDT 50 0 mg Oral active 500 mg, Oral, E very 4 hours PRN, mild pain (1-3), headaches, Starting on Sat05/30/21 at 0213
"Maximum dose of acetaminophen is 4,000 mg from all sources in 24 hours."
[facility] Medication administered onsite Simvastatin 10 MG Oral Tablet simvastatin (ZOCOR) tabl et 5 mg simvastatin (ZOCOR) tablet 5 mg 05/29/2021 11:00:00 PM EDT 5 mg Oral active 5 mg, Oral, Nightly, First dose on Sat05/29/21 at 2300 [facility] Medication administered onsite sacubitril 49 MG / valsartan 51 MG Oral Tablet sacubitril-valsartan 49-51 MG 1 tablet sacubitril-valsartan 49-51 MG 1 tablet 05/29/2021 11:00:00 PM ED T 1 {tbl} Oral active 1 tablet, Oral, 2 times daily, First dose on Sat05/29/21 at 2300 [facility] Medication administered onsite Albuterol 0.83 MG/ML Inhalant Solution a lbuterol (PROVENTIL) nebulizer solution 2.5 mg albuterol (PROVENTIL) nebulizer solution 2.5 mg 2020 10:19:14 PM EDT 2.5 mg active 2.5 mg, Nebulization, Daily PRN, shortness of breath, Starting on Sat05/29/21 at 2219 [facility] Medication administered onsite Carboxymethylcellulose 0.01 MG/MG Ophtha lmic Gel carboxymethylcellulose sod PF (REFRESH CELLVISC) 1 % ophthalmic 1 drop carboxymethylcellulose sod PF (REFRESH CELLVISC) 1 % ophthalmic 1 drop 05/29/2021 10:19:14 PM EDT 1 [drp] active 1 drop, Both Eyes, D aily PRN, for dry eyes, Starting on Sat05/29/21 at 2219 [facility] Medication administered onsite 2 ML Metoclopramide 5 MG/ML Prefilled Sy ringe metoclopramide (REGLAN) injection 10 mg metoclopramide (REGLAN) injection 10 mg 05/29/2021 10:00:00 PM E DT 10 mg Intravenous completed 10 mg, I ntravenous, Once, On Sat05/29/21 at 2200, For 1 dose, PACU (only) [facility] Medication administered onsite diphenhydrAMINE (BENADRYL) injection 25 mg [id number] 05/29/2021 10:00:00 PM EDT 25 mg Intravenous completed 25 mg, Intravenous, Once, On Sat05/29/21 at 2200, For 1 dose, PACU (only) [facility] Medication administered onsite fentaNYL Citrate (PF) (SUBLIMAZE) injection 25 mcg [id number] 05/29/2021 08:15:39 PM EDT 25 ug Intravenous aborted 25 mcg, Intravenous, Every 5 min PRN, moderate pain (4 to 6), Starting on Sat05/29/21 at 2014, For 5 doses, PACU (only) [facility] Medication administered onsite ondansetron (ZOFRAN) injection 4 mg [id number] 05/29/2021 08:15:3 9 PM EDT 4 mg Intravenous completed 4 mg, In travenous, Once as needed, nausea, vomiting, Starting on Sat05/29/21 at 2014, For 1 dose, PACU (only)
If not given in last 4 hours
[facility] Medication administered onsite Magnesium Chloride 0.13230 MEQ/ML / Pota ssium Chloride 0.0497 MEQ/ML / Sodium Acetate 0.0163 MEQ/ML / Sodium Chloride 0.0899 MEQ/ML / Sodium gluconate 5.02 MG/ML Injectable Solution [Normosol-R] electrolyte-R (NORMOSOL-R/PLASMALYTE-R) solution electrolyte-R (NORMOSOL-R/PLASMALYTE-R) solution 05/29 02:00:00 PM EDT Intravenous active at 3 0 mL/hr, Intravenous, Continuous, Starting on Sat05/29/21 at 1400, Pre-op [facility] Medication administered onsite 200 ACTUAT Albuterol 0.09 MG/ACTUAT Metered Dose Inhaler [Pr oAir] Proair HFA 03/21/2021 12:00:00 AM EDT ORAL active [facility] ([facility]) No Active Medications 03/16/2021 12:00:00 AM EDT completed [facility] ([facility] gabapentin 100 MG Oral Capsule Gabapentin 11/29/2020 12:00:00 AM EST ORAL completed [facility] ([facility]) gabapentin 100 MG Oral Capsule Gabapentin 11/11/2020 12:00:00 AM EST ORAL completed [facility] ([facility] ) Flonase Flonase 10/04/2020 12:00:00 AM EST active [facility] ([facility]) Vitamin C 10/04/2020 12:00:00 AM EST ORAL complete d [facility] ([facility]) Cholecalciferol (VITAMIN D PO) drug or medication 1 {cap david} Oral aborted Take 1 capsule by mouth daily [facility] Insurance Providers Payer name Policy type / Coverage type Policy ID Covered alliance party ID Covered alliance party's relationship to jimenez Policy Jimenez Plan Information [facility] Federal Service Medigap Part B [id number] Family De pendent BS [place] Medigap Part B [id number] Family Dependent [id number] A MEDICARE [id number] Nafisa [id number] MEDICARE [id number] xxxxxxxxxxx [id number] Medicare (Part B) Medicare Primary [id number] Self [id number] Medicare (Part B) Medicare Primary [id number] Self [id number] MEDICARE [id number] SP [id number] A Medicare (Part B) Medicare Primary [id number] Self [id number] Medicare (Part B) Medicare Primary [id number] Self [id number] Medicare (Part B) Medicare Primary [id number] Self 0 [id number] Medicare (Part B) Medicare Primary [id number] Self 0 [id number] Medicare (Part B) Medicare Primary [id number] Self 0 [id number] Medicare (Part B) Medicare Primary [id number] Self 0 [id number] Medicare (Part B) Medicare Primary [id number] Self 0 [id number] Medicare (Part B) Medicare Primary [id number] Self [place] [facility] (T[place]) Medigap Part B [id number] Family Dep endent [place] Primary [id number] Self Medicare Medicare Primary [id number] Self MEDICARE [id number] SP [id number] [id number] FOR LIFE [id number] HU2 [id number] INSURANCE COVID-19 COVID Nafisa C OVID INSURANCE COVID-19 [id number] xOVID [id number] INSURANCE COVID-19 COVID Nafisa C OVID INSURANCE COVID-19 COVID Nafisa C OVID [facility] [id number] 2 [id number] For Life - [place] Medigap Part B [id number] Family Dependent 1 [id number] Nafisa [id number] xxxxxxxxx [id number] [place] For Life Medigap Part B [id number] Family Dependent [id number] MEDICARE C [id number] S [id number] FOR LIFE S [id number] P [id number] For Life - [place] Medigap Part B [id number] Family Dependent [id number] [place]/[facility] Medicare Primary [id number] Self 0 [id number] For Life - [place] Medigap Part B [id number] Family Dependent [id number] [place] For Life Medigap Part B [id number] Family Dependent [id number] [place]/[facility] Medicare Primary [id number] Self 0 [id number] For Life - [place] Medigap Part B [id number] Family Dependent [id number] For Life - [place] Medigap Part B [id number] Family Dependent [id number] For Life - [place] Medigap Part B [id number] Family Dependent 1 [id number] For Life - [place] Medigap Part B [id number] Family Depen dent For Life - [place] Medigap Part B [id number] Family Dependent 1 [id number] For Life - [place] Medigap Part B [id number] Family Dependent 1 [id number] MEDICARE P [id number] S [id number] A For Life - [place] Medigap Part B [id number] Family Dependent 1 [id number] Problems, Conditions, and Diagnoses Code Display Name Description Problem Type Effective Dates Data Source(s) I25.5 Ischemic cardiomyopathy Ischemic cardiomyopathy Diagno sis 05/29/2021 12:10:00 PM EDT [facility] U07.1 COVID-19 COVID-19 Diagnosis 05/29/2021 11:37:45 AM ED T [facility] I25.5 Ischemic cardiomyopathy Ischemic cardiomyopathy 294003 05/04/2021 12:00:00 AM EDT [facility] R42 Dizziness and giddiness Dizziness and giddiness Proble m 03/22/2021 12:00:00 AM EDT [facility] ([facility]) Surgeries/Procedures Procedure Description Date Indications Data Source(s) Chronic Care MGMT 20 Mins Clinical Staff Time Per Calendar [facility] 06/01/2021 12:00:00 AM EDT [facility] ([facility]) GLUC BLD GLUC MNTR DEV CLEARED FDA SPEC HOME USE <td>P OCT GLUCOSE</td><td>Routine</td><td>05/30/2021 3:32 PM EDT</td><td></td><td> </td> 05/30/2021 03:32:00 PM EDT [facility] GLUC BLD GLUC MNTR DEV CLEARED FDA SPEC HOME USE <td>P OCT GLUCOSE</td><td>Routine</td><td>05/30/2021 9:54 AM EDT</td><td></td><td> </td> 05/30/2021 09:54:00 AM EDT [facility] GLUC BLD GLUC MNTR DEV CLEARED FDA SPEC HOME USE <td>P OCT GLUCOSE</td><td>Routine</td><td>05/29/2021 9:14 PM EDT</td><td></td><td> </td> 05/29/2021 09:14:00 PM EDT [facility] FLUOROSCOPY SPX <1 HOUR PHYSICIAN TIME <td>XR FLUORO P ACEMAKER INSERT</td><td>STAT</td><td>05/29/2021 8:55 PM EDT</td><td></td><td> </td> 05/29/2021 08:55:53 PM EDT [facility] XR CHEST PORTABLE <td>XR CHEST PORTABLE</td><t d>STAT</td><td>05/29/2021 8:53 PM EDT</td><td></td><td> </td> 05/29/2021 08:53:40 PM EDT [facility] INSJ ELTRD CAR ENZO SYS TM INSJ CVDFB/PM PLS GEN <td>IN SERTION, IMPLANTABLE CARDIOVERTER DEFIBRILLATOR (ICD), BIVENTRICULAR</td><td></td><td>05/29/2021 6:33 PM EDT</td><td> Ischemic cardiomyopathy</td><td></td> 05/29/2021 06:33:00 PM EDT - 05/29/2021 08:28:00 PM EDT Ischemic cardiomyopathy [facility] Ischemic cardiomyopathy RMVL TRANSVNS PM ELTRD 1 LEAD SYS ATR/VENTR <td>COMPLE X REMOVAL, ELECTRODE LEAD, CARDIAC PACEMAKER, USING LASER</td><td></td><td>05/29/2021 6:33 PM EDT</td><td> Ischemic cardiomyopathy</td><td></td> 05/29/2021 06:33:00 PM EDT - 05/29/2021 08:28:00 PM EDT Ischemic cardiomyopathy [facility] Ischemic cardiomyopathy GLUC BLD GLUC MNTR DEV CLEARED FDA SPEC HOME USE <td>P OCT GLUCOSE</td><td>Routine</td><td>05/29/2021 1:15 PM EDT</td><td></td><td> </td> 05/29/2021 01:15:00 PM EDT [facility] BLOOD TYPING ABO <td>PREPARE RBC</td><td>Rout ine</td><td>05/29/2021 12:01 AM EDT</td><td></td><td></td> 05/29/2021 12:01:00 AM EDT [facility] BLOOD TYPING ABO <td>PREPARE RBC</td><td>Rout ine</td><td>05/29/2021 12:01 AM EDT</td><td></td><td> </td> 05/29/2021 12:01:00 AM EDT [facility] COVID/FLU AB/RSV PCR <td>COVID/FLU AB/RSV PCR</td ><td>STAT</td><td>05/28/2021 8:06 AM EDT</td><td> COVID-19</td><td> </td> 05/28/2021 08:06:00 AM EDT COVID-19 [facility] COVID-19 XR CHEST PA AND LATERAL <td>XR CHEST PA AND LATERAL</td><td>Routine</td><td>05/24/2021 10:48 AM EDT</td><td> Ischemic cardiomyopathy</td><td> </td> 05/24/2021 10:48:00 AM EDT Ischemic cardiomyopathy [facility] Ischemic cardiomyopathy ECG ROUTINE ECG W/LEAST 12 LDS TRCG ONLY W/O I&R <td>E CG 12- LEAD</td><td>Routine</td><td>05/24/2021 9:56 AM EDT</td><td> Ischemic cardiomyopathy</td><td></td> 05/24/2021 09:56:14 AM EDT Ischemic cardiomyopathy [facility] Ischemic cardiomyopathy ROOM TEMP AB SCREEN <td>ROOM TEMP AB SCREEN</td> <td>Routine</td><td>05/24/2021 9:50 AM EDT</td><td> Ischemic cardiomyopathy</td><td> </td> 05/24/2021 09:50:00 AM EDT Ischemic cardiomyopathy [facility] Ischemic cardiomyopathy BLOOD TYPING ABO <td>TYPE AND SCREEN</td><td> Routine</td><td>05/24/2021 9:50 AM EDT</td><td> Ischemic cardiomyopathy</td><td> </td> 05/24/2021 09:50:00 AM EDT Ischemic cardiomyopathy [facility] Ischemic cardiomyopathy BLOOD COUNT COMPLETE AUTOMATED <td>CBC</td><td>Routine </td><td>05/24/2021 9:30 AM EDT</td><td> Ischemic cardiomyopathy</td><td> </td> 05/24/2021 09:30:00 AM EDT Ischemic cardiomyopathy [facility] Ischemic cardiomyopathy HEMOGLOBIN GLYCOSYLATED A1C <td>HEMOGLOBIN A1C</td><td>Routine</td><td>05/24/2021 9:30 AM EDT</td><td> Ischemic cardiomyopathy</td><td> </td> 05/24/2021 09:30:00 AM EDT Ischemic cardiomyopathy [facility] Ischemic cardiomyopathy BASIC METABOLIC PANEL CALCIUM TOTAL <td>BASIC METABOLI C PANEL</td><td>Routine</td><td>05/24/2021 9:30 AM EDT</td><td> Ischemic cardiomyopathy</td><td> </td> 05/24/2021 09:30:00 AM EDT Ischemic cardiomyopathy [facility] Ischemic cardiomyopathy OFFICE OUTPATIENT VISIT 25 MINUTES 05/18/2021 12:00:00 AM EDT [facility]RAZ[facility] ([facility]) Chronic Care MGMT 20 Mins Clinical Staff Time Per Calendar [facility] 05/03/2021 12:00:00 AM EDT [facility] ([facility]) INTERROGATION EVAL REMOTE </90 D 1/2/TELEGRAPHIC TYPEWRITER MECHANIC LEAD PM 04/07 12:00:00 AM EDT [facility] ([facility]) INTERROGATION REMOTE </90 D CENTER MEDICAL AND LAB DIRECTOR REVIEW 04/07/20 12:00:00 AM EDT [facility] ([facility]) Chronic Care Management Services Ea Addl 20 Min 2020 12:00:00 AM EDT [facility] ([facility]) Chronic Care MGMT 20 Mins Clinical Staff Time Per Calendar [facility] 03/28/2021 12:00:00 AM EDT [facility] ([facility]) ECG ROUTINE ECG W/LEAST 12 LDS W/I&R 03/22/2021 12:00: 00 AM EDT [facility] ([facility]) OFFICE OUTPATIENT VISIT 25 MINUTES 03/22/2021 12:00:00 AM EDT MED[facility] ([facility]) OFFICE OUTPATIENT VISIT 25 MINUTES 03/16/2021 12:00:00 AM EDT MED[facility] ([facility] ) Spirometry 03/13/2021 12:00:00 AM EDT M EDENT ([facility], ) Chronic Care MGMT 20 Mins Clinical Staff Time Per Calendar [facility] 02/28/2021 12:00:00 AM EDT MED[facility] ([facility]) Chronic Care Management Services Ea Addl 20 Min 2020 12:00:00 AM EDT [facility] ([facility]) Chronic Care MGMT 20 Mins Clinical Staff Time Per Calendar [facility] 01/25/2021 12:00:00 AM EDT [facility] ([facility]) ECG ROUTINE ECG W/LEAST 12 LDS W/I&R 01/05/2021 12:00: 00 AM EST [facility] ([facility]) INTERROGATION EVAL IN PERSON 1/DUAL/TELEGRAPHIC TYPEWRITER MECHANIC LEAD PM 2020 12:00:00 AM EST [facility] ([facility]) OFFICE OUTPATIENT VISIT 15 MINUTES 01/05/2021 12:00:00 AM EST [facility] ([facility]) PROGRAM EVAL IMPLANTABLE IN PERSN DUAL LD PACER 2020 12:00:00 AM EST [facility] ([facility]) INTERROGATION EVAL REMOTE </90 D 1/2/TELEGRAPHIC TYPEWRITER MECHANIC LEAD PM 12/28 12:00:00 AM EST [facility] ([facility]) INTERROGATION REMOTE </90 D CENTER MEDICAL AND LAB DIRECTOR REVIEW 12/29/19 12:00:00 AM EST [facility] ([facility]) Chronic Care MGMT 20 Mins Clinical Staff Time Per Calendar M ont 11/28/2020 12:00:00 AM EST [facility] ([facility]) Chronic Care MGMT 20 Mins Clinical Staff Time Per Calendar [facility] 10/31/2020 12:00:00 AM EST [facility] ([facility]) ELECTROENCEPHALOGRAM W/REC AWAKE&ASLEEP 10/25/2020 12: 00:00 AM EST [facility] ([facility] Neurology, ) ELECTROENCEPHALOGRAM W/REC AWAKE&ASLEEP 10/25/2020 12: 00:00 AM EST [facility] ([facility] Neurology, ) Needle electromyography, each extremity, with related paraspinal areas, when performed, done with nerve conduction, amplitude and latency/velocity study; complete, five or more muscles studied, innervated by three or more nerves or four or more spinal levels (list separately in addition to the code for primary procedure). 10/10/2020 12:00:00 AM EST MEDEN T ([facility] Neurology, ) Needle electromyography, each extremity, with related paraspinal areas, when performed, done with nerve conduction, amplitude and latency/velocity study; complete, five or more muscles studied, innervated by three or more nerves or four or more spinal levels (list separately in addition to the code for primary procedure). 10/10/2020 12:00:00 AM EST MEDEN T ([facility] Neurology, ) Nerve Conduction 11-12 Studies 10/10/2020 12:00:00 AM EST [facility] ([facility]rology, ) ECG ROUTINE ECG W/LEAST 12 LDS W/I&R 10/05/2020 12:00: 00 AM EST [facility] ([facility]) Needle electromyography, each extremity, with related paraspinal areas, when performed, done with nerve conduction, amplitude and latency/velocity study; complete, five or more muscles studied, innervated by three or more nerves or four or more spinal levels (list separately in addition to the code for primary procedure). 10/03/2020 12:00:00 AM EST MEDEN T ([facility] Neurology, ) Needle electromyography, each extremity, with related paraspinal areas, when performed, done with nerve conduction, amplitude and latency/velocity study; complete, five or more muscles studied, innervated by three or more nerves or four or more spinal levels (list separately in addition to the code for primary procedure). 10/03/2020 12:00:00 AM EST MEDEN T ([facility], ) Nerve Conduction 9-10 Studies 10/03/2020 12:00:[address] [facility] ([facility], ) INTERROGATION EVAL REMOTE </90 D 1/2/TELEGRAPHIC TYPEWRITER MECHANIC LEAD PM 09/28 12:00:00 AM EST [facility] ([facility]) INTERROGATION REMOTE </90 D [facility] MED[facility] AND LAB DIRECTOR REVIEW 09/28/20 12:00:00 AM EST [facility] ([facility]) INTERROGATION EVAL IN PERSON 1/DUAL/TELEGRAPHIC TYPEWRITER MECHANIC LEAD PM 2019 12:00:00 AM EDT [facility] ([facility]) Results ID Date Data Source [id number] 06/06/2021 12:56:00 PM EDT [facility] Name Value Range Interpretation Code Description Data Natalie rce(s) Supporting Document(s) SARS coronavirus 2 RNA [Presence] in Res piratory specimen by KANDI with probe detection NEGATIVE [facility] This lab was ordered by [facility] a nd reported by [facility]. ID Date Data Source [id number] 05/30/2021 04:34:04 PM EDT [facility] NT INFORMATIONPatient MRN Name Date of Age Gend*PT [id number] Jen Rios 1945 76 years F SDCXPT Location Admission Date/Time Visit ID Attending [id number] 05/29/21 1210 --- --- EPI ID CSN Admitting Provider [id number] Art Waterman MD([id number]) Attestation signed by Art Salas MD at 05/30/2021 4:34 PMI saw and examined the patient at the bedside independently. I agree with theassessment and plan by the clinical affiliate.Signature: Art Salas MD, [facility], RSCardiac Electrophysiology and Arrhythmia ServiceDate: May 30, 2021Time: 4:33 PMThis document or parts of this document, were dictated using StayNTouchware. A reasonable attempt at proofreading has been made to minimizeerrors. Please call with any questions or corrections. Physician Discharge Summary Jen RiosMRN: [id number] date: 05/29/2021ttending Physician: Beverly Emanuelission Diagnosis: Ischemic cardiomyopathySecondary Diagnoses: Principal Problem: Ischemic cardiomyopathyPrinciple Procedures: Operative Report Patient Name: Jen Rios Date of :1945ender: female Age:76 yearsMedical Record Number: [id number] Date: 05/29/21 Sensitized Paper Tester: Art Salas MD Assistants: None Procedure: Pacemaker [...] with a 1 silktie. Using a 14 Bhutanese laser sheath followed by a sub-C mechanical sheath theright ventricular lead was extracted in its entirety. 2 guidewires wereexchanged. A 10 Bhutanese introducer and a 9 Bhutanese introducer were inserted. Abiventricular delivery sheath was [...] wasremoved and hemostasis was maintained with a qarxes-if-tnhtz stitch. Transesophageal ECHO Visualization: Continuous Transesophageal ECHO [...] Stevie biventricular ICD Signature: Art Salas MD, [facility], RSCardiac Electrophysiology and Arrhythmia ServiceDate: 05/29/2021Time: 7:53 [...] rce(s) Supporting Document(s) ID Date Data Source [id number] 05/30/2021 03:35:29 PM EDT [facility] Name Value Range Interpretation Code Description Data Natalie rce(s) Supporting Document(s) POC NOVA GLU 114 mg/dL (70-99) H [facility] [place] [facility] ID Date Data Source [id number] 05/30/2021 09:58:19 AM EDT [facility] Name Value Range Interpretation Code Description Data Natalie rce(s) Supporting Document(s) POC NOVA GLU 89 mg/dL (70-99) [facility] [place] [facility] ID Date Data Source [id number] 05/29/2021 09:58:33 PM EDT [address] [address]Lvmrryl Name: Jen RiosB: 1945Sex: FOrdering Provider: ART Bradford Prov: ART Nugent Provider: Procedure Performed: XR CHEST PORTABLEExam Date: 05/29/2021 20:36MRN: [id number] Number: [id number] Class: INFORMATION: Exam: XR Chest Exam date [...] rce(s) Supporting Document(s) ID Date Data Source [id number] 05/29/2021 09:51:07 PM EDT [facility] Name Value Range Interpretation Code Description Data Natlaie rce(s) Supporting Document(s) POC NOVA GLU 113 mg/dL (70-99) H [facility] [place] [facility] ID Date Data Source [id number] 05/29/2021 08:57:10 PM EDT [facility] Name Value Range Interpretation Code Description Data Natalie rce(s) Supporting Document(s) XR FLUORO PACEMAKER INSERT [facility] ID Date Data Source [id number] 05/29/2021 07:56:29 PM EDT [facility] HospitalPATIE NT INFORMATIONPatient MRN Name Date of Age Gend*PT [id number] Jen Rios 1945 76 years F SDCXPT Location Admission Date/Time Visit ID [facility]/29[facility]21 1210 --- Art Salas MD([id number]) EPI ID CSN Admitting Provider [id number] Art Salas MD([id number]) Operative ReportPatient Name: Jen Rios Date of : 1945ender: female Age:76 yearsMedical Record Number: [id number] Date: 05/29/21Electrophysiologist: Art Salas MDAssistants: NoneProcedure: Pacemaker [...] with a 1 silktie. Using a 14 Bhutanese laser sheath followed by a sub-C mechanical sheath theright ventricular lead was extracted in its entirety. 2 guidewires wereexchanged. A 10 Bhutanese introducer and a 9 Bhutanese introducer were inserted. Abiventricular delivery sheath was [...] wasremoved and hemostasis was maintained with a mgyelv-om-qeryr stitch.Transesophageal ECHO Visualization: Continuous Transesophageal ECHO wasperformed [...] [place] biventricular ICDSignature: Art Salas MD, [facility]ENTERCardiac Electrophysiology and Arrhythmia ServiceDate: 05/29/2021Time: 7:53 PMThis document or parts of this document, were dictated using StayNTouchware. A reasonable attempt at proofreading has been made to minimize errors.Please call with any questions or corrections. Name Value Range Interpretation Code Description Data Natalie rce(s) Supporting Document(s) ID Date Data Source [id number] 05/29/2021 06:58:17 PM EDT [facility] HospitalPAT[facility] NT INFORMATIONPatient MRN Name Date of Age Gend*PT [id number] SamJen Hyun 1945 76 years F SDCXPT Location Admission Date/Time Visit ID Attending Provider --- --- --- --- EPI ID CSN Admitting Pr micheler [id number] ---Arterial Line PlacementPatient location during procedure: ORIndications [...] rce(s) Supporting Document(s) ID Date Data Source [id number] 05/29/2021 06:56:57 PM EDT [facility] NT INFORMATIONPatient MRN Name Date of Age Gend*PT [id number] Jen Rios Hyun 1945 76 years F SDCXPT Location Admission Date/Time Visit ID Attending Provider --- --- --- --- EPI ID CSN Admitting Pr ovider [id number] ---AirwayPatient location during procedure: ORUrgency: electiveDifficult airway: [...] rce(s) Supporting Document(s) ID Date Data Source [id number] 05/29/2021 01:28:24 PM EDT [facility] INFORMATIONPatient MRN Name Date of Age Gend*PT [id number] Jen Rios 1945 76 years F SDCXPT Location Admission Date/Time Visit ID [facility] 05/29/21 1210 --- Art Salas MD([id number]) EPI ID CSN Admitting Provider [id number] Art Salas MD([id number])H&P reviewed. The patient was examined and there are no changes to the H&P.Art Salas MD1:28 PM Name Value Range Interpretation Code Description Data Natalie rce(s) Supporting Document(s) ID Date Data Source [id number] 05/29/2021 01:18:25 PM EDT [facility] Name Value Range Interpretation Code Description Data Natalie rce(s) Supporting Document(s) POC NOVA GLU 89 mg/dL (70-99) [facility] ID Date Data Source [id number] 05/30/2021 07:03:52 PM EDT [facility] SPEC EXP DATE 06/01/2021TEST ING SITE PERFORMED AT [address] [place] [address] [id number] NUMBER [id number] COMPONENT TYPE LEUKOPOOR RED CELLSUNIT DIVISION 00STATUS OF UNIT REL FROM ALLOCTRANSFUSION STATUS OK TO TRANSFUSECROSSMATCH RESULT COMPATIBLEUNIT NUMBER [id number] COMPONENT TYPE LEUKOPOOR RED CELLSUNIT DIVISION 00STATUS OF UNIT REL FROM ALLOCTRANSFUSION STATUS OK TO TRANSFUSECROSSMATCH RESULT COMPATIBLEUNIT NUMBER [id number] COMPONENT TYPE LEUKOPOOR RED CELLSUNIT DIVISION 00STATUS OF UNIT REL FROM ALLOCTRANSFUSION STATUS OK TO TRANSFUSECROSSMATCH RESULT COMPATIBLEUNIT NUMBER [id number] COMPONENT TYPE LEUKOPOOR RED CELLSUNIT DIVISION 00STATUS OF UNIT REL FROM ALLOCTRANSFUSION STATUS OK TO TRANSFUSECROSSMATCH RESULT COMPATIBLE Name Value Range Interpretation Code Description Data Natalie rce(s) Supporting Document(s) TRANSFUSE RED CELLS [facility] TESTING SITE PERFORMED AT [address] [place] [address] ID Date Data Source [id number] 05/30/2021 07:54:11 AM EDT [facility] SPEC EXP DATE 06/01/2021TEST ING SITE PERFORMED AT [address] [place] [address] [id number] NUMBER [id number] COMPONENT TYPE LEUKOPOOR RED CELLSUNIT DIVISION 00STATUS OF UNIT REL FROM ALLOCTRANSFUSION STATUS OK TO TRANSFUSECROSSMATCH RESULT COMPATIBLEUNIT NUMBER [id number] COMPONENT TYPE LEUKOPOOR RED CELLSUNIT DIVISION 00STATUS OF UNIT REL FROM ALLOCTRANSFUSION STATUS OK TO TRANSFUSECROSSMATCH RESULT COMPATIBLEUNIT NUMBER [id number] COMPONENT TYPE LEUKOPOOR RED CELLSUNIT DIVISION 00STATUS OF UNIT REL FROM ALLOCTRANSFUSION STATUS OK TO TRANSFUSECROSSMATCH RESULT COMPATIBLEUNIT NUMBER [id number] COMPONENT TYPE LEUKOPOOR RED CELLSUNIT DIVISION 00STATUS OF UNIT REL FROM ALLOCTRANSFUSION STATUS OK TO TRANSFUSECROSSMATCH RESULT COMPATIBLE Name Value Range Interpretation Code Description Data Natalie rce(s) Supporting Document(s) TRANSFUSE RED CELLS [facility] TESTING SITE PERFORMED AT [address] [place] [address] ID Date Data Source [id number] 05/28/2021 08:06:00 AM EDT [facility] Name Value Range Interpretation Code Description Data Natalie rce(s) Supporting Document(s) SARS coronavirus 2 RNA [Presence] in Res piratory specimen by KANDI with probe detection NOT DETECTED [facility] This lab was reported by [facility]. ID Date Data Source [id number] 05/29/2021 11:38:12 AM EDT [facility] Name Value Range Interpretation Code Description Data Natalie rce(s) Supporting Document(s) SPECIMEN DESCRIPTION [facility] INFLUENZA A (NEG) [facility] INFLUENZA B (NEG) [facility] RSV (NEG) [facility] COMMENT [facility] THE [place]. FDA HAS MADE THIS TEST AVAILABL EUNDER AN EMERGENCY USE AUTHORIZATION(EUA) FOR THE DETECTION AND/OR DIAGNOSISOF THE VIRUS THAT CAUSES COVID-19.PERFORMED AT [address] [place] [address] COVID19 RESULT (NDET) [facility] THIS ASSAY AMPLIFIES AND DETECTSTHE TARG ET RNA USING REAL-TIME PCR.TESTING PERFORMED ON [employer] GENEXPERTNEGATIVE 2019_NCOV RT-PCR RESULTS DONOT PRECLUDE 2019_NCOV INFECTION ANDSHOULD NOT BE USED THE SOLE BASISFOR PATIENT MANAGEMENT DECISIONS. FIRST TEST [facility] SYMPTOMATIC [facility] DATE OF SYMPT ONSET [facility] [place] [facility] [place] [facility] [place] ID Date Data Source [id number] 05/24/2021 10:48:00 AM EDT [facility] ROUTINE PA and LATCLINICAL HISTORY: [...] rce(s) Supporting Document(s) ID Date Data Source [id number] 05/24/2021 10:30:24 AM EDT [facility] Name Value Range Interpretation Code Description Data Natalie rce(s) Supporting Document(s) EKG [facility] KBODYd2tVxNXLpVnz4JzCoJzBTWjWU7gpus2I3D3dEUaV3GnrKNey4zwF0CfF6EwRQViFOOWKB2KmSKi jb2 [file] eB835wz+FvCjn+qbrc5X+utFfRzivtVfjkK+9H7CiswJQ/l74Cx3k/tZ7uz+vp foundation/wwXTwrVFHgMG7YWWr [file] E4Vig7HuCKXtJNJEEy5+PlT0HVU3cVEkBhw5LsRcGdutKOHRFp== ID Date Data Source [id number] 05/24/2021 10:05:53 AM EDT [facility] NT INFORMATIONPatient MRN Name Date of Age Gend*PT [id number] Sam Jen R 1945 76 years F OPPT Location Admission Date/Time Visit ID Attending Provider --- --- --- Art Salas MD([id number]) EPI ID CSN Admitting Provider [id number] ---OUTPATIENT / OBSERVATIONAL SURGICAL OR INVASIVE PROCEDUREName: [...] by mouth 2 (two)times a day 06/17/19 Mcleod Sagcan, MDCalcium Carb-Cholecalciferol (OYSTER CALCIUM/D3) 500-200 MG-UNIT [...] thyromegaly. No carotid bruits.MENTAL / NEUROLOGICAL STATUS: [id number]: Clear to auscultation. No wheezes, rhonchi or [...] parts of this document, were dictated using 1calendar speaking software. A reasonable attempt at proofreading has beenmade to minimize errors. Please call with any questions or corrections.* Name Value Range Interpretation Code Description Data [facility] rce(s) Supporting Document(s) ID Date Data Source [id number] 05/24/2021 06:24:17 PM EDT [facility] SPEC EXP DATE 05/30/2021ATI ENT ABO/Rh O NEGATIVEANTIBODY SCREEN NEGATIVETESTING SITE PERFORMED AT [address] [place], [place] [address]BLOOD BANK COMMENT BLOOD TYPE CONFIRMED. Name Value Range Interpretation Code Description Data Natalie rce(s) Supporting Document(s) TYPE AND SCREEN [facility] ID Date Data Source [id number] 05/24/2021 04:43:54 PM EDT [facility] Name Value Range Interpretation Code Description Data [facility] rce(s) Supporting Document(s) ROOM TEMP AB SCREEN [facility] [place] ROOM TEMP AB SCREEN NEGATIVE ID Date Data Source [id number] 05/24/2021 12:39:49 PM EDT [facility] [place] Name Value Range Interpretation Code Description Data Natalie rce(s) Supporting Document(s) HEMOGLOBIN A1C @ 5.4 % (4.0-6.0) [facility] [place] Performed using Siemens [place] immunoassa y.Care must be taken when interpreting QuZ9npcabgcm in patients with a hemoglobin variantor decreased erythrocyte lifespan. Values 5.7 - 6.4% suggest prediabetes.Values >=6.5% are diagnostic for diabetes.REFERENCE: DIABETES CARE 2018: 41(S13-S27). EST AVERAGE GLUCOSE 108 mg/dL [facility] [place] ID Date Data Source [id number] 05/24/2021 12:33:00 PM EDT [facility] Name Value Range Interpretation Code Description Data Natalie rce(s) Supporting Document(s) WBC 4.6 10*3/uL (4.1-11.0) [facility] [place] RBC 3.77 10*6/uL (4.00-5.40) L [facility] HGB 11.4 g/dL (12.0-16.0) L [facility] HCT 34.1 % (36.0-47.0) L [facility] MCV 90.6 fL (80.0-95.0) [facility] MCH 30.1 pg (27.0-32.0) [facility] MCHC 33.3 g/dL (32.0-36.0) [facility] RDW 15.4 % (10.5-14.5) H [facility] PLT 192 10*3/uL (150-450) [facility] MPV 8.9 fL (7.1-10.7) [facility] ID Date Data Source [id number] 05/24/2021 12:32:55 PM EDT [facility] [place] Name Value Range Interpretation Code Description Data Natalie rce(s) Supporting Document(s) SODIUM 143 mmol/L (136-145) [facility] POTASSIUM 3.7 mmol/L (3.6-5.2) [facility] CHLORIDE 109 mmol/L (100-108) H [facility] CO2 28 mmol/L (22-31) [facility] ANION GAP 6 mmol/L (7-16) L [facility] UREA NITROGEN 18 mg/dL (7-24) [facility] CREATININE 0.82 mg/dL (0.60-1.00) [facility] BUN/CREAT RATIO 22.0 RATIO (10.0-20.0) H [facility] GLUCOSE 77 mg/dL (70-99) [facility] CALCIUM 8.2 mg/dL (8.4-10.2) L [facility] GFR >60 ml/min/1.73m2 (>59) [facility] GFR ( AMER) >60 ml/min/1.73m2 (>59) [facility] GFR INTERPRETATION [facility] --NORMAL KIDNEY FUNCTION OR MILD DISEASE - GFR >OR= 60CHRONIC KIDNEY DISEASE - GFR 15 - 59RENAL FAILURE - GFR <15 Est. GFR calculation based on the MDRDstudy equation, which assumes a steadystate for creatinine. Est. GFR should notbe used for medication dosing. ID Date Data Source [id number] 04/26/2021 12:22:58 PM EDT [facility] NT INFORMATIONPatient MRN Name Date of Age Gend*PT [id number] Jen Rios 1945 76 years F ---PT Location Admission Date/Time Visit ID Attending Provider --- --- --- --- EPI ID CSN Admitting Provider [id number] ---[facility] [id number] [facility], [address] (First Floor)[place], [place] [address]Sw.: Fax: Katient: Jen Rios : 3Date: 04/26/21CARDIOLOGY ELECTROPHYSIOLOGY TELEMEDICINE CONSULTPatient was identified by name and date of .Verbal consent was obtained from the patient for this telemedicine visit.Patient is aware of the risks, limitations, and benefits of a telemedicinevisit.This telemedicine assessment was conducted remotely with the assistance ofhurleypalmerflattic communication technology. Telephone Only Codes 59204: 21-30 minutesof medical discussion: Telephone Only .Subjective:I [...] by mouth dailywith breakfast, Disp: , Rfl: [place]-3 Fatty Acids (FISH OIL) 1000 MG CAPS, [...] parts of this document, were dictated using StayNTouchware. A reasonable attempt at proofreading has been made to minimize errors.Please call with any questions or corrections.I have spent 25 minutes with the patient, counseling/coordinating the patient'scare. I discussed the diagnosis of lead management and discussed Managementoption risks and benefitsFollow Up lead extraction with upgrade to b iventricular ICDSignature: Art Salas MD, [facility], RSCardiac Electrophysiology and Arrhythmia ServiceDate: April 26, 2021Time: 12:17 PMThis document or parts of this document, were dictated using StayNTouchware. A reasonable attempt at proofreading has been made to minimize errors.Please call with any questions or corrections. Name Value Range Interpretation Code Description Data Natalie rce(s) Supporting Document(s) ID Date Data Source [id number] 03/13/2021 01:35:00 PM EDT [facility] ([facility], ) Name Value Range Interpretation Code Description Data Natalie rce(s) Supporting Document(s) PDFReport Laboratory test result [facility] ([facility]) FVC-Pred 2.98 L [facility] ([facility]) FVC-Pre 1.78 L [facility] ([facility]) FVC-%Pred-Pre 59 L [facility] ([facility]) FVC-LLN 2.24 L [facility] ([facility]) Fev1-%Pred-Pre 56 L [facility] ([facility]) Fev1-Pre 1.27 L [facility] ([facility]) Fev1-Pred 2.24 L [facility] ([facility]) Fev6-Pred 2.84 L [facility] ([facility]) Fev1-LLN 1.61 L [facility] ([facility]) Fev6-Pre 1.78 L [facility] ([facility]) Fev6-%Pred-Pre 62 L [facility] ([facility]) Fev6-LLN 2.11 L [facility] ([facility], ) Bck3qhn-Mkiy 74 % [facility] ([facility]) Jjb0rqm-%Pred-Pre 95 % [facility] ([facility]) Blm1pnt-Imi 71 % [facility] ([facility]) Tal2lec-SJE 65 % [facility] ([facility], ) Nrw9tjt-Htku 95 % [facility] ([facility]) Fto9mkf-%Pred-Pre 105 % [facility] ([facility]) Lwr3gys-Bvj 100 % [facility] ([facility]) FEFMax-Pred 5.38 L/E/sec [facility] ([facility]) FEFMax-Pre 3.19 L/E/sec [facility] ([facility]) FEFMax-%Pred-Pre 59 L/E/sec [facility] ([facility]) Dko6579-Vdsn 1.68 L/E/sec [facility] ([facility]) FEFMax-LLN 3.56 L/E/sec [facility] ([facility]) Cbo9122-%Pred-Pre 49 L/E/sec [facility] ([facility]) Lja7895-Oez 0.83 L/E/sec [facility] ([facility]) ExpTime-Pre 6.56 sec [facility] ([facility]) Uoq3998-FNK 0.36 L/E/sec [facility] ([facility]) Sww0xug7-Dhvc 78 % [facility] ([facility]) Rjn9knl9-Qch 71 % [facility] ([facility]) Pow6hwo6-KSL 69 % [facility] ([facility]) Vde6pjn0-%Pred-Pre 91 % [facility] ([facility]) ID Date Data Source [id number] 03/08/2021 12:36:00 PM EDT [facility] ([facility]) Name Value Range Interpretation Code Description Data Natalie rce(s) Supporting Document(s) Albumin [Mass/volume] in Serum or Plasma 2.9 [facility] ([facility]) Calcium [Mass/volume] in Serum or Plasma 8.6 [facility] ([facility]) Carbon dioxide, total [Moles/volume] in Serum or Plasma 27 [facility] ([facility]) Alanine aminotransferase [Enzymatic activity/volume] in Serum or Pl asma 17 [facility] ([facility]) Chloride [Moles/volume] in Serum or Plasma 110 [facility] ([facility]) Protein [Mass/volume] in Serum or Plasma 5.7 [facility] ([facility]) Potassium [Moles/volume] in Serum or Plasma 3.5 [facility] ([facility]) Alkaline phosphatase [Enzymatic activity/volume] in Serum or Plasma 4 5 [facility] ([facility]) Sodium 143 [facility] ([facility]) Urea nitrogen [Mass/volume] in Serum or Plasma 17 [facility] ([facility]) Aspartate aminotransferase [Enzymatic activity/volume] in Serum or Plasma 18 [facility] ([facility]) Creatinine For GFR 0.73 [facility] ([facility]) Glucose 104 70-100 [facility] ([facility]) ID Date Data Source [id number] 03/08/2021 12:36:00 PM EDT [facility] ([facility]) Name Value Range Interpretation Code Description Data Natalie rce(s) Supporting Document(s) Magnesium Level 2.2 [facility] ([facility]) ID Date Data Source [id number] 03/08/2021 12:36:00 PM EDT [facility] ([facility]) Name Value Range Interpretation Code Description Data Natalie rce(s) Supporting Document(s) White Blood Count 4.4 4.0-10.0 [facility] ([facility]) Red Blood Count 3.43 4.00-5.40 [facility] ([facility]) Platelets 222 150-450 [facility] ([facility]) Hematocrit 32.1 36.0-47.0 [facility] ([facility]) Hemoglobin 10.5 12.0-15.5 [facility] ([facility]) ID Date Data Source [id number] 03/06/2021 11:59:00 AM EDT [facility] ([facility]) Name Value Range Interpretation Code Description Data Natalie rce(s) Supporting Document(s) Magnesium [Mass/volume] in Serum or Plasma 1.6 mg/dL 1.8-2.4 [facility] (Cardiology [facility]) Natriuretic peptide.B prohormone N-Terminal [Mass/volu me] in Serum or Plasma 5727 pg/mL [facility] ([employer] [facility]) Lipoprotein lipase [Enzymatic activity/volume] in Serum or Plasm a 87 U/L 73-393 [facility] (Cardiology [facility]) ID Date Data Source [id number] 03/06/2021 11:59:00 AM EDT [facility] ([facility]) Name Value Range Interpretation Code Description Data Natalie rce(s) Supporting Document(s) Ast/Sgot 17 U/L 7-37 [facility] ([facility]) Alt/SGPT 15 U/L 12-78 [facility] (Cardiology [facility]) Alkaline Phosphatase 40 U/L 45-117 [facility] ([facility]) Bilirubin,Total 0.5 mg/dL 0.2-1.0 [facility] ([facility]) Total Protein 5.8 GM/DL 6.4-8.2 [facility] ([facility]) Bilirubin,Direct 0.2 mg/dL 0.0-0.2 [facility] ([facility] Albumin/Globulin Ratio 1.1 1.2-2.2 MED[facility] (Cardiology [facility]) Albumin 3.1 GM/DL 3.2-5.2 [facility] ([facility]) ID Date Data Source [id number] 03/06/2021 11:59:00 AM EDT [facility] ([facility]) Name Value Range Interpretation Code Description Data Natalie rce(s) Supporting Document(s) CK-MB Value Mass 1.4 ng/mL [facility] ([facility]) CPK Creatine Phosphokinase 78 U/L 26-192 [facility] ([facility]) Troponin I Laboratory test result [facility] ([facility]) <content>Troponin I Reference Interval f or Siemens [place] LOCI:</content>
<content></content>
<content>99th Percentile= 0.00-0.045 ng/ml</content>
<content></content>
<content>Risk Stratification:</content>
<content><= 0.10 ng/ml Decreased Risk for Adverse Clinical</content>
<content>Events.</content>
<content>0.10-1.50 ng/ml Increased Risk for Adverse Clinical</content>
<content>Events. Evaluation of additional</content>
<content>criterion and/or repeat testing in 2-6</content>
<content>hours is suggested to rule out myocardial</content>
<content>damage.</content>
<content>>= 1.50 ng/ml Indicative of Myocardial Injury.</content>
<content></content> MB/CK Relative Index 1.79 [facility] ([facility]) <content>DIAGNOSIS CRITERIA</content>
<content>MMB ng/ml Relative Index (RI)</content>
<content>NON-AMI < or = 5 N/A</content>
<content>HICKS ZONE > 5 < or = 4</content>
<content>AMI > 5 > 4</content>
<content></content> ID Date Data Source [id number] 03/06/2021 11:08:00 AM EDT [facility] Name Value Range Interpretation Code Description Data Natalie rce(s) Supporting Document(s) SARS coronavirus 2 RNA [Presence] in Res piratory specimen by KANDI with probe detection NEGATIVE [facility] This lab was ordered by [facility] a nd reported by [facility]. ID Date Data Source [id number] 03/06/2021 11:00:00 AM EDT [facility] Name Value Range Interpretation Code Description Data Natalie rce(s) Supporting Document(s) Laboratory test finding (navigational concept) 36.0 % 38.0-51.0 [facility] [place] Laboratory test finding (navigational concept) 92 mg/dL 70-105 [facility] ([facility] Laboratory test finding (navigational concept) 135 meq/L 136-145 [facility] ([facility] Laboratory test finding (navigational concept) 4.1 meq/L 3.5-5.1 [facility] ([facility] Laboratory test finding (navigational concept) 4.3 mg/dL 4.5-5.3 [facility] ([facility] Laboratory test finding (navigational concept) 102 meq/L 98-109 [facility] ([facility] Laboratory test finding (navigational concept) 25.0 MM/L 23.0-27.0 [facility] ([facility] Laboratory test finding (navigational concept) 1.0 mg/dL 0.6-1.3 [facility] ([facility] Laboratory test finding (navigational concept) 33 mg/dL 8-26 [facility] ([facility] ID Date Data Source [id number] 03/06/2021 10:52:00 AM EDT [facility] ([facility]) Name Value Range Interpretation Code Description Data Natalie rce(s) Supporting Document(s) aPTT in Platelet poor plasma by Coagulation assay 36.9 s 24.2-38. 5 [facility] ([facility] ID Date Data Source [id number] 03/06/2021 10:52:00 AM EDT [facility] ([facility]) Name Value Range Interpretation Code Description Data Natalie rce(s) Supporting Document(s) Prothrombin Time 13.6 s 12.5-14.3 [facility] ([facility]) Inr 1.02 [facility] ([facility]) THERAPUTIC HUMAN INR VALUES INDICATIONS NORMAL RANGES PROPHYLAXIS/TREATMENT OF: VENOUS THROMBOSIS 2.0-3.0 PULMONARY EMBOLISM 2.0-3.0 PREVENTION OF SYSTEMIC EMBOLISM FROM: TISSUE HEART VALVES 2.0-3.0 ACUTE MYOCARDIAL INFARCTION 2.0-3.0 VALVULAR HEART DISEASE 2.0-3.0 ATRIAL FIBRILLATION 2.0-3.0 MECHANICAL VALVES(HIGH RISK) 2.5-3.5 RECURRENT MYOCARDIAL INFARCTION 2.5-3.5 ID Date Data Source [id number] 09/30/2020 03:26:00 PM EST [facility] ([facility]) Name Value Range Interpretation Code Description Data Natalie rce(s) Supporting Document(s) Blood Urea Nitrogen 20 mg/dL 7-18 [facility] ([facility], ) Glucose, Fasting 81 mg/dL 70-100 [facility] ([facility], ) Glomerular Filtration Rate 50.7 [facility] ([facility]) <content>Units are mL/min/1.73 m2</content>
<content></content>
<content>Chronic Kidney Disease Staging per NKF:</content>
<content></content>
<content>Stage I & II GFR >=60 Normal to Mildly Decreased</content>
<content>Stage III GFR 30- 59 Moderately Decreased</content>
<content>Stage IV GFR 15-29 Severely Decreased</content>
<content>Stage V GFR <15 Very Little GFR Left</content>
<content>ESRD GFR <15 on SETTER JU[employer] PACKAGING MACHINES</content>
<content></content> Creatinine For GFR 1.11 mg/dL 0.55-1.30 [facility] ([facility], ) Sodium Level 139 meq/L 136-145 [facility] ([facility]) Potassium Serum 3.9 meq/L 3.5-5.1 [facility] ([facility]) Chloride Level 106 meq/L 98-107 [facility] ([facility]) Carbon Dioxide Level 29 meq/L 21-32 [facility] ([facility]) Anion Gap 4 meq/L 8-16 [facility] ([facility]) Calcium Level 8.7 mg/dL 8.8-10.2 [facility] ([facility]) Ast/Sgot 15 U/L 7-37 [facility] ([facility]) Alkaline Phosphatase 42 U/L 45-117 [facility] ([facility]) Alt/SGPT 18 U/L 12-78 [facility] ([facility], ) Total Protein 6.7 GM/DL 6.4-8.2 [facility] ([facility], ) Bilirubin,Total 0.4 mg/dL 0.2-1.0 [facility] ([facility]) Albumin 3.4 GM/DL 3.2-5.2 [facility] ([facility], ) Albumin/Globulin Ratio 1.0 1.2-2.2 [facility] ID Date Data Source [id number] 09/30/2020 03:26:00 PM EST [facility] ([facility], ) Name Value Range Interpretation Code Description Data Natalie rce(s) Supporting Document(s) Erythrocyte sedimentation rate by 2H Westergren method 16 mm/hr 0-3 0 [facility] ([facility]) ID Date Data Source [id number] 09/30/2020 03:26:00 PM EST [facility] ([facility], ) Name Value Range Interpretation Code Description Data Natalie rce(s) Supporting Document(s) White Blood Count 6.1 10 4.0-10.0 [facility] ([facility], ) Red Blood Count 4.25 10 4.00-5.40 [facility] Hemoglobin 12.4 g/dL 12.0-15.5 [facility] ([facility], ) Mean Corpuscular Volume 92.7 fl 80.0-96.0 M EDENT ([facility], ) Hematocrit 39.4 % 36.0-47.0 [facility] ([facility], ) Mean Corpuscular HGB Conc 31.5 g/dL 32.0-36.5 [facility] ([facility]) Mean Corpuscular Hemoglobin 29.2 pg 27.0-33.0 [facility] Platelet Count, Automated 258 10 150-450 [facility] Red Cell Distribution Width 14.1 % 11.5-14.5 [facility] ([facility]) Lymph % 34.6 % 24.0-44.0 [facility] ([facility], ) [place] % 7.8 % 0.0-5.0 [facility] ([facility], ) Neutrophils % 52.7 % 36.0-66.0 [facility] ([facility], ) Eos % 3.8 % 0.0-3.0 [facility] ([facility], ) Baso % 0.8 % 0.0-1.0 [facility] Immature Granulocyte % 0.3 % 0-3.0 [facility] ([facility], ) Nucleated Red Blood Cell % 0.0 % 0-0 [facility] ([facility], ) [place] # 0.5 10 0.0-0.8 [facility] ([facility], ) Neutrophils # 3.2 10 1.5-8.5 [facility] ([facility], ) Lymph # 2.1 10 1.5-5.0 [facility] ([facility], ) Eos # 0.2 10 0.0-0.5 [facility] ([facility], ) Baso # 0.1 10 0.0-0.2 [facility] ([facility], ) ID Date Data Source [id number] 09/30/2020 03:26:00 PM EST [facility] ([facility]) Name Value Range Interpretation Code Description Data Natalie rce(s) Supporting Document(s) Laboratory test finding (navigational concept) Laboratory test result [facility] ([facility]) Performed at: [facility] [address] [id number] Air Quality Engineer: Irina Negro MD, Phone: [phone] Performed at: [facility] [address] [id number] Air Quality Engineer: Shelby Sorensen MD, Phone: [phone] ID Date Data Source [id number] 09/30/2020 03:26:00 PM EST [facility] ([facility], ) Name Value Range Interpretation Code Description Data Natalie rce(s) Supporting Document(s) Antinuclear Antibodies Direct Laboratory test result [facility] ([facility], ) Sjogren's Anti SS-A Laboratory test result 0.0-0.9 [facility] Sjogren's Anti SS-B Laboratory test result 0.0-0.9 [facility] ([facility], ) ID Date Data Source [id number] 09/30/2020 03:26:00 PM EST [facility] ([facility]) Name Value Range Interpretation Code Description Data Natalie rce(s) Supporting Document(s) Thiamine [Mass/volume] in Blood 111.1 nmol/L 66.5-200.0 [facility] ([facility]) Specimen Comment: Test(s) [id number]-Xcrqbbf E(Alpha Tocopherol); [id number]- Specimen Comment: Vitamin E(Gamma Tocopherol); 524701-Fafdidb B6; 383021- Specimen Comment: Vit. B1, Whole Blood Specimen Comment: was developed and its performance characteristics Specimen Comment: determined by [facility]. It has not been cleared or approved Specimen Comment: by the Food and Drug Administration. Pyridoxine [Mass/volume] in Serum or Plasma 2.4 ug/L 2.0-32.8 [facility] ([facility]) Specimen Comment: Test(s) [id number]-Kzqllxm E(Alpha Tocopherol); 415119- Specimen Comment: Vitamin E(Gamma Tocopherol); 779338-Wyfzeiz B6; 772086- Specimen Comment: Vit. B1, Whole Blood Specimen Comment: was developed and its performance characteristics Specimen Comment: determined by [facility]. It has not been cleared or approved Specimen Comment: by the Food and Drug Administration. ID Date Data Source [id number] 09/30/2020 03:26:00 PM EST [facility] ([facility]) Name Value Range Interpretation Code Description Data Natalie rce(s) Supporting Document(s) Perinuclear AB Anca-P Laboratory test result [facility] ([facility]) The presence of positive fluorescence ex hibiting P-ANCA or C-ANCA patterns alone is not specific for the diagnosis of Abida's Granulomatosis (WG) or microscopic polyangiitis. Decisions about treatment should not be based solely on ANCA IFA results. The International ANCA Group Consensus recommends follow up testing of positive sera with both OH- 3 and MPO-ANCA enzyme immunoassays. As m any as 5% serum samples are positive only by EIA. Ref. AM J Clin Pathol 1999;111:507-513. Cytoplasmic Neutrop AB Anca-C Laboratory test result [facility] ([facility], ) Anca-Atypical Laboratory test result [facility] ([facility]) The atypical pANCA pattern has been obse rved in a significant percentage of patients with ulcerative colitis, primary sclerosing cholangitis and autoimmune hepatitis. ID Date Data Source [id number] 09/30/2020 03:26:00 PM EST [facility] ([facility]) Name Value Range Interpretation Code Description Data Natalie rce(s) Supporting Document(s) Vitamin E(Alpha Tocopherol) 13.2 mg/L 9.0-29.0 [facility] ([facility], ) Vitamin E(Gamma Tocopherol) 1.6 mg/L 0.5-4.9 [facility] ([facility]) Reference intervals for alpha and gamma- tocopherol determined from National Health and Nutrition Examination Survey, 4800-2635. Individuals with alpha-tocopherol levels less than 5.0 mg/L are considered vitamin E deficient. ID Date Data Source [id number] 09/30/2020 03:26:00 PM EST [facility] ([facility]) Name Value Range Interpretation Code Description Data Natalie rce(s) Supporting Document(s) Rheumatoid factor [Units/volume] in Serum or Plasma Laboratory test result [facility] ([facility]) ID Date Data Source [id number] 09/30/2020 03:26:00 PM EST [facility] ([facility]) Name Value Range Interpretation Code Description Data Natalie rce(s) Supporting Document(s) Vitamin B12 Level 386 pg/mL [facility] ([facility]) VITAMIN B12 NORMAL RANGE NORMAL 247 - 911 PG/ML INDETERMINATE 211 - 246 PG/ML DEFICIENT LESS THAN 211 PG/ML Folate 9.5 ng/mL [facility] ([facility]) FOLATE NORMAL RANGE NORMAL GREATER THAN 5.4 NG/ML INDETERMINATE 3.4-5.4 NG/ML DEFICIENT LESS THAN 3.4 NG/ML ID Date Data Source [id number] 09/30/2020 03:26:00 PM EST [facility] ([facility]) Name Value Range Interpretation Code Description Data Natalie rce(s) Supporting Document(s) Thyrotropin [Units/volume] in Serum or Plasma 5.770 uIU/ML 0.358-3.74 0 [facility] ([facility]) ID Date Data Source [id number] 09/30/2020 03:26:00 PM EST [facility] ([facility]) Name Value Range Interpretation Code Description Data Natalie rce(s) Supporting Document(s) Albumin % 58.5 % 55.8-66.1 [facility] ([facility], ) Ufjlb-6-Dotynzwg % 4.6 % 2.9-4.9 [facility] ([facility]) Yujgs-4-Yynaetlsp % 11.4 % 7.1-11.8 [facility] ([facility], ) Qsis-8-Lxqxzogsc % 5.1 % 3.2-6.5 [facility] ([facility]) Xzjj-6-Pvloupmwc % 6.5 % 4.7-7.2 [facility] ([facility]) Albumin 3.92 GM/DL 3.29-5.55 [facility] ([facility], ) Gamma Globulin % 13.9 % 11.1-18.8 [facility] ([facility]) Bbczd-6-Pwzvquzer 0.76 GM/DL 0.42-0.99 [facility] ([facility]) Bcthy-9-Xkudpvltt 0.31 GM/DL 0.17-0.41 [facility] ([facility]) Pkct-4-Legkwnkir 0.44 GM/DL 0.28-0.60 [facility] ([facility]) Kacd-1-Zbjzkbgzw 0.34 GM/DL 0.19-0.55 [facility] ([facility]) Total Protein 6.7 GM/DL 6.4-8.2 [facility] ([facility], ) Gamma Globulins 0.93 GM/DL 0.65-1.58 [facility] ([facility]) Spep Interpretation Laboratory test result [facility] ([facility], ) NO M-SPIKE(S)NOTED. Laboratory test finding (navigational concept) Laboratory test result [facility] ([facility]) REV'D BY Anyi DANIELSON Procedure Social History Code Duration Value Status Description Data Source(s ) Alcohol intake 05/30/2021 12:00:00 AM EDT Lifetime non-drinker (finding) completed Lifetime non-drinker (finding) [facility] Alcohol intake 05/29/2021 12:00:00 AM EDT Lifetime non-drinker (finding) completed Lifetime non-drinker (finding) [facility] Alcohol intake 05/24/2021 12:00:00 AM EDT Lifetime non-drinker (finding) completed Lifetime non-drinker (finding) [facility] Smoking 03/22/2021 12:00:00 AM EDT Patient has never smoked co mpleted Patient has never smoked [facility] ([facility]) Smoking 03/13/2021 12:00:00 AM EDT Patient has never smoked co mpleted Patient has never smoked [facility] ([facility], ) Vital Signs ID Date Data Source UNK Name Value Range Interpretation Code Description Data Source(s) Systolic blood pressure 115 mm[Hg] 115 mm[Hg] [facility] Diastolic blood pressure 59 mm[Hg] 59 mm[Hg] [facility] Heart rate 69 /min 69 /min [facility] Body temperature 36.39 Carol 36.39 Carol [facility] Respiratory rate 16 /min 16 /min [facility] Oxygen saturation in Arterial blood by Pulse oximetry 95 % 95 % [facility] Body height 167.6 cm 167.6 cm [facility] Body weight 59.421 kg 59.421 kg [facility] Body mass index (BMI) [Ratio] 21.15 kg/m2 21.15 kg/m2 [facility] Body height 167.6 cm 167.6 cm [facility] Systolic blood pressure 110 mm[Hg] 110 mm[Hg] [facility] Diastolic blood pressure 66 mm[Hg] 66 mm[Hg] [facility] Heart rate 68 /min 68 /min [facility] Body temperature 36.17 Carol 36.17 Carol [facility] Respiratory rate 18 /min 18 /min [facility] Body weight 59.421 kg 59.421 kg [facility] Body mass index (BMI) [Ratio] 21.14 kg/m2 21.14 kg/m2 [facility] Oxygen saturation in Arterial blood by Pulse oximetry 97 % 97 % [facility] Systolic blood pressure 130 mm[Hg] 130 mm[Hg] M [facility] ([facility], ) Diastolic blood pressure 70 mm[Hg] 70 mm[Hg] [facility] ([facility], ) Heart rate 72 /min 72 /min [facility] ([facility], ) Respiratory rate 16 /min 16 /min [facility] ( [facility], ) Body mass index (BMI) [Ratio] 21.3 kg/m2 21.3 k g/m2 [facility] ([facility]) Heart rate 65 /min 65 /min [facility] ([facility]) Body weight 132.00 [lb_av] 132.00 [lb_av] [facility] T ([facility]) Body height 66 [in_i] 66 [in_i] [facility] ([facility]) 5'6" Systolic blood pressure--sitting 110 mm[Hg] 110 mm[Hg] [facility] ([facility]) Ra, medium cuff Diastolic blood pressure--sitting 68 mm[Hg] 68 mm[Hg] [facility] ([facility]) Ra, medium cuff Systolic blood pressure 124 mm[Hg] 124 mm[Hg] M EDENT ([facility], ) Diastolic blood pressure 60 mm[Hg] 60 mm[Hg] [facility] ([facility], ) Heart rate 72 /min 72 /min [facility] ([facility], ) Respiratory rate 16 /min 16 /min [facility] ( [facility], ) Body temperature 97.6 [degF] 97.6 [degF] [facility] ([facility], ) Body surface area Derived from formula 1.69 m2 1.69 m2 [facility] ([facility], ) [place] body weight 130 [lb_av] 130 [lb_av] MEDEN T ([facility], ) Body weight 61.236 kg 61.236 kg [facility] ([facility], ) Body mass index (BMI) [Ratio] 21.8 kg/m2 21.8 k g/m2 [facility] ([facility], ) Systolic blood pressure 102 mm[Hg] 102 mm[Hg] M EDENT ([facility], ) Diastolic blood pressure 58 mm[Hg] 58 mm[Hg] [facility] ([facility], ) Heart rate 60 /min 60 /min [facility] ([facility], ) Oxygen saturation in Arterial blood by Pulse oximetry 98 % 98 % [facility] ([facility]) Body temperature 97.8 [degF] 97.8 [degF] [facility] ([facility]) Body height 66 [in_i] 66 [in_i] [facility] ([facility]) 5'6" Body weight 135.00 [lb_av] 135.00 [lb_av] MEDEN T ([facility]) PT States Body mass index (BMI) [Ratio] 21.6 kg/m2 21.6 k g/m2 [facility] ([facility]) Body weight 134.00 [lb_av] 134.00 [lb_av] [facility] T ([facility]) Body height 66 [in_i] 66 [in_i] [facility] ([facility]) 5'6" Heart rate 60 /min 60 /min [facility] ([facility]) Systolic blood pressure--sitting 112 mm[Hg] 112 mm[Hg] [facility] ([facility]) Ra, medium cuff Diastolic blood pressure--sitting 70 mm[Hg] 70 mm[Hg] [facility] ([facility]) Ra, medium cuff Body weight 139.00 [lb_av] 139.00 [lb_av] MED[facility] T ([facility]) Body height 66 [in_i] 66 [in_i] [facility] ([facility]) 5'6" Body mass index (BMI) [Ratio] 22.4 kg/m2 22.4 k g/m2 [facility] ([facility]) Oxygen saturation in Arterial blood by Pulse oximetry 97 % 97 % [facility] ([facility], ) [place] body weight 130 [lb_av] 130 [lb_av] MEDEN T ([facility]) Body height 66 [in_i] 66 [in_i] [facility] ([facility]) 5'6" Body weight 142.38 [lb_av] 142.38 [lb_av] MED[facility] T ([facility] ) Body mass index (BMI) [Ratio] 23.0 kg/m2 23.0 k g/m2 [facility] ([facility]) Body weight 64.581 kg 64.581 kg [facility] ([facility]) Body surface area Derived from formula 1.73 m2 1.73 m2 [facility] ([facility]) Body temperature 96.8 [degF] 96.8 [degF] [facility] [facility] Systolic blood pressure 134 mm[Hg] 134 mm[Hg] M [facility]) Diastolic blood pressure 76 mm[Hg] 76 mm[Hg] [facility] ([facility]) Heart rate 60 /min 60 /min [facility] ([facility]) Patient Treatment Plan of Care Planned Activity Planned Date Details Description Data Source (s) Insulin Lispro 100 UNT/ML Injectable Solution 05/30/2021 08:00:00 A M EDT [facility] Simvastatin 10 MG Oral Tablet 05/29/2021 11:00:00 PM EDT [facility] Albuterol 0.83 MG/ML Inhalant Solution 05/29/2021 10:19:14 PM EDT [facility] Carboxymethylcellulose 0.01 MG/MG Ophthalmic Gel 05/29/2021 10:19:1 4 PM EDT [facility] Cholecalciferol (VITAMIN D PO) [facility]
[2021-08-18 09:03] LABS: BASO # 0.1 10^3/uL (0.0-0.2); BASO % 0.7 % (0.0-1.0); EOS # 0.2 10^3/uL (0.0-0.5); EOS % 2.5 % (0.0-3.0); HEMATOCRIT 32.2 % (36.0-47.0); HEMOGLOBIN 10.1 g/dl (12.0-15.5); LYMPH # 2.4 10^3/uL (1.5-5.0); LYMPH % 33.2 % (24.0-44.0); MEAN CORPUSCULAR HEMOGLOBIN 28.4 pg (27.0-33.0); MEAN CORPUSCULAR HGB CONC 31.4 g/dl (32.0-36.5); MEAN CORPUSCULAR VOLUME 90.4 fl (80.0-96.0); MONO # 0.6 10^3/uL (0.0-0.8); MONO % 8.5 % (2.0-8.0); NEUTROPHILS % 54.7 % (36.0-66.0); PLATELET COUNT, AUTOMATED 258 10^3/uL (150-450); RED BLOOD COUNT 3.56 10^6/uL (4.00-5.40); WHITE BLOOD COUNT 7.3 10^3/uL (4.0-10.0)
--- NOTE | 2021-08-18 09:08 | REP ---
INDICATION: DYSPNEA/COUGH. COMPARISON: 06/08/2021. TECHNIQUE: Single portable AP view of the chest was performed. FINDINGS: There is mild cardiomegaly. There is vascular congestion. There is diffuse interstitial edema. There may be small bilateral effusions. The mediastinal silhouette is unchanged. Left pacemaker is again noted. IMPRESSION: Findings compatible with cardiomegaly, CHF and interstitial edema as discussed above. <Electronically signed by Chicho Nevarez > 08/18/21 [id number]
[2021-08-18 09:46] LABS: ALBUMIN 3.1 GM/DL (3.2-5.2); ALT/SGPT 23 U/L (12-78); BILIRUBIN,DIRECT 0.2 MG/DL (0.0-0.2); BILIRUBIN,TOTAL 0.5 MG/DL (0.2-1.0); BLOOD UREA NITROGEN 16 MG/DL (7-18); CALCIUM LEVEL 8.7 MG/DL (8.8-10.2); CARBON DIOXIDE LEVEL 24 MEQ/L (21-32); CHLORIDE LEVEL 113 MEQ/L (98-107); CK-MB VALUE MASS 2.6 NG/ML (<3.6); CPK CREATINE PHOSPHOKINASE 60 U/L (26-192); CREATININE FOR GFR 0.82 MG/DL (0.55-1.30); GLOMERULAR FILTRATION RATE > 60.0 (>39); GLUCOSE, FASTING 121 MG/DL (70-100); MB/CK RELATIVE INDEX 4.33 (< OR =4); NT-PRO BNP 37929 PG/ML (<450); POTASSIUM SERUM 3.8 MEQ/L (3.5-5.1); SODIUM LEVEL 143 MEQ/L (136-145); THYROID STIMULATING HORMONE 0.008 uIU/ML (0.358-3.740); TOTAL PROTEIN 6.2 GM/DL (6.4-8.2); TROPONIN I 0.02 NG/ML (< 0.10)
[2021-08-18] MEDS ORDERED: FUROSEMIDE 20MG/2ML VIAL (J1940) IV ONE (11:40)
[2021-08-18 12:58] LABS: FREE T4 2.25 NG/DL (0.76-1.46)
[2021-08-18] MEDS ORDERED: DIGOXIN 0.25 MG TAB PO STA (15:37)
[2021-08-18] MEDS ORDERED: DIGOXIN INJ 0.5 MG/2 ML AMP (J1160) IV ONE (15:40)
[2021-08-18] MEDS ORDERED: DIGO0.123 PO (15:48)
[2021-08-18 16:05] LABS: FREE T3 2.8 PG/ML (2.2-4.0)
[2021-08-18 16:10] LABS: THYROID PEROXIDASE ANTIBODY < 28.0 U/ML (<60.0)
[2021-08-18 17:45] VITALS: BP 125/67
--- NOTE | 2021-08-19 06:33 | ECGEPIP ---
[facility] - ED Test Date: 2021-08-18 Pat Name: BENJI RIOS Department: Room: - Gender: Female Financial Analysis Consultant: ELVIRA : 1945 Requested By: RANJIT Izaguirre Order Number: [id number] Reading MD: Ranjit Faith Measurements Intervals [place] Rate: 78 P: 73 PA: 152 QRS: -53 QRSD: 164 T: 86 QT: 498 QTc: 567 Interpretive Statements Atrial-sensed ventricular-paced rhythm with frequent AV dual-paced complexes Similar to tracing done 06-06-21 Electronically Signed on 08-19-2021 6:33:30 EDT by Ranjit Faith
== END 2021-08-18 18:06 | disposition home or self-care (01) ==
LOC: M ED 08:02
DX: I50.9 Heart failure, unspecified (principal); E05.90 Thyrotoxicosis, unspecified without thyrotoxic crisis or storm; I48.91 Unspecified atrial fibrillation; R94.31 Abnormal electrocardiogram [ECG] [EKG]; E11.9 Type 2 diabetes mellitus without complications; J44.9 Chronic obstructive pulmonary disease, unspecified; E78.5 Hyperlipidemia, unspecified; Z79.84 Long term (current) use of oral hypoglycemic drugs; Z79.51 Long term (current) use of inhaled steroids; Z79.899 Other long term (current) drug therapy; Z88.8 Allergy status to other drugs, medicaments and biological substances; Z88.0 Allergy status to penicillin
CPT/HCPCS: 71045; 80048; 80076; 82550; 82553; 83880; 84439; 84443; 84481; 84484; 85025; 86376; 87798; 93005; 93041; 94760; 96374; 96375; 99285; J1160; J1940

== ENCOUNTER → 2021-09-18 | Outpatient (CLI) | payer MEDICARE, OTHER ==
[2021-09-18 18:02] LABS: HEMATOCRIT 34.2 % (36.0-47.0); HEMOGLOBIN 10.8 g/dl (12.0-15.5); MEAN CORPUSCULAR HEMOGLOBIN 27.9 pg (27.0-33.0); MEAN CORPUSCULAR HGB CONC 31.6 g/dl (32.0-36.5); MEAN CORPUSCULAR VOLUME 88.4 fl (80.0-96.0); PLATELET COUNT, AUTOMATED 315 10^3/uL (150-450); RED BLOOD COUNT 3.87 10^6/uL (4.00-5.40); WHITE BLOOD COUNT 7.6 10^3/uL (4.0-10.0)
[2021-09-18 18:31] LABS: ALT/SGPT 20 U/L (12-78); BILIRUBIN,TOTAL 0.5 MG/DL (0.2-1.0); BLOOD UREA NITROGEN 27 MG/DL (7-18); CALCIUM LEVEL 8.8 MG/DL (8.8-10.2); CARBON DIOXIDE LEVEL 28 MEQ/L (21-32); CHLORIDE LEVEL 105 MEQ/L (98-107); CREATININE FOR GFR 0.91 MG/DL (0.55-1.30); GLOMERULAR FILTRATION RATE > 60.0 (>39); GLUCOSE, FASTING 98 MG/DL (70-100); NT-PRO BNP 31611 PG/ML (<450); POTASSIUM SERUM 3.3 MEQ/L (3.5-5.1); SODIUM LEVEL 141 MEQ/L (136-145); TOTAL PROTEIN 6.4 GM/DL (6.4-8.2)
== END ==
LOC: M PLALAB 16:01
PROVIDERS: ATTEND Physician Assistant
DX: I50.32 Chronic diastolic (congestive) heart failure (principal)

== ENCOUNTER → 2022-08-14 | Outpatient (CLI) | payer MEDICARE, OTHER ==
[~2022-08-14] MED LIST changes: -AMIO200T3 PO; +AMIO200T49 PO; -D31000TA2 PO; +VITA100093 PO
[2022-08-14 18:22] LABS: ALBUMIN 3.1 GM/DL (3.2-5.2); BILIRUBIN,TOTAL 0.7 MG/DL (0.2-1.0); CALCIUM LEVEL 8.8 MG/DL (8.8-10.2); CREATININE FOR GFR 1.05 MG/DL (0.55-1.30); GLOMERULAR FILTRATION RATE 53.8 (>39); MAGNESIUM LEVEL 1.9 MG/DL (1.8-2.4); POTASSIUM SERUM 4.9 MEQ/L (3.5-5.1); TOTAL PROTEIN 6.7 GM/DL (6.4-8.2)
== END ==
LOC: M PLALAB 15:13
PROVIDERS: ATTEND Physician Assistant
DX: I50.32 Chronic diastolic (congestive) heart failure (principal)